=== PATIENT | male | born 1965 | race Caucasian/White ===

== ENCOUNTER 2023-10-21 06:14 | Inpatient (IN) | payer OTHER, SELFPAY ==
[2023-10-14 11:07] LABS: Hematocrit 26.8 % (39.0-52.0); Hemoglobin 8.6 g/dL (13.0-18.0); Mean Corp Hgb Conc. 32.1 g/dL (33.0-37.0); Mean Corpuscular Hgb 28.6 pg (27.0-31.0); Mean Platelet Volume 9.4 fL (7.4-10.4); Platelet Count 370 10^3/uL (130-400); Red Blood Cell Count 3.01 10^6/uL (4.70-6.10); Red Cell Dist. Width 16.2 % (11.5-14.5); White Blood Cell Count 3.4 10^3/uL (4.8-10.8)
[2023-10-14 11:36] LABS: INR 1.02; PT 13.2 Sec (11.4-14.6)
[2023-10-14 11:37] LABS: APTT 29.2 Sec (23.4-35.0)
[2023-10-14 11:47] LABS: ALT (SGPT) 20 U/L (0-50); AST (SGOT) 23 U/L (17-59); Albumin 3.9 g/dl (3.5-5.0); Alkaline Phosphatase 87 U/L (38-126); Blood Urea Nitrogen 15 mg/dl (9-20); Carbon Dioxide 23 mmol/L (22-30); Chloride 109 mmol/L (98-107); Glucose 108 mg/dl (70-99); Potassium 4.5 mmol/L (3.5-5.1); Sodium 139 mmol/L (135-145); Total Bilirubin 0.4 mg/dl (0.2-1.3); eGFR > 60.00
[2023-10-14 12:21] VITALS: BMI 26.3
--- NOTE | 2023-10-17 09:37 | PTCARENOTE ---
Patients 10/14 [facility] 8.6- Silvia @ Dr. Bill office notified.
--- NOTE | 2023-10-18 13:36 | PTCARENOTE ---
Dr. Vizcaino notified of patients 8.6 hgb- T&S to be done day of surgery
[2023-10-21] VITALS (16 sets, daily range): BP systolic 132–156; BP diastolic 68–89; BMI 26.3; BMI 25.6
[2023-10-21] MEDS: HEPARIN 5000 UNITS SC ×2 (06:44→20:29)
[2023-10-21] MEDS: NORMOSOL-R 1000 IV (06:45)
[2023-10-21] MEDS: NEURONTIN 300 MG PO (06:58)
[2023-10-21 10:25] LABS: B.E. - POC -2.9 mmol/L; Glucose - POC 140 mg/dl (65-99); HCO3 - POC 21 mmol/L (21-29); Hematocrit - POC 27 % PCV (42-52); Hemodilution- POC No; Hemoglobin Calculated - POC 9.2; Ionized Calcium - POC 1.08 mmol/L (1.12-1.27); Lactate - POC 0.51 mmol/L (0.36-0.75); O2 Saturation %Calculated-POC 99.9 5 (92-96); PCO2 - POC 33 mmHg (35-45); PO2 - POC 258 mmHg (80-100); Potassium - POC 4.6 mmol/L (3.6-5.0); Sodium - POC 137 mmol/L (135-145); pH - POC 7.41 (7.35-7.45)
--- NOTE | 2023-10-21 11:44 | W.IMMPOSTOP ---
Surgical Immed Post Op Note
-
Primary Surgeon: Yordan Riley MD
Assisting Surgeon: Rowan Olivia
Pre-op Diagnosis: hepatic metastases from the rectal cancer
Post-op Diagnosis: hepatic metastases from the rectal cancer
Procedure Performed: sublobar resections of four tumors in the segment VIII and two tumors in the segment IV
Anesthesia Type: General
Specimen / Cultures: Segment VIII anterior, #2, #3, & #4 tumors, and Segment IV anterior and posterior tumors
Estimated Blood Loss: 175cc
Complications: none
Operative Findings: multiple liver mets
--- NOTE | 2023-10-21 12:19 | HPS.HSE ---
Addendum entered and electronically signed by David Baca MD 10/21/23 13:48:
I saw and examined the patient.
The DIRECTOR GRAPHICS or PA's note was reviewed and I agree with the note.
Comment: 57-year-old male with history of rectal cancer with metastases to the liver came to the hospital for liver lesion removal. Surgery was done by Dr. Yordan Riley. per Surgeon patient lost about 170cc blood. post OP denies any nausea. Does have
some pain. Denies history of hypertension. Hypertensive in PACU. Will add hydralazine as needed. Dr Yordan riley wanted patient to be monitored in ICU overnight. Transfuse hemoglobin less than 7. Mild LFT elevation. Monitor
General:�Comfortable and Conversant
HEENT:�NormoCephalic, Anicteric
Respiratory:�Clear; No Wheezes, Rales or Rhonchi
Cardiac:�S1/S2 and Regular Rhythm
GI:�Soft, Normal Bowel Sounds and Other (Aquacel dressing present over right upper/right middle lobe abdomen over surgical incision)
Musculoskeletal:�No Edema
Neuro:�AAOx3
Psych:�Calm
Original Note:
Family Physician
-
Family Physician: Rayo Rose
Chief Complaint
-
Status post liver lesions resection
History of Present Illness
57-year-old male January of last year was noted to be anemic and noted to have a rectal mass on colonoscopy which was biopsied. He was also complaining of abdominal pain and liver lesions was found on abdominal ultrasound but was difficult to biopsy
by IR. Patient reports mild pain postop 2 out of 10 he denies headache, shortness breath, chest pain, nausea, vomiting, diarrhea, urinary symptoms. He reports to me he has been taking Motrin 3 tablets every 4-6 hours over the past 2 months due to
constant rectal pain from rectal carcinoma.
PMH iron deficiency anemia, B12 deficiency adenocarcinoma rectal status post chemo Folfax last dose 6 weeks ago follows with Dr. Mascorro
Medical History
Past Medical History
Past Medical History: Reports Other (Rectal adenocarcinoma status postchemotherapy last dose 6 weeks ago, liver lesions)
Past Surgical History: Reports Other (Colonoscopy 02/08/2023)
Social History
Tobacco: Non-smoker
Alcohol: None
Drug: None
Personal:
Living: With Family (3 children)
Family History
Family History: Other (Mother breast cancer, father old age)
Allergies / Home Medications
Allergies reflects when Allergies were last updated in [facility].
Home Medications with original date entered in [facility]
Allergy/Medication List:
Allergies
Allergy/AdvReac Type Severity Reaction Status Date / Time
No Known Allergies Allergy Verified 10/21/23 06:29
Home Medications
Doculax 2 tab PO DAILY 10/17/23
Tylenol 1,000 mg PO Q6H PRN pain 10/17/23
ibuprofen 200 mg capsule 600 mg PO Q6H PRN pain 10/17/23
sildenafil 50 mg tablet (Viagra) 50 mg PO DAILY PRN sex 10/17/23
sennosides 8.6 mg-docusate sodium 50 mg capsule (Senna Plus) 2 tab PO DAILY PRN constipation 10/21/23
Review of Systems
-
History Source: Patient and Other (Chart)
A 12 point ROS was completed and negative except as noted: Yes
Constitutional: Denies Fever or Chills
EENT: Denies Sore Throat or Runny Nose
Respiratory: Denies Cough or Trouble Breathing
Cardiac: Denies Chest Pain or Palpitations
Abdomen/GI: Reports Abdominal Pain (At surgical site) and Other (Chronic rectal pain secondary to rectal mass); Denies Nausea, Vomiting, Diarrhea, Constipated, Bloody Stools or Black Stools
: Denies Dysuria, Frequency, Flank Pain or Incontinence
Musculoskeletal: Denies Joint Pain or Edema
Skin: Denies Itching or Rash
Neurological: Denies Dizzy or Headache
Endocrine: Reports No Symptoms
Hematologic/Lymphatic: Reports No Symptoms
Psych: Reports Calm
Physical Exam
Vital Signs
Vital Signs
Temp Pulse Resp BP Pulse Ox
97.9 F 98 13 143/81 100
10/21/23 11:55 10/21/23 12:00 10/21/23 12:00 10/21/23 12:00 10/21/23 12:00
Physical Exam
General: Comfortable and Conversant; No Fever or Chills
HEENT: NormoCephalic, Anicteric, Moist mucous membranes and PERRLA
Respiratory: Clear; No Wheezes, Rales or Rhonchi
Cardiac: S1/S2 and Regular Rhythm; No Murmur, Rub, Gallop or Peripheral Edema
Breast: Deferred by me
GI: Soft, Normal Bowel Sounds and Other (Aquacel dressing present over right upper/right middle lobe abdomen over surgical incision)
Genito-urinary: Deferred by me
Musculoskeletal: No Clubbing, No Cyanosis and No Edema
Skin: Warm and Dry; No Rash
Neuro: Oriented (Drowsy but oriented x 3), No Motor Deficits, Nonfocal/grossly intact and Cranial Nerves Intact; No Slurred Speech, Facial Droop or Tremors
Psych: Calm
Laboratory Results
-
Laboratory Results
PT 13.2 Sec (11.4-14.6) 10/14/23 09:05
INR 1.02 10/14/23 09:05
APTT 29.2 Sec (23.4-35.0) 10/14/23 09:05
Total Bilirubin 0.4 mg/dl (0.2-1.3) 10/14/23 09:05
AST 23 U/L (17-59) 10/14/23 09:05
ALT 20 U/L (0-50) 10/14/23 09:05
Alkaline Phosphatase 87 U/L (38-126) 10/14/23 09:05
Data Reviewed
-
Lab Data: Labs Reviewed by me
Impression/Plan
-
Impression/plan:
Admit to ICU
#Status post multiple liver lesions with resection presumed from rectal carcinoma
-S/P sublobar resections of four tumors in the segment VIII and two tumors in the segment IV
-Patient being followed by Dr. Riley
-Lesions pending biopsy
-IV pain control with Dilaudid
-N.p.o.
-IV NSS
-IV hydralazine 10 mg every 6 hours SBP> 160
-Follow CBC, CMP
#Adenocarcinoma�rectal
Status post chemo Folfax started September 2023, last dose [address] Dubose
#Iron deficiency anemia
-Follow CBC patient stopped oral Feosol
#B12 deficiency
Follow CBC patient stopped oral B12
DVT prophylaxis
Subcu heparin okay with surgery
Full code
�
[2023-10-21] MEDS: DILAUDID 0.25 MG IV (12:21)
[2023-10-21 12:34] LABS: ALT (SGPT) 171 U/L (0-50); AST (SGOT) 292 U/L (17-59); Albumin 3.5 g/dl (3.5-5.0); Alkaline Phosphatase 82 U/L (38-126); Blood Urea Nitrogen 10 mg/dl (9-20); Calcium 7.8 mg/dl (8.4-10.2); Carbon Dioxide 24 mmol/L (22-30); Chloride 107 mmol/L (98-107); Estimated Creatinine Clearance 92 ml/min; Glucose 144 mg/dl (70-99); Potassium 4.9 mmol/L (3.5-5.1); Sodium 136 mmol/L (135-145); Total Bilirubin 0.5 mg/dl (0.2-1.3); Total Protein 6.4 g/dl (6.3-8.2); eGFR > 60.00
[2023-10-21 12:38] LABS: Hematocrit 24.6 % (39.0-52.0); Hemoglobin 7.9 g/dL (13.0-18.0); Mean Corp Hgb Conc. 32.1 g/dL (33.0-37.0); Mean Corpuscular Hgb 27.4 pg (27.0-31.0); Mean Corpuscular Volume 85.4 fL (80.0-94.0); Mean Platelet Volume 9.1 fL (7.4-10.4); Platelet Count 353 10^3/uL (130-400); Red Blood Cell Count 2.88 10^6/uL (4.70-6.10); Red Cell Dist. Width 17.6 % (11.5-14.5); White Blood Cell Count 6.4 10^3/uL (4.8-10.8)
[2023-10-21 12:46] LABS: APTT 30.7 Sec (23.4-35.0); INR 1.17; PT 14.7 Sec (11.4-14.6)
[2023-10-21] MEDS: DILAUDID 0.5 MG IV ×3 (13:56→23:19)
[2023-10-21] MEDS: NSS 1000 IV (14:00)
[2023-10-21 14:19] LABS: Iron 65 ug/dl (49-181); Magnesium 3.1 mg/dl (1.6-2.3)
[2023-10-21 14:28] LABS: Percent Saturation 15 % (20-50); Total Iron Binding Capacity 426 ug/dl (261-462)
--- NOTE | 2023-10-21 15:15 | CON.INTV ---
Consultation
Consultation Request
Date/Time Consultation Requested: 10/21/2023
Date/Time Consultation Performed: 10/21/2023 - 1425
Requesting Provider: Dr. Riley
Performing Provider: Dr. Lincoln
Reason for Consultation: s/p liver resection
Medical History
-
Chief Complaint: Elective hepatic resection
History of Present Illness:
57-year-old male with a past medical history of rectal adenocarcinoma s/p chemotherapy presents with elective liver resection. Patient initially had anemia in January 2023 and was diagnosed with rectal adenocarcinoma. Metastatic workup revealed at
least 4 hepatic lesions suspicious for liver metastasis. He then received modified FOLFOX neoadjuvant treatment which he has been tolerating well. Patient had CT chest, abdomen, pelvis in May 2023 showing several small ill-defined
hypoattenuating hepatic dome lesions reduced from prior imaging from February 2023. He again had repeat imaging with an abdominal MRI in August 2023 showing slight interval improvement in hepatic metastatic lesions. A pelvic MRI on 09/09/2023
showed that the primary tumor and extramural disease showed no or minimal response. Patient met with Dr. Glez in the office on 10/07/2023 and surgical intervention/management of his colorectal liver metastasis was discussed. Patient agreed for
liver resection given the overwhelming evidence that resection of liver metastasis provides an effective therapeutic approach that can cure a substantial portion of patients. Today, patient underwent sublobar resection of 4 tumors in the segment
VIII and two tumors in the segment IV. EBL was 175 cc and there were no complications. Patient transferred to ICU postoperatively and now critical care service consulted for additional management/recommendations.
When I saw the patient he was in bed. Significant other at bedside. He feels well. Had just received Dilaudid for pain control. He has no complaints, denies headache, chest pain, shortness of breath, fevers or chills.
PMHx: Rectal cancer with metastasis to the liver
PSHx: Colonoscopy
Past Medical History
Past Medical History: Other (Above as per HPI)
Past Surgical History: Other (Above as per HPI)
Social History
Tobacco: Non-smoker
Alcohol: None
Drug: None
Personal:
Living: With Family
Family History
Family History: Cancer (Mother: Breast cancer)
Allergies / Home Medications
Allergies
Allergy/AdvReac Type Severity Reaction Status Date / Time
No Known Allergies Allergy Verified 10/21/23 06:29
Home Medications
Medication Instructions Recorded Confirmed Last Taken Type
Doculax 2 tab PO DAILY 10/17/23 10/21/23 10/20/23 08:00 History
Tylenol 1,000 mg PO Q6H PRN pain 10/17/23 10/21/23 10/21/23 05:00 History
ibuprofen 200 mg capsule 600 mg PO Q6H PRN pain 10/17/23 10/21/23 1 Week Ago History
~10/14/23
sildenafil 50 mg tablet (Viagra) 50 mg PO DAILY PRN sex 10/17/23 10/21/23 2 Weeks Ago History
~10/07/23
sennosides 8.6 mg-docusate sodium 2 tab PO DAILY PRN constipation 10/21/23 10/21/23 10/20/23 08:00 History
50 mg capsule (Senna Plus)
Review of Systems
-
History Source: Patient
All other systems: Negative unless noted (12 point ROS performed and is negative unless mentioned above.)
Vitals / Labs / Diagnostic Testing
Vital Signs
Temp Pulse Resp BP Pulse Ox
98.1 F 98 16 149/84 97
10/21/23 13:35 10/21/23 13:30 10/21/23 13:30 10/21/23 13:30 10/21/23 13:35
Lab Data
10/21/23 12:09
Laboratory Results
10/21/23
12:09
PT 14.7 H
INR 1.17
APTT 30.7
Diagnostic Testing:
Physical Exam
-
HEENT: Normocephalic and Anicteric
Cardiovascular: S1/S2 and Peripheral Edema (negative)
Respiratory: Clear, Wheeze (negative), Rales (negative), Rhonchi (negative) and Non-Labored Respirations
GI: Soft, Non Distended and Non Tender
Neurology: Awake and Alert
Skin: Warm, Dry and Other (Bandage across RUQ going towards sternum)
General: Comfortable, Chills (negative) and Sweats (negative)
Assessment
-
Assessment: 57-year-old male with a past medical history of rectal adenocarcinoma s/p chemotherapy presents with elective liver resection. Patient initially had anemia in January 2023 and was diagnosed with rectal adenocarcinoma. Metastatic workup
revealed at least 4 hepatic lesions suspicious for liver metastasis. He then received modified FOLFOX neoadjuvant treatment which he has been tolerating well. Patient had CT chest, abdomen, pelvis in May 2023 showing several small ill-defined
hypoattenuating hepatic dome lesions reduced from prior imaging from February 2023. He again had repeat imaging with an abdominal MRI in August 2023 showing slight interval improvement in hepatic metastatic lesions. A pelvic MRI on 09/09/2023
showed that the primary tumor and extramural disease showed no or minimal response. Patient met with Dr. Glez in the office on 10/07/2023 and surgical intervention/management of his colorectal liver metastasis was discussed. Patient agreed for
liver resection given the overwhelming evidence that resection of liver metastasis provides an effective therapeutic approach that can cure a substantial portion of patients. Today, patient underwent sublobar resection of 4 tumors in the segment
VIII and two tumors in the segment IV. EBL was 175 cc and there were no complications. Patient transferred to ICU postoperatively and now critical care service consulted for additional management/recommendations.
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
Impression:
#Rectal adenocarcinoma c/b liver metastasis s/p sublobar resection of 4 tumors in segment VIII and two tumors in segment IV (POD #0)
#Anemia
#Transaminitis - likely due to liver mets
#Iron deficiency anemia
Plan:
- Post-operative management as per surgical oncology
- Pain control
- Transfuse if needed to keep Hb>7 g/dL, plt>50k
- Start iron supplementation
- Maintain MAP>65
- Maintain SpO2 >90-94%
- Replete K>3.5, Mg>1.8
- DVT ppx
Critical care statement: A total of 40 minutes of critical care time was provided for this patient today. This includes management of unstable vital signs, evaluation of the patient at bedside, reviewing the patient's pertinent medical records
including radiographs, microbiology, laboratory evaluations, and discussion with primary team, consultants, pharmacy, nutrition, physical therapy, case management, charge nurse, critical care nursing, and respiratory therapy.
Data:
CXR 10-21-2023:
No radiographic evidence of acute cardiopulmonary abnormality.
Pneumoperitoneum, expected finding given recent surgery.
Left chest wall port with narrowed appearance of the catheter lumen as it crosses underneath the left clavicle.
[2023-10-21 15:30] LABS: Ferritin 6.5 ng/ml (17.9-464.0)
--- NOTE | 2023-10-21 15:32 | PTCARENOTE ---
patient received from PACU. c/o pain incisional site, medicated with dialudid per prn order. right lateral dressing dry and intact. left radial arterial line in place with good waveform. harden draining clear yellow urine. VAT RN accessed left SQ
port. ivf infusing. call worthy in reach. family at bed side
[2023-10-21 16:01] LABS: Folate > 20.0 ng/ml (2.76-20); Vitamin B12 613 pg/ml (239-931)
[2023-10-21] MEDS: APRESOLINE 5 MG IV (16:21)
--- NOTE | 2023-10-21 16:45 | PTCARENOTE ---
medicated with hydralazine per prn order. lungs diminished. sleeping unless disturbed
[2023-10-21] MEDS: FERRLECIT 110 MG IV (20:28)
[2023-10-22] VITALS (9 sets, daily range): BP systolic 91–139; BP diastolic 68–80; PULSE 112–134; BMI 25.3
[2023-10-22] MEDS: DILAUDID 0.5 MG IV ×6 (03:54→23:35)
[2023-10-22 04:30] LABS: % Basophils 0.1 % (0-2); % Immature Granulocytes 0.3 % (0-0.5); % Lymphocytes 19.9 % (20.5-51.1); % Monocytes 12.6 % (1.7-9.3); % Neutrophils 67.1 % (42.2-75.2); Absolute Lymphocytes 1.8 10^3/uL (1.2-3.4); Absolute Monocytes 1.1 10^3/uL (0.1-0.6); Hematocrit 23.3 % (39.0-52.0); Hemoglobin 7.6 g/dL (13.0-18.0); Mean Corp Hgb Conc. 32.6 g/dL (33.0-37.0); Mean Corpuscular Hgb 27.3 pg (27.0-31.0); Mean Corpuscular Volume 83.8 fL (80.0-94.0); Mean Platelet Volume 9.4 fL (7.4-10.4); Nucleated Red Blood Cells % 0 % (-); Platelet Count 354 10^3/uL (130-400); Red Blood Cell Count 2.78 10^6/uL (4.70-6.10); Red Cell Dist. Width 17.8 % (11.5-14.5); White Blood Cell Count 8.9 10^3/uL (4.8-10.8)
[2023-10-22 04:45] LABS: ALT (SGPT) 239 U/L (0-50); AST (SGOT) 266 U/L (17-59); Albumin 3.2 g/dl (3.5-5.0); Alkaline Phosphatase 73 U/L (38-126); Blood Urea Nitrogen 12 mg/dl (9-20); Calcium 8.2 mg/dl (8.4-10.2); Carbon Dioxide 26 mmol/L (22-30); Chloride 103 mmol/L (98-107); Estimated Creatinine Clearance 92 ml/min; Glucose 105 mg/dl (70-99); Potassium 4.3 mmol/L (3.5-5.1); Sodium 136 mmol/L (135-145); Total Bilirubin 0.5 mg/dl (0.2-1.3); Total Protein 6.3 g/dl (6.3-8.2); eGFR > 60.00
--- NOTE | 2023-10-22 05:00 | PTCARENOTE ---
Late entry. Pt received at 19:00, family present at bedside. Pt AOx3, pleasant. Pulses palpable, SR 90s-110. L radial A-line zeroed and transduced, correlating with cuff pressures. Breath sounds clear/diminished. Received on RA, placed on 2L NC
overnight while asleep. Abdomen soft/tender, hypoactive bowel sounds. Gonsales in place, draining yellow urine. Aquacell to R side/flank, shadowing unchanged. Safe environment maintained, call worthy within reach, plan of care ongoing.
[2023-10-22] MEDS: NSS 1000 IV (06:34)
--- NOTE | 2023-10-22 08:06 | W.PN.INTV ---
Today's Communication / Plan
Recommendations
Pain control
Encourage incentive spirometer
Patient stable for TRX out of ICU to med-surg. Senior Treasury Analyst/pulmonary service will now sign off.� Please reconsult if there are any additional questions/concerns, or if respiratory status deteriorates.
Assessment
-
Assessment: 57-year-old male with a past medical history of rectal adenocarcinoma s/p chemotherapy presents with elective liver resection. Patient initially had anemia in January 2023 and was diagnosed with rectal adenocarcinoma. Metastatic workup
revealed at least 4 hepatic lesions suspicious for liver metastasis. He then received modified FOLFOX neoadjuvant treatment which he has been tolerating well. Patient had CT chest, abdomen, pelvis in May 2023 showing several small ill-defined
hypoattenuating hepatic dome lesions reduced from prior imaging from February 2023. He again had repeat imaging with an abdominal MRI in August 2023 showing slight interval improvement in hepatic metastatic lesions. A pelvic MRI on 09/09/2023
showed that the primary tumor and extramural disease showed no or minimal response. Patient met with Dr. Glez in the office on 10/07/2023 and surgical intervention/management of his colorectal liver metastasis was discussed. Patient agreed for
liver resection given the overwhelming evidence that resection of liver metastasis provides an effective therapeutic approach that can cure a substantial portion of patients. On 10/20, patient underwent sublobar resection of 4 tumors in the segment
VIII and two tumors in the segment IV. EBL was 175 cc and there were no complications. Patient transferred to ICU postoperatively and critical care service consulted for additional management/recommendations.
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
Impression:
#Rectal adenocarcinoma c/b liver metastasis s/p sublobar resection of 4 tumors in segment VIII and two tumors in segment IV (POD #1)
#Anemia
#Transaminitis - likely due to liver mets
#Iron deficiency anemia
Plan:
- Post-operative management as per surgical oncology
- Pain control
- Transfuse if needed to keep Hb>7 g/dL, plt>50k
- Continue iron supplementation
- Maintain MAP>65
- Maintain SpO2 >90-94%
- Replete K>3.5, Mg>1.8
- DVT ppx
Dispo: Patient stable for TRX out of ICU to med-surg. Senior Treasury Analyst/pulmonary service will now sign off.� Thank you for allowing us to be involved in the care of this patient.� Please reconsult if there are any additional questions/concerns, or if
respiratory status deteriorates.
Data:
CXR 10-21-2023:
No radiographic evidence of acute cardiopulmonary abnormality.
Pneumoperitoneum, expected finding given recent surgery.
Left chest wall port with narrowed appearance of the catheter lumen as it crosses underneath the left clavicle.
Subjective Dataa
Subjective Data
Date of Service:
Date of Service: October 22, 2023
Chief Complaint: Senior Treasury Analyst Follow Up
Subjective:
Patient seen and evaluated today at bedside. No acute events reported overnight. He is sitting in chair with significant other at bedside. He denies abdominal pain, chest pain, shortness of breath, fevers or chills.
Review of Systems
General: Other (Negative unless mentioned above)
Objective Data
Data Reviewed
Vital Signs / I&O / Oxygen:
Vital Signs
Temp Pulse Resp BP Pulse Ox
99.4 F 100 20 134/79 98
10/22/23 07:36 10/22/23 09:54 10/22/23 09:54 10/22/23 09:54 10/22/23 09:56
Intake and Output
10/21/23 10/22/23 10/23/23
06:59 06:59 06:59
Intake Total 1230 / 1290 240 / 240
Output Total 3020 / 3120 375 / 375
Balance -1790 / -1830 -135 / -135
SaO2 98
Nasal Cannula flow liters per 2
minute
Physical Exam
General: Comfortable
HEENT: Normocephalic and Anicteric
Cardiovascular: S1-S2 and Peripheral Edema (negative)
Respiratory: Clear, Wheeze (negative), Crackles (negative) and Rhonchi (negative)
GI: Soft, Non Distended, Non Tender and Normal Bowel Sounds
Neurology: AO x 3
Skin: Warm, Dry and Other (bandage across RUQ towards sternum)
Labs/Micro/Reports
Lab Data
10/22/23 03:59
10/22/23 03:59
Laboratory Results
10/21/23
12:09
PT 14.7 H
INR 1.17
APTT 30.7
[2023-10-22] MEDS: HEPARIN 5000 UNITS SC ×2 (08:19→20:34)
--- NOTE | 2023-10-22 09:59 | PTCARENOTE ---
Updated assessment, vital signs ongoing and as documented. Follow up with automobile mechanic helper team. Await surgery and Hospitalist update. Pain medications and follow up via [facility]. Continue with teaching, initiate incentive spirometer teaching. Await follow
up PT/OT and mobility follow up plan of cares. Call worthy in reach and in use as needed.
--- NOTE | 2023-10-22 10:42 | W.PN.GENERIC ---
Assessment / Plan
-
S/p partial liver resection POD #1
Stable.
Dec Hg - mostly chronic with some intraoperative blood loss. Will observe
OOB and ambulate
Start diet
Add neurontin and Toradol
Stop tylenol for possible liver effect
Await path
Transfer pt to the surgical floor
Physician Progress Note
Subjective
No complaints. Min incisional pain
Objective
Vital Signs
Temp Pulse Resp BP Pulse Ox
99.4 F 100 20 134/79 98
10/22/23 07:36 10/22/23 09:54 10/22/23 09:54 10/22/23 09:54 10/22/23 09:56
Lab Results
10/22/23 03:59
10/22/23 03:59
Abd - soft, ND, NT, incision - CDI
--- NOTE | 2023-10-22 11:29 | PTCARENOTE ---
Update bedside with Dr Baca, Dr Riley. Start to deline patient at this assessment. Follow up pain medications and relief needs thru shift. Regular diet ordered. Tolerates sips po to start will update lunch. Medical surgical status updated. Continue
to follow and update assessment trends. Patient significant other at bedside. Update and teaching continues.
[2023-10-22] MEDS: TORADOL 15 MG IV ×3 (11:40→23:35)
--- NOTE | 2023-10-22 12:26 | W.PN.HOSP.TC ---
Addendum entered and electronically signed by David Baca MD 10/22/23 12:37:
Spoke with Dr Riley. Patient is now on his service. Will sign off. Please let medicine know if any questions.
Original Note:
Today's Communication/Plan
-
Monitor vital signs see plan
diet started by surgery
Iv iron
hydralazine prn
transfer out of icu
Assessment / Plan
Assessment / Plan
General:�Comfortable and Conversant
HEENT:�NormoCephalic, Anicteric
Respiratory:�Clear; No Wheezes, Rales or Rhonchi
Cardiac:�S1/S2 and Regular Rhythm
GI:�Soft, Normal Bowel Sounds and Other (Aquacel dressing present over right upper/right middle lobe abdomen over surgical incision)
Musculoskeletal:�No Edema
Neuro:�AAOx3
Psych:�Calm
Status post multiple liver lesions with resection presumed from rectal carcinoma
-S/P sublobar resections of four tumors in the segment VIII and two tumors in the segment IV
-Patient being followed by Dr. Riley
-Lesions pending biopsy
-IV pain control with Dilaudid
diet per Dr Riley
-IV NSS
-IV hydralazine 10 mg every 6 hours SBP> 160
Acute on chronic anemia, iron deficient
Some acute blood loss anemia from surgery
Continue with IV iron
Monitor
#Adenocarcinoma�rectal
Status post chemo Folfax started September 2023, last dose [address] Dubose
Elevated LFTs
Monitor
#B12 deficiency
Follow CBC patient stopped oral B12
DVT prophylaxis
Heparin
Full code
Anticipated Discharge: Within 24 hours
Subjective/Interval History
-
Date of Service: October 22, 2023
denies nausea
Objective Data
-
Labs:
Laboratory Results
10/22/23
03:59
WBC 8.9
Hgb 7.6 L
Hct 23.3 L
Plt Count 354
Sodium 136
Potassium 4.3
Chloride 103
Carbon Dioxide 26
BUN 12
Creatinine 0.8
Glucose 105 H
Calcium 8.2 L
Total Bilirubin 0.5
AST 266 H
ALT 239 H
Alkaline Phosphatase 73
Vital Signs:
Vital Signs
Temp Pulse Resp BP Pulse Ox
98.5 F 112 19 138/80 96
10/22/23 11:45 10/22/23 11:25 10/22/23 11:25 10/22/23 11:25 10/22/23 11:00
I&O
10/21/23 10/22/23 10/23/23
06:59 06:59 06:59
Intake Total 1230 / 1290 540 / 540
Output Total 3020 / 3120 500 / 500
Balance -1790 / -1830 40 / 40
--- NOTE | 2023-10-22 13:19 | PTCARENOTE ---
Patient delined, Ambulate room with PT/OT. Updated medical/surgical orders. Continue with teaching, ambulation and reinforce incentive spirometer. Continue hourly rounds, frequent patient safety checks and call worthy in use as needed.
[2023-10-22] MEDS: NEURONTIN 200 MG PO ×2 (15:15→20:33)
[2023-10-22] MEDS: FERRLECIT 110 MG IV (15:23)
--- NOTE | 2023-10-22 23:58 | W.PN.UPDATE ---
Update Note
Progress Note Update
At [place] RN notified MISSILE TRACKING TECHNICIAN, patient with fever of 103, SBP's in 90's, and tachycardia with exertion; patient S/p partial liver resection POD #1 per nursing, patient with no cough, voiding without difficulties, and surgical site looks wnl. Will order UA,
CBC with no diff, Blood cultures, lactic acid and procalcitonin to rule out infection, sepsis.
At 0020, HR noted to be high in 150's, EKG noted uncontrolled Afib, 150's -170's. Denies chest pain, chest pressure, reports mild SOB with exertion which is not new per patient, no hx of Afib, not on any Cardiac medications
gave him Metoprolol 5mg IV now,
HR continuos to sustain in 150's-160's irregular, Cardizem 5mg IV push given.
HR continuos to stay above 150, Will start Cardizem drip at 10mg/hr/
VS: 99.2, 145-170, 110/72
labs wnl, procal 0.35.
Cardizem increased to 15ml/hr, Per nursing HR trending down to 107-130's
will add TSH, T4 to the morning labs.
Riffler Tender made aware, and consult in place for the [facility] group
Advised to continue the Cardizem drip.
Dr. Farr, made aware via TT.
Patient is on Telemetry
labs due in AM
[2023-10-23] VITALS (31 sets, daily range): BP systolic 90–133; BP diastolic 56–91; BMI 25.3
--- NOTE | 2023-10-23 00:03 | PTCARENOTE ---
Patient with fever of 103, tachycardic and low BP upon vital sign check. Notified AGRICULTURAL PRODUCE WASHER covering. Patient feels fine at this point. Toradol given as ordered-see OCT. Hose Tester to order set of labs. Patient updated and made aware of plans.
--- NOTE | 2023-10-23 00:43 | PTCARENOTE ---
Pt called to say he was diaphoretic. rechecked temp 101.8, HR elevated. placed on tele-HR 165-185. EKG obtained-Afib RVR. OWNER OPERATOR bedside to evaluate patient
[2023-10-23] MEDS: LOPRESSOR 5 MG IV (00:51)
[2023-10-23 00:53] LABS: Lactic Acid 0.9 mmol/L (0.7-2.0)
[2023-10-23 01:08] LABS: Procalcitonin 0.35 ng/ml (0.0-0.25)
[2023-10-23 01:14] LABS: Magnesium 2.4 mg/dl (1.6-2.3)
[2023-10-23 01:16] LABS: ALT (SGPT) 209 U/L (0-50); AST (SGOT) 161 U/L (17-59); Albumin 3.3 g/dl (3.5-5.0); Alkaline Phosphatase 80 U/L (38-126); Blood Urea Nitrogen 15 mg/dl (9-20); Carbon Dioxide 26 mmol/L (22-30); Chloride 101 mmol/L (98-107); Estimated Creatinine Clearance 92 ml/min; Glucose 141 mg/dl (70-99); Potassium 4.2 mmol/L (3.5-5.1); Sodium 134 mmol/L (135-145); Total Bilirubin 0.3 mg/dl (0.2-1.3); Total Protein 5.9 g/dl (6.3-8.2); eGFR > 60.00
[2023-10-23 01:17] LABS: Hematocrit 24.6 % (39.0-52.0); Hemoglobin 7.9 g/dL (13.0-18.0); Mean Corp Hgb Conc. 32.1 g/dL (33.0-37.0); Mean Corpuscular Hgb 27.1 pg (27.0-31.0); Mean Corpuscular Volume 84.5 fL (80.0-94.0); Mean Platelet Volume 9.5 fL (7.4-10.4); Platelet Count 308 10^3/uL (130-400); Red Blood Cell Count 2.91 10^6/uL (4.70-6.10)
[2023-10-23] MEDS: CARDIZEM 5 MG IV (01:57)
[2023-10-23] MEDS: CARDIZEM 125 IV ×2 (02:57→10:43)
[2023-10-23] MEDS: DILAUDID 0.5 MG IV ×4 (04:48→21:11)
[2023-10-23 05:31] LABS: % Basophils 0.3 % (0-2); % Eosinophils 0.1 % (0-6); % Immature Granulocytes 0.4 % (0-0.5); % Lymphocytes 21.3 % (20.5-51.1); % Monocytes 11.1 % (1.7-9.3); % Neutrophils 66.8 % (42.2-75.2); Absolute Lymphocytes 1.6 10^3/uL (1.2-3.4); Absolute Monocytes 0.8 10^3/uL (0.1-0.6); Absolute Neutrophils 4.9 10^3/uL (1.4-6.5); Hematocrit 23.1 % (39.0-52.0); Hemoglobin 7.4 g/dL (13.0-18.0); Mean Corpuscular Hgb 27.1 pg (27.0-31.0); Mean Corpuscular Volume 84.6 fL (80.0-94.0); Mean Platelet Volume 9.6 fL (7.4-10.4); Nucleated Red Blood Cells % 0 % (-); Platelet Count 311 10^3/uL (130-400); Red Blood Cell Count 2.73 10^6/uL (4.70-6.10); Red Cell Dist. Width 17.9 % (11.5-14.5); White Blood Cell Count 7.3 10^3/uL (4.8-10.8)
[2023-10-23 05:55] LABS: ALT (SGPT) 217 U/L (0-50); AST (SGOT) 147 U/L (17-59); Albumin 3.2 g/dl (3.5-5.0); Alkaline Phosphatase 89 U/L (38-126); Blood Urea Nitrogen 13 mg/dl (9-20); Calcium 7.9 mg/dl (8.4-10.2); Carbon Dioxide 26 mmol/L (22-30); Chloride 104 mmol/L (98-107); Estimated Creatinine Clearance 92 ml/min; Glucose 117 mg/dl (70-99); Potassium 4.4 mmol/L (3.5-5.1); Sodium 133 mmol/L (135-145); Total Bilirubin 0.4 mg/dl (0.2-1.3); Total Protein 5.9 g/dl (6.3-8.2); eGFR > 60.00
[2023-10-23] MEDS: TORADOL 15 MG IV ×3 (06:36→17:29)
[2023-10-23 06:42] LABS: TSH 0.52 uIU/ml (0.47-4.68)
--- NOTE | 2023-10-23 08:18 | CON.CAR ---
Consultation
Consultation Request
Date/Time Consultation Requested: October 23 [id number]
Date/Time Consultation Performed: October 23 [id number]
Requesting Provider: hospitalist
Performing Provider: corbin laws
Reason for Consultation: af rvr
Medical History
-
Chief Complaint: elective liver rsxn
History of Present Illness:
57-year-old male January of last year was noted to be anemic and noted to have a rectal mass on colonoscopy which was biopsied.� He was also complaining of abdominal pain and liver lesions was found on abdominal ultrasound but was difficult to biopsy
by IR.� Patient reports mild pain postop 2 out of 10 he denies headache, shortness breath, chest pain, nausea, vomiting, diarrhea, urinary symptoms.� He reports to me he has been taking Motrin 3 tablets every 4-6 hours over the past 2 months due to
constant rectal pain from rectal carcinoma.
He presented for elective liver resection on October 20. Unfortunately the night of October 21 he had gotten up to go to the bathroom felt some SOB and febrile and was found to be in AF RVR. Currently, he has very mild SOB and otherwise denies any other
symptoms of CHF or ischemia.
Past Medical History
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
Past Surgical History: Other (liver resection this hospitalization )
Social History
Tobacco: Non-Smoker
Alcohol: None
Drug: None
Personal:
Living: With Family
Family History
Family History: Reviewed & Not Pertinent
Allergies / Home Medications
Allergy/AdvReac Type Severity Reaction Status Date / Time
No Known Allergies Allergy Verified 10/21/23 06:29
Medication Instructions Recorded Confirmed Type
Doculax 2 tab PO DAILY 10/17/23 10/21/23 History
Tylenol 1,000 mg PO Q6H PRN pain 10/17/23 10/21/23 History
ibuprofen 200 mg capsule 600 mg PO Q6H PRN pain 10/17/23 10/21/23 History
sildenafil 50 mg tablet (Viagra) 50 mg PO DAILY PRN sex 10/17/23 10/21/23 History
sennosides 8.6 mg-docusate sodium 2 tab PO DAILY PRN constipation 10/21/23 10/21/23 History
50 mg capsule (Senna Plus)
Review of Systems
-
All other systems: Negative unless noted
Physical Exam
Vital Signs
Temp Pulse Resp BP Pulse Ox
99.0 F 133 14 93/64 91
10/23/23 07:15 10/23/23 07:15 10/23/23 07:15 10/23/23 07:15 10/23/23 07:15
Lab Results
10/23/23 04:51
10/23/23 04:51
Physical Exam
General: Well Developed and No Apparent Distress
HEENT: Normocephalic
Respiratory: Clear and Non Labored Respirations
Cardiac: Irregular Rhythm (tachycardic )
GI: Soft
Musculoskeletal: No Clubbing, No Cyanosis and No Edema
Neuro: AO x 3
Psych: Calm
Impression / Plan
-
57 yo male with hx of rectal adenoCA s/p folfox who presented for elective liver resection and went into AF RVR overnight October 22, 2023. He has no significant symptoms and his HR on dilt gtt at 15 are 120-150s.
AF RVR
- continue dilt gtt
- add metoprolol 25 mg bid
- spoke with surg onc OK for Eliquis 5mg bid and if HR unable to be controlled medically consider JOSH DCCV early this week
- CHADSVASC is 0 at this point given he is no HTN, DM, CHF, or PAD/CAD, male and age < 65
Data Reviewed
-
EKG: Tracing Personally Visualized and interpreted
Labs: Labs Reviewed by me
[2023-10-23] MEDS: NEURONTIN 200 MG PO ×3 (08:28→21:11)
[2023-10-23] MEDS: FEOSOL 325 MG PO (08:28)
[2023-10-23] MEDS: HEPARIN 5000 UNITS SC (08:28)
[2023-10-23] MEDS: LOPRESSOR 25 MG PO ×2 (08:28→19:32)
[2023-10-23] MEDS: ELIQUIS 5 MG PO ×2 (09:15→19:32)
[2023-10-23] MEDS: DULCOLAX 10 MG PO (09:15)
[2023-10-23 09:32] LABS: Troponin I 0.018 ng/ml
--- NOTE | 2023-10-23 13:20 | PTCARENOTE ---
converted to NSR at 1100, Cardiology notified, EKG obtained. order received to stop cardizem gtt. two units of prbcs infused per orders.
--- NOTE | 2023-10-23 16:26 | CM ---
Addendum entered by Cheryl Landin 10/23/23 16:27:
Discharge dispo home no needs. CM to follow and watch for needs.
Original Note:
CM met with pt at bedside.
Pt resides in a 2SH with 2 BLAIR with his children.
Prior to admission pt independent. Drives. 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
Confirmed PCP is Dr. Livingston and pharmacy is [facility].
Has transport home.
[2023-10-23 16:51] LABS: Troponin I 0.012 ng/ml
--- NOTE | 2023-10-23 20:52 | OR.RPT ---
Operative Report
Operative Report
Date of Operation: October 21, 2023
Preoperative Diagnosis: �Hepatic metastases from the rectal cancer - C229
Postoperative Diagnosis: Same
Surgeon: Yordan Riley M.D.
Operation: �Partial lobectomy of the hepatic segments VIII and IV - 36023
Anesthesia: General Anesthesia
Estimated Blood Loss: Minimal
Drains: None
Specimen: Segment VIII with 4 tumors and Segment IV with two tumor
Findings: Six segment VIII and IV tumors
Complications: None
Procedure:
The patient was taken to the operating room and placed in the usual supine position. After adequate general endotracheal anesthesia was established, the patient's abdomen was prepped and draped in the usual sterile fashion. At this time, a right
subcostal incision was made with a #10 blade, and this was taken through the skin into the subcutaneous tissue. The fascia was divided, and underlying muscles were also divided using electrocautery, and the abdomen was entered. Upon entering the
abdominal cavity, an exploration was performed. The liver was palpated. Four tumors in the segment VIII and two tumors in the segment IV were palpated and identified. There were no other liver tumors or any evidence of peritoneal disease. At this
time, an intraoperative ultrasound was performed, and no other tumors were identified. Next, the right liver lobe was mobilized medially by placing the packs behind the liver and above the liver to bring segment VIII down and towards the middle. At
this time, four tumors in the segment VIII and two tumors in the segment IV were resected by using an Aquamantys bipolar radiofrequency energy device by transecting the liver parenchyma and the vessels were carefully ligated using Harmonic Scalpel.
The big vessels were also ligated with #3-0 chromic suture. These tumors were sent to the pathology for permanent sections. Hemostasis was performed by aspirating the defect with Tisseel. The defect was sprayed with Tisseel fibrin glue for further
hemostasis. At this time, the abdominal incision was closed. The posterior fascia was approximated with 1 Vicryl in a running fashion. The muscles were reapproximated with a 1 Vicryl in a running fashion. The anterior fascia was also approximated
with 1 Vicryl in a running fashion. The subcutaneous tissue was reapproximated with #3-0 Vicryl in a running fashion. The skin was approximated with #4-0 Monocryl in a running subcuticular fashion. The Steri-Strips and sterile dressings were
applied. The patient was extubated without any problems. The patient was transferred to the recovery room. The final needle, sponge, and instrument counts were correct.
--- NOTE | 2023-10-23 20:56 | W.PN.GENERIC ---
Assessment / Plan
-
S/p liver met resection POD #2
in Afib
beta milton and Eliquis as per cardiology
may need cardioversion
Given the episode of afib and low Hg, will transfuse 2U PRBCs
Encourage ambulation and pulmonary toilet
If fever persists/recurs, will consider antibiotics
Await path.
Physician Progress Note
Subjective
Went into afib earlier this AM with fever and chilld. Currently, he has no complaints. He denied CP, SOB, or significant abdominal pain
Objective
Vital Signs
Temp Pulse Resp BP Pulse Ox
99.7 F 100 16 118/64 94
10/23/23 19:36 10/23/23 19:36 10/23/23 19:36 10/23/23 19:36 10/23/23 19:36
Lab Results
10/23/23 04:51
10/23/23 04:51
Abd - soft ND, NT. Incision - CDI
Heart - irregular rate
[2023-10-23] MEDS: FLUSH (NSS) 1 FLUSH IV (21:11)
[2023-10-24] MEDS: DILAUDID 0.5 MG IV ×5 (03:03→23:02)
[2023-10-24 03:33] VITALS: BP 136/71
[2023-10-24 06:00] VITALS: BMI 25.5
[2023-10-24 06:12] LABS: % Basophils 0.3 % (0-2); % Eosinophils 0.4 % (0-6); % Immature Granulocytes 0.4 % (0-0.5); % Monocytes 10.7 % (1.7-9.3); % Neutrophils 66.2 % (42.2-75.2); Absolute Lymphocytes 1.5 10^3/uL (1.2-3.4); Absolute Monocytes 0.7 10^3/uL (0.1-0.6); Absolute Neutrophils 4.6 10^3/uL (1.4-6.5); Mean Corp Hgb Conc. 33.3 g/dL (33.0-37.0); Mean Corpuscular Hgb 27.9 pg (27.0-31.0); Mean Corpuscular Volume 83.6 fL (80.0-94.0); Mean Platelet Volume 9.7 fL (7.4-10.4); Nucleated Red Blood Cells % 0 % (-); Platelet Count 315 10^3/uL (130-400); Red Blood Cell Count 3.23 10^6/uL (4.70-6.10); Red Cell Dist. Width 17.3 % (11.5-14.5); White Blood Cell Count 6.9 10^3/uL (4.8-10.8)
[2023-10-24 06:22] LABS: INR 1.29; PT 15.9 Sec (11.4-14.6)
[2023-10-24 06:23] LABS: APTT 71.8 Sec (23.4-35.0)
[2023-10-24 06:33] LABS: Troponin I < 0.012 ng/ml
[2023-10-24 06:57] LABS: ALT (SGPT) 152 U/L (0-50); AST (SGOT) 76 U/L (17-59); Albumin 3.4 g/dl (3.5-5.0); Alkaline Phosphatase 101 U/L (38-126); Blood Urea Nitrogen 12 mg/dl (9-20); Calcium 8.2 mg/dl (8.4-10.2); Carbon Dioxide 24 mmol/L (22-30); Chloride 105 mmol/L (98-107); Estimated Creatinine Clearance 106 ml/min; Glucose 114 mg/dl (70-99); Sodium 134 mmol/L (135-145); Total Bilirubin 0.7 mg/dl (0.2-1.3); Total Protein 6.1 g/dl (6.3-8.2); eGFR > 60.00
[2023-10-24 08:00] VITALS: BP 137/82
--- NOTE | 2023-10-24 08:00 | W.PN.CD ---
Addendum entered and electronically signed by Ángel Grant MD 10/24/23 08:07:
echo ordered for today
Original Note:
Today's Communication / Plan
-
Back in sinus. Last afb on monitor was 1100 on 10/23/23
continue metoprolol
On Eliquis currently. Can stop after 30days if he remains in sinus.
monitor Hb
Impression / Plan
-
57 yo male with hx of rectal adenoCA s/p folfox who presented for elective liver resection and went into AF RVR overnight October 22, 2023. He has no significant symptoms and his HR on dilt gtt at 15 are 120-150s.
AF RVR
- back in sinus
- continue metoprolol 25 mg bid
- On Eliquis 5mg bid- plan is Eliqusi for 30days. Monitor HB
- CHADSVASC is 0 at this point given he is no HTN, DM, CHF, or PAD/CAD, male and age < 65
s/p Partial lobectomy of the hepatic segments VIII and IV
post op care per Dr Riley
Physical Exam
Vital Signs/Labs
Vital Signs
Temp Pulse Resp BP Pulse Ox
99.8 F 97 16 136/71 92
10/24/23 03:33 10/24/23 03:33 10/24/23 03:33 10/24/23 03:33 10/24/23 03:33
10/23/23 10/24/23 10/25/23
06:59 06:59 06:59
Actual Weight 72.15 kg 72.745 kg
10/24/23 05:38
10/24/23 05:38
PT 15.9 Sec (11.4-14.6) H 10/24/23 05:38
INR 1.29 10/24/23 05:38
APTT 71.8 Sec (23.4-35.0) H 10/24/23 05:38
Magnesium 2.4 mg/dl (1.6-2.3) H 10/23/23 00:42
TSH 0.52 uIU/ml (0.47-4.68) 10/23/23 00:42
LAB Results
10/23/23 10/23/23 10/24/23
08:47 16:20 05:38
Troponin I 0.018 0.012 D < 0.012
Physical Exam
Constitutional: No acute distress
Cardiovascular: Rhythm & rate is regular
Respiratory: Respiratory effort normal
GI: Soft
Neuro/Psych: Alert
Data Reviewed
-
Date of Service: October 24, 2023
EKG: Report Reviewed by me
Echo: Other (already ordered )
Labs: Labs Reviewed by me
--- NOTE | 2023-10-24 08:06 | W.PN.CD ---
Today's Communication / Plan
-
no afib for 48 hhours
continue metoprolol
Eliquis 5mg BID for 30 days. Stio date 11/23/23
follo w up in our office with Dr Gautam in 3 weeks
Impression / Plan
-
57 yo male with hx of rectal adenoCA s/p folfox who presented for elective liver resection and went into AF RVR overnight October 22, 2023. He has no significant symptoms and his HR on dilt gtt at 15 are 120-150s.
AF RVR
- back in sinus
- continue metoprolol 25 mg bid
- On Eliquis 5mg bid- plan is Eliqusi for 30days. Monitor HB
- CHADSVASC is 0 at this point given he is no HTN, DM, CHF, or PAD/CAD, male and age < 65
s/p Partial lobectomy of the hepatic segments VIII and IV
post op care per Dr Riley
Physical Exam
Vital Signs/Labs
Vital Signs
Temp Pulse Resp BP Pulse Ox
99.8 F 97 16 136/71 92
10/24/23 03:33 10/24/23 03:33 10/24/23 03:33 10/24/23 03:33 10/24/23 03:33
10/23/23 10/24/23 10/25/23
06:59 06:59 06:59
Actual Weight 72.15 kg 72.745 kg
10/24/23 05:38
10/24/23 05:38
PT 15.9 Sec (11.4-14.6) H 10/24/23 05:38
INR 1.29 10/24/23 05:38
APTT 71.8 Sec (23.4-35.0) H 10/24/23 05:38
Magnesium 2.4 mg/dl (1.6-2.3) H 10/23/23 00:42
TSH 0.52 uIU/ml (0.47-4.68) 10/23/23 00:42
LAB Results
10/23/23 10/23/23 10/24/23
08:47 16:20 05:38
Troponin I 0.018 0.012 D < 0.012
Physical Exam
Constitutional: No acute distress
Cardiovascular: Rhythm & rate is regular
Respiratory: Respiratory effort normal
GI: Other (post op)
Neuro/Psych: Alert
Data Reviewed
-
Date of Service: October 24, 2023
EKG: Other (tele reviewed . No afib)
Labs: Labs Reviewed by me
[2023-10-24] MEDS: ELIQUIS 5 MG PO ×2 (08:37→19:52)
[2023-10-24] MEDS: LOPRESSOR 25 MG PO ×2 (08:37→19:52)
[2023-10-24] MEDS: FEOSOL 325 MG PO (08:37)
[2023-10-24] MEDS: NEURONTIN 200 MG PO ×3 (08:37→22:13)
[2023-10-24] MEDS: COLACE 100 MG PO ×2 (08:37→19:52)
--- NOTE | 2023-10-24 11:30 | PN.CDI ---
CDI
- -
CDI:
Physician Documentation Request
Admit Date: 10/21/23 06:14
Dear Doctor Osvaldo,
Clinical Indicators:
Patient admitted with liver metastasis; s/p Partial lobectomy 10/20.
IVF given: Normosol/NSS
Sodium levels:
10/23/23 10/23/23 10/24/23
00:42 04:51 05:38
Sodium 134 L 133 L 134 L
Based on the above, could you clarify in the progress notes, the appropriate diagnosis, if significant, that supports the above abnormalities and additional evaluation, monitoring and/or treatment rendered:
Hyponatremia
Abnormal lab value, clinically insignificant
Other
Use of terms such as suspected, likely, concern for, or probable (associated with a specific diagnosis that is being evaluated, monitored, or treated as if it exists) are acceptable and can be coded in the inpatient setting, when documented at the
time of discharge.
Thank you,
JEROME Holt RN
CDI Specialist
available via tiger text
Please use your independent medical judgment in providing your response.
[2023-10-24 11:54] VITALS: BP 128/78
--- NOTE | 2023-10-24 12:01 | CM ---
Cardio following for A-fib. Back in sinus rhythm. Patient has been recommended for HH services. Discussed with patient. He is declining HH. He does not feel he needs VN or PT. He will contact CM if he changes his mind. was in room with
patient during discussion.
[2023-10-24 16:00] VITALS: BP 142/85
[2023-10-24 19:07] VITALS: BP 139/88
[2023-10-24 20:21] LABS: Hepatitis C Antibody Negative (Negative)
[2023-10-24] MEDS: FLUSH (NSS) 1 FLUSH IV (23:03)
[2023-10-24 23:05] VITALS: BP 129/78
[2023-10-25] MEDS: DILAUDID 0.5 MG IV ×2 (04:06→08:28)
[2023-10-25 05:40] LABS: % Basophils 0.3 % (0-2); % Eosinophils 1.3 % (0-6); % Immature Granulocytes 0.3 % (0-0.5); % Lymphocytes 17.4 % (20.5-51.1); % Monocytes 12.7 % (1.7-9.3); Absolute Eosinophils 0.1 10^3/uL (0-0.7); Absolute Lymphocytes 1.1 10^3/uL (1.2-3.4); Absolute Monocytes 0.8 10^3/uL (0.1-0.6); Absolute Neutrophils 4.3 10^3/uL (1.4-6.5); Hematocrit 28.2 % (39.0-52.0); Hemoglobin 9.3 g/dL (13.0-18.0); Mean Corpuscular Hgb 27.8 pg (27.0-31.0); Mean Corpuscular Volume 84.4 fL (80.0-94.0); Mean Platelet Volume 9.7 fL (7.4-10.4); Nucleated Red Blood Cells % 0 % (-); Platelet Count 317 10^3/uL (130-400); Red Blood Cell Count 3.34 10^6/uL (4.70-6.10); Red Cell Dist. Width 17.5 % (11.5-14.5); White Blood Cell Count 6.3 10^3/uL (4.8-10.8)
[2023-10-25 05:55] VITALS: BMI 24.9
[2023-10-25 06:00] LABS: ALT (SGPT) 113 U/L (0-50); AST (SGOT) 53 U/L (17-59); Albumin 3.5 g/dl (3.5-5.0); Alkaline Phosphatase 110 U/L (38-126); Blood Urea Nitrogen 11 mg/dl (9-20); Calcium 8.7 mg/dl (8.4-10.2); Carbon Dioxide 27 mmol/L (22-30); Chloride 104 mmol/L (98-107); Estimated Creatinine Clearance 106 ml/min; Glucose 126 mg/dl (70-99); Sodium 135 mmol/L (135-145); Total Bilirubin 0.6 mg/dl (0.2-1.3); Total Protein 6.8 g/dl (6.3-8.2); eGFR > 60.00
[2023-10-25 07:30] VITALS: BP 130/75
[2023-10-25] MEDS: FEOSOL 325 MG PO (08:20)
[2023-10-25] MEDS: COLACE 100 MG PO (08:20)
[2023-10-25] MEDS: NEURONTIN 200 MG PO (08:20)
[2023-10-25] MEDS: LOPRESSOR 25 MG PO (08:20)
[2023-10-25] MEDS: ELIQUIS 5 MG PO (08:21)
[2023-10-25] MEDS: FLUSH (NSS) 2 FLUSH IV (08:30)
[2023-10-25 10:41] VITALS: BP 117/76
--- NOTE | 2023-10-25 10:44 | W.DS.TRANS ---
Addendum entered and electronically signed by oYrdan Riley MD 10/27/23 10:32:
Changes to Home Medications:�Yes
oxycodone 5 mg tablet 5 mg PO Q4H PRN Pain #30 tabs 10/25/23
Eliquis 5 mg bid
Lopressor 25 mg bid
Original Note:
DC Summary - Sky [place]
-
Discharge Instructions:
Sleep Apnea Risk Low
Discharge Diagnosis/Procedures Metastatic liver cancer from the rectal cancer
Diet As tolerated,No restrictions
Activity No strenuous activity,As tolerated
Driving Restrictions Not until seen by your Dr
Bathing Restrictions OK to Shower
Instructions:
Stand-Alone Forms:
Changes to Home Medications: Yes
Discharge Medications:
DC Medications w/original date entered in Delivery Agent
Doculax 2 tab PO DAILY 10/17/23
Tylenol 1,000 mg PO Q6H PRN pain 10/17/23
ibuprofen 200 mg capsule 600 mg PO Q6H PRN pain 10/17/23
sildenafil 50 mg tablet (Viagra) 50 mg PO DAILY PRN sex 10/17/23
sennosides 8.6 mg-docusate sodium 50 mg capsule (Senna Plus) 2 tab PO DAILY PRN constipation 10/21/23
oxycodone 5 mg tablet 5 mg PO Q4H PRN Pain #30 tabs 10/25/23
Home Medication Changes
Pending Results: No
--- NOTE | 2023-10-25 14:50 | W.PN.SURGUPD ---
Surgical Update
Surgical Update
Hyponatremia noted, which is clinically insignificant
== END 2023-10-25 12:57 | disposition home or self-care (01) | DRG 406 ==
LOC: 2 SOUTH 06:14
PROVIDERS: Clinical Nurse Specialist Family Health; Internal Medicine; Nurse Practitioner Gerontology; ADMITTING PHYSICIAN Surgery; CONSULT PHYSICIAN Internal Medicine Cardiovascular Disease; CONSULT PHYSICIAN Internal Medicine Critical Care Medicine; FAMILY PHYSICIAN Family Medicine
PROC: 0FB10ZZ Excision of Right Lobe Liver, Open Approach (ICD-10-PCS; 2023-10-23)
DX: C78.7 Secondary malignant neoplasm of liver and intrahepatic bile duct (principal); C20 Malignant neoplasm of rectum; D50.9 Iron deficiency anemia, unspecified; E53.8 Deficiency of other specified B group vitamins; I48.91 Unspecified atrial fibrillation
CPT/HCPCS: 88307; 36415; 71045; 80053; 82607; 82728; 82746; 83540; 83550; 83605; 83735; 84145; 84436; 84443; 84466; 84484; 85014; 85018; 85025; 85027; 85610; 85730; 86803; 86850; 86900; 86901; 86920; 87040; 93005; 93306; 97162; 97166; 97530; C9250; J2916; P9016

== ENCOUNTER → 2023-12-13 13:38 | Outpatient (REF) | payer OTHER, SELFPAY | LOC: HWRAD 13:38 | PROVIDERS: ATTENDING PHYSICIAN Internal Medicine Hematology & Oncology; FAMILY PHYSICIAN Family Medicine | DX: C20 Malignant neoplasm of rectum (principal); D50.9 Iron deficiency anemia, unspecified | CPT/HCPCS: 71260; 74177; Q9967 ==

== ENCOUNTER → 2023-12-16 08:45 | Outpatient (REF) | payer OTHER, SELFPAY ==
[2023-12-16 09:57] LABS: % Basophils 0.7 % (0-2); % Eosinophils 2.4 % (0-6); % Immature Granulocytes 0.3 % (0-0.5); % Lymphocytes 22.3 % (20.5-51.1); % Neutrophils 65.3 % (42.2-75.2); Absolute Eosinophils 0.1 10^3/uL (0-0.7); Absolute Lymphocytes 1.3 10^3/uL (1.2-3.4); Absolute Monocytes 0.5 10^3/uL (0.1-0.6); Absolute Neutrophils 3.8 10^3/uL (1.4-6.5); Hematocrit 25.8 % (39.0-52.0); Mean Corpuscular Hgb 25.2 pg (27.0-31.0); Mean Corpuscular Volume 81.1 fL (80.0-94.0); Mean Platelet Volume 9.1 fL (7.4-10.4); Nucleated Red Blood Cells % 0 % (-); Platelet Count 466 10^3/uL (130-400); Red Blood Cell Count 3.18 10^6/uL (4.70-6.10); Red Cell Dist. Width 18.7 % (11.5-14.5); White Blood Cell Count 5.8 10^3/uL (4.8-10.8)
[2023-12-16 10:32] LABS: ALT (SGPT) 17 U/L (0-50); AST (SGOT) 22 U/L (17-59); Albumin 3.8 g/dl (3.5-5.0); Alkaline Phosphatase 90 U/L (38-126); Blood Urea Nitrogen 10 mg/dl (9-20); Calcium 9.4 mg/dl (8.4-10.2); Carbon Dioxide 29 mmol/L (22-30); Chloride 105 mmol/L (98-107); Glucose 123 mg/dl (70-99); Iron 40 ug/dl (49-181); Magnesium 2.3 mg/dl (1.6-2.3); Potassium 4.4 mmol/L (3.5-5.1); Sodium 138 mmol/L (135-145); Total Bilirubin 0.2 mg/dl (0.2-1.3); Total Protein 7.4 g/dl (6.3-8.2); eGFR > 60.00
[2023-12-16 10:41] LABS: Percent Saturation 9 % (20-50); Total Iron Binding Capacity 404 ug/dl (261-462)
[2023-12-16 11:02] LABS: CEA 0.94 ng/ml
[2023-12-16 11:09] LABS: Ferritin 7.5 ng/ml (17.9-464.0)
== END ==
LOC: REG 08:45
PROVIDERS: ATTENDING PHYSICIAN Internal Medicine Hematology & Oncology; FAMILY PHYSICIAN Family Medicine; REFERRING PHYSICIAN Nurse Practitioner
DX: C20 Malignant neoplasm of rectum (principal); D50.9 Iron deficiency anemia, unspecified; I48.91 Unspecified atrial fibrillation
CPT/HCPCS: 36415; 80053; 82378; 82728; 83540; 83550; 83735; 85025

== ENCOUNTER → 2023-12-20 14:39 | Outpatient (REF) | payer OTHER, SELFPAY ==
[2023-12-20 15:19] LABS: % Basophils 0.8 % (0-2); % Eosinophils 1.9 % (0-6); % Immature Granulocytes 0.2 % (0-0.5); % Lymphocytes 22.8 % (20.5-51.1); % Monocytes 10.9 % (1.7-9.3); % Neutrophils 63.4 % (42.2-75.2); Absolute Eosinophils 0.1 10^3/uL (0-0.7); Absolute Lymphocytes 1.2 10^3/uL (1.2-3.4); Absolute Monocytes 0.6 10^3/uL (0.1-0.6); Absolute Neutrophils 3.3 10^3/uL (1.4-6.5); Hematocrit 23.9 % (39.0-52.0); Hemoglobin 7.3 g/dL (13.0-18.0); Mean Corp Hgb Conc. 30.5 g/dL (33.0-37.0); Mean Corpuscular Hgb 24.5 pg (27.0-31.0); Mean Corpuscular Volume 80.2 fL (80.0-94.0); Mean Platelet Volume 9.3 fL (7.4-10.4); Nucleated Red Blood Cells % 0 % (-); Platelet Count 385 10^3/uL (130-400); Red Blood Cell Count 2.98 10^6/uL (4.70-6.10); Red Cell Dist. Width 18.9 % (11.5-14.5); White Blood Cell Count 5.2 10^3/uL (4.8-10.8)
== END ==
LOC: REG 14:39
PROVIDERS: ATTENDING PHYSICIAN Internal Medicine Hematology & Oncology; FAMILY PHYSICIAN Family Medicine
DX: C20 Malignant neoplasm of rectum (principal); D50.9 Iron deficiency anemia, unspecified
CPT/HCPCS: 36415; 85025

== ENCOUNTER 2023-12-27 09:56 | Outpatient (RCR) | payer OTHER, SELFPAY ==
[2023-12-27] VITALS (7 sets, daily range): BP systolic 118–150; BP diastolic 67–79
[2023-12-30 11:06] LABS: % Basophils 0.9 % (0-2); % Immature Granulocytes 0.9 % (0-0.5); % Monocytes 9.5 % (1.7-9.3); % Neutrophils 62.7 % (42.2-75.2); Absolute Eosinophils 0.1 10^3/uL (0-0.7); Absolute Lymphocytes 1.1 10^3/uL (1.2-3.4); Absolute Monocytes 0.4 10^3/uL (0.1-0.6); Absolute Neutrophils 2.8 10^3/uL (1.4-6.5); Hemoglobin 8.6 g/dL (13.0-18.0); Mean Corp Hgb Conc. 31.9 g/dL (33.0-37.0); Mean Corpuscular Hgb 25.6 pg (27.0-31.0); Mean Corpuscular Volume 80.4 fL (80.0-94.0); Mean Platelet Volume 9.6 fL (7.4-10.4); Nucleated Red Blood Cells % 0 % (-); Platelet Count 417 10^3/uL (130-400); Red Blood Cell Count 3.36 10^6/uL (4.70-6.10); Red Cell Dist. Width 18.5 % (11.5-14.5); White Blood Cell Count 4.4 10^3/uL (4.8-10.8)
[2024-01-06 14:21] LABS: % Basophils 0.7 % (0-2); % Immature Granulocytes 0.3 % (0-0.5); % Lymphocytes 22.6 % (20.5-51.1); % Monocytes 8.6 % (1.7-9.3); % Neutrophils 66.8 % (42.2-75.2); Absolute Lymphocytes 0.7 10^3/uL (1.2-3.4); Absolute Monocytes 0.3 10^3/uL (0.1-0.6); Hematocrit 27.3 % (39.0-52.0); Hemoglobin 8.8 g/dL (13.0-18.0); Mean Corp Hgb Conc. 32.2 g/dL (33.0-37.0); Mean Corpuscular Hgb 26.7 pg (27.0-31.0); Mean Corpuscular Volume 82.7 fL (80.0-94.0); Mean Platelet Volume 8.9 fL (7.4-10.4); Nucleated Red Blood Cells % 0 % (-); Platelet Count 340 10^3/uL (130-400); White Blood Cell Count 2.9 10^3/uL (4.8-10.8)
== END 2024-01-20 23:59 | disposition home or self-care (01) ==
LOC: OID 09:56
PROVIDERS: ATTENDING PHYSICIAN Internal Medicine Hematology & Oncology; FAMILY PHYSICIAN Family Medicine
DX: C20 Malignant neoplasm of rectum (principal); D64.9 Anemia, unspecified
CPT/HCPCS: 36415; 36430; 85025; 86850; 86900; 86901; 86920; P9016

== ENCOUNTER → 2024-01-13 17:13 | Outpatient (REF) | payer OTHER, SELFPAY ==
[2024-01-13 18:39] LABS: % Eosinophils 1.7 % (0-6); % Immature Granulocytes 0.4 % (0-0.5); % Lymphocytes 18.7 % (20.5-51.1); % Monocytes 11.5 % (1.7-9.3); % Neutrophils 67.7 % (42.2-75.2); Absolute Lymphocytes 0.4 10^3/uL (1.2-3.4); Absolute Monocytes 0.3 10^3/uL (0.1-0.6); Absolute Neutrophils 1.6 10^3/uL (1.4-6.5); Hematocrit 25.8 % (39.0-52.0); Hemoglobin 8.4 g/dL (13.0-18.0); Mean Corp Hgb Conc. 32.6 g/dL (33.0-37.0); Mean Corpuscular Hgb 27.2 pg (27.0-31.0); Mean Corpuscular Volume 83.5 fL (80.0-94.0); Mean Platelet Volume 9.2 fL (7.4-10.4); Nucleated Red Blood Cells % 0 % (-); Platelet Count 233 10^3/uL (130-400); Red Blood Cell Count 3.09 10^6/uL (4.70-6.10); Red Cell Dist. Width 23.7 % (11.5-14.5)
[2024-01-13 19:21] LABS: White Blood Cell Count 2.4 10^3/uL (4.8-10.8)
[2024-01-13 20:46] LABS: Anisocytosis 2+; Hypochromasia 1+; Macrocytosis 2+; Normal RBC Morphology No; Ovalocytes 1+; Target Cells 1+
== END ==
LOC: CLAB 17:13
PROVIDERS: ATTENDING PHYSICIAN Nurse Practitioner Adult Health
DX: C20 Malignant neoplasm of rectum (principal); D50.9 Iron deficiency anemia, unspecified
CPT/HCPCS: 36415; 85025

== ENCOUNTER → 2024-03-19 11:11 | Outpatient (REF) | payer OTHER, SELFPAY ==
[2024-03-19 12:10] LABS: % Basophils 0.4 % (0-2); % Eosinophils 1.3 % (0-6); % Immature Granulocytes 0.2 % (0-0.5); % Lymphocytes 10.4 % (20.5-51.1); % Monocytes 8.4 % (1.7-9.3); % Neutrophils 79.3 % (42.2-75.2); Absolute Eosinophils 0.1 10^3/uL (0-0.7); Absolute Lymphocytes 0.5 10^3/uL (1.2-3.4); Absolute Monocytes 0.4 10^3/uL (0.1-0.6); Absolute Neutrophils 3.6 10^3/uL (1.4-6.5); Hematocrit 32.2 % (39.0-52.0); Hemoglobin 10.7 g/dL (13.0-18.0); Mean Corp Hgb Conc. 33.2 g/dL (33.0-37.0); Mean Corpuscular Hgb 30.7 pg (27.0-31.0); Mean Corpuscular Volume 92.3 fL (80.0-94.0); Mean Platelet Volume 8.9 fL (7.4-10.4); Nucleated Red Blood Cells % 0 % (-); Platelet Count 389 10^3/uL (130-400); Red Blood Cell Count 3.49 10^6/uL (4.70-6.10); Red Cell Dist. Width 20.8 % (11.5-14.5); White Blood Cell Count 4.5 10^3/uL (4.8-10.8)
[2024-03-19 12:34] LABS: ALT (SGPT) 16 U/L (0-50); AST (SGOT) 19 U/L (17-59); Alkaline Phosphatase 105 U/L (38-126); Blood Urea Nitrogen 18 mg/dl (9-20); Calcium 9.7 mg/dl (8.4-10.2); Carbon Dioxide 28 mmol/L (22-30); Chloride 105 mmol/L (98-107); Glucose 127 mg/dl (70-99); Potassium 4.6 mmol/L (3.5-5.1); Sodium 140 mmol/L (135-145); Total Bilirubin 0.3 mg/dl (0.2-1.3); Total Protein 7.5 g/dl (6.3-8.2); eGFR > 60.00
[2024-03-19 14:28] LABS: CEA 1.56 ng/ml
== END ==
LOC: REG 11:11
PROVIDERS: ATTENDING PHYSICIAN Internal Medicine Hematology & Oncology; FAMILY PHYSICIAN Family Medicine
DX: C20 Malignant neoplasm of rectum (principal); D50.9 Iron deficiency anemia, unspecified
CPT/HCPCS: 36415; 80053; 82378; 85025

== ENCOUNTER → 2024-04-02 12:02 | Outpatient (REF) | payer OTHER, SELFPAY ==
[2024-04-02 13:06] LABS: % Basophils 0.4 % (0-2); % Eosinophils 0.8 % (0-6); % Immature Granulocytes 0.4 % (0-0.5); % Lymphocytes 11.7 % (20.5-51.1); % Monocytes 9.1 % (1.7-9.3); % Neutrophils 77.6 % (42.2-75.2); Absolute Lymphocytes 0.6 10^3/uL (1.2-3.4); Absolute Monocytes 0.5 10^3/uL (0.1-0.6); Absolute Neutrophils 3.9 10^3/uL (1.4-6.5); Hematocrit 31.9 % (39.0-52.0); Hemoglobin 10.5 g/dL (13.0-18.0); Mean Corp Hgb Conc. 32.9 g/dL (33.0-37.0); Mean Corpuscular Hgb 30.5 pg (27.0-31.0); Mean Corpuscular Volume 92.7 fL (80.0-94.0); Mean Platelet Volume 8.7 fL (7.4-10.4); Nucleated Red Blood Cells % 0 % (-); Platelet Count 366 10^3/uL (130-400); Red Blood Cell Count 3.44 10^6/uL (4.70-6.10)
[2024-04-02 13:48] LABS: ALT (SGPT) 19 U/L (0-50); AST (SGOT) 23 U/L (17-59); Albumin 4.1 g/dl (3.5-5.0); Alkaline Phosphatase 113 U/L (38-126); Blood Urea Nitrogen 15 mg/dl (9-20); Calcium 9.6 mg/dl (8.4-10.2); Carbon Dioxide 25 mmol/L (22-30); Chloride 106 mmol/L (98-107); Glucose 110 mg/dl (70-99); Iron 77 ug/dl (49-181); Potassium 4.2 mmol/L (3.5-5.1); Sodium 139 mmol/L (135-145); Total Bilirubin 0.4 mg/dl (0.2-1.3); Total Protein 7.6 g/dl (6.3-8.2); eGFR > 60.00
[2024-04-02 13:57] LABS: Percent Saturation 28 % (20-50); Total Iron Binding Capacity 274 ug/dl (261-462)
[2024-04-02 14:07] LABS: Ferritin 82.7 ng/ml (17.9-464.0)
== END ==
LOC: REG 12:02
PROVIDERS: ATTENDING PHYSICIAN Internal Medicine Hematology & Oncology; FAMILY PHYSICIAN Family Medicine
DX: C20 Malignant neoplasm of rectum (principal); D50.9 Iron deficiency anemia, unspecified; D64.81 Anemia due to antineoplastic chemotherapy
CPT/HCPCS: 36415; 80053; 82728; 83540; 83550; 85025

== ENCOUNTER → 2024-04-16 09:10 | Outpatient (REF) | payer OTHER, SELFPAY ==
[2024-04-16 10:11] LABS: % Basophils 0.7 % (0-2); % Eosinophils 1.7 % (0-6); % Lymphocytes 17.8 % (20.5-51.1); % Monocytes 10.8 % (1.7-9.3); Absolute Eosinophils 0.1 10^3/uL (0-0.7); Absolute Lymphocytes 0.5 10^3/uL (1.2-3.4); Absolute Monocytes 0.3 10^3/uL (0.1-0.6); Hematocrit 32.2 % (39.0-52.0); Hemoglobin 10.8 g/dL (13.0-18.0); Mean Corp Hgb Conc. 33.5 g/dL (33.0-37.0); Mean Corpuscular Hgb 31.6 pg (27.0-31.0); Mean Corpuscular Volume 94.2 fL (80.0-94.0); Mean Platelet Volume 8.6 fL (7.4-10.4); Nucleated Red Blood Cells % 0 % (-); Platelet Count 295 10^3/uL (130-400); Red Blood Cell Count 3.42 10^6/uL (4.70-6.10); Red Cell Dist. Width 15.8 % (11.5-14.5); White Blood Cell Count 2.9 10^3/uL (4.8-10.8)
[2024-04-16 10:40] LABS: Protein/creatinine Ratio 0.1; Urine Protein 10 mg/dl
[2024-04-16 14:24] LABS: ALT (SGPT) 27 U/L (0-50); AST (SGOT) 25 U/L (17-59); Albumin 4.2 g/dl (3.5-5.0); Alkaline Phosphatase 108 U/L (38-126); Blood Urea Nitrogen 22 mg/dl (9-20); Calcium 9.9 mg/dl (8.4-10.2); Carbon Dioxide 25 mmol/L (22-30); Chloride 103 mmol/L (98-107); Glucose 140 mg/dl (70-99); Potassium 4.5 mmol/L (3.5-5.1); Sodium 141 mmol/L (135-145); Total Bilirubin 0.4 mg/dl (0.2-1.3); Total Protein 7.3 g/dl (6.3-8.2); eGFR > 60.00
== END ==
LOC: REG 09:10
PROVIDERS: ATTENDING PHYSICIAN Internal Medicine Hematology & Oncology; FAMILY PHYSICIAN Family Medicine
DX: C20 Malignant neoplasm of rectum (principal); D50.9 Iron deficiency anemia, unspecified; D64.81 Anemia due to antineoplastic chemotherapy
CPT/HCPCS: 36415; 80053; 82570; 84156; 85025

== ENCOUNTER → 2024-04-17 13:34 | Outpatient (REF) | payer OTHER, SELFPAY ==
[2024-04-17 10:14] LABS: Blood Urea Nitrogen 22 mg/dl (9-20); Iron 67 ug/dl (49-181)
[2024-04-17 10:23] LABS: Percent Saturation 20 % (20-50); Total Iron Binding Capacity 329 ug/dl (261-462)
[2024-04-17 10:32] LABS: Ferritin 86.1 ng/ml (17.9-464.0)
== END ==
LOC: OIDL 13:34
PROVIDERS: ATTENDING PHYSICIAN Internal Medicine Hematology & Oncology
DX: C20 Malignant neoplasm of rectum (principal); D50.9 Iron deficiency anemia, unspecified; D64.81 Anemia due to antineoplastic chemotherapy
CPT/HCPCS: 82565; 82728; 83540; 83550; 84520

== ENCOUNTER → 2024-04-30 10:45 | Outpatient (REF) | payer OTHER, SELFPAY ==
[2024-04-30 11:43] LABS: Protein/creatinine Ratio 0.1; Urine Protein 11 mg/dl
[2024-04-30 11:46] LABS: % Basophils 0.6 % (0-2); % Eosinophils 0.9 % (0-6); % Immature Granulocytes 0.3 % (0-0.5); % Lymphocytes 9.9 % (20.5-51.1); % Monocytes 9.4 % (1.7-9.3); % Neutrophils 78.9 % (42.2-75.2); Absolute Lymphocytes 0.3 10^3/uL (1.2-3.4); Absolute Monocytes 0.3 10^3/uL (0.1-0.6); Absolute Neutrophils 2.7 10^3/uL (1.4-6.5); Hematocrit 30.6 % (39.0-52.0); Hemoglobin 9.8 g/dL (13.0-18.0); Mean Corpuscular Hgb 30.2 pg (27.0-31.0); Mean Corpuscular Volume 94.2 fL (80.0-94.0); Mean Platelet Volume 8.8 fL (7.4-10.4); Nucleated Red Blood Cells % 0 % (-); Platelet Count 309 10^3/uL (130-400); Red Blood Cell Count 3.25 10^6/uL (4.70-6.10); Red Cell Dist. Width 15.3 % (11.5-14.5); White Blood Cell Count 3.4 10^3/uL (4.8-10.8)
[2024-04-30 12:15] LABS: ALT (SGPT) 31 U/L (0-50); AST (SGOT) 26 U/L (17-59); Albumin 4.1 g/dl (3.5-5.0); Alkaline Phosphatase 115 U/L (38-126); Blood Urea Nitrogen 21 mg/dl (9-20); Calcium 9.6 mg/dl (8.4-10.2); Carbon Dioxide 25 mmol/L (22-30); Chloride 100 mmol/L (98-107); Glucose 175 mg/dl (70-99); Potassium 4.5 mmol/L (3.5-5.1); Sodium 141 mmol/L (135-145); Total Bilirubin 0.3 mg/dl (0.2-1.3); Total Protein 7.1 g/dl (6.3-8.2); eGFR > 60.00
== END ==
LOC: REG 10:45
PROVIDERS: ATTENDING PHYSICIAN Internal Medicine Hematology & Oncology; FAMILY PHYSICIAN Family Medicine
DX: C20 Malignant neoplasm of rectum (principal); D50.9 Iron deficiency anemia, unspecified; D64.81 Anemia due to antineoplastic chemotherapy
CPT/HCPCS: 36415; 80053; 82570; 84156; 85025

== ENCOUNTER → 2024-05-14 09:53 | Outpatient (REF) | payer OTHER, SELFPAY ==
[2024-05-14 11:09] LABS: % Basophils 0.5 % (0-2); % Immature Granulocytes 0.5 % (0-0.5); % Lymphocytes 11.5 % (20.5-51.1); % Monocytes 11.7 % (1.7-9.3); % Neutrophils 74.8 % (42.2-75.2); Absolute Lymphocytes 0.5 10^3/uL (1.2-3.4); Absolute Monocytes 0.5 10^3/uL (0.1-0.6); Absolute Neutrophils 2.9 10^3/uL (1.4-6.5); Hemoglobin 10.3 g/dL (13.0-18.0); Mean Corp Hgb Conc. 32.2 g/dL (33.0-37.0); Mean Corpuscular Hgb 31.4 pg (27.0-31.0); Mean Corpuscular Volume 97.6 fL (80.0-94.0); Nucleated Red Blood Cells % 0 % (-); Platelet Count 278 10^3/uL (130-400); Red Blood Cell Count 3.28 10^6/uL (4.70-6.10); Red Cell Dist. Width 16.2 % (11.5-14.5); White Blood Cell Count 3.9 10^3/uL (4.8-10.8)
[2024-05-14 11:47] LABS: Protein/creatinine Ratio 0.2; Urine Protein 11 mg/dl
[2024-05-14 12:13] LABS: ALT (SGPT) 20 U/L (0-50); AST (SGOT) 23 U/L (17-59); Albumin 4.2 g/dl (3.5-5.0); Alkaline Phosphatase 99 U/L (38-126); Blood Urea Nitrogen 19 mg/dl (9-20); Calcium 9.5 mg/dl (8.4-10.2); Carbon Dioxide 25 mmol/L (22-30); Chloride 100 mmol/L (98-107); Glucose 109 mg/dl (70-99); Potassium 4.6 mmol/L (3.5-5.1); Sodium 141 mmol/L (135-145); Total Bilirubin 0.2 mg/dl (0.2-1.3); Total Protein 7.2 g/dl (6.3-8.2); eGFR > 60.00
== END ==
LOC: REG 09:53
PROVIDERS: ATTENDING PHYSICIAN Internal Medicine Hematology & Oncology; FAMILY PHYSICIAN Family Medicine
DX: C20 Malignant neoplasm of rectum (principal); D50.9 Iron deficiency anemia, unspecified; D64.81 Anemia due to antineoplastic chemotherapy
CPT/HCPCS: 36415; 80053; 82570; 84156; 85025

== ENCOUNTER → 2024-05-28 13:40 | Outpatient (REF) | payer OTHER, SELFPAY ==
[2024-05-28 14:37] LABS: % Basophils 0.6 % (0-2); % Eosinophils 1.3 % (0-6); % Immature Granulocytes 0.3 % (0-0.5); % Lymphocytes 13.2 % (20.5-51.1); % Monocytes 13.2 % (1.7-9.3); % Neutrophils 71.4 % (42.2-75.2); Absolute Lymphocytes 0.4 10^3/uL (1.2-3.4); Absolute Monocytes 0.4 10^3/uL (0.1-0.6); Absolute Neutrophils 2.2 10^3/uL (1.4-6.5); Hematocrit 32.9 % (39.0-52.0); Hemoglobin 10.8 g/dL (13.0-18.0); Mean Corp Hgb Conc. 32.8 g/dL (33.0-37.0); Mean Corpuscular Hgb 31.4 pg (27.0-31.0); Mean Corpuscular Volume 95.6 fL (80.0-94.0); Mean Platelet Volume 8.9 fL (7.4-10.4); Nucleated Red Blood Cells % 0 % (-); Platelet Count 301 10^3/uL (130-400); Red Blood Cell Count 3.44 10^6/uL (4.70-6.10); Red Cell Dist. Width 16.8 % (11.5-14.5); White Blood Cell Count 3.1 10^3/uL (4.8-10.8)
[2024-05-28 14:58] LABS: ALT (SGPT) 20 U/L (0-50); AST (SGOT) 20 U/L (17-59); Albumin 4.4 g/dl (3.5-5.0); Alkaline Phosphatase 95 U/L (38-126); Blood Urea Nitrogen 21 mg/dl (9-20); Calcium 9.7 mg/dl (8.4-10.2); Carbon Dioxide 25 mmol/L (22-30); Chloride 101 mmol/L (98-107); Glucose 132 mg/dl (70-99); Potassium 4.9 mmol/L (3.5-5.1); Protein/creatinine Ratio 1.3; Sodium 141 mmol/L (135-145); Total Bilirubin 0.3 mg/dl (0.2-1.3); Total Protein 7.4 g/dl (6.3-8.2); Urine Protein 84 mg/dl; eGFR > 60.00
== END ==
LOC: REG 13:40
PROVIDERS: ATTENDING PHYSICIAN Internal Medicine Hematology & Oncology; FAMILY PHYSICIAN Family Medicine
DX: C20 Malignant neoplasm of rectum (principal); D50.9 Iron deficiency anemia, unspecified; D64.81 Anemia due to antineoplastic chemotherapy
CPT/HCPCS: 36415; 80053; 82570; 84156; 85025

== ENCOUNTER → 2024-06-11 10:31 | Outpatient (REF) | payer OTHER, SELFPAY ==
[2024-06-11 11:41] LABS: % Basophils 0.5 % (0-2); % Eosinophils 1.3 % (0-6); % Immature Granulocytes 0.5 % (0-0.5); % Lymphocytes 8.8 % (20.5-51.1); % Monocytes 12.6 % (1.7-9.3); % Neutrophils 76.3 % (42.2-75.2); Absolute Eosinophils 0.1 10^3/uL (0-0.7); Absolute Lymphocytes 0.3 10^3/uL (1.2-3.4); Absolute Monocytes 0.5 10^3/uL (0.1-0.6); Absolute Neutrophils 2.8 10^3/uL (1.4-6.5); Hematocrit 32.8 % (39.0-52.0); Hemoglobin 10.7 g/dL (13.0-18.0); Mean Corp Hgb Conc. 32.6 g/dL (33.0-37.0); Mean Corpuscular Hgb 31.7 pg (27.0-31.0); Mean Platelet Volume 8.9 fL (7.4-10.4); Nucleated Red Blood Cells % 0 % (-); Platelet Count 278 10^3/uL (130-400); Red Blood Cell Count 3.38 10^6/uL (4.70-6.10); Red Cell Dist. Width 16.7 % (11.5-14.5); White Blood Cell Count 3.7 10^3/uL (4.8-10.8)
[2024-06-11 14:14] LABS: Urine Protein 12 mg/dl
[2024-06-11 14:30] LABS: ALT (SGPT) 22 U/L (0-50); AST (SGOT) 21 U/L (17-59); Albumin 4.5 g/dl (3.5-5.0); Alkaline Phosphatase 94 U/L (38-126); Blood Urea Nitrogen 20 mg/dl (9-20); Calcium 9.5 mg/dl (8.4-10.2); Carbon Dioxide 22 mmol/L (22-30); Chloride 100 mmol/L (98-107); Glucose 135 mg/dl (70-99); Potassium 4.6 mmol/L (3.5-5.1); Sodium 140 mmol/L (135-145); Total Bilirubin 0.2 mg/dl (0.2-1.3); Total Protein 7.4 g/dl (6.3-8.2); eGFR > 60.00
[2024-06-11 20:28] LABS: Protein/creatinine Ratio 0.2
== END ==
LOC: REG 10:31
PROVIDERS: ATTENDING PHYSICIAN Internal Medicine Hematology & Oncology; FAMILY PHYSICIAN Family Medicine
DX: C20 Malignant neoplasm of rectum (principal); D50.9 Iron deficiency anemia, unspecified; D64.81 Anemia due to antineoplastic chemotherapy
CPT/HCPCS: 36415; 80053; 82570; 84156; 85025

== ENCOUNTER → 2024-06-25 10:33 | Outpatient (REF) | payer OTHER, SELFPAY ==
[2024-06-25 11:28] LABS: % Basophils 0.6 % (0-2); % Eosinophils 0.8 % (0-6); % Immature Granulocytes 0.2 % (0-0.5); % Lymphocytes 11.2 % (20.5-51.1); % Monocytes 11.4 % (1.7-9.3); % Neutrophils 75.8 % (42.2-75.2); Absolute Lymphocytes 0.5 10^3/uL (1.2-3.4); Absolute Monocytes 0.5 10^3/uL (0.1-0.6); Absolute Neutrophils 3.6 10^3/uL (1.4-6.5); Hematocrit 32.5 % (39.0-52.0); Hemoglobin 10.6 g/dL (13.0-18.0); Mean Corp Hgb Conc. 32.6 g/dL (33.0-37.0); Mean Corpuscular Hgb 30.8 pg (27.0-31.0); Mean Corpuscular Volume 94.5 fL (80.0-94.0); Mean Platelet Volume 8.7 fL (7.4-10.4); Nucleated Red Blood Cells % 0 % (-); Platelet Count 324 10^3/uL (130-400); Red Blood Cell Count 3.44 10^6/uL (4.70-6.10); Red Cell Dist. Width 16.9 % (11.5-14.5); White Blood Cell Count 4.8 10^3/uL (4.8-10.8)
[2024-06-25 11:57] LABS: ALT (SGPT) 25 U/L (0-50); AST (SGOT) 23 U/L (17-59); Albumin 4.5 g/dl (3.5-5.0); Alkaline Phosphatase 100 U/L (38-126); Blood Urea Nitrogen 21 mg/dl (9-20); Calcium 9.5 mg/dl (8.4-10.2); Carbon Dioxide 27 mmol/L (22-30); Chloride 97 mmol/L (98-107); Glucose 107 mg/dl (70-99); Potassium 4.5 mmol/L (3.5-5.1); Sodium 140 mmol/L (135-145); Total Bilirubin 0.2 mg/dl (0.2-1.3); Total Protein 7.5 g/dl (6.3-8.2); eGFR > 60.00
[2024-06-25 12:02] LABS: Protein/creatinine Ratio 0.1; Urine Protein 12 mg/dl
== END ==
LOC: REG 10:33
PROVIDERS: ATTENDING PHYSICIAN Internal Medicine Hematology & Oncology; FAMILY PHYSICIAN Family Medicine
DX: C20 Malignant neoplasm of rectum (principal); D50.9 Iron deficiency anemia, unspecified; D64.81 Anemia due to antineoplastic chemotherapy
CPT/HCPCS: 36415; 80053; 82570; 84156; 85025

== ENCOUNTER 2024-07-03 19:16 | Inpatient (IN) | payer OTHER, SELFPAY ==
[2024-07-03 17:25] VITALS: BP 127/85
--- NOTE | 2024-07-03 17:32 | ED.GENMED ---
History of Present Illness
General
Chief Complaint: Rectal Bleeding
Time Seen by Provider: 07/03/24 17:32
History of Present Illness
History of Present Illness:
TIME OF INITIAL ENCOUNTER: 5:30 PM
HPI: Patient has a history of rectal cancer and is coming in because of 2 days of bloody diarrhea. He was diagnosed with rectal cancer approximately 16 months ago and has had surgery including a partial liver resection, radiation, and is currently
undergoing chemo. He has had poor p.o. intake recently. He gets his cancer care here at [facility] with Dr. Mascorro. He is on Eliquis for A-fib but has not taken Eliquis over the last several months.
EXAM:
GENERAL: The patient is somewhat ill-appearing and is tachypneic and pale
HEENT: Dry oral mucosa
CARDIOVASCULAR: No murmurs, tachycardic heart rate, regular rhythm, No chest wall tenderness
PULMONARY: No respiratory distress, breath sounds are clear and equal
ABDOMEN: Soft with no peritoneal signs, no tenderness, heme positive dark brown stool taken from the perianal region/he is wearing a diaper
NEUROLOGIC: Good strength all extremities, no coordination deficits
PSYCHIATRIC: Appropriate mental status, normal insight and judgement
EXTREMITIES: Nontender, no edema, moves all extremities equally
SKIN: Appears pale
NUMBER AND COMPLEXITY OF PROBLEMS ADDRESSED AT THE ENCOUNTER
� Chronic conditions affecting care: Rectal cancer
� Acute Exacerbation and/or Progression of Chronic Illness: This is an acute problem
� Differential Diagnosis includes: Anemia, progression of cancer
AMOUNT AND/OR COMPLEXITY OF DATA TO BE REVIEWED AND ANALYZED
� I performed an independent evaluation of and my interpretation is:
EKG: Sinus 113, nonspecific ST abnormality
CT:
X-rays:
Laboratory Studies: White count 2.6, hemoglobin 8.8, chemistries relatively unremarkable however bicarb is 20
Other:
� Review of other/old records: I reviewed records, the patient had a partial liver resection in October of this year.
� Clinical information was obtained by an independent historian: None needed
� Prescriptions/Medications Considered but not given:
� Further testing considered but not performed:
RISK OF COMPLICATIONS AND/OR MORBIDITY OR MORTALITY OF PATIENT MANAGEMENT
� Social determinants of health affecting care: Lives at home
� Discussion with other providers: Hospitalist, Dr. Moran for admission at 6:27 PM
� Escalation of care including admission/observation vs risk of discharge considered: Given patient's persistent tachycardia, will plan
ANY OTHER UPDATES:
5:25 PM: I reassessed patient. The patient remains somewhat ill-appearing but heart rate did spontaneously go down from the 140s to the 120s. He is in a sinus rhythm. Will give IV fluids as he likely is somewhat dehydrated as well. He does have
heme positive dark brown stool. He is no longer on Eliquis.
Phy Exam
Physical Exam
Physical Exam:
See HPI
Sepsis
Sepsis Screening
Sepsis Assessment: Sepsis Ruled Out
Sepsis Screen
Sepsis Screen: Sepsis Ruled Out
Date: 07/03/24
Time: 19:00
Course
Orders/Labs/Results
Orders:
Orders
07/03/24 17:29
Electrocardiogram (*1) Urgent
Reason for Study: Tachycardia
07/03/24 17:30
EKG- Treatment ONCE
07/03/24 17:33
Electrocardiogram (*1) Urgent
Reason for Study: Tachycardia
07/03/24 17:58
Type+Screen Urgent
Complete Blood Count/With Diff Urgent
Comprehensive Metabolic Panel Urgent
07/03/24 18:21
0.9% Sodium Chloride 1000 ml [Nss] 1,000 ml IV BOLUS
Abnormal Lab Results
07/03/24
17:58
WBC 2.6 L 10^3/uL
(4.8-10.8)
RBC 2.75 L 10^6/uL
(4.70-6.10)
Hgb 8.8 L g/dL
(13.0-18.0)
Hct 25.4 L %
(39.0-52.0)
MCH 32.0 H pg
(27.0-31.0)
RDW 15.9 H %
(11.5-14.5)
Absolute Lymphs (auto) 0.4 L 10^3/uL
(1.2-3.4)
Immature Gran % 0.8 H %
(0-0.5)
Lymphocytes % 15.3 L %
(20.5-51.1)
Monocytes % 12.6 H %
(1.7-9.3)
Carbon Dioxide 20 L mmol/L
(22-30)
Glucose 129 H mg/dl
(70-99)
07/03/24 17:58
07/03/24 17:58
Vital Signs
Initial and Last Documented VS:
Initial Vital Signs
Temp Pulse Resp BP Pulse Ox
98.4 F 143 30 127/85 98
07/03/24 17:25 07/03/24 17:25 07/03/24 17:25 07/03/24 17:25 07/03/24 17:25
Last Documented Vital Signs
Temp Pulse Resp BP Pulse Ox
98.4 F 123 20 143/102 100
07/03/24 17:25 07/03/24 17:39 07/03/24 18:03 07/03/24 17:38 07/03/24 17:39
*Critical Care Note
Total Time (30-74mins, 75-104mins- exclusive of procedures): Not Applicable
ED Attending Note
-
Portions of this chart may have been created with voice recognition software.� Occasional wrong word or��sound alike� substitutions may have occurred due to the inherent limitations of voice recognition software.
Discharge Plan
Departure
Patient Disposition: Admit
Date of Disposition: 07/03/24
Time of Disposition: 18:58
Presentation/result/management discussed w/ accepting MD/DO: Hospitalist
Discharge Problem:
Rectal cancer
Prescriptions:
No Action
ibuprofen 200 mg Capsule
600 mg PO Q6H PRN (Reason: pain)
Tylenol
1,000 mg PO Q6H PRN (Reason: pain)
sildenafil [Viagra] 50 mg Tablet
50 mg PO DAILY PRN (Reason: sex)
Doculax
2 tab PO DAILY
Senna Plus 8.6-50 mg Capsule
2 tab PO DAILY PRN (Reason: constipation)
Eliquis 5 mg Tablet
5 mg PO BID
metoprolol succinate
1 unit PO BID
Patient Comments:
Pt unsure of dose
Referrals:
Rayo Rose DO [Family Provider] -
Interventions
Interventions:
*Risk Screen - Suicide Last Done: 07/03/24 17:42
*General Assessment Last Done: 07/03/24 17:42
*Neglect/Abuse Screening Last Done: 07/03/24 17:42
*ED COVID-19 Vaccine History Last Done: 07/03/24 17:42
DF-Izoize-[place] Assessment Last Done: 07/03/24 17:42
ED- Cardiac Assessment Last Done: 07/03/24 17:42
ED- Pulmonary Assessment Last Done: 07/03/24 17:42
Discharge Date and Time
Print Language: SLOVAK
[2024-07-03 17:38] VITALS: BP 143/102
[2024-07-03 18:08] LABS: % Basophils 0.8 % (0-2); % Eosinophils 0.4 % (0-6); % Immature Granulocytes 0.8 % (0-0.5); % Lymphocytes 15.3 % (20.5-51.1); % Monocytes 12.6 % (1.7-9.3); % Neutrophils 70.1 % (42.2-75.2); Absolute Lymphocytes 0.4 10^3/uL (1.2-3.4); Absolute Monocytes 0.3 10^3/uL (0.1-0.6); Absolute Neutrophils 1.8 10^3/uL (1.4-6.5); Hematocrit 25.4 % (39.0-52.0); Hemoglobin 8.8 g/dL (13.0-18.0); Mean Corp Hgb Conc. 34.6 g/dL (33.0-37.0); Mean Corpuscular Volume 92.4 fL (80.0-94.0); Mean Platelet Volume 8.9 fL (7.4-10.4); Nucleated Red Blood Cells % 0.8 % (-); Platelet Count 269 10^3/uL (130-400); Red Blood Cell Count 2.75 10^6/uL (4.70-6.10); Red Cell Dist. Width 15.9 % (11.5-14.5); White Blood Cell Count 2.6 10^3/uL (4.8-10.8)
[2024-07-03 18:21] LABS: ALT (SGPT) 17 U/L (0-50); AST (SGOT) 19 U/L (17-59); Albumin 4.1 g/dl (3.5-5.0); Alkaline Phosphatase 91 U/L (38-126); Blood Urea Nitrogen 14 mg/dl (9-20); Calcium 9.4 mg/dl (8.4-10.2); Carbon Dioxide 20 mmol/L (22-30); Chloride 103 mmol/L (98-107); Glucose 129 mg/dl (70-99); Potassium 3.9 mmol/L (3.5-5.1); Sodium 138 mmol/L (135-145); Total Bilirubin 0.4 mg/dl (0.2-1.3); Total Protein 6.6 g/dl (6.3-8.2); eGFR > 60.00
[2024-07-03] MEDS: NSS 1000 IV (18:29)
[2024-07-03 19:00] VITALS: BP 166/96
--- NOTE | 2024-07-03 19:08 | HPS.HSE ---
Family Physician
-
Family Physician: Rayo Rose
Chief Complaint
-
Diarrhea and rectal bleeding
History of Present Illness
This is a 58-year-old male with past medical history of rectal cancer status post transcended for bowel resection on liver surgery, history of paroxysmal atrial fibrillation on apixaban not currently taking, presenting to the emergency department
with bloody diarrhea.
The patient reports that his symptoms are of normal side effect of his chemotherapy. He has finished FOLFOX treatment last year and is currently on cycle 8 of FOLFORI irinotecan with last dose given last Tuesday. Patient reports he often has
constipation after 2 days of treatment and he starts taking laxatives. Over Tuesday and Tuesday he started developing diarrhea. He had black stools as well as bloody stools. He reports deconditioning but denies any shortness rate lightheadedness
or dizziness. He denies any vomiting. He reports abdominal pain and mild nausea. Patient reports that he has been taking ibuprofen 400 mg every 4-5 hours for pain control. He denies history of peptic ulcer disease. He denies history of any
prior or upper endoscope. Denies having had melena on prior treatments with chemo. He reports diarrhea and bloody stools in the past. He denies having any chest pain.
In the Emergency Department the patient was afebrile, blood pressure was 127/80 with a pulse in the 130s. Sinus. He was satting 100% on room air. Hemoglobin was 8.8 down from 10.68 days ago. Platelet levels normal, WBC was 2.6. Electrolytes
BUN/creatinine within normal range.
Medical History
Past Medical History
Past Medical History: Reports Arrhythmia (Paroxysmal atrial fibrillation) and Cancer (Rectal cancer status post resection)
Past Surgical History: Reports Bowel Resection
Social History
Tobacco: Non-smoker
Alcohol: None
Drug: None
Personal:
Living: With Family
Family History
Family History: Not pertinent
Allergies / Home Medications
Allergies reflects when Allergies were last updated in [facility].
Home Medications with original date entered in [facility]
Allergy/Medication List:
Allergies
Allergy/AdvReac Type Severity Reaction Status Date / Time
No Known Allergies Allergy Verified 07/03/24 17:31
Home Medications
bisacodyl 5 mg tablet,delayed release (Dulcolax (bisacodyl)) 10 mg PO DAILYPRN PRN constipation ##0 10/17/23
ibuprofen 200 mg capsule 400 mg PO Q4HPRN PRN w/ tramadol 10/17/23
metoprolol tartrate 25 mg tablet 12.5 mg PO BID 12/27/23
esomeprazole magnesium 40 mg capsule,delayed release 40 mg PO DAILY 07/03/24
tramadol 50 mg tablet 50 mg PO Q4HPRN PRN moderate pain 07/03/24
Review of Systems
-
History Source: Patient
Constitutional: Reports No Symptoms
EENT: Reports No Symptoms
Respiratory: Reports No Symptoms
Cardiac: Reports No Symptoms
Abdomen/GI: Reports Abdominal Pain, Bloody Stools and Black Stools
: Reports No Symptoms
Musculoskeletal: Reports No Symptoms
Skin: Reports No Symptoms
Neurological: Reports No Symptoms
Endocrine: Reports No Symptoms
Hematologic/Lymphatic: Reports No Symptoms
Psych: Reports No Symptoms
Physical Exam
Vital Signs
Vital Signs
Temp Pulse Resp BP Pulse Ox
98.4 F 123 20 143/102 100
07/03/24 17:25 07/03/24 17:39 07/03/24 18:03 07/03/24 17:38 07/03/24 17:39
Physical Exam
General: Conversant
HEENT: NormoCephalic, Anicteric, Moist mucous membranes and Atraumatic
Respiratory: Clear
Cardiac: S1/S2, Regular Rhythm and Tachycardia
Breast: Deferred by me
GI: Non Distended, Normal Bowel Sounds and Tender
Rectal: Brown and Hem Positive
Genito-urinary: Deferred by me
Musculoskeletal: No Clubbing, No Cyanosis and No Edema
Skin: Warm and Dry
Neuro: AO x 3
Hematologic/Lymphatic: No Lymphadenopathy
Psych: Calm
Laboratory Results
-
07/03/24 17:58
07/03/24 17:58
Laboratory Results
Total Bilirubin 0.4 mg/dl (0.2-1.3) 07/03/24 17:58
AST 19 U/L (17-59) 07/03/24 17:58
ALT 17 U/L (0-50) 07/03/24 17:58
Alkaline Phosphatase 91 U/L (38-126) 07/03/24 17:58
Data Reviewed
-
Medical Tests (Nuc Med, Echo, EKG etc): Image Personally Visualized and interpreted
Lab Data: Labs Reviewed by me
Old Records: Reviewed
Impression/Plan
-
IMPRESSION:
58 M with rectal ca on cycle 8 of FOLFORI + irinotecan last dose last week tuesday who developed constipation then treated with laxatives and now has 2 days of diarrhea with both bright red blood and black stool. Stools are dark brown heme positive
here. He is tachycardic but sinus. Taking NSAIDs for pain. Off apixaban since January/February of this year. Suspect both upper GI bleed from gastritis and lower GI bleed from chemo. No evidence of acute infection.
PLAN:
1. Rectal bleeding - Tachycardic but normotensive. Hgb down to 8.8 from baseline of 10.6
- admit to telemetry
- clear liquid diet for now
- ppi iv bid
- holding nsaids and (off apixaban, unclear why)
- type and screen, h/h q 8, transfuse for hgb < 7
- GI consultation
2.pAFIB - CHADs2 quite low and does not meet strict criteria for AC. Currently sinus.
- keep hold apixaban for now
- restart metop 12.5 q 12 in am if hd stable.
3. Hypovolemia - Suspect tachycardia is related to hypovolemia. Poor po and diarrhea. Diarrhea possibly secondary to irinotecan.
- IV d5LR at 125 ml/hr for now after 1 L NS bolus.
DVT PPX - SCDs
Code Status - Full Code
[2024-07-03 19:41] VITALS: BP 143/93
[2024-07-03 20:18] VITALS: BP 147/84
[2024-07-03 20:19] VITALS: BMI 20.9
--- NOTE | 2024-07-03 20:20 | PTCARENOTE ---
@2000;Received pt from ED,via stretcher ,on tele monitor and IV bolus NSS infusing with 500ml credit.Assist pt to bed x1 & gait weak.Pt angry /agitated on being admitted and having rectal bleeding.Emotional support given.
[2024-07-03] MEDS: NSS (PRESERVATIVE FREE) 10 ML IV (21:24)
[2024-07-03] MEDS: PROTONIX IV 40 MG IV (21:24)
[2024-07-03] MEDS: D5LR 1000 IV (21:24)
[2024-07-03 21:30] LABS: Hematocrit 27.9 % (39.0-52.0); Hemoglobin 9.6 g/dL (13.0-18.0)
[2024-07-03] MEDS: ULTRAM 50 MG PO (22:03)
[2024-07-03] MEDS: LOPRESSOR 12.5 MG PO (22:04)
[2024-07-03 22:35] VITALS: BP 132/64; BP 146/78; PULSE 111; PULSE 95
[2024-07-04 01:49] VITALS: BMI 20.9
[2024-07-04 03:56] VITALS: BP 154/76
[2024-07-04 05:09] VITALS: BMI 20.6
[2024-07-04 05:12] LABS: Reticulocyte Count 1.1 % (0.4-2.8)
[2024-07-04] MEDS: D5LR 1000 IV ×2 (05:13→13:01)
[2024-07-04] MEDS: ULTRAM 50 MG PO ×3 (05:20→21:10)
[2024-07-04 05:24] LABS: INR 1.11; PT 14.6 Sec (11.4-14.6)
[2024-07-04 05:34] LABS: Blood Urea Nitrogen 13 mg/dl (9-20); Calcium 9.1 mg/dl (8.4-10.2); Carbon Dioxide 21 mmol/L (22-30); Chloride 107 mmol/L (98-107); Estimated Creatinine Clearance 81 ml/min; Glucose 163 mg/dl (70-99); Iron 49 ug/dl (49-181); Potassium 4.2 mmol/L (3.5-5.1); Sodium 141 mmol/L (135-145); eGFR > 60.00
[2024-07-04 05:43] LABS: Percent Saturation 15 % (20-50); Total Iron Binding Capacity 321 ug/dl (261-462)
[2024-07-04 06:18] LABS: % Basophils 0.5 % (0-2); % Eosinophils 0.5 % (0-6); % Immature Granulocytes 0.5 % (0-0.5); % Monocytes 12.8 % (1.7-9.3); % Neutrophils 62.7 % (42.2-75.2); Absolute Monocytes 0.6 10^3/uL (0.1-0.6); Absolute Neutrophils 2.7 10^3/uL (1.4-6.5); Hematocrit 24.2 % (39.0-52.0); Hemoglobin 8.3 g/dL (13.0-18.0); Mean Corp Hgb Conc. 34.3 g/dL (33.0-37.0); Mean Corpuscular Hgb 31.8 pg (27.0-31.0); Mean Corpuscular Volume 92.7 fL (80.0-94.0); Mean Platelet Volume 9.1 fL (7.4-10.4); Nucleated Red Blood Cells % 0.5 % (-); Platelet Count 337 10^3/uL (130-400); Red Blood Cell Count 2.61 10^6/uL (4.70-6.10); Red Cell Dist. Width 16.1 % (11.5-14.5); White Blood Cell Count 4.3 10^3/uL (4.8-10.8)
[2024-07-04 06:51] LABS: Folate > 20.0 ng/ml (2.76-20)
[2024-07-04 07:20] VITALS: BP 119/70
[2024-07-04] MEDS: LOPRESSOR 12.5 MG PO ×2 (08:01→21:04)
[2024-07-04] MEDS: NSS (PRESERVATIVE FREE) 10 ML IV ×2 (08:02→21:05)
[2024-07-04] MEDS: PROTONIX IV 40 MG IV ×2 (08:04→21:05)
--- NOTE | 2024-07-04 11:01 | W.PN.HOSP.TC ---
Today's Communication/Plan
-
Monitor stools
Advance diet
Stop IV fluid later today
Awaiting stool studies
Assessment / Plan
Assessment / Plan
IMPRESSION:
58 M with rectal ca on cycle 8 of FOLFORI + irinotecan last dose last week tuesday who developed constipation then treated with laxatives and now has 2 days of diarrhea with both bright red blood and black stool. Stools are dark brown heme positive
here. He is tachycardic but sinus. Taking NSAIDs for pain. Off apixaban since January/February of this year. Suspect both upper GI bleed from gastritis and lower GI bleed from chemo. No evidence of acute infection.
PLAN:
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
Metastatic rectal cancer to liver follows with [facility]
- advance to full liquids
- ppi iv bid
- holding nsaids and (off apixaban, unclear why)
- type and screen, h/h q 8, transfuse for hgb < 7.
- C. difficile negative. Awaiting further stool studies. Patient states stools are starting to form.
- If no improvement and active bleeding and or with it abdominal pain nausea vomiting and check CT abdomen pelvis with p.o. and IV contrast and will need GI eval.
.pAFIB - CHADs2 quite low and does not meet strict criteria for AC. Currently sinus.
- not on DOAC
- restart metop
Hypovolemia - Suspect tachycardia is related to hypovolemia. Poor po and diarrhea. Diarrhea possibly secondary to irinotecan.
- IV d5LR at 125 ml/hr can be stopped later today if tolerating diet
DVT PPX - SCDs
Code Status - Full Code
Anticipated Discharge: Within 24 hours
Subjective/Interval History
-
Date of Service: July 04, 2024
states of chronic rectal pain
no abd pain or nausea or vomiting
states stools are starting to form
Objective Data
-
Labs:
Laboratory Results
07/04/24 07/04/24
04:51 06:00
WBC 4.3 L Cancelled
Hgb 8.3 L Cancelled
Hct 24.2 L Cancelled
Plt Count 337 D Cancelled
PT 14.6
INR 1.11
Sodium 141
Potassium 4.2
Chloride 107
Carbon Dioxide 21 L
BUN 13
Creatinine 0.8
Glucose 163 H
Calcium 9.1
Vital Signs:
Vital Signs
Temp Pulse Resp BP Pulse Ox
98.3 F 84 14 119/70 98
07/04/24 07:20 07/04/24 08:01 07/04/24 07:20 07/04/24 08:01 07/04/24 07:20
I&O
07/03/24 07/04/24 07/05/24
06:59 06:59 06:59
Intake Total 2450 / 2450
Output Total 500 / 500
Balance 1950 / 1950
Physical Exam
-
General: No Apparent Distress and Appears Chronically Ill
HEENT: Normocephalic, Atraumatic and Moist Mucous Membranes
Respiratory: Clear to Auscultation
Cardiac: Regular Rhythm and S1/S2; Negative Murmur, Rub or Gallop
GI: Soft, Nontender, Nondistended and Normal Bowel Sounds; Negative Organomegaly
Rectal: Deferred by Provider
Musculoskeletal: No Clubbing, No Cyanosis and No Edema
Skin: Warm; Negative Rash
Neuro: Awake, Alert, Oriented, AO x 3, No Motor Deficits and Nonfocal/Grossly Intact
Psych: Calm
Data Reviewed
-
Total Time Spent with Patient (in minutes): 52
--- NOTE | 2024-07-04 11:06 | CM ---
CM following re: discharge planning.
Reviewed pt's chart, met with pt.
Pt is a 58 year old male, admitted with primary dx of Rectal bleeding.
Pt reports he lives with 13 year old son in a 2SH, 1 step to enter, 2 other children are in college. Pt reports his spouse , emotional support offered and provided. Pt described himself as independent in all areas [employer]AT [employer], drives, works.
AD printed information provided.
PCP: Rayo Rose
Pharmacy: [facility]
D/C plan: home with anticipated no needs.
CM will follow with discharge plan updates as hospitalization progresses
[2024-07-04 11:15] VITALS: BP 111/77; BP 112/75; BP 130/71; PULSE 101; PULSE 112; PULSE 89
[2024-07-04] MEDS: ANUSOL HC 25 MG RECTAL (13:01)
[2024-07-04 15:50] VITALS: BP 119/71
[2024-07-04 19:22] VITALS: BP 134/75
[2024-07-04 22:35] VITALS: BP 100/62; BP 105/74; BP 119/76; PULSE 101; PULSE 107; PULSE 82
[2024-07-05] VITALS (8 sets, daily range): BP systolic 111–137; BP diastolic 64–83
[2024-07-05] MEDS: LOPRESSOR 12.5 MG PO ×2 (08:22→19:26)
[2024-07-05] MEDS: PROTONIX IV 40 MG IV ×2 (08:23→19:26)
[2024-07-05] MEDS: NSS (PRESERVATIVE FREE) 10 ML IV ×2 (08:23→19:26)
[2024-07-05 08:52] LABS: % Basophils 0.4 % (0-2); % Eosinophils 1.2 % (0-6); % Immature Granulocytes 0.8 % (0-0.5); % Lymphocytes 14.6 % (20.5-51.1); % Monocytes 14.2 % (1.7-9.3); % Neutrophils 68.8 % (42.2-75.2); Absolute Lymphocytes 0.4 10^3/uL (1.2-3.4); Absolute Monocytes 0.4 10^3/uL (0.1-0.6); Absolute Neutrophils 1.8 10^3/uL (1.4-6.5); Hematocrit 20.7 % (39.0-52.0); Mean Corp Hgb Conc. 33.8 g/dL (33.0-37.0); Mean Corpuscular Hgb 32.3 pg (27.0-31.0); Mean Corpuscular Volume 95.4 fL (80.0-94.0); Mean Platelet Volume 8.8 fL (7.4-10.4); Nucleated Red Blood Cells % 0.8 % (-); Platelet Count 234 10^3/uL (130-400); Red Blood Cell Count 2.17 10^6/uL (4.70-6.10); Red Cell Dist. Width 16.4 % (11.5-14.5); White Blood Cell Count 2.6 10^3/uL (4.8-10.8)
[2024-07-05 08:59] LABS: Blood Urea Nitrogen 8 mg/dl (9-20); Calcium 8.7 mg/dl (8.4-10.2); Carbon Dioxide 28 mmol/L (22-30); Chloride 106 mmol/L (98-107); Estimated Creatinine Clearance 81 ml/min; Glucose 122 mg/dl (70-99); Potassium 3.9 mmol/L (3.5-5.1); Sodium 141 mmol/L (135-145); eGFR > 60.00
[2024-07-05] MEDS: NSS 500 IV (09:14)
[2024-07-05] MEDS: OMNIPAQUE 50 ML PO (09:54)
--- NOTE | 2024-07-05 10:00 | CON.GI ---
Addendum entered and electronically signed by Cheryl Pittman DO 07/05/24 15:27:
The patient was seen and examined by me independently in collaboration with the nurse practitioner.
Past medical history/social history/medications/allergies/family history reviewed.
Lab data and imaging data reviewed.
Briefly, Rashid Lund is a 58 y.o. male with pmhx pAF (off AC) metastatic rectal ca s/p neoadjuvant chemo and partial liver lobectomy resection 2/ liver met admitted with concern for GI bleeding. He reports he was recently started on Irinotecan-
last dose on Tuesday. He has experienced black tarry stools twice since starting this medication. This alternates with rectal bleeding. Neither are consistent. He admits to 400mg Ibuprofen q4 hours for pain. Denies recent iron supplementation or use
of pepto bismol.
Hgb 8.8 --> 7, transfused with 1 U PRBC --> 8.4
BUN 14 --> 13 --> 8
Suspect predominantly tumor bleeding-- however, unclear why he would be having melena. He has risk factors for erosive gastritis/duodenitis/PUD with heavy NSAID use, however, reassuringly, his BUN is WNL. Unfortunately, for his tumor bleeding, we
have little to no options to offer her in terms of definitive hemostasis. I offered to perform an EGD tomorrow to assess for an upper GI source, however, he would like to discuss with Dr. Mascorro-- feels this is medication related, does not know if he
would like to proceed.
Plan:
-f/u CT scan
-2 large peripheral gauge IVs
-active T&C
-transfuse for Hgb <7
-IV PPI BID
-unlikely UGI source, but cannot fully explain his melena, given tumor is in the rectum
-consult Oncology
-if patient wishes to proceed with EGD tomorrow, please notify GI immediately and make NPO past midnight.
Will follow.
Pt is a 58yo presents with hx PAF off anticoagulation, metastatic rectal CA (no prior rectal resection) s/p neoadjuvant chemo and partial liver lobectomy resection( bx metastatic adeno CA to liver) with Dr. Riley in October. He recently received cycle
8 of FOLFORI irinotecan with last dose on Tuesday. He was noted with constipation then on the weekend diarrhea with abdominal pain and now noted with rectal bleeding. She admits to bleeding about 2 weeks ago then recurrent. he also admits to red
stools and black stools. On admission hbg was 8.8 to drop to 7 from prior range of 7-10 over last year. 06/21 PET scan with Re demonstration of scattered pulmonary and hepatic metastases which, although have increased slightly in size/number
compared to prior PET/CT 03/14/2024, have all significantly decreased in FDG activity most in keeping with treatment response.Residual mild FDG activity throughout the mid to lower rectum with max SUV 7.0 (previously 10.7) with similar underlying
rectal wall thickening.
At this time patient denies odynophagia, dysphagia, GERD, nausea, vomiting, abdominal pain. + Frequent Ibuprofen use for rectal pain. 600mg about every 4-5 hours for 1 year was cutting back as added Tramadol. Pt denies dizziness, syncope
or shortness of breath at this time. No hx EGD. Last colonoscopy 01/2023 - Rectal mass on digital examination. malignant tumor from 1to 10cm proximal anus,. bx invasive adeno CA.
inva
Original Note:
Consultation
-
Date/Time Consultation Requested: 07/05/24 0940
Date/Time Consultation Performed: 07/05/24 1000
Requesting Provider: Scot Suggs MD
Performing Provider: ANUEL Coronado, Silvia Mead DO
Reason for Consultation: abdominal pain, diarrhea, rectal bleeding with hx rectal CA
Medical History
Chief Complaint / HPI
Chief Complaint: abdominal pain, rectal bleeding
History of Present Illness:
Pt is a 58yo presents with hx PAF off anticoagulation, metastatic rectal CA (no prior rectal resection) s/p neoadjuvant chemo and partial liver lobectomy resection( bx metastatic adeno CA to liver) with Dr. Riley in October. He recently received cycle
8 of FOLFORI irinotecan with last dose on Tuesday. He was noted with constipation then on the weekend diarrhea with abdominal pain and now noted with rectal bleeding. She admits to bleeding about 2 weeks ago then recurrent. he also admits to red
stools and black stools. On admission hbg was 8.8 to drop to 7 from prior range of 7-10 over last year. 06/21 PET scan with Re demonstration of scattered pulmonary and hepatic metastases which, although have increased slightly in size/number
compared to prior PET/CT 03/14/2024, have all significantly decreased in FDG activity most in keeping with treatment response.Residual mild FDG activity throughout the mid to lower rectum with max SUV 7.0 (previously 10.7) with similar underlying
rectal wall thickening.
At this time patient denies odynophagia, dysphagia, GERD, nausea, vomiting, abdominal pain. + Frequent Ibuprofen use for rectal pain. 600mg about every 4-5 hours for 1 year was cutting back as added Tramadol. Pt denies dizziness, syncope
or shortness of breath at this time. No hx EGD. Last colonoscopy 01/2023 - Rectal mass on digital examination. malignant tumor from 1to 10cm proximal anus,. bx invasive adeno CA.
inva
Past Medical History
Past Medical History: Arrhythmias (PAF) and Cancer (recal Ca withr resection with mets )
Past Surgical History: None
Social History
Tobacco: Non-Smoker
Alcohol: None
Drug: None
Personal:
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
Family History
Family History: Other (grandmother and dad with RA)
Allergies / Home Medications
Allergy/AdvReac Type Severity Reaction Status Date / Time
No Known Allergies Allergy Verified 07/03/24 17:31
�Medication �Instructions �Recorded
bisacodyl 5 mg tablet,delayed 10 mg PO DAILYPRN PRN constipation 10/17/23
release (Dulcolax (bisacodyl)) ##0
ibuprofen 200 mg capsule 400 mg PO Q4HPRN PRN w/ tramadol 10/17/23
metoprolol tartrate 25 mg tablet 12.5 mg PO BID Blood Pressure 12/27/23
esomeprazole magnesium 40 mg 40 mg PO DAILY Gastrointestinal 07/03/24
capsule,delayed release Issue
tramadol 50 mg tablet 50 mg PO Q4HPRN PRN moderate pain 07/03/24
Review of Systems
-
History Source: Patient
Constitutional: Reports Weight Loss ( 30 lbs )
EENT: Reports No Symptoms
Respiratory: Reports No Symptoms
Cardiac: Reports No Symptoms
Abdomen/GI: Reports Diarrhea, Constipated, Bloody Stools and Black Stools
: Reports No Symptoms
Musculoskeletal: Reports No Symptoms
Neurological: Reports Weakness
Endocrine: Reports No Symptoms
Hematologic/Lymphatic: Reports Bleeding
Vital Signs
Temp Pulse Resp BP Pulse Ox
98.8 F 95 17 119/71 98
07/05/24 07:43 07/05/24 08:22 07/05/24 07:43 07/05/24 08:22 07/05/24 07:43
Physical Exam
Exam
General: Well Developed, Well Nourished and Other (pale appearing )
HEENT: Normocephalic and Anicteric
Respiratory: Clear
Cardiac: Regular Rhythm
GI: Soft, Non Tender and Non Distended
Rectal: Other (external hemorrhoid. No internal rectal exam done with rectal pain )
Musculoskeletal: No Clubbing and No Cyanosis
Skin: Warm and Dry
Neuro: Awake, Alert and AO x 3
Psych: Calm
Results
WBC 2.6 10^3/uL (4.8-10.8) L 07/05/24 08:07
Hgb 7.0 g/dL (13.0-18.0) L 07/05/24 08:07
Hct 20.7 % (39.0-52.0) L* 07/05/24 08:07
MCV 95.4 fL (80.0-94.0) H 07/05/24 08:07
Plt Count 234 10^3/uL (130-400) D 07/05/24 08:07
Absolute Neuts (auto) 1.8 10^3/uL (1.4-6.5) 07/05/24 08:07
PT 14.6 Sec (11.4-14.6) 07/04/24 04:51
INR 1.11 07/04/24 04:51
Sodium 141 mmol/L (135-145) 07/05/24 08:07
Potassium 3.9 mmol/L (3.5-5.1) 07/05/24 08:07
Chloride 106 mmol/L (98-107) 07/05/24 08:07
Carbon Dioxide 28 mmol/L (22-30) 07/05/24 08:07
BUN 8 mg/dl (9-20) L 07/05/24 08:07
Creatinine 0.8 mg/dL (0.7-1.3) 07/05/24 08:07
Calcium 8.7 mg/dl (8.4-10.2) 07/05/24 08:07
Total Bilirubin 0.4 mg/dl (0.2-1.3) 07/03/24 17:58
AST 19 U/L (17-59) 07/03/24 17:58
ALT 17 U/L (0-50) 07/03/24 17:58
Alkaline Phosphatase 91 U/L (38-126) 07/03/24 17:58
Diagnostic Image Results:
CT pending
06/21/24 PET scan
Remonstration of scattered pulmonary and hepatic metastases which, although have increased slightly in size/number compared to prior PET/CT 03/14/2024, have all significantly decreased in FDG activity most in keeping with treatment response.
No new sites of suspicious FDG avid disease in the body.
Prior GI Procedures:
EGD: none
Colonoscopy: 01/2023 - Rectal mass on digital examination. malignant tumor from 1to 10cm proximal anus,. bx invasive adeno CA.
Assessment / Plan
-
Pt is a 58yo presents with hx metastatic rectal CA (no prior rectal resection) s/p neoadjuvant chemo and partial liver lobectomy resection( bx metastatic adeno CA to liver) with Dr. Riley in October. He recently received cycle 8 of FOLFORI irinotecan
with last dose on Tuesday. He was noted with constipation then on the weekend diarrhea with abdominal pain and now noted with rectal bleeding. She admits to bleeding about 2 weeks ago then recurrent. he also admits to red stools and black stools.
On admission hbg was 8.8 to drop to 7 from prior range of 7-10 over last year. 06/21 PET scan with Re demonstration of scattered pulmonary and hepatic metastases which, although have increased slightly in size/number compared to prior PET/CT
03/14/2024, have all significantly decreased in FDG activity most in keeping with treatment response.Residual mild FDG activity throughout the mid to lower rectum with max SUV 7.0 (previously 10.7) with similar underlying rectal wall thickening. Pt
also with continued complaint of rectal pain with increased NSAID use.
-rectal bleeding red and black stools
--known metastatic rectal cancer with mets to liver no prior rectal resection but liver resection 2022. Pt with recent chemo
-anemia acute blood loss
-rectal pain with NSAID use
-PAF off anticoagulation
PLAN:
Etiology of bleeding with red and black stool noted related to know rectal mass and black stool with ? NSAID use vs other
BUN low at 8 less likely upper source
for CT now
monitor stools agree with transfusion
trend hbg
recent pet reviewed
pain management for rectal pain per hospitalist and oncology as continued pain
ok for diet today will review with Dr. Pittman any plan for scope after CT reviewed
discussed NSAID avoidance wtih pt
cont PPI BID
-
-
-
Thank you for consultation and allowing me to participate in the patient's care. Please call the oncology physician GI physician during the after hours with any questions or concerns.
--- NOTE | 2024-07-05 10:17 | W.PN.HOSP.TC ---
Today's Communication/Plan
-
Check CT abdomen pelvis with p.o. and IV contrast
Continue with liquid diet
Transfuse 1 unit PRBC
GI eval
Assessment / Plan
Assessment / Plan
IMPRESSION:
58 M with rectal ca on cycle 8 of FOLFORI + irinotecan last dose last week tuesday who developed constipation then treated with laxatives and now has 2 days of diarrhea with both bright red blood and black stool. Stools are dark brown heme positive
here. He is tachycardic but sinus. Taking NSAIDs for pain. Off apixaban since January/February of this year. Suspect both upper GI bleed from gastritis and lower GI bleed from chemo. No evidence of acute infection.
PLAN:
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
Metastatic rectal cancer to liver follows with [facility]
- full liquids
- ppi iv bid
- holding nsaids and (off apixaban, unclear why)
- type and screen, h/h q 8, transfuse for hgb < 7.
- C. difficile negative. Awaiting further stool studies.
- Hemoglobin at 7. Will transfuse 1 unit of PRBC. Check CT abdomen pelvis with p.o. and IV contrast
- GI eval as recent episode 3 weeks ago
Anemia likely multifactorial secondary to chemotherapy versus blood loss acute versus some dilutional component
-Hemoglobin of 7. Transfuse 1 unit of PRBC.
-IV iron afterwards
.pAFIB - CHADs2 quite low and does not meet strict criteria for AC. Currently sinus.
- not on DOAC
- restart metop
Hypovolemia - Suspect tachycardia is related to hypovolemia. Poor po and diarrhea. Diarrhea possibly secondary to irinotecan.
- observe off IVF
DVT PPX - SCDs
Code Status - Full Code
Anticipated Discharge: > 48 hours
Subjective/Interval History
-
Date of Service: July 05, 2024
Remains intermittently with blood in stool
Hgb dropped to 7
no severe pain
Objective Data
-
Labs:
Laboratory Results
07/05/24 07/05/24
08:07 16:00
WBC 2.6 L
Hgb 7.0 L Pending
Hct 20.7 L* Pending
Plt Count 234 D
Sodium 141
Potassium 3.9
Chloride 106
Carbon Dioxide 28
BUN 8 L
Creatinine 0.8
Glucose 122 H
Calcium 8.7
Vital Signs:
Vital Signs
Temp Pulse Resp BP Pulse Ox
98.8 F 95 17 119/71 98
07/05/24 07:43 07/05/24 08:22 07/05/24 07:43 07/05/24 08:22 07/05/24 07:43
I&O
07/04/24 07/05/24 07/06/24
06:59 06:59 06:59
Intake Total 2450 / 2450 3695 / 3695
Output Total 500 / 500 360 / 360
Balance 1950 / 1950 3335 / 3335
Physical Exam
-
General: No Apparent Distress, Appears Chronically Ill and Cachectic
HEENT: Normocephalic, Atraumatic and Moist Mucous Membranes
Respiratory: Clear to Auscultation
Cardiac: Regular Rhythm and S1/S2; Negative Murmur, Rub or Gallop
GI: Soft, Nontender, Nondistended and Normal Bowel Sounds; Negative Organomegaly
Rectal: Deferred by Provider
Musculoskeletal: No Clubbing, No Cyanosis and No Edema
Skin: Warm; Negative Rash
Neuro: Awake, Alert, Oriented, AO x 3, No Motor Deficits and Nonfocal/Grossly Intact
Psych: Calm
Data Reviewed
-
Total Time Spent with Patient (in minutes): 52
[2024-07-05 14:00] LABS: Hematocrit 25.2 % (39.0-52.0); Hemoglobin 8.4 g/dL (13.0-18.0)
--- NOTE | 2024-07-05 16:11 | CON.ONC ---
Impression
Impression
Anemia with GI bleeding
Metastatic rectal carcinoma
Liver resection
Second line therapy with FOLFIRI approaching tolerance/progressive disease
Peripheral neuropathy
Rectal pain
Plan
Plan
Consider endoscopy and ablation of any bleeding diathesis
CT scan is not significantly different from PET scan of 06/21
Paradoxical responses Noted suggesting biclonal disease
Colitis with progressive FOLFIRI Intolerant
Follow-up in the office to consider clinical trial
Transfuse hemoglobin less than 8.0 g/dL with bleeding
Will follow
Patient History
History of Present Illness
Patient is a pleasant 58-year-old diagnosed in January 2023 with metastatic rectal carcinoma to the liver. He underwent systemic therapy with FOLFOX through 12 cycles followed by liver resection. He received Rectal radiation therapy after liver
resection but unfortunately developed progressive disease. Subsequently he has been treated been on FOLFIRI With increasingly poor tolerance and has he has completed cycles of therapyInitially with bevacizumab but not in recent months. He has been
taking increased doses of Motrin to control discomfort associated with what appears to be regional recurrence in the rectum. PET CT scan was performed on the which showed areas of paradoxical response with decrease in SUV and slight increase
in size of small smaller pulmonary nodules. CT performed on this hospitalization was compared to a remote imaging study and is not indicative of his current disease status. Patient has had episodes of dark-colored stool. Concerning for upper GI
bleed possibly exacerbated by nonsteroidal anti-inflammatory agents.
Past-Medical/Surgical History
Past medical/surgical history
Paroxysmal atrial fibrillation
Anemia with rectal bleeding
History of liver resection
Social History
Tobacco: Non-smoker
Alcohol: None
Drug: None
Personal:
Living: With Family
Family History
Family History: Not pertinen
Patient Medication
�Medication �Instructions �Recorded �Confirmed �Last Taken �Type
bisacodyl 5 mg tablet,delayed 10 mg PO DAILYPRN PRN constipation 10/17/23 07/03/24 07/03/24 History
release (Dulcolax (bisacodyl)) ##0
ibuprofen 200 mg capsule 400 mg PO Q4HPRN PRN w/ tramadol 10/17/23 07/03/24 07/03/24 10:00 History
metoprolol tartrate 25 mg tablet 12.5 mg PO BID Blood Pressure 12/27/23 07/03/24 12/27/23 History
esomeprazole magnesium 40 mg 40 mg PO DAILY Gastrointestinal 07/03/24 07/03/24 Unknown History
capsule,delayed release Issue
tramadol 50 mg tablet 50 mg PO Q4HPRN PRN moderate pain 07/03/24 07/03/24 07/03/24 History
Active Medications
Generic Name Dose Route Start Last Admin
Trade Name Freq PRN Reason Stop Dose Admin
Sodium Chloride 500 mls @ 10 mls/hr 07/05/24 09:00 07/05/24 09:14
Nss IV 500 mls
.Q24H ZACK Administration
Metoprolol Tartrate 12.5 mg 07/03/24 20:00 07/05/24 08:22
Metoprolol 12.5 Mg Regular Release Dose (1/2 Of 25 Mg Tablet) PO 07/31/24 19:59 12.5 mg
BID ZACK Administration
Ondansetron HCl 4 mg 07/03/24 19:36
Ondansetron 4 Mg/2 Ml Vial IV 07/31/24 19:35
Q6HPRN PRN
NAUSEA/VOMITING
Oxycodone HCl 2.5 mg 07/04/24 12:38
Oxycodone 5 Mg Regular Release Tablet PO 07/18/24 12:37
TIDPRN PRN
severe pain
Pantoprazole Sodium 40 mg 07/04/24 08:00 07/05/24 08:23
Pantoprazole Sodium 40 Mg/10 Ml Vial IV 08/01/24 07:59 40 mg
BID ZACK Administration
Sodium Chloride 0 flush 07/03/24 20:00
Sodium Chloride 0.9% (Flush) Syringe IV 07/31/24 19:59
PER PROTOCOL ZAKC
Sodium Chloride 10 ml 07/04/24 08:00 07/05/24 08:23
Sodium Chloride 0.9% (Preservative Free) 10 Ml Vial IV 08/01/24 07:59 10 ml
BID ZACK Administration
Tramadol HCl 50 mg 07/03/24 19:36 07/04/24 21:10
Tramadol Hcl 50 Mg Tablet PO 07/31/24 19:35 50 mg
Q6HPRN PRN Administration
moderate pain
Review of Systems
-
12 point review of systems otherwise unremarkable
Physical Exam
-
Physical Exam
General: Conversant
HEENT: Moist mucous membranes and Atraumatic
Respiratory: Clear
Cardiac: S1/S2, Regular Rhythm and Tachycardia
GI: Non Distended, Normal Bowel Sounds and Tender
Musculoskeletal: No Clubbing, No Cyanosis and No Edema
Skin: Warm and Dry
Neuro: AO x 3
Hematologic/Lymphatic: No Lymphadenopathy
Psych: Calm
Labs
Lab Results
WBC 2.6 10^3/uL (4.8-10.8) L 07/05/24 08:07
RBC 2.17 10^6/uL (4.70-6.10) L 07/05/24 08:07
Hgb Cancelled 07/05/24 16:00
Hct Cancelled 07/05/24 16:00
MCV 95.4 fL (80.0-94.0) H 07/05/24 08:07
MCH 32.3 pg (27.0-31.0) H 07/05/24 08:07
MCHC 33.8 g/dL (33.0-37.0) 07/05/24 08:07
RDW 16.4 % (11.5-14.5) H 07/05/24 08:07
Plt Count 234 10^3/uL (130-400) D 07/05/24 08:07
MPV 8.8 fL (7.4-10.4) 07/05/24 08:07
Abs Immat Gran (auto) 0.0 10^3/uL (0-0.05) 07/05/24 08:07
Absolute Neuts (auto) 1.8 10^3/uL (1.4-6.5) 07/05/24 08:07
Absolute Lymphs (auto) 0.4 10^3/uL (1.2-3.4) L 07/05/24 08:07
Absolute Monos (auto) 0.4 10^3/uL (0.1-0.6) 07/05/24 08:07
Absolute Eos (auto) 0.0 10^3/uL (0-0.7) 07/05/24 08:07
Absolute Basos (auto) 0.0 10^3/uL (0-0.2) 07/05/24 08:07
Immature Gran % 0.8 % (0-0.5) H 07/05/24 08:07
Neutrophils % 68.8 % (42.2-75.2) 07/05/24 08:07
Lymphocytes % 14.6 % (20.5-51.1) L 07/05/24 08:07
Monocytes % 14.2 % (1.7-9.3) H 07/05/24 08:07
Eosinophils % 1.2 % (0-6) 07/05/24 08:07
Basophils % 0.4 % (0-2) 07/05/24 08:07
Creatinine 0.8 mg/dL (0.7-1.3) 07/05/24 08:07
Vital Signs
Vital Signs
Temp Pulse Resp BP Pulse Ox
98.6 F 96 18 135/73 99
07/05/24 15:10 07/05/24 15:10 07/05/24 15:10 07/05/24 15:10 07/05/24 15:10
[2024-07-05] MEDS: ULTRAM 50 MG PO (21:21)
[2024-07-06] VITALS (11 sets, daily range): BP systolic 16–135; BP diastolic 65–81
[2024-07-06 05:24] LABS: % Basophils 0.4 % (0-2); % Eosinophils 1.9 % (0-6); % Immature Granulocytes 0.7 % (0-0.5); % Lymphocytes 19.5 % (20.5-51.1); % Monocytes 16.5 % (1.7-9.3); Absolute Eosinophils 0.1 10^3/uL (0-0.7); Absolute Lymphocytes 0.5 10^3/uL (1.2-3.4); Absolute Monocytes 0.4 10^3/uL (0.1-0.6); Absolute Neutrophils 1.6 10^3/uL (1.4-6.5); Hematocrit 25.2 % (39.0-52.0); Hemoglobin 8.2 g/dL (13.0-18.0); Mean Corp Hgb Conc. 32.5 g/dL (33.0-37.0); Mean Corpuscular Hgb 30.8 pg (27.0-31.0); Mean Corpuscular Volume 94.7 fL (80.0-94.0); Mean Platelet Volume 8.7 fL (7.4-10.4); Nucleated Red Blood Cells % 0.7 % (-); Platelet Count 238 10^3/uL (130-400); Red Blood Cell Count 2.66 10^6/uL (4.70-6.10); Red Cell Dist. Width 18.6 % (11.5-14.5); White Blood Cell Count 2.7 10^3/uL (4.8-10.8)
[2024-07-06 05:46] LABS: Blood Urea Nitrogen 7 mg/dl (9-20); Calcium 8.5 mg/dl (8.4-10.2); Carbon Dioxide 29 mmol/L (22-30); Chloride 104 mmol/L (98-107); Estimated Creatinine Clearance 81 ml/min; Glucose 113 mg/dl (70-99); Potassium 4.1 mmol/L (3.5-5.1); Sodium 142 mmol/L (135-145); eGFR > 60.00
[2024-07-06] MEDS: LOPRESSOR 12.5 MG PO ×2 (08:03→21:21)
[2024-07-06] MEDS: NSS (PRESERVATIVE FREE) 10 ML IV ×2 (08:05→21:21)
[2024-07-06] MEDS: PROTONIX IV 40 MG IV ×2 (08:05→21:21)
[2024-07-06] MEDS: NSS IV (08:20)
--- NOTE | 2024-07-06 08:59 | W.PN.ONC2 ---
Today's Communication / Plan
-
trend CBC, monitor bleeding, transfuse prn
requested add on iron panel to sample prior to transfusion -parenteral iron if ferritin <100
GI evaluation underway
anticoagulation, antiplatelets, and NSAIDs are on hold
pain management
OP follow up will be arranged upon discharge. Will need to consider holding Avastin in the setting of bleeding in subsequent cycles
Impression
Impression
ABLA/rectal bleeding
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 Yordan Riley October 2023
Second line therapy with Avastin+FOLFIRI last dose 06/26
PET/CT 06/21 with mixed response showing slight increase size/number of pulmonary and hepatic mets, however, all decreased in FDG activity suggesting response to treatment
Peripheral neuropathy
Rectal pain
Leukopenia/lymphopenia, not neutropenic
Plan
Plan
GI evaluation underway
CT scan is not significantly different from PET scan of 06/21
Avastin can increase risk of bleeding, thrombosis, bowel perforation, and delayed wound healing.
Follow-up in the office to consider clinical trial
Transfuse hemoglobin less than 8.0 g/dL with bleeding
Subjective/Objective
Subjective
no new complaints
Vital Signs:
Vital Signs
Temp Pulse Resp BP Pulse Ox
98.0 F 93 18 131/81 98
07/06/24 07:10 07/06/24 08:03 07/06/24 07:10 07/06/24 08:03 07/06/24 07:10
Lab Results:
Laboratory Data
WBC 2.7 10^3/uL (4.8-10.8) L 07/06/24 05:04
Hgb 8.2 g/dL (13.0-18.0) L 07/06/24 05:04
Plt Count 238 10^3/uL (130-400) 07/06/24 05:04
PT 14.6 Sec (11.4-14.6) 07/04/24 04:51
INR 1.11 07/04/24 04:51
eGFR > 60.00 07/06/24 05:04
--- NOTE | 2024-07-06 11:16 | W.PN.HOSP.TC ---
Today's Communication/Plan
-
trend h/h
EGD today
GI recs post procedure
npo
Assessment / Plan
Assessment / Plan
IMPRESSION:
58 M with rectal ca on cycle 8 of FOLFORI + irinotecan last dose last week tuesday who developed constipation then treated with laxatives and now has 2 days of diarrhea with both bright red blood and black stool. Stools are dark brown heme positive
here. He is tachycardic but sinus. Taking NSAIDs for pain. Off apixaban since January/February of this year. Suspect both upper GI bleed from gastritis and lower GI bleed from chemo. No evidence of acute infection.
PLAN:
Melena likely secondary to radiation proctitis versus gastroenteritis versus colitis vs. tumor bleeding vs. NSAIDs induce ulcer/gastropathy
Metastatic rectal cancer to liver and pulmonary status post liver resection follows with [facility]
- full liquids
- ppi iv bid
- holding nsaids and (off apixaban, unclear why)
- type and screen, h/h transfuse for hgb < 8 per onc.
- C. difficile negative. Salmonella, Shigella E. coli negative
-CT abdomen pelvis with moderate concentric bowel wall thickening throughout entirety of sigmoid colon consistent with colitis. Stable pulmonary masses at the lung bases consistent with pulmonary metastasis. Stable hepatic metastasis. Oncology
was consulted. Oncology correspondence noted and CT scan is not significantly different from the PET scan done recently.
-Plan for endoscopy today.
Anemia likely multifactorial secondary to chemotherapy versus blood loss acute versus some dilutional component
-Hemoglobin of 8.2. s/p 1U OF PRBC
.pAFIB - CHADs2 quite low and does not meet strict criteria for AC. Currently sinus.
- not on DOAC
- restart metop
Hypovolemia - Suspect tachycardia is related to hypovolemia. Poor po and diarrhea. Diarrhea possibly secondary to irinotecan.
- observe off IVF
DVT PPX - SCDs in the setting of bleeding
Code Status - Full Code
Anticipated Discharge: Within 24 hours
Subjective/Interval History
-
Date of Service: July 06, 2024
Denies any abdominal pain nausea vomiting.
Denies any bloody bowel movements
Remains n.p.o. as agreed for endoscopy
Objective Data
-
Labs:
Laboratory Results
07/06/24
05:04
WBC 2.7 L
Hgb 8.2 L
Hct 25.2 L
Plt Count 238
Sodium 142
Potassium 4.1
Chloride 104
Carbon Dioxide 29
BUN 7 L
Creatinine 0.8
Glucose 113 H
Calcium 8.5
Vital Signs:
Vital Signs
Temp Pulse Resp BP Pulse Ox
98.5 F 79 18 117/71 99
07/06/24 11:02 07/06/24 11:02 07/06/24 11:02 07/06/24 11:02 07/06/24 11:02
I&O
07/05/24 07/06/24 07/07/24
06:59 06:59 06:59
Intake Total 3695 / 3695 2887 / 2887
Output Total 360 / 360
Balance 3335 / 3335 2887 / 2887
Physical Exam
-
General: No Apparent Distress, Appears Chronically Ill, Cachectic and Other (sitting in chair. )
HEENT: Normocephalic, Atraumatic, Moist Mucous Membranes and Other (port noted )
Respiratory: Clear to Auscultation
Cardiac: Regular Rhythm; Negative Murmur, Rub or Gallop
GI: Soft, Nontender and Nondistended; Negative Organomegaly
Rectal: Deferred by Provider
Musculoskeletal: No Clubbing, No Cyanosis and No Edema
Skin: Warm; Negative Rash
Neuro: Awake, Alert, Oriented, AO x 3, No Motor Deficits and Nonfocal/Grossly Intact
Psych: Calm
[2024-07-06 11:19] LABS: Ferritin 62.3 ng/ml (17.9-464.0)
[2024-07-06 17:08] LABS: Iron 52 ug/dl (49-181); Percent Saturation 15 % (20-50); Total Iron Binding Capacity 343 ug/dl (261-462)
[2024-07-06] MEDS: ULTRAM 50 MG PO (18:08)
[2024-07-07] MEDS: ULTRAM 50 MG PO ×2 (00:11→12:35)
[2024-07-07 03:00] VITALS: BP 131/76
[2024-07-07 05:24] LABS: % Basophils 0.6 % (0-2); % Eosinophils 2.2 % (0-6); % Immature Granulocytes 0.6 % (0-0.5); % Lymphocytes 11.9 % (20.5-51.1); % Monocytes 12.2 % (1.7-9.3); % Neutrophils 72.5 % (42.2-75.2); Absolute Eosinophils 0.1 10^3/uL (0-0.7); Absolute Lymphocytes 0.4 10^3/uL (1.2-3.4); Absolute Monocytes 0.4 10^3/uL (0.1-0.6); Absolute Neutrophils 2.6 10^3/uL (1.4-6.5); Hemoglobin 8.1 g/dL (13.0-18.0); Mean Corp Hgb Conc. 32.4 g/dL (33.0-37.0); Mean Corpuscular Hgb 30.2 pg (27.0-31.0); Mean Corpuscular Volume 93.3 fL (80.0-94.0); Mean Platelet Volume 8.7 fL (7.4-10.4); Nucleated Red Blood Cells % 0 % (-); Platelet Count 228 10^3/uL (130-400); Red Blood Cell Count 2.68 10^6/uL (4.70-6.10); Red Cell Dist. Width 17.8 % (11.5-14.5); White Blood Cell Count 3.6 10^3/uL (4.8-10.8)
[2024-07-07 05:49] LABS: Blood Urea Nitrogen 11 mg/dl (9-20); Calcium 8.7 mg/dl (8.4-10.2); Carbon Dioxide 28 mmol/L (22-30); Chloride 103 mmol/L (98-107); Estimated Creatinine Clearance 81 ml/min; Glucose 112 mg/dl (70-99); Sodium 140 mmol/L (135-145); eGFR > 60.00
[2024-07-07 07:20] VITALS: BP 130/83
[2024-07-07] MEDS: NSS (PRESERVATIVE FREE) 10 ML IV (08:26)
[2024-07-07] MEDS: LOPRESSOR 12.5 MG PO (08:28)
[2024-07-07] MEDS: PROTONIX IV 40 MG IV (08:29)
--- NOTE | 2024-07-07 10:57 | W.PN.GI.CBS2 ---
Today's Communication / Plan
-
IV iron then okay for discharge from a GI perspective, regular diet
Assessment / Plan
-
Pt is a 58yo presents with hx metastatic rectal CA (no prior rectal resection) s/p neoadjuvant chemo and partial liver lobectomy resection( bx metastatic adeno CA to liver) with Dr. Riley in October. He recently received cycle 8 of FOLFORI irinotecan
with last dose on Tuesday. He was noted with constipation then on the weekend diarrhea with abdominal pain and now noted with rectal bleeding. She admits to bleeding about 2 weeks ago then recurrent. he also admits to red stools and black stools.
On admission hbg was 8.8 to drop to 7 from prior range of 7-10 over last year. 06/21 PET scan with Re demonstration of scattered pulmonary and hepatic metastases which, although have increased slightly in size/number compared to prior PET/CT
03/14/2024, have all significantly decreased in FDG activity most in keeping with treatment response.Residual mild FDG activity throughout the mid to lower rectum with max SUV 7.0 (previously 10.7) with similar underlying rectal wall thickening. Pt
also with continued complaint of rectal pain with increased NSAID use.
-rectal bleeding red and black stools
--known metastatic rectal cancer with mets to liver no prior rectal resection but liver resection 2022. Pt with recent chemo
-anemia acute blood loss
-rectal pain with NSAID use
-PAF off anticoagulation
07/06/2024, EGD for melena on chemotherapy and heavy NSAID use on Nexium outpatient. Grade a esophagitis, small hiatal hernia, multiple small angioectasias with no evidence of bleeding that were treated with APC otherwise normal to the second
portion of the duodenum.
PLAN 07/07/24
Etiology of bleeding Unclear with black stool. He did have very small angioectasias in the distal stomach which may be the beginning of GAVE.
Also does get nosebleeds at times
Will give him IV iron today then okay for discharge from a GI perspective and will follow-up with Dr. Mascorro
Careful with NSAID use especially because of the black stools and there may be ulcerations further in the small bowel
Continue Nexium daily especially with NSAID use
-
Subjective
Subjective
Date of Service: July 07, 2024
Patient has had further bowel movements but they were brown
Objective
Data Reviewed
Laboratory Data:
Laboratory Results
07/07/24 05:14
07/07/24 05:14
Laboratory Results
PT 14.6 Sec (11.4-14.6) 07/04/24 04:51
INR 1.11 07/04/24 04:51
Total Bilirubin 0.4 mg/dl (0.2-1.3) 07/03/24 17:58
AST 19 U/L (17-59) 07/03/24 17:58
ALT 17 U/L (0-50) 07/03/24 17:58
Alkaline Phosphatase 91 U/L (38-126) 07/03/24 17:58
Vital Signs and I&O:
Vital Signs
Temp Pulse Resp BP Pulse Ox
97.9 F 79 16 130/83 99
07/07/24 07:20 07/07/24 07:20 07/07/24 07:20 07/07/24 08:28 07/07/24 07:20
I&O
07/06/24 07/07/24 07/08/24
06:59 06:59 06:59
Intake Total 3137 / 3137 1310 / 1310
Output Total 450 / 450
Balance 3137 / 3137 860 / 860
Physical Exam
Physical Exam
HEENT: Anicteric
Cardiology: Normal Sinus Rhythm
GI: Soft, Non Distended and Non Tender
Extremities: No Edema
Neuro: Non Focal
[2024-07-07 11:24] VITALS: BP 121/75
--- NOTE | 2024-07-07 11:24 | W.PN.HOSP.TC ---
Addendum entered and electronically signed by Jolanta Magallon MD 07/07/24 14:13:
Dictation- [id number]
Addendum entered and electronically signed by Jolanta Magallon MD 07/07/24 11:31:
More than 30 minutes spent in discharge including
Final examination of the patient
Summarizing hospital stay
Instructions for continuing care to all relevant caregivers
Preparation of discharge records, prescriptions, and referral forms
Total time spent (in minutes): 31 min
Original Note:
Today's Communication/Plan
-
IV iron and discharge today per D/W GI
Assessment / Plan
Assessment / Plan
58-year-old male with rectal cancer with metastasis presented with bleeding per rectum
Endoscopy 07/06/2024-'grade a esophagitis with no bleeding at GE junction. Small hiatal hernia. Multiple small angioectasias with no bleeding in the gastric antrum. Follow correction to ablate the lesion to prevent bleeding by APC. Stomach and
duodenum were normal'
CT abdomen and pelvis with IV and p.o. contrast-moderate concentric wall wall thickening throughout the entirety of the sigmoid colon consistent with colitis. 15 mm wall thickening in the right Anturol lateral aspect of the rectum. Stable pulmonary
masses in the lung bases. Stable hepatic masses
Echo 10/24/2023-normal BiV size and systolic function. Thickened aortic valve PA systolic pressure 37 mmHg
# Bleeding per rectum monitor
Acute blood loss anemia secondary to GI bleed-watch hemoglobin and transfuse as needed
If more bleeding may need capsule
Got one unit of blood
Continue PPI
Hold off on NSAIDs
EGD as above
Started on regular diet
IV iron today
# Colitis on the CT-stool studies negative for cultures and C. difficile- No treatment per D/w GI
# Hemorrhoids- Anusol
# Metastatic adenocarcinoma of the rectum-mets to liver, lung, external iliac area. Status post liver lesion resection by Dr. Yordan Riley October 2023
Currently on Avastin and FOLFIRI last dose 06/26/24
PET scan-slight increase in the size and number of pulmonary and hepatic metastasis but decreased FDG activity and response to treatment (Per Onc notes)
Continue tramadol for pain
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
# Paroxysmal atrial fibrillation-continue metoprolol
# Peripheral neuropathy
# DVT prophylaxis-SCDs
# Full code
D/W GI
IV iron and discharge today per D/W GI
Anticipated Discharge: Today
Subjective/Interval History
-
Date of Service: July 07, 2024
Objective Data
-
Labs:
Laboratory Results
07/07/24
05:14
WBC 3.6 L
Hgb 8.1 L
Hct 25.0 L
Plt Count 228
Sodium 140
Potassium 4.0
Chloride 103
Carbon Dioxide 28
BUN 11
Creatinine 0.8
Glucose 112 H
Calcium 8.7
Vital Signs:
Vital Signs
Temp Pulse Resp BP Pulse Ox
97.9 F 79 16 130/83 99
07/07/24 07:20 07/07/24 07:20 07/07/24 07:20 07/07/24 08:28 07/07/24 08:28
I&O
07/06/24 07/07/24 07/08/24
06:59 06:59 06:59
Intake Total 3137 / 3137 1310 / 1310
Output Total 450 / 450
Balance 3137 / 3137 860 / 860
--- NOTE | 2024-07-07 11:31 | W.DS.TRANS ---
DC Summary - [employer]
-
Discharge Instructions:
Sleep Apnea Risk Low
Discharge Diagnosis/Procedures Rectal bleeding
Metastatic rectal cancer
Afib
Diet As tolerated
Activity As tolerated
Driving Restrictions As prior to admission
Instructions:
Stand-Alone Forms:
Changes to Home Medications: Yes
Discharge Medications:
DC Medications w/original date entered in Dr. Z
metoprolol tartrate 25 mg tablet 12.5 mg PO BID Blood Pressure 12/27/23
esomeprazole magnesium 40 mg capsule,delayed release 40 mg PO DAILY Gastrointestinal Issue 07/03/24
tramadol 50 mg tablet 50 mg PO Q4HPRN PRN moderate pain 07/03/24
hydrocortisone acetate 25 mg rectal suppository 25 mg SD BID hemorroids #60 ea 07/07/24
pantoprazole 40 mg tablet,delayed release (Protonix) 40 mg PO BID Gastrointestinal issue #60 tabs 07/07/24
polyethylene glycol 3350 17 gram oral powder packet (Miralax) 17 g PO DAILY Gastrointestinal issue #30 ea 07/07/24
sennosides 8.6 mg capsule (senna) 8.6 mg PO HS PRN constipation #30 caps 07/07/24
Home Medic
new
hydrocortisone acetate 25 mg rectal suppository 25 mg SD BID hemorroids #60 ea 07/07/24
pantoprazole 40 mg tablet,delayed release (Protonix) 40 mg PO BID Gastrointestinal issue #60 tabs 07/07/24
polyethylene glycol 3350 17 gram oral powder packet (Miralax) 17 g PO DAILY Gastrointestinal issue #30 ea 07/07/24
sennosides 8.6 mg capsule (senna) 8.6 mg PO HS PRN constipation #30 caps 07/07/24
Pending Results: No
[2024-07-07] MEDS: FERRLECIT 110 MG IV (14:23)
[2024-07-07] MEDS: AFLURIA (36 mos+) 2024-2025 FORMULA 0.5 ML IM (14:41)
[2024-07-07 15:30] VITALS: BP 129/79
--- NOTE | 2024-07-07 15:46 | PTCARENOTE ---
This am patient had one episode of brown stool with small amount of blood seen, further stools brown. tolerating diet, independent in room, vss, will be discharged to home today.
--- NOTE | 2024-07-07 15:50 | PTCARENOTE ---
Ultram effective for c/o rectal pain, will continue to monitor.
--- NOTE | 2024-07-07 16:32 | CM ---
Met with patient who was preparing for d/c. The patient says he feels ready for discharge home today. He plans on taking an Uber to get home.
No CM d/c needs identified.
Plan home today.
== END 2024-07-07 16:21 | disposition home or self-care (01) | DRG 378 ==
LOC: 3 WEST ACU 19:16
PROVIDERS: Hospitalist; Internal Medicine; Student in an Organized Health Care Education/Training Program; ADMITTING PHYSICIAN Internal Medicine; ATTENDING PHYSICIAN Hospitalist; CONSULT PHYSICIAN Internal Medicine; CONSULT PHYSICIAN Internal Medicine Hematology & Oncology; EMERGENCY PHYSICIAN Emergency Medicine; FAMILY PHYSICIAN Family Medicine
PROC: 30233N1 Transfusion of Nonautologous Red Blood Cells into Peripheral Vein, Percutaneous Approach (ICD-10-PCS; 2024-07-05)
PROC: 0W3P8ZZ Control Bleeding in Gastrointestinal Tract, Via Natural or Artificial Opening Endoscopic (ICD-10-PCS; 2024-07-06)
DX: K31.811 Angiodysplasia of stomach and duodenum with bleeding (principal); C20 Malignant neoplasm of rectum; D62 Acute posthemorrhagic anemia; G62.9 Polyneuropathy, unspecified; K64.9 Unspecified hemorrhoids; Z79.01 Long term (current) use of anticoagulants; I48.0 Paroxysmal atrial fibrillation; K21.00 Gastro-esophageal reflux disease with esophagitis, without bleeding; K44.9 Diaphragmatic hernia without obstruction or gangrene
CPT/HCPCS: 74177; 80048; 80053; 82728; 82746; 83540; 83550; 85014; 85018; 85025; 85045; 85610; 86850; 86900; 86901; 86920; 87045; 87046; 87324; 87427; 87449; 89055; 90686; 93005; 96360; 96374; 99285; G0008; J2916; P9016; Q9967

== ENCOUNTER → 2024-07-30 10:30 | Outpatient (REF) | payer OTHER, SELFPAY ==
[2024-07-30 11:04] LABS: % Basophils 0.6 % (0-2); % Eosinophils 0.6 % (0-6); % Immature Granulocytes 0.8 % (0-0.5); % Monocytes 10.1 % (1.7-9.3); % Neutrophils 75.9 % (42.2-75.2); Absolute Lymphocytes 0.6 10^3/uL (1.2-3.4); Absolute Monocytes 0.5 10^3/uL (0.1-0.6); Absolute Neutrophils 3.7 10^3/uL (1.4-6.5); Hematocrit 31.6 % (39.0-52.0); Hemoglobin 9.6 g/dL (13.0-18.0); Mean Corp Hgb Conc. 30.4 g/dL (33.0-37.0); Mean Corpuscular Hgb 29.3 pg (27.0-31.0); Mean Corpuscular Volume 96.3 fL (80.0-94.0); Nucleated Red Blood Cells % 0 % (-); Platelet Count 395 10^3/uL (130-400); Red Blood Cell Count 3.28 10^6/uL (4.70-6.10); White Blood Cell Count 4.8 10^3/uL (4.8-10.8)
[2024-07-30 11:45] LABS: ALT (SGPT) 33 U/L (0-50); AST (SGOT) 32 U/L (17-59); Albumin 3.9 g/dl (3.5-5.0); Alkaline Phosphatase 134 U/L (38-126); Blood Urea Nitrogen 18 mg/dl (9-20); Calcium 9.3 mg/dl (8.4-10.2); Carbon Dioxide 26 mmol/L (22-30); Chloride 104 mmol/L (98-107); Glucose 97 mg/dl (70-99); Potassium 4.8 mmol/L (3.5-5.1); Sodium 139 mmol/L (135-145); Total Bilirubin 0.2 mg/dl (0.2-1.3); Total Protein 6.9 g/dl (6.3-8.2); eGFR > 60.00
== END ==
LOC: REG 10:30
PROVIDERS: ATTENDING PHYSICIAN Internal Medicine Hematology & Oncology; FAMILY PHYSICIAN Family Medicine
DX: C20 Malignant neoplasm of rectum (principal); D50.9 Iron deficiency anemia, unspecified; D64.81 Anemia due to antineoplastic chemotherapy
CPT/HCPCS: 36415; 80053; 85025

== ENCOUNTER → 2024-08-13 08:58 | Outpatient (REF) | payer OTHER, SELFPAY ==
[2024-08-13 10:00] LABS: % Basophils 1.1 % (0-2); % Eosinophils 1.9 % (0-6); % Immature Granulocytes 0.4 % (0-0.5); % Lymphocytes 15.4 % (20.5-51.1); % Neutrophils 66.2 % (42.2-75.2); Absolute Eosinophils 0.1 10^3/uL (0-0.7); Absolute Lymphocytes 0.4 10^3/uL (1.2-3.4); Absolute Monocytes 0.4 10^3/uL (0.1-0.6); Absolute Neutrophils 1.8 10^3/uL (1.4-6.5); Hematocrit 32.8 % (39.0-52.0); Hemoglobin 9.8 g/dL (13.0-18.0); Mean Corp Hgb Conc. 29.9 g/dL (33.0-37.0); Mean Corpuscular Hgb 28.7 pg (27.0-31.0); Mean Corpuscular Volume 96.2 fL (80.0-94.0); Mean Platelet Volume 8.7 fL (7.4-10.4); Nucleated Red Blood Cells % 0 % (-); Platelet Count 327 10^3/uL (130-400); Red Blood Cell Count 3.41 10^6/uL (4.70-6.10); White Blood Cell Count 2.7 10^3/uL (4.8-10.8)
[2024-08-13 10:24] LABS: ALT (SGPT) 45 U/L (0-50); AST (SGOT) 37 U/L (17-59); Albumin 4.3 g/dl (3.5-5.0); Alkaline Phosphatase 133 U/L (38-126); Blood Urea Nitrogen 16 mg/dl (9-20); Calcium 9.6 mg/dl (8.4-10.2); Carbon Dioxide 29 mmol/L (22-30); Chloride 102 mmol/L (98-107); Glucose 123 mg/dl (70-99); Potassium 4.7 mmol/L (3.5-5.1); Sodium 139 mmol/L (135-145); Total Bilirubin 0.3 mg/dl (0.2-1.3); Total Protein 7.2 g/dl (6.3-8.2); eGFR > 60.00
== END ==
LOC: REG 08:58
PROVIDERS: ATTENDING PHYSICIAN Internal Medicine Hematology & Oncology; FAMILY PHYSICIAN Family Medicine
DX: C20 Malignant neoplasm of rectum (principal); D50.9 Iron deficiency anemia, unspecified; D64.81 Anemia due to antineoplastic chemotherapy
CPT/HCPCS: 36415; 80053; 85025

== ENCOUNTER 2024-08-23 21:42 | Inpatient (IN) | payer OTHER, SELFPAY ==
[2024-08-23] VITALS (18 sets, daily range): BP systolic 104–141; BP diastolic 73–84; BMI 21.8
--- NOTE | 2024-08-23 16:30 | ED.GENMED ---
History of Present Illness
General
Chief Complaint: Rectal Bleeding
Time Seen by Provider: 08/23/24 16:00
History of Present Illness
History of Present Illness:
58-year-old male with history of rectal cancer on chemotherapy presenting for rectal bleeding. Patient reports for the past week he has been having bright red blood per rectum, particularly with bowel movements. He reports passage of clots. He is
not on any blood thinners. He was at the infusion center prior to arrival getting iron, and found to have a low hemoglobin of 6.3. Reports history of transfusions in the past. Notes that he has been feeling fatigued and shortness of breath.
Denies any chest pain. Denies any abdominal pain. Reports history of hemorrhoids. Denies additional acute medical complaints
Phy Exam
Physical Exam
Physical Exam:
General: No acute distress, pale
HEENT: protecting airway
Neck: appears supple
CV: Normal heart rate, regular rhythm
Resp: No accessory muscle use, no increased work of breathing, lungs clear to auscultation bilaterally
Abd: Soft and non-distended, no tenderness to palpation
Extremities: No deformities, no swelling, no erythema, pulses and sensation intact
Neuro: alert, no focal neurologic deficit
: Nonthrombosed external hemorrhoid, not actively bleeding
Rectal: deferred
Psych: Normal affect
Skin: Intact
Course
Orders/Labs/Results
Orders:
Orders
08/23/24 16:18
CT Angio Abd/Pelvis w/wo IV [CT Abd/pelvis Angio W/wo Iv] Urgent
Comment:
Reason For Exam: rectal bleeding
08/23/24 16:44
* Blood Bank Products Urgent
Blood Bank Products: *Packed RBC Leuko(PRBC's)
Quantity: 2
Transfuse Today: Yes
Reason: Bleeding
08/23/24 17:11
Type+Screen Urgent
BBK Wristband Number:
Complete Blood Count/With Diff Urgent
Comprehensive Metabolic Panel Urgent
PTT Urgent
Prothrombin Time Urgent
08/23/24 21:16
Admit/Transfer Patient As Directed
Co-Sign Provider:
Level of Care: Inpatient admission
Assign to:: Telemetry
Physician / Group: hospitalist
Diagnosis: rectal bleeding
Reason for Telemetry: Other
Other Reason for Telemetry: GI bleed
Date to Stop Telemetry: 08/25/24
Time to Stop Telemetry: 11:00
Reason for Hospitalization: GI bleed
Expected length of stay greater than two midnights?: Yes
ELOS- Estimated Length of Stay in days: 2
I certify the patient meets the requirements for IP care: Yes
PRN Pain Medication Management As Directed
May give lesser potent ordered pain med per pt: Yes
preference::
Protocol:: Medication orders for pain may be administered in a
manner that supports deferring to patient preference
when the pt is:
- Requesting an ordered lesser potent pain medication.
Least to most potent pain medications are defined
as: acetaminophen < NSAID < tramadol < opioids
(morphine, oxycodone, hydromorphone).
- Requesting a lesser dose of the same medication IF
ORDERED.
- Requesting a less intrusive route of administration
if both routes are prescribed by the provider (PO <
IV).
08/23/24 21:17
Code Status As Directed
Resuscitation Status: Full Code
08/23/24 22:00
Flush (0.9% Sodium Chloride) [Flush (Nss)] See Dose Instructions IV PER PROTOCOL
08/25/24 11:00
DC Protocol for Telemetry ONCE
Abnormal Lab Results
08/23/24
17:11
WBC 2.4 L* 10^3/uL
(4.8-10.8)
RBC 1.93 L 10^6/uL
(4.70-6.10)
Hgb 5.7 L* g/dL
(13.0-18.0)
Hct 18.4 L* %
(39.0-52.0)
MCV 95.3 H fL
(80.0-94.0)
MCHC 31.0 L g/dL
(33.0-37.0)
RDW 17.9 H %
(11.5-14.5)
Absolute Lymphs (auto) 0.4 L 10^3/uL
(1.2-3.4)
Immature Gran % 0.8 H %
(0-0.5)
Lymphocytes % 18.0 L %
(20.5-51.1)
Monocytes % 15.6 H %
(1.7-9.3)
PT 15.1 H Sec
(11.4-14.6)
BUN 21 H mg/dl
(9-20)
Total Protein 5.8 L g/dl
(6.3-8.2)
Albumin 3.4 L g/dl
(3.5-5.0)
Crossmatch IS Only See Detail
08/23/24 17:11
08/23/24 17:11
Vital Signs
Initial and Last Documented VS:
Initial Vital Signs
Pulse Resp BP Pulse Ox
110 18 141/78 98
08/23/24 15:14 08/23/24 15:14 08/23/24 15:14 08/23/24 15:14
Last Documented Vital Signs
Temp Pulse Resp BP Pulse Ox
98.4 F 96 15 124/73 98
08/23/24 21:19 08/23/24 21:19 08/23/24 21:19 08/23/24 21:19 08/23/24 21:19
MDM/Problems Addressed
MDM/Problems Addressed:
58-year-old male with history of rectal cancer presenting for blood per rectum and low hemoglobin. Vital signs significant for tachycardia.
On exam, patient is resting comfortably, no acute distress or discomfort. However does appear pale. Dried blood on rectal exam with no other external hemorrhoid. Possible bleeding internal hemorrhoid, however given anemia with persistent
bleeding, active GI bleed is also consideration. Will plan for CT GI bleeding scan. Patient consented, will start transfusion.
20:00 -patient CT without active arterial bleeding. Recheck of hemoglobin today is 5.7, which dropped from 6.7. Given degree of anemia and active bleeding status, feel patient warrants admission for transfusion and continued hemodynamic monitoring
and possible GI consultation. Patient agreeable to plan
*Critical Care Note
Total Time (30-74mins, 75-104mins- exclusive of procedures): 36
comment:
The high probability of a clinically significant, sudden or life threatening deterioration, anemia requiring transfusion, required my full and direct attention, intervention and personal management. The aggregate critical care time was [] minutes.
This time is in addition to time spent performing reported procedures but includes the following:
[x] Data Review and interpretation
[x] Patient assessment and monitoring of vital signs
[x] Documentation
[x] Medication orders and management
ED Attending Note
-
Portions of this chart may have been created with voice recognition software.� Occasional wrong word or��sound alike� substitutions may have occurred due to the inherent limitations of voice recognition software.
Discharge Plan
Departure
Patient Disposition: Admit
Date of Disposition: 08/23/24
Time of Disposition: 20:10
Presentation/result/management discussed w/ accepting MD/DO: Hospitalist
Patient with high blood pressure during this ER visit?: No
Condition: Fair
Discharge Problem:
Bright red rectal bleeding, Anemia
Prescriptions:
No Action
metoprolol tartrate 25 mg Tablet
12.5 mg PO BID
tramadol 50 mg tablet
50 mg PO Q4HPRN PRN (Reason: moderate pain)
esomeprazole magnesium 40 mg capsule,delayed release(DR/EC)
40 mg PO DAILY
ibuprofen 200 mg Tablet
400 mg PO Q6HPRN PRN (Reason: mild pain)
polyethylene glycol 3350 [Miralax] 17 gram powder in packet
17 g PO DAILYPRN PRN (Reason: constipation)
hydrocortisone acetate 25 mg suppository
25 mg [place] BIDPRN PRN (Reason: hemorrhoids)
senna 8.6 mg capsule
8.6 mg PO HSPRN PRN (Reason: constipation)
Referrals:
Rayo Rose, [Family Provider] -
Interventions
Interventions:
*Risk Screen - Suicide Last Done: 08/23/24 16:12
*General Assessment Last Done: 08/23/24 16:11
*Neglect/Abuse Screening Last Done: 08/23/24 16:12
ED- Fall Risk Assessment Last Done: 08/23/24 16:12
*ED COVID-19 Vaccine History Last Done: 08/23/24 16:11
MR-Zrisdn-Pvrlmmfxtc Assessment Last Done: 08/23/24 16:12
ED- Cardiac Assessment Last Done: 08/23/24 16:12
ED- Pulmonary Assessment Last Done: 08/23/24 16:12
Discharge Date and Time
Print Language: THAI
[2024-08-23 17:38] LABS: % Basophils 0.4 % (0-2); % Eosinophils 0.8 % (0-6); % Immature Granulocytes 0.8 % (0-0.5); % Monocytes 15.6 % (1.7-9.3); % Neutrophils 64.4 % (42.2-75.2); Absolute Lymphocytes 0.4 10^3/uL (1.2-3.4); Absolute Monocytes 0.4 10^3/uL (0.1-0.6); Absolute Neutrophils 1.6 10^3/uL (1.4-6.5); Hematocrit 18.4 % (39.0-52.0); Hemoglobin 5.7 g/dL (13.0-18.0); Mean Corpuscular Hgb 29.5 pg (27.0-31.0); Mean Corpuscular Volume 95.3 fL (80.0-94.0); Nucleated Red Blood Cells % 0.8 % (-); Platelet Count 263 10^3/uL (130-400); Red Blood Cell Count 1.93 10^6/uL (4.70-6.10); Red Cell Dist. Width 17.9 % (11.5-14.5); White Blood Cell Count 2.4 10^3/uL (4.8-10.8)
[2024-08-23 17:43] LABS: ALT (SGPT) 14 U/L (0-50); AST (SGOT) 21 U/L (17-59); Albumin 3.4 g/dl (3.5-5.0); Alkaline Phosphatase 93 U/L (38-126); Blood Urea Nitrogen 21 mg/dl (9-20); Calcium 8.5 mg/dl (8.4-10.2); Carbon Dioxide 25 mmol/L (22-30); Chloride 103 mmol/L (98-107); Estimated Creatinine Clearance 98 ml/min; Glucose 98 mg/dl (70-99); INR 1.14; PT 15.1 Sec (11.4-14.6); Potassium 4.4 mmol/L (3.5-5.1); Sodium 135 mmol/L (135-145); Total Bilirubin 0.2 mg/dl (0.2-1.3); Total Protein 5.8 g/dl (6.3-8.2); eGFR > 60.00
[2024-08-23 17:44] LABS: APTT 33.4 Sec (23.4-35.0)
--- NOTE | 2024-08-23 21:08 | HPS.HSE ---
Family Physician
-
Family Physician: Rayo Rose
Chief Complaint
-
Rectal bleeding
History of Present Illness
Patient is a 58-year-old with past medical history significant for rectal cancer status post bowel resection, status post liver surgery, currently on chemotherapy, history of proximal atrial fibrillation not currently on anticoagulation will
presents to the emergency department with bloody bowel movement.
Patient has been having continuous rectal bleeding for several weeks secondary to his condition. He gets chemotherapy and follows with [facility]. However over the last 1 week he has had increased amount of rectal bleeding and has had
several clots. The bowel movements have bright red blood with clots. Hemoglobin was 6.7 today at [facility]. It was 9.8 earlier. He has history of hemorrhoids which has bled before. He denies any abdominal pain currently. He denies any fevers or
chills. He denies having any constipation. Does take Nsaid regularly.
In the Emergency Department the patient was afebrile, blood pressure was 116/77 with a pulse 86. Sinus. He was satting 100% on room air. Hemoglobin was 5.7. Platelet levels normal, WBC was 2.6. Electrolytes BUN/creatinine within normal range.
CT angio negative for active ongoing bleeding.
Medical History
Past Medical History
Past Medical History: Reports Other
Additional Past Medical History:
Arrhythmia (Paroxysmal atrial fibrillation) and Cancer (Rectal cancer status post resection)
Past Surgical History: Reports Other
Additional Past Surgical History:
Bowel Resection
Social History
Tobacco: Non-smoker
Alcohol: None
Drug: None
Personal:
Living: With Family
Family History
Family History: Not pertinent
Allergies / Home Medications
Allergies reflects when Allergies were last updated in [facility].
Home Medications with original date entered in [facility]
Allergy/Medication List:
Allergies
Allergy/AdvReac Type Severity Reaction Status Date / Time
No Known Allergies Allergy Verified 07/03/24 17:31
Home Medications
metoprolol tartrate 25 mg tablet 12.5 mg PO BID Blood Pressure 12/27/23
esomeprazole magnesium 40 mg capsule,delayed release 40 mg PO DAILY Gastrointestinal Issue 07/03/24
tramadol 50 mg tablet 50 mg PO Q4HPRN PRN moderate pain 07/03/24
hydrocortisone acetate 25 mg rectal suppository 25 mg [place] BIDPRN PRN hemorrhoids 08/23/24
ibuprofen 200 mg tablet 400 mg PO Q6HPRN PRN mild pain 08/23/24
polyethylene glycol 3350 17 gram oral powder packet (Miralax) 17 g PO DAILYPRN PRN constipation 08/23/24
sennosides 8.6 mg capsule (senna) 8.6 mg PO HSPRN PRN constipation 08/23/24
Review of Systems
-
Constitutional: Reports No Symptoms
EENT: Reports No Symptoms
Respiratory: Reports No Symptoms
Cardiac: Reports No Symptoms
Abdomen/GI: Reports Bloody Stools
: Reports No Symptoms
Musculoskeletal: Reports No Symptoms
Skin: Reports No Symptoms
Neurological: Reports No Symptoms
Endocrine: Reports No Symptoms
Hematologic/Lymphatic: Reports No Symptoms
Psych: Reports No Symptoms
Physical Exam
Vital Signs
Vital Signs
Temp Pulse Resp BP Pulse Ox
98.1 F 93 15 130/80 100
08/23/24 21:04 08/23/24 21:04 08/23/24 21:04 08/23/24 21:04 08/23/24 21:04
Physical Exam
General: Well Developed, Well Nourished, No Apparent Distress and Comfortable
HEENT: NormoCephalic, Anicteric, Moist mucous membranes and Atraumatic
Respiratory: Clear
Cardiac: S1/S2 and Regular Rhythm
Breast: Deferred by me
GI: Soft, Non Tender and Non Distended
Rectal: Red and Hem Positive
Genito-urinary: Deferred by me
Musculoskeletal: No Clubbing, No Cyanosis and No Edema
Neuro: AO x 3
Hematologic/Lymphatic: No Lymphadenopathy
Psych: Calm
Laboratory Results
-
08/23/24 17:11
08/23/24 17:11
Laboratory Results
PT 15.1 Sec (11.4-14.6) H 08/23/24 17:11
INR 1.14 08/23/24 17:11
APTT 33.4 Sec (23.4-35.0) 08/23/24 17:11
Total Bilirubin 0.2 mg/dl (0.2-1.3) 08/23/24 17:11
AST 21 U/L (17-59) 08/23/24 17:11
ALT 14 U/L (0-50) 08/23/24 17:11
Alkaline Phosphatase 93 U/L (38-126) 08/23/24 17:11
Data Reviewed
-
CT Scan: Report Reviewed by me
Medical Tests (Nuc Med, Echo, EKG etc): Image Personally Visualized and interpreted
Lab Data: Labs Reviewed by me
Old Records: Reviewed
Impression/Plan
-
IMPRESSION:
58 M with rectal ca on chemo with history rectal bleeding and hemorrhoidal bleeding presenting with increased rectal bleeding and clots x 1 week and significant hemoglobin drop. Hgb 5.7. HD stable. No active bleeding currently on CT angio.
PLAN:
1. Rectal bleeding - HD stable.
- admit to telemetry
- clear liquid diet for now
- type and screen, h/h q 8, transfuse for hgb < 7
- GI consultation
2.pAFIB - CHADs2 quite low and does not meet strict criteria for AC. Currently sinus.
- keep hold apixaban for now
- restart metop 12.5 q 12 in am if hd stable.
DVT PPX - SCDs
Code Status - Full Code
[2024-08-23] MEDS: D5/0.45%NACL 1000 IV (22:49)
[2024-08-24] VITALS (24 sets, daily range): BP systolic 12–132; BP diastolic 55–85; BMI 21.8
[2024-08-24 00:43] LABS: Hematocrit 26.9 % (39.0-52.0); Hemoglobin 8.6 g/dL (13.0-18.0)
[2024-08-24 06:21] LABS: Hematocrit 26.8 % (39.0-52.0); Hemoglobin 8.7 g/dL (13.0-18.0); Mean Corp Hgb Conc. 32.5 g/dL (33.0-37.0); Mean Corpuscular Hgb 29.6 pg (27.0-31.0); Mean Corpuscular Volume 91.2 fL (80.0-94.0); Platelet Count 294 10^3/uL (130-400); Red Blood Cell Count 2.94 10^6/uL (4.70-6.10); Red Cell Dist. Width 17.4 % (11.5-14.5); White Blood Cell Count 2.8 10^3/uL (4.8-10.8)
[2024-08-24 06:41] LABS: Blood Urea Nitrogen 13 mg/dl (9-20); Calcium 8.6 mg/dl (8.4-10.2); Carbon Dioxide 25 mmol/L (22-30); Chloride 106 mmol/L (98-107); Estimated Creatinine Clearance 98 ml/min; Glucose 123 mg/dl (70-99); Sodium 139 mmol/L (135-145); eGFR > 60.00
[2024-08-24] MEDS: PROTONIX IV 40 MG IV (08:39)
[2024-08-24] MEDS: NSS (PRESERVATIVE FREE) 10 ML IV (08:41)
--- NOTE | 2024-08-24 09:59 | CON.ONC ---
Impression
Impression
Symptomatic anemia secondary to rectal bleeding
metastatic rectal cancer, h/o pelvic radiation spring 2023 - radiation proctitis?
Progressive lung/liver mets
Plan
Plan
Await GI input - t/c local therapy for suspected radiation proctitis (mesalamine or sulfasalazine?, HBO?)
Support with pRBCS, gets IV iron as outpatient
Avoid NSAIDs
Re: progressive lung/liver mets, discussed CT findings w/ patient. Change in therapy TBD by Dr. Masocrro after acute issues addressed
Patient History
History of Present Illness
This is a 58yo M w/ metastatic rectal cancer, who presented with progressive symptomatic anemia (hgb 5.7) in the setting of chronic GI bleeding. He was diagnosed with rectal cancer in January 2023, in the setting of symptomatic anemia and dark stools.
He was stage IV at diagnosis, with liver involvement. He was treated initially with systemic chemotherapy, with a positive response, followed by resection of liver mets in October 2023, and chemo/RT to the rectal primary tumor in late spring 2023.
Since pelvic radiation, he's struggled with more rectal bleeding. He takes NSAIDs regularly for rectal pain. He's been getting IV iron in our office, last dosed 08/23/24.
He was treated with FOLFIRI/Avastin, starting in late summer 2023 after imaging showed progression of liver and lung mets. Avastin and irinotecan were stopped in early June 2024 due to GI side effects, bleeding, and perforated nasal septum.
CT imaging this admission shows thickening of the colon and mild progression of liver/lung mets.
Past-Medical/Surgical History
PMH - as per the HPI
SH -
FH - N/C
Patient Medication
�Medication �Instructions �Recorded �Confirmed �Last Taken �Type
metoprolol tartrate 25 mg tablet 12.5 mg PO BID Blood Pressure 12/27/23 08/23/24 08/22/24 History
esomeprazole magnesium 40 mg 40 mg PO DAILY Gastrointestinal 11/08/1408/23/24 08/22/24 History
capsule,delayed release Issue
tramadol 50 mg tablet 50 mg PO Q4HPRN PRN moderate pain 07/03/24 08/23/24 07/03/24 History
hydrocortisone acetate 25 mg 25 mg [place] BIDPRN PRN hemorrhoids 08/23/24 08/23/24 Unknown History
rectal suppository
ibuprofen 200 mg tablet 400 mg PO Q6HPRN PRN mild pain 08/23/24 08/23/24 08/23/24 History
polyethylene glycol 3350 17 gram 17 g PO DAILYPRN PRN constipation 08/23/24 08/23/24 Unknown History
oral powder packet (Miralax)
sennosides 8.6 mg capsule (senna) 8.6 mg PO HSPRN PRN constipation 08/23/24 08/23/24 Unknown History
Active Medications
Generic Name Dose Route Start Last Admin
Trade Name Freq PRN Reason Stop Dose Admin
Hydrocortisone Acetate 25 mg 08/24/24 07:51
Anusol Hc 25 Mg Rectal Suppository RECTAL 09/21/24 07:50
BIDPRN PRN
hemorrhoids
Dextrose/Sodium Chloride 1,000 mls @ 40 mls/hr 08/23/24 22:22 08/23/24 22:49
D5/0.45%Nacl IV 1,000 mls
.Q24H ZACK Administration
Ondansetron HCl 4 mg 08/23/24 22:22
Ondansetron 4 Mg/2 Ml Vial IV 09/20/24 22:21
Q6HPRN PRN
NAUSEA/VOMITING
Pantoprazole Sodium 40 mg 08/24/24 08:00 08/24/24 08:39
Pantoprazole Sodium 40 Mg/10 Ml Vial IV 09/21/24 07:59 40 mg
DAILY ZACK Administration
Sodium Chloride 0 flush 08/23/24 22:00
Sodium Chloride 0.9% (Flush) Syringe IV 09/20/24 21:59
PER PROTOCOL ZACK
Sodium Chloride 10 ml 08/24/24 08:00 08/24/24 08:41
Sodium Chloride 0.9% (Preservative Free) 10 Ml Vial IV 09/21/24 07:59 10 ml
DAILY ZACK Administration
Tramadol HCl 50 mg 08/23/24 22:22
Tramadol Hcl 50 Mg Tablet PO 09/20/24 22:21
Q4HPRN PRN
moderate pain
Review of Systems
-
History Source: Patient
All Other Systems: Not reviewed unless documented
Physical Exam
-
General: Well Developed, Well Nourished, No Apparent Distress and Comfortable
HEENT: Moist Mucous Membranes; Negative Jaundice
Musculoskeletal: No Clubbing, No Cyanosis and No Edema
Neurology: Non Focal
Skin: Warm and Dry
Psych: Intact Judgement/Insight
Labs
Lab Results
WBC 2.8 10^3/uL (4.8-10.8) L 08/24/24 05:55
RBC 2.94 10^6/uL (4.70-6.10) L 08/24/24 05:55
Hgb 8.7 g/dL (13.0-18.0) L 08/24/24 05:55
Hct 26.8 % (39.0-52.0) L 08/24/24 05:55
MCV 91.2 fL (80.0-94.0) 08/24/24 05:55
MCH 29.6 pg (27.0-31.0) 08/24/24 05:55
MCHC 32.5 g/dL (33.0-37.0) L 08/24/24 05:55
RDW 17.4 % (11.5-14.5) H 08/24/24 05:55
Plt Count 294 10^3/uL (130-400) 08/24/24 05:55
MPV 9.0 fL (7.4-10.4) 08/24/24 05:55
Abs Immat Gran (auto) 0.0 10^3/uL (0-0.05) 08/23/24 17:11
Absolute Neuts (auto) 1.6 10^3/uL (1.4-6.5) 08/23/24 17:11
Absolute Lymphs (auto) 0.4 10^3/uL (1.2-3.4) L 08/23/24 17:11
Absolute Monos (auto) 0.4 10^3/uL (0.1-0.6) 08/23/24 17:11
Absolute Eos (auto) 0.0 10^3/uL (0-0.7) 08/23/24 17:11
Absolute Basos (auto) 0.0 10^3/uL (0-0.2) 08/23/24 17:11
Immature Gran % 0.8 % (0-0.5) H 08/23/24 17:11
Neutrophils % 64.4 % (42.2-75.2) 08/23/24 17:11
Lymphocytes % 18.0 % (20.5-51.1) L 08/23/24 17:11
Monocytes % 15.6 % (1.7-9.3) H 08/23/24 17:11
Eosinophils % 0.8 % (0-6) 08/23/24 17:11
Basophils % 0.4 % (0-2) 08/23/24 17:11
Creatinine 0.7 mg/dL (0.7-1.3) 08/24/24 05:55
Vital Signs
Vital Signs
Temp Pulse Resp BP Pulse Ox
98.4 F 100 18 124/82 97
08/23/24 22:48 08/23/24 22:48 08/23/24 22:48 08/24/24 06:00 08/24/24 06:00
--- NOTE | 2024-08-24 10:36 | CON.GI ---
Addendum entered and electronically signed by Syl Guillen Do, MD 08/24/24 15:30:
I saw and examined the patient.
The LINING FELLER's note was reviewed and I agree with the note.
Comment: Ed is a 58yo M with rectal cancer metastatic to lung and liver who presents for anemia and chronic bright red blood per rectum. Vitals stable. Exam appears younger than stated age. Labs reviewed.
Impression
- Recurrent LGIB
Flex sigmoid 1/3 shows large rectal tumor with extension to sigmoid which is cause of bleeding
No ectasia seen
- Anemia
- pAfib not on anticoagulation
Recommendations
- Results of flex sigmoidoscopy done today d/w patient, kasi, oncology and hospitalist
- Plan for outpatient radiation for tumoral bleeding palliation as not responsive to endoscopic therapy
- Serial H/H
GI will sign off please call for questions.
Original Note:
Consultation
-
Date/Time Consultation Requested: 08/24/24 0740
Date/Time Consultation Performed: 08/24/24 1030
Requesting Provider: Scot Suggs MD
Performing Provider: ANUEL Coronado, Syl Green MD
Reason for Consultation: rectal bleeding
Medical History
Chief Complaint / HPI
Chief Complaint: abdominal pain, rectal bleeding
History of Present Illness:
Pt is a 58yo presents with hx PAF off anticoagulation, metastatic rectal CA (no prior rectal resection) s/p neoadjuvant chemo and radiation in spring 2023. He also completed partial liver lobectomy resection( bx metastatic adeno CA to liver) with
Dr. Riley in October. He was last seen in June with Fofori/ininotecan treatment with constipation/abdominal pain and rectal bleeding. During that admission he completed EGD with antral angioectasias with APC noted small and non bleeding, grade A
esophagitis, small HH, multiple non bleeding angioectasia distal stomach not classic gave and treated with APC, no ulcers seen. After admission his chemo was changed due to GI bleeding and perforated nasal septum. He now returns with continued
bleeding issues and also noted anemia with hbg 8-9 range in July and now drop to 5.7 on 08/23. He has been given transfusion with improved hbg. Asked to see of bleeding. CTA on admission with no active GI bleeding, prominent circumferential
wall thicken ing mid to distal sigmoid and rectum. neoplasm vs infectious/inflammatory related.
In review with patient he has had small amount of bleeding for some time. He does admits to increased bleeding around then week between and New Years with passing clots. He has has total of 9 transfusions since 2022 with only 3
since last December 2023. He also admits to irregular BM's since diagnosis with constipation and diarrhea. During prior evaluation he was taking increase Ibuprofen use 2 tabs every 4 hours now less but still taking 2 tabs BID along with Tramadol for
rectal pain. He otherwise denies dysphagia, GERD, nausea, vomiting, hematmesis, abdominal pain, or black stools. Last colonoscopy 01/2023 - Rectal mass on digital examination. malignant tumor from 1to 10cm proximal anus,. bx invasive adeno CA.
Past Medical History
Past Medical History: Arrhythmias (PAF), Cancer (recal Ca s/p chemo/radiation no rectal tumor resection but resection of liver mets) and Other (perforated nasal septum. )
Past Surgical History: None
Social History
Tobacco: Non-Smoker
Alcohol: None
Drug: None
Personal:
Living: With Family (3 children )
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
Family History
Family History: Other (grandmother and dad with RA, mother with breast CA)
Allergies / Home Medications
Allergy/AdvReac Type Severity Reaction Status Date / Time
No Known Allergies Allergy Verified 07/03/24 17:31
�Medication �Instructions �Recorded
metoprolol tartrate 25 mg tablet 12.5 mg PO BID Blood Pressure 12/27/23
esomeprazole magnesium 40 mg 40 mg PO DAILY Gastrointestinal 07/03/24
capsule,delayed release Issue
tramadol 50 mg tablet 50 mg PO Q4HPRN PRN moderate pain 07/03/24
hydrocortisone acetate 25 mg 25 mg IN BIDPRN PRN hemorrhoids 08/23/24
rectal suppository
ibuprofen 200 mg tablet 400 mg PO Q6HPRN PRN mild pain 08/23/24
polyethylene glycol 3350 17 gram 17 g PO DAILYPRN PRN constipation 08/23/24
oral powder packet (Miralax)
sennosides 8.6 mg capsule (senna) 8.6 mg PO HSPRN PRN constipation 08/23/24
Review of Systems
-
History Source: Patient
Constitutional: Reports Weight Loss (with diagnosis but recently stable )
EENT: Reports No Symptoms
Respiratory: Reports Trouble Breathing (with anemia )
Cardiac: Reports No Symptoms
Abdomen/GI: Reports Diarrhea, Constipated, Bloody Stools and Other (rectal pain )
: Reports No Symptoms
Musculoskeletal: Reports No Symptoms
Skin: Reports No Symptoms
Neurological: Reports Weakness
Endocrine: Reports No Symptoms
Hematologic/Lymphatic: Reports Bleeding
Vital Signs
Temp Pulse Resp BP Pulse Ox
98.3 F 94 16 124/81 98
08/24/24 10:15 08/24/24 10:15 08/24/24 10:15 08/24/24 10:15 08/24/24 10:15
Physical Exam
Exam
General: Well Developed and No Apparent Distress
HEENT: Normocephalic and Anicteric
Respiratory: Clear
Cardiac: Regular Rhythm
GI: Soft, Non Distended, Tender (minimal ) and Other (left lower abdominal fullness )
Musculoskeletal: No Clubbing and No Cyanosis
Skin: Warm and Dry
Neuro: Awake, Alert and AO x 3
Psych: Calm
Results
WBC 2.8 10^3/uL (4.8-10.8) L 08/24/24 05:55
Hgb 8.7 g/dL (13.0-18.0) L 08/24/24 05:55
Hct 26.8 % (39.0-52.0) L 08/24/24 05:55
MCV 91.2 fL (80.0-94.0) 08/24/24 05:55
Plt Count 294 10^3/uL (130-400) 08/24/24 05:55
Absolute Neuts (auto) 1.6 10^3/uL (1.4-6.5) 08/23/24 17:11
PT 15.1 Sec (11.4-14.6) H 08/23/24 17:11
INR 1.14 08/23/24 17:11
APTT 33.4 Sec (23.4-35.0) 08/23/24 17:11
Sodium 139 mmol/L (135-145) 08/24/24 05:55
Potassium 4.0 mmol/L (3.5-5.1) 08/24/24 05:55
Chloride 106 mmol/L (98-107) 08/24/24 05:55
Carbon Dioxide 25 mmol/L (22-30) 08/24/24 05:55
BUN 13 mg/dl (9-20) 08/24/24 05:55
Creatinine 0.7 mg/dL (0.7-1.3) 08/24/24 05:55
Calcium 8.6 mg/dl (8.4-10.2) 08/24/24 05:55
Total Bilirubin 0.2 mg/dl (0.2-1.3) 08/23/24 17:11
AST 21 U/L (17-59) 08/23/24 17:11
ALT 14 U/L (0-50) 08/23/24 17:11
Alkaline Phosphatase 93 U/L (38-126) 08/23/24 17:11
Diagnostic Image Results:
08/23/24 CT Abd/pelvis Angio W/wo Iv
No evidence of active gastrointestinal hemorrhage.
Prominent circumferential wall thickening of the mid to distal sigmoid colon and rectum. Differential including extensive neoplasm versus bowel wall thickening related to an infectious or inflammatory process. No evidence of pneumatosis.
Constipation. No bowel obstruction.
Hepatic metastatic disease, progressed.
Pulmonary metastatic disease, slightly progressed.
06/2024 CT Abd/pel W Iv And Oral Contr
1).There is moderate concentric bowel wall thickening throughout the entirety of the sigmoid colon consistent with colitis
2). There is a 15 mm wall thickening along the right anterolateral aspect of the rectum presumably reflecting patient's known tumor
3). There are stable pulmonary masses at the lung bases consistent with pulmonary metastasis
4). Stable hepatic metastasis with greater than 10 lesions measuring up to 25 mm
06/21/24 PET scan
Remonstration of scattered pulmonary and hepatic metastases which, although have increased slightly in size/number compared to prior PET/CT 03/14/2024, have all significantly decreased in FDG activity most in keeping with treatment response.
No new sites of suspicious FDG avid disease in the body.
Prior GI Procedures:
EGD: 06/2024 Hilario treated the antral angioectasias with APC. They were
small and not bleeding and may not have been the cause.
- LA Grade A reflux esophagitis with no bleeding.
- Small hiatal hernia.
- Multiple non-bleeding angioectasias in the distal
stomach - Not classic GAVE. Treated with argon plasma
coagulation (APC).
- No NSAID induced ulcers found on the EGD
- Normal examined duodenum.
- No specimens collected.
Colonoscopy: 01/2023 - Rectal mass on digital examination. malignant tumor from 1to 10cm proximal anus,. bx invasive adeno CA.
Assessment / Plan
-
Pt is a 58yo presents with hx PAF off anticoagulation, metastatic rectal CA (no prior rectal resection) s/p neoadjuvant chemo and radiation in spring 2023. He also completed partial liver lobectomy resection( bx metastatic adeno CA to liver) with
Dr. Riley in October. He was last seen in June with Fofori/ininotecan treatment with constipation/abdominal pain and rectal bleeding. During that admission he completed EGD with antral angioectasias with APC noted small and non bleeding, grade A
esophagitis, small HH, multiple non bleeding angioectasia distal stomach not classic gave and treated with APC, no ulcers seen. After admission his chemo was changed due to GI bleeding and perforated nasal septum. He now returns with continued
bleeding issues and also noted anemia with hbg 8-9 range in July and now drop to 5.7 on 08/23. He has been given transfusion with improved hbg. Asked to see of bleeding. CTA on admission with no active GI bleeding, prominent circumferential
wall thickening mid to distal sigmoid and rectum. neoplasm vs infectious/inflammatory related.
-rectal bleeding with red blood with clots
--known metastatic rectal cancer with mets to liver no prior rectal resection but liver resection 2022. Pt with current chemo and hx prior radiation
-recent EGD with antral angioectasia with APC treatment, esophagitis
-anemia acute blood loss
-rectal pain with NSAID use
-PAF off anticoagulation
-perforated septum
07/06/2024, EGD for melena on chemotherapy and heavy NSAID use on Nexium outpatient. Grade a esophagitis, small hiatal hernia, multiple small angioectasias with no evidence of bleeding that were treated with APC otherwise normal to the second
portion of the duodenum.
PLAN:
Etiology of bleeding with now red stools related to known tumor, radiation proctitis vs other
plan for flex today to see if any component of radiation related changes for further rx
trend hbg
NPO
agree with transfusion
CTA neg on admission with noted sigmoid/ rectal thickening
appreciate oncology input
pain management for rectal pain per hospitalist and oncology as continued pain discussed NSAID avoidance
cont PPI
-
-
-
Thank you for consultation and allowing me to participate in the patient's care. Please call the donor services manager GI physician during the after hours with any questions or concerns.
--- NOTE | 2024-08-24 12:14 | W.PN.HOSP.TC ---
Today's Communication/Plan
-
Trend H&H
Clear liquid diet
PPI IV
GI evaluation
Assessment / Plan
Assessment / Plan
IMPRESSION:
58 M with rectal ca on chemo with history rectal bleeding and hemorrhoidal bleeding presenting with increased rectal bleeding and clots x 1 week and significant hemoglobin drop. Hgb 5.7. HD stable. No active bleeding currently on CT angio.
PLAN:
Bright red blood per rectum likely secondary to hemorrhoids versus bleeding from malignancy versus diverticular bleeding
-Hemoglobin at 8.7. Status post 2 units of PRBC.
-type and screen, trend hemoglobin for now.
-Continue with IV fluids.
-GI consultation
pAFIB - CHADs2 quite low and does not meet strict criteria for AC. Currently sinus.
- restart metop 12.5 WITH hold parameters. Not on anticoagulation and not a candidate due to recurrent bleeding.
Metastatic adenocarcinoma of the rectum-mets to liver, lung, external iliac area. Status post liver lesion resection by Dr. Yordan Riley October 2023
-Increase in size of the lesion and lung and liver.
-Oncology consulted. Outpatient follow-up after acute resolution of disease process
Peripheral neuropathy
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
DVT PPX - SCDs in the setting of GI bleed
Code Status - Full Code
Anticipated Discharge: > 48 hours
Subjective/Interval History
-
Date of Service: August 24, 2024
states of ongoing BRBPR
no more blood clots this morning
no abd pain
Objective Data
-
Labs:
Laboratory Results
08/24/24 08/24/24
00:23 05:55
WBC 2.8 L
Hgb 8.6 L D 8.7 L
Hct 26.9 L 26.8 L
Plt Count 294
Sodium 139
Potassium 4.0
Chloride 106
Carbon Dioxide 25
BUN 13
Creatinine 0.7
Glucose 123 H
Calcium 8.6
Vital Signs:
Vital Signs
Temp Pulse Resp BP Pulse Ox
98.3 F 94 16 124/81 98
08/24/24 10:15 08/24/24 10:15 08/24/24 10:15 08/24/24 10:15 08/24/24 10:15
I&O
08/23/24 08/24/24 08/25/24
06:59 06:59 06:59
Intake Total 500 / 500
Balance 500 / 500
Physical Exam
-
General: No Apparent Distress, Appears Chronically Ill and Cachectic
HEENT: Normocephalic, Atraumatic, Moist Mucous Membranes and Other (port noted )
Respiratory: Clear to Auscultation
Cardiac: Regular Rhythm and S1/S2; Negative Murmur, Rub or Gallop
GI: Soft, Nontender and Nondistended; Negative Organomegaly
Rectal: Deferred by Provider
Musculoskeletal: No Clubbing, No Cyanosis and No Edema
Skin: Warm; Negative Rash
Neuro: Awake, Alert, Oriented, AO x 3, No Motor Deficits and Nonfocal/Grossly Intact
Psych: Calm
Data Reviewed
-
Total Time Spent with Patient (in minutes): 55
[2024-08-24 12:34] LABS: Iron 328 ug/dl (49-181)
[2024-08-24 12:43] LABS: Percent Saturation 98 % (20-50); Total Iron Binding Capacity 334 ug/dl (261-462)
[2024-08-24 14:06] LABS: Hematocrit 26.4 % (39.0-52.0); Hemoglobin 8.4 g/dL (13.0-18.0)
[2024-08-24] MEDS: LOPRESSOR 12.5 MG PO (19:15)
[2024-08-24] MEDS: ANUSOL HC 25 MG RECTAL (19:53)
[2024-08-24 19:59] LABS: Hematocrit 26.3 % (39.0-52.0); Hemoglobin 8.4 g/dL (13.0-18.0)
[2024-08-25 03:31] VITALS: BP 108/73
[2024-08-25 07:00] VITALS: BP 116/80
[2024-08-25] MEDS: LOPRESSOR 12.5 MG PO (09:14)
[2024-08-25] MEDS: PROTONIX IV 40 MG IV (09:14)
[2024-08-25] MEDS: MIRALAX 17 GRAMS PO (09:14)
[2024-08-25] MEDS: NSS (PRESERVATIVE FREE) 10 ML IV (09:14)
[2024-08-25 10:28] LABS: % Basophils 0.7 % (0-2); % Eosinophils 1.3 % (0-6); % Immature Granulocytes 0.3 % (0-0.5); % Lymphocytes 14.1 % (20.5-51.1); % Neutrophils 64.6 % (42.2-75.2); Absolute Lymphocytes 0.4 10^3/uL (1.2-3.4); Absolute Monocytes 0.6 10^3/uL (0.1-0.6); Hemoglobin 8.9 g/dL (13.0-18.0); Mean Corp Hgb Conc. 31.8 g/dL (33.0-37.0); Mean Corpuscular Hgb 29.7 pg (27.0-31.0); Mean Corpuscular Volume 93.3 fL (80.0-94.0); Mean Platelet Volume 8.5 fL (7.4-10.4); Nucleated Red Blood Cells % 0.7 % (-); Platelet Count 263 10^3/uL (130-400); Red Cell Dist. Width 18.4 % (11.5-14.5); White Blood Cell Count 3.1 10^3/uL (4.8-10.8)
[2024-08-25 11:00] VITALS: BP 117/73
[2024-08-25 11:20] LABS: Blood Urea Nitrogen 11 mg/dl (9-20); Calcium 8.8 mg/dl (8.4-10.2); Carbon Dioxide 25 mmol/L (22-30); Chloride 106 mmol/L (98-107); Estimated Creatinine Clearance 86 ml/min; Glucose 173 mg/dl (70-99); Potassium 3.9 mmol/L (3.5-5.1); Sodium 140 mmol/L (135-145); eGFR > 60.00
--- NOTE | 2024-08-25 11:48 | W.PN.HOSP.TC ---
Today's Communication/Plan
-
dc home
Assessment / Plan
Assessment / Plan
IMPRESSION:
58 M with rectal ca on chemo with history rectal bleeding and hemorrhoidal bleeding presenting with increased rectal bleeding and clots x 1 week and significant hemoglobin drop. Hgb 5.7. HD stable. No active bleeding currently on CT angio.
PLAN:
Bright red blood per rectum likely secondary to hemorrhoids versus bleeding from malignancy versus diverticular bleeding
-Hemoglobin at 8.7. Status post 2 units of PRBC.
-type and screen, trend hemoglobin for now.
-s/p Flex sig w/tumoral bleeding. Per GI/Onc recs OP radiation. Rad Onc was notified by per oncology. Hgb stable. tolerating diet.
pAFIB - CHADs2 quite low and does not meet strict criteria for AC. Currently sinus.
- restart metop 12.5 WITH hold parameters. Not on anticoagulation and not a candidate due to recurrent bleeding.
Metastatic adenocarcinoma of the rectum-mets to liver, lung, external iliac area. Status post liver lesion resection by Dr. Yordan Riley October 2023
-Increase in size of the lesion and lung and liver.
-Oncology consulted. Outpatient follow-up after acute resolution of disease process
Peripheral neuropathy
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
DVT PPX - SCDs in the setting of GI bleed
Code Status - Full Code
More than 30 minutes spent in discharge including
Final examination of the patient
Summarizing hospital stay
Instructions for continuing care to all relevant caregivers
Preparation of discharge records, prescriptions, and referral forms
Total time spent (in minutes): 55
Anticipated Discharge: Today
Subjective/Interval History
-
Date of Service: August 25, 2024
couple of small bm and significant decrease in blood in stools
no blood clots
no abd pain
Objective Data
-
Labs:
Laboratory Results
08/25/24
10:19
WBC 3.1 L
Hgb 8.9 L
Hct 28.0 L
Plt Count 263
Sodium 140
Potassium 3.9
Chloride 106
Carbon Dioxide 25
BUN 11
Creatinine 0.8
Glucose 173 H
Calcium 8.8
Vital Signs:
Vital Signs
Temp Pulse Resp BP Pulse Ox
98.3 F 99 18 116/80 98
08/25/24 07:00 08/25/24 07:00 08/25/24 07:00 08/25/24 07:00 08/25/24 07:00
I&O
08/24/24 08/25/24 08/26/24
06:59 06:59 06:59
Intake Total 500 / 500 960 / 960
Balance 500 / 500 960 / 960
Physical Exam
-
General: No Apparent Distress, Appears Chronically Ill and Cachectic
HEENT: Normocephalic, Atraumatic, Moist Mucous Membranes and Other (port noted )
Respiratory: Clear to Auscultation
Cardiac: Regular Rhythm and S1/S2; Negative Murmur, Rub or Gallop
GI: Soft, Nontender and Nondistended; Negative Organomegaly
Rectal: Deferred by Provider
Musculoskeletal: No Clubbing, No Cyanosis and No Edema
Skin: Warm; Negative Rash
Neuro: Awake, Alert, Oriented, AO x 3, No Motor Deficits and Nonfocal/Grossly Intact
Psych: Calm
--- NOTE | 2024-08-25 11:53 | W.DCSUMMARY ---
Discharge Summary
Discharge Data
Date of Admission: 08/23/24
Date of Discharge: 08/25/24
-
Pending Results: No
Hospital Course
58 M with rectal ca on chemo with history rectal bleeding and hemorrhoidal bleeding presenting with increased rectal bleeding and clots x 1 week and significant hemoglobin drop. Hgb 5.7. HD stable. No active bleeding currently on CT angio.
Patient received 2 minutes of blood transfusion. Patient hemoglobin stabilized. Gastroenterology and oncology was consulted. Patient underwent flexible sigmoidoscopy. Flex sig finding of likely malignant partially obstructing fully
circumferential tumor in the rectum with active oozing. Tumor bleeding was not amenable to endoscopic therapy. This finding was discussed by gastroenterology with oncology who discussed with radiation oncology for further radiation. Patient
verbalized understanding to follow-up with his primary oncologist Dr. Mascorro for further arrangements of radiation. Patient hemoglobin was stable. Patient with significant decrease in bowel movements and no significant bright red blood per the
rectum. Hemoglobin stable at 8.9. Patient was tolerating diet. Patient be discharged home.
Discharge Plan
-
Patient Disposition: Home (Routine Discharge)
Discharge Diagnosis/Procedures: Bright red blood per rectum likely secondary to malignant partial obstructing Tumor bleeding
Condition: Fair
Diet: As tolerated
Activity: With assistance and As tolerated
Driving Restrictions: As prior to admission
Blood Work: cbc in 1 week via primary doctor or oncology
Referrals:
Benigno Mascorro DO [Active] - in less than 1 week
Rayo Rose DO [Family Provider] -
Prescriptions:
New
docusate sodium [Col-Rite] 100 mg capsule
100 mg PO DAILY Qty: 30 0RF
Continued
metoprolol tartrate 25 mg Tablet
12.5 mg PO BID
tramadol 50 mg tablet
50 mg PO Q4HPRN PRN (Reason: moderate pain)
esomeprazole magnesium 40 mg capsule,delayed release(DR/EC)
40 mg PO DAILY
ibuprofen 200 mg Tablet
400 mg PO Q6HPRN PRN (Reason: mild pain)
polyethylene glycol 3350 [Miralax] 17 gram powder in packet
17 g PO DAILYPRN PRN (Reason: constipation)
hydrocortisone acetate 25 mg suppository
25 mg [place] BIDPRN PRN (Reason: hemorrhoids)
senna 8.6 mg capsule
8.6 mg PO HSPRN PRN (Reason: constipation)
Discharge Orders:
Discharge Patient (As Directed); Ordered 08/25/24
Ordered By: Scot Suggs
Discharge Date and Time
Print Language: LIBYAN
--- NOTE | 2024-08-25 12:51 | CM ---
CM met with pt to complete IA.
Rashid was admitted with dx of Rectal bleeding which has been recurrent issue.
Pt reports he lives with 13 year old son in a 2SH, 1 step to enter, 2 other children are in college.
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
Plan discharge to home witn no identified needs.
PCP: Rayo Rose
Pharmacy: [facility]
== END 2024-08-25 15:45 | disposition home or self-care (01) | DRG 375 ==
LOC: 1 ACUTE 21:42
PROVIDERS: ADMITTING PHYSICIAN Internal Medicine; ATTENDING PHYSICIAN Hospitalist; CONSULT PHYSICIAN Internal Medicine Gastroenterology; EMERGENCY PHYSICIAN Student in an Organized Health Care Education/Training Program; FAMILY PHYSICIAN Family Medicine; OTHER PHYSICIAN Internal Medicine Hematology & Oncology
PROC: 30233N1 Transfusion of Nonautologous Red Blood Cells into Peripheral Vein, Percutaneous Approach (ICD-10-PCS; 2024-08-23)
PROC: 0DJD8ZZ Inspection of Lower Intestinal Tract, Via Natural or Artificial Opening Endoscopic (ICD-10-PCS; 2024-08-24)
DX: C20 Malignant neoplasm of rectum (principal); C78.00 Secondary malignant neoplasm of unspecified lung; C78.7 Secondary malignant neoplasm of liver and intrahepatic bile duct; D62 Acute posthemorrhagic anemia; I48.0 Paroxysmal atrial fibrillation; K21.00 Gastro-esophageal reflux disease with esophagitis, without bleeding; K44.9 Diaphragmatic hernia without obstruction or gangrene; K52.9 Noninfective gastroenteritis and colitis, unspecified; K64.8 Other hemorrhoids; Z79.899 Other long term (current) drug therapy; Z80.3 Family history of malignant neoplasm of breast; Z82.61 Family history of arthritis; Z90.49 Acquired absence of other specified parts of digestive tract; Z92.21 Personal history of antineoplastic chemotherapy; Z92.3 Personal history of irradiation
CPT/HCPCS: 36430; 74174; 80048; 80053; 82728; 83540; 83550; 85014; 85018; 85025; 85027; 85610; 85730; 86850; 86900; 86901; 86920; 99291; P9016; Q9967

== ENCOUNTER → 2024-08-27 14:19 | Outpatient (REF) | payer OTHER, SELFPAY ==
[2024-08-27 10:17] LABS: % Basophils 0.7 % (0-2); % Eosinophils 1.1 % (0-6); % Immature Granulocytes 0.2 % (0-0.5); % Monocytes 12.7 % (1.7-9.3); % Neutrophils 73.3 % (42.2-75.2); Absolute Eosinophils 0.1 10^3/uL (0-0.7); Absolute Lymphocytes 0.5 10^3/uL (1.2-3.4); Absolute Monocytes 0.6 10^3/uL (0.1-0.6); Absolute Neutrophils 3.3 10^3/uL (1.4-6.5); Hematocrit 31.4 % (39.0-52.0); Hemoglobin 9.7 g/dL (13.0-18.0); Mean Corp Hgb Conc. 30.9 g/dL (33.0-37.0); Mean Corpuscular Volume 97.2 fL (80.0-94.0); Mean Platelet Volume 8.4 fL (7.4-10.4); Platelet Count 316 10^3/uL (130-400); Red Blood Cell Count 3.23 10^6/uL (4.70-6.10); Red Cell Dist. Width 18.3 % (11.5-14.5); White Blood Cell Count 4.5 10^3/uL (4.8-10.8)
[2024-08-27 11:00] LABS: ALT (SGPT) 20 U/L (0-50); AST (SGOT) 29 U/L (17-59); Albumin 4.1 g/dl (3.5-5.0); Alkaline Phosphatase 102 U/L (38-126); Blood Urea Nitrogen 13 mg/dl (9-20); Calcium 9.2 mg/dl (8.4-10.2); Carbon Dioxide 30 mmol/L (22-30); Chloride 97 mmol/L (98-107); Glucose 114 mg/dl (70-99); Potassium 4.8 mmol/L (3.5-5.1); Sodium 136 mmol/L (135-145); Total Bilirubin 0.4 mg/dl (0.2-1.3); Total Protein 6.7 g/dl (6.3-8.2); eGFR > 60.00
== END ==
LOC: OIDL 14:19
PROVIDERS: ATTENDING PHYSICIAN Nurse Practitioner Adult Health
DX: C20 Malignant neoplasm of rectum (principal)
CPT/HCPCS: 80053; 85025

== ENCOUNTER → 2024-08-30 15:52 | Outpatient (REF) | payer OTHER, SELFPAY ==
[2024-08-30 13:52] LABS: % Basophils 0.2 % (0-2); % Immature Granulocytes 0.2 % (0-0.5); % Lymphocytes 10.5 % (20.5-51.1); % Monocytes 4.8 % (1.7-9.3); % Neutrophils 84.3 % (42.2-75.2); Absolute Lymphocytes 0.4 10^3/uL (1.2-3.4); Absolute Monocytes 0.2 10^3/uL (0.1-0.6); Absolute Neutrophils 3.5 10^3/uL (1.4-6.5); Hematocrit 31.1 % (39.0-52.0); Hemoglobin 9.4 g/dL (13.0-18.0); Mean Corp Hgb Conc. 30.2 g/dL (33.0-37.0); Mean Corpuscular Hgb 29.7 pg (27.0-31.0); Mean Corpuscular Volume 98.1 fL (80.0-94.0); Mean Platelet Volume 8.5 fL (7.4-10.4); Platelet Count 333 10^3/uL (130-400); Red Blood Cell Count 3.17 10^6/uL (4.70-6.10); Red Cell Dist. Width 18.9 % (11.5-14.5); White Blood Cell Count 4.2 10^3/uL (4.8-10.8)
== END ==
LOC: OIDL 15:52
PROVIDERS: ATTENDING PHYSICIAN Internal Medicine Hematology & Oncology
DX: C20 Malignant neoplasm of rectum (principal)
CPT/HCPCS: 85025

== ENCOUNTER 2024-09-03 16:30 | Emergency (ER) | payer OTHER, SELFPAY ==
[2024-09-03] VITALS (15 sets, daily range): BP systolic 107–134; BP diastolic 68–92; BMI 22.4
--- NOTE | 2024-09-03 16:42 | ED.GENMED ---
ED Provider Triage
<Vernell Gonzalez PLASTICS DESIGN ENGINEER - Last Filed: 09/03/24 16:46>
-
Patient seen by provider in Triage?: Seen in Triage
Attestation: A medical screening examination has been initiated by a qualified medical provider. Based on the assessment performed at this time, it has been determined that an emergent medical condition may exist and the patient has been informed
that further medical evaluation and possible additional diagnostic testing may be needed.
HPI: 58 yo male with rectal CA, has rectal bleeding, had labs days ago and Hgb was 9.3. Has oncology appointment tomorrow for iron infusion. Here because he's weak, dizzy, SOB and doesn't think he can wait until tomorrow.
Denies chest pain.
Currently getting chemotherapy through port, last dose was 5 days ago. Told they are going to stop chemo in prep for radiation therapy.
GENERAL: Alert , in no apparent distress
EYE: No visual abnormalities.
NECK: Trachea midline
ENT: No visible abnormalities.
LUNGS: No acute respiratory distress
NEUROLOGICAL: Alert and oriented
SKIN: Pale. Skin intact. No visible changes.
MUSCULOSKELETAL: Moving extremities normally
PSYCH: Normal and appropriate interaction.
This is a medical evaluation conducted in person to initiate diagnostic evaluation and provide initial therapeutics. Please see further documentation by the treating clinician.
History of Present Illness
<Vernell Gonzalez PLASTICS DESIGN ENGINEER - Last Filed: 09/03/24 16:46>
General
Chief Complaint: Abnormal Lab Value
Time Seen by Provider: 09/03/24 17:15
<Alexis Polanco PA-C - Last Filed: 09/03/24 21:27>
General
Source: patient
Exam Limitations: none
History of Present Illness
History of Present Illness:
58-year-old male with history of rectal cancer followed by oncology hematology presents with persistent rectal bleeding. He states it increased 3 days ago. He is now fatigued he is pale and short of breath. He was here admitted to the hospital 11
days ago for further rectal bleeding and anemia. He had a sigmoidoscopy performed at that time which demonstrated bleeding was from his primary site. He is due to start radiation but this has not yet been set up. He denies chest pain. He denies
fever. He notes ongoing red rectal bleeding with occasional clots. No fever or pain
Phy Exam
<Alexis Polanco PA-C - Last Filed: 09/03/24 21:27>
Physical Exam
Physical Exam:
General: Pale appearing male no acute respiratory distress
HEENT: Normocephalic atraumatic
Heart: Tachycardic but regular
Lungs: Clear no wheeze
Abdomen is soft nontender nondistended no guarding or rebound
Extremities: No cyanosis
Course
<Vernell Gonzalez PLASTICS DESIGN ENGINEER - Last Filed: 09/03/24 16:46>
Orders/Labs/Results
Orders:
Orders
09/03/24 16:53
Electrocardiogram (*1) Urgent
Reason for Study: Bradycardia / Tachycardia
EKG- Treatment ONCE
09/03/24 17:01
Type+Screen Urgent
Complete Blood Count/With Diff Urgent
Comprehensive Metabolic Panel Urgent
09/03/24 17:30
Blood Bank Products [* Blood Bank Products] Urgent
Blood Bank Products: *Packed RBC Leuko(PRBC's)
Quantity: 2
Transfuse Today: Yes
Reason: Anemia
Abnormal Lab Results
09/03/24
17:01
WBC 2.8 L 10^3/uL
(4.8-10.8)
RBC 1.81 L 10^6/uL
(4.70-6.10)
Hgb 5.4 L* D g/dL
(13.0-18.0)
Hct 17.2 L* %
(39.0-52.0)
MCV 95.0 H fL
(80.0-94.0)
MCHC 31.4 L g/dL
(33.0-37.0)
RDW 17.6 H %
(11.5-14.5)
Absolute Lymphs (auto) 0.5 L 10^3/uL
(1.2-3.4)
Immature Gran % 1.1 H %
(0-0.5)
Lymphocytes % 16.9 L %
(20.5-51.1)
Monocytes % 11.6 H %
(1.7-9.3)
Sodium 133 L mmol/L
(135-145)
Glucose 155 H mg/dl
(70-99)
Total Protein 5.9 L g/dl
(6.3-8.2)
Crossmatch IS Only See Detail
09/03/24 17:01
09/03/24 17:01
Vital Signs
Initial and Last Documented VS:
Initial Vital Signs
Temp Pulse Resp BP Pulse Ox
98.6 F 138 16 115/79 98
09/03/24 16:36 09/03/24 16:36 09/03/24 16:36 09/03/24 16:36 09/03/24 16:36
Last Documented Vital Signs
Temp Pulse Resp BP Pulse Ox
99.4 F 93 22 134/92 100
09/03/24 21:17 09/03/24 21:17 09/03/24 21:17 09/03/24 21:17 09/03/24 21:17
Constantinlt;Alexis Polanco PA-C - Last Filed: 09/03/24 21:27>
Orders/Labs/Results
Orders:
Orders
09/03/24 16:53
Electrocardiogram (*1) Urgent
Reason for Study: Bradycardia / Tachycardia
EKG- Treatment ONCE
09/03/24 17:01
Type+Screen Urgent
Complete Blood Count/With Diff Urgent
Comprehensive Metabolic Panel Urgent
09/03/24 17:30
Blood Bank Products [* Blood Bank Products] Urgent
Blood Bank Products: *Packed RBC Leuko(PRBC's)
Quantity: 2
Transfuse Today: Yes
Reason: Anemia
Abnormal Lab Results
09/03/24
17:01
WBC 2.8 L 10^3/uL
(4.8-10.8)
RBC 1.81 L 10^6/uL
(4.70-6.10)
Hgb 5.4 L* D g/dL
(13.0-18.0)
Hct 17.2 L* %
(39.0-52.0)
MCV 95.0 H fL
(80.0-94.0)
MCHC 31.4 L g/dL
(33.0-37.0)
RDW 17.6 H %
(11.5-14.5)
Absolute Lymphs (auto) 0.5 L 10^3/uL
(1.2-3.4)
Immature Gran % 1.1 H %
(0-0.5)
Lymphocytes % 16.9 L %
(20.5-51.1)
Monocytes % 11.6 H %
(1.7-9.3)
Sodium 133 L mmol/L
(135-145)
Glucose 155 H mg/dl
(70-99)
Total Protein 5.9 L g/dl
(6.3-8.2)
Crossmatch IS Only See Detail
09/03/24 17:01
09/03/24 17:01
Vital Signs
Initial and Last Documented VS:
Initial Vital Signs
Temp Pulse Resp BP Pulse Ox
98.6 F 138 16 115/79 98
09/03/24 16:36 09/03/24 16:36 09/03/24 16:36 09/03/24 16:36 09/03/24 16:36
Last Documented Vital Signs
Temp Pulse Resp BP Pulse Ox
99.4 F 93 22 134/92 100
09/03/24 21:17 09/03/24 21:17 09/03/24 21:17 09/03/24 21:17 09/03/24 21:17
<Alexis Polanco PA-C - Last Filed: 09/03/24 21:27>
MDM/Problems Addressed
Differential Diagnosis Includes:
Ongoing red rectal bleeding with history of the same and known rectal cancer. Tachycardic at triage. He is symptomatic with minimal exertion.
Hemoglobin today 5.4.
This is down from 9 about 4 days ago.
Will order 2 units of packed red blood cells. Consent signed. Patient wishes to be discharged so he can follow-up with his oncologist as planned tomorrow.
<Alexis Polanco PA-C - Last Filed: 09/03/24 21:27>
*Critical Care Note
Total Time (30-74mins, 75-104mins- exclusive of procedures): Not Applicable
<Alexis Polanco PA-C - Last Filed: 09/03/24 21:27>
Update Note
Update Note:
Heart rate has improved after 2 units of blood transfusion. His color has improved he is feeling better. No further bleeding while here. He has an appointment with his signal system testing maintainer oncologist tomorrow. Will discharge home. Return precautions
were given
ED Attending Note
<Vernell Gonzalez PLASTICS DESIGN ENGINEER - Last Filed: 09/03/24 16:46>
-
Portions of this chart may have been created with voice recognition software.� Occasional wrong word or��sound alike� substitutions may have occurred due to the inherent limitations of voice recognition software.
Discharge Plan
Departure
Patient Disposition: Home (Routine Discharge)
Date of Disposition: 09/03/24
Time of Disposition: 21:22
Patient with high blood pressure during this ER visit?: No
Discharge Problem:
Anemia
Instructions: Anemia caused by low iron
Prescriptions:
No Action
metoprolol tartrate 25 mg Tablet
12.5 mg PO BID
tramadol 50 mg tablet
50 mg PO Q4HPRN PRN (Reason: moderate pain)
esomeprazole magnesium 40 mg capsule,delayed release(DR/EC)
40 mg PO DAILY
ibuprofen 200 mg Tablet
400 mg PO Q6HPRN PRN (Reason: mild pain)
polyethylene glycol 3350 [Miralax] 17 gram powder in packet
17 g PO DAILYPRN PRN (Reason: constipation)
hydrocortisone acetate 25 mg suppository
25 mg [place] BIDPRN PRN (Reason: hemorrhoids)
senna 8.6 mg capsule
8.6 mg PO HSPRN PRN (Reason: constipation)
docusate sodium [Col-Rite] 100 mg capsule
100 mg PO DAILY Qty: 30 0RF
Activity Restrictions/Additional Instructions:
Please return here for worsening symptoms otherwise follow-up with your signal system testing maintainer oncologist as planned for tomorrow
Interventions
Interventions:
*Risk Screen - Suicide Last Done: 09/03/24 16:36
*General Assessment Last Done: 09/03/24 18:10
*Neglect/Abuse Screening Last Done: 09/03/24 16:36
Discharge Date and Time
Print Language: NEPALI
[2024-09-03 17:29] LABS: % Basophils 0.7 % (0-2); % Eosinophils 0.4 % (0-6); % Immature Granulocytes 1.1 % (0-0.5); % Lymphocytes 16.9 % (20.5-51.1); % Monocytes 11.6 % (1.7-9.3); % Neutrophils 69.3 % (42.2-75.2); Absolute Lymphocytes 0.5 10^3/uL (1.2-3.4); Absolute Monocytes 0.3 10^3/uL (0.1-0.6); Hematocrit 17.2 % (39.0-52.0); Hemoglobin 5.4 g/dL (13.0-18.0); Mean Corp Hgb Conc. 31.4 g/dL (33.0-37.0); Mean Corpuscular Hgb 29.8 pg (27.0-31.0); Mean Platelet Volume 9.1 fL (7.4-10.4); Nucleated Red Blood Cells % 0 % (-); Platelet Count 326 10^3/uL (130-400); Red Blood Cell Count 1.81 10^6/uL (4.70-6.10); Red Cell Dist. Width 17.6 % (11.5-14.5); White Blood Cell Count 2.8 10^3/uL (4.8-10.8)
[2024-09-03 17:34] LABS: ALT (SGPT) 20 U/L (0-50); AST (SGOT) 21 U/L (17-59); Albumin 3.5 g/dl (3.5-5.0); Alkaline Phosphatase 99 U/L (38-126); Blood Urea Nitrogen 16 mg/dl (9-20); Calcium 8.6 mg/dl (8.4-10.2); Carbon Dioxide 24 mmol/L (22-30); Chloride 101 mmol/L (98-107); Glucose 155 mg/dl (70-99); Potassium 4.1 mmol/L (3.5-5.1); Sodium 133 mmol/L (135-145); Total Bilirubin 0.3 mg/dl (0.2-1.3); Total Protein 5.9 g/dl (6.3-8.2); eGFR > 60.00
== END 2024-09-03 22:01 | disposition home or self-care (01) ==
LOC: EMR 16:30
PROVIDERS: Emergency Medicine; EMERGENCY PHYSICIAN Student in an Organized Health Care Education/Training Program; FAMILY PHYSICIAN Family Medicine
DX: D64.9 Anemia, unspecified (principal); Z85.048 Personal history of other malignant neoplasm of rectum, rectosigmoid junction, and anus
CPT/HCPCS: 99285; 36430; 80053; 85025; 86850; 86900; 86901; 86920; 93005; P9016

== ENCOUNTER → 2024-09-04 14:23 | Outpatient (REF) | payer OTHER, SELFPAY ==
[2024-09-04 14:27] LABS: % Basophils 0.5 % (0-2); % Eosinophils 0.2 % (0-6); % Immature Granulocytes 2.8 % (0-0.5); % Lymphocytes 16.1 % (20.5-51.1); % Monocytes 12.6 % (1.7-9.3); % Neutrophils 67.8 % (42.2-75.2); Absolute Immature Granulocytes 0.1 10^3/uL (0-0.05); Absolute Lymphocytes 0.7 10^3/uL (1.2-3.4); Absolute Monocytes 0.6 10^3/uL (0.1-0.6); Hematocrit 25.6 % (39.0-52.0); Mean Corp Hgb Conc. 32.4 g/dL (33.0-37.0); Mean Corpuscular Hgb 30.7 pg (27.0-31.0); Mean Corpuscular Volume 94.8 fL (80.0-94.0); Mean Platelet Volume 8.9 fL (7.4-10.4); Platelet Count 354 10^3/uL (130-400); Red Cell Dist. Width 17.4 % (11.5-14.5); White Blood Cell Count 4.4 10^3/uL (4.8-10.8)
[2024-09-04 14:30] LABS: Hemoglobin 8.3 g/dL (13.0-18.0)
== END ==
LOC: OIDL 14:23
PROVIDERS: ATTENDING PHYSICIAN Internal Medicine Hematology & Oncology
DX: C20 Malignant neoplasm of rectum (principal); D50.9 Iron deficiency anemia, unspecified
CPT/HCPCS: 85025

== ENCOUNTER → 2024-09-07 15:43 | Outpatient (REF) | payer OTHER, SELFPAY ==
[2024-09-07 15:20] LABS: % Basophils 0.3 % (0-2); % Eosinophils 0.8 % (0-6); % Immature Granulocytes 1.1 % (0-0.5); % Lymphocytes 13.5 % (20.5-51.1); % Monocytes 14.4 % (1.7-9.3); % Neutrophils 69.9 % (42.2-75.2); Absolute Lymphocytes 0.5 10^3/uL (1.2-3.4); Absolute Monocytes 0.5 10^3/uL (0.1-0.6); Absolute Neutrophils 2.5 10^3/uL (1.4-6.5); Hematocrit 24.4 % (39.0-52.0); Hemoglobin 7.5 g/dL (13.0-18.0); Mean Corp Hgb Conc. 30.7 g/dL (33.0-37.0); Mean Corpuscular Volume 100.8 fL (80.0-94.0); Mean Platelet Volume 8.5 fL (7.4-10.4); Platelet Count 296 10^3/uL (130-400); Red Blood Cell Count 2.42 10^6/uL (4.70-6.10); Red Cell Dist. Width 20.8 % (11.5-14.5); White Blood Cell Count 3.6 10^3/uL (4.8-10.8)
== END ==
LOC: OIDL 15:43
PROVIDERS: ATTENDING PHYSICIAN Internal Medicine Hematology & Oncology
DX: C20 Malignant neoplasm of rectum (principal); D50.9 Iron deficiency anemia, unspecified
CPT/HCPCS: 85025; 86850; 86900; 86901; 86920

== ENCOUNTER 2024-09-10 09:33 | Outpatient (RCR) | payer OTHER, SELFPAY ==
[2024-09-10] VITALS (7 sets, daily range): BP systolic 95–108; BP diastolic 59–68
[2024-09-12 15:00] LABS: % Basophils 0.6 % (0-2); % Eosinophils 0.6 % (0-6); % Immature Granulocytes 0.2 % (0-0.5); % Lymphocytes 9.2 % (20.5-51.1); % Monocytes 10.2 % (1.7-9.3); % Neutrophils 79.2 % (42.2-75.2); Absolute Lymphocytes 0.5 10^3/uL (1.2-3.4); Absolute Monocytes 0.5 10^3/uL (0.1-0.6); Hematocrit 33.7 % (39.0-52.0); Mean Corp Hgb Conc. 30.6 g/dL (33.0-37.0); Mean Corpuscular Hgb 30.3 pg (27.0-31.0); Mean Corpuscular Volume 99.1 fL (80.0-94.0); Platelet Count 347 10^3/uL (130-400); Red Cell Dist. Width 21.3 % (11.5-14.5)
[2024-09-12 15:08] LABS: Hemoglobin 10.3 g/dL (13.0-18.0)
== END 2024-09-21 23:59 | disposition home or self-care (01) ==
LOC: OID 09:33
PROVIDERS: ATTENDING PHYSICIAN Internal Medicine Hematology & Oncology; FAMILY PHYSICIAN Family Medicine
DX: C20 Malignant neoplasm of rectum (principal)
CPT/HCPCS: 36430; 85025; 86850; 86900; 86901; 86920; P9016

== ENCOUNTER → 2024-09-18 08:24 | Outpatient (REF) | payer OTHER, SELFPAY ==
[2024-09-18 09:21] LABS: % Basophils 0.5 % (0-2); % Eosinophils 0.2 % (0-6); % Immature Granulocytes 0.9 % (0-0.5); % Monocytes 11.5 % (1.7-9.3); % Neutrophils 78.9 % (42.2-75.2); Absolute Immature Granulocytes 0.1 10^3/uL (0-0.05); Absolute Lymphocytes 0.4 10^3/uL (1.2-3.4); Absolute Monocytes 0.6 10^3/uL (0.1-0.6); Absolute Neutrophils 4.3 10^3/uL (1.4-6.5); Hematocrit 26.2 % (39.0-52.0); Hemoglobin 8.2 g/dL (13.0-18.0); Mean Corp Hgb Conc. 31.3 g/dL (33.0-37.0); Mean Corpuscular Hgb 31.1 pg (27.0-31.0); Mean Corpuscular Volume 99.2 fL (80.0-94.0); Nucleated Red Blood Cells % 0 % (-); Platelet Count 344 10^3/uL (130-400); Red Blood Cell Count 2.64 10^6/uL (4.70-6.10); Red Cell Dist. Width 19.3 % (11.5-14.5); White Blood Cell Count 5.5 10^3/uL (4.8-10.8)
[2024-09-18 09:49] LABS: ALT (SGPT) 27 U/L (0-50); AST (SGOT) 31 U/L (17-59); Albumin 3.7 g/dl (3.5-5.0); Alkaline Phosphatase 140 U/L (38-126); Blood Urea Nitrogen 18 mg/dl (9-20); Calcium 8.8 mg/dl (8.4-10.2); Carbon Dioxide 26 mmol/L (22-30); Chloride 101 mmol/L (98-107); Glucose 131 mg/dl (70-99); Potassium 4.3 mmol/L (3.5-5.1); Sodium 137 mmol/L (135-145); Total Bilirubin 0.3 mg/dl (0.2-1.3); Total Protein 6.2 g/dl (6.3-8.2); eGFR > 60.00
== END ==
LOC: REG 08:24
PROVIDERS: ATTENDING PHYSICIAN Internal Medicine Hematology & Oncology
DX: C20 Malignant neoplasm of rectum (principal); D50.9 Iron deficiency anemia, unspecified; D64.81 Anemia due to antineoplastic chemotherapy
CPT/HCPCS: 36415; 80053; 85025

== ENCOUNTER → 2024-09-24 13:51 | Outpatient (REF) | payer OTHER, SELFPAY ==
[2024-09-24 14:54] LABS: % Basophils 0.4 % (0-2); % Eosinophils 0.3 % (0-6); % Immature Granulocytes 1.1 % (0-0.5); % Lymphocytes 8.6 % (20.5-51.1); % Monocytes 8.4 % (1.7-9.3); % Neutrophils 81.2 % (42.2-75.2); Absolute Immature Granulocytes 0.1 10^3/uL (0-0.05); Absolute Lymphocytes 0.6 10^3/uL (1.2-3.4); Absolute Monocytes 0.6 10^3/uL (0.1-0.6); Absolute Neutrophils 5.9 10^3/uL (1.4-6.5); Hematocrit 19.4 % (39.0-52.0); Hemoglobin 5.8 g/dL (13.0-18.0); Mean Corp Hgb Conc. 29.9 g/dL (33.0-37.0); Mean Corpuscular Hgb 30.1 pg (27.0-31.0); Mean Corpuscular Volume 100.5 fL (80.0-94.0); Mean Platelet Volume 8.9 fL (7.4-10.4); Nucleated Red Blood Cells % 0.4 % (-); Platelet Count 474 10^3/uL (130-400); Red Blood Cell Count 1.93 10^6/uL (4.70-6.10); Red Cell Dist. Width 18.6 % (11.5-14.5); White Blood Cell Count 7.2 10^3/uL (4.8-10.8)
[2024-09-24 15:11] LABS: ALT (SGPT) 17 U/L (0-50); AST (SGOT) 24 U/L (17-59); Albumin 3.5 g/dl (3.5-5.0); Alkaline Phosphatase 162 U/L (38-126); Blood Urea Nitrogen 9 mg/dl (9-20); Calcium 8.9 mg/dl (8.4-10.2); Carbon Dioxide 22 mmol/L (22-30); Chloride 103 mmol/L (98-107); Glucose 133 mg/dl (70-99); Potassium 4.2 mmol/L (3.5-5.1); Sodium 135 mmol/L (135-145); Total Bilirubin 0.5 mg/dl (0.2-1.3); Total Protein 5.9 g/dl (6.3-8.2); eGFR > 60.00
== END ==
LOC: REG 13:51
PROVIDERS: ATTENDING PHYSICIAN Internal Medicine Hematology & Oncology; FAMILY PHYSICIAN Family Medicine
DX: C20 Malignant neoplasm of rectum (principal); D50.9 Iron deficiency anemia, unspecified; D64.81 Anemia due to antineoplastic chemotherapy
CPT/HCPCS: 36415; 80053; 85025

== ENCOUNTER 2024-10-03 09:45 | Outpatient (RCR) | payer OTHER, SELFPAY ==
[2024-09-25] VITALS (7 sets, daily range): BP systolic 104–118; BP diastolic 63–74
[2024-10-01 11:25] LABS: % Basophils 0.4 % (0-2); % Eosinophils 0.4 % (0-6); % Immature Granulocytes 0.6 % (0-0.5); % Lymphocytes 8.3 % (20.5-51.1); % Monocytes 10.2 % (1.7-9.3); % Neutrophils 80.1 % (42.2-75.2); Absolute Lymphocytes 0.4 10^3/uL (1.2-3.4); Absolute Monocytes 0.5 10^3/uL (0.1-0.6); Absolute Neutrophils 4.1 10^3/uL (1.4-6.5); Hematocrit 24.6 % (39.0-52.0); Hemoglobin 7.5 g/dL (13.0-18.0); Mean Corp Hgb Conc. 30.5 g/dL (33.0-37.0); Mean Corpuscular Hgb 29.5 pg (27.0-31.0); Mean Corpuscular Volume 96.9 fL (80.0-94.0); Mean Platelet Volume 9.1 fL (7.4-10.4); Nucleated Red Blood Cells % 0 % (-); Platelet Count 361 10^3/uL (130-400); Red Blood Cell Count 2.54 10^6/uL (4.70-6.10); Red Cell Dist. Width 16.8 % (11.5-14.5); White Blood Cell Count 5.1 10^3/uL (4.8-10.8)
[2024-10-01 12:22] LABS: ALT (SGPT) 23 U/L (0-50); AST (SGOT) 33 U/L (17-59); Albumin 3.7 g/dl (3.5-5.0); Alkaline Phosphatase 191 U/L (38-126); Blood Urea Nitrogen 16 mg/dl (9-20); Calcium 8.9 mg/dl (8.4-10.2); Carbon Dioxide 26 mmol/L (22-30); Chloride 101 mmol/L (98-107); Glucose 113 mg/dl (70-99); Magnesium 2.6 mg/dl (1.6-2.3); Potassium 4.6 mmol/L (3.5-5.1); Sodium 136 mmol/L (135-145); Total Bilirubin 0.6 mg/dl (0.2-1.3); Total Protein 6.3 g/dl (6.3-8.2); eGFR > 60.00
[2024-10-03 10:10] VITALS: BP 108/71
[2024-10-03 10:28] VITALS: BP 102/61
[2024-10-03 11:57] VITALS: BP 99/62
[2024-10-03 12:10] VITALS: BP 99/62
[2024-10-03 12:27] VITALS: BP 100/69
--- NOTE | 2024-10-03 13:24 | SURV.CONR ---
Survivorship Consultation
- -
Spoke with patient while in [facility] receiving blood transfusion. Discussed supportive care/survivorship and also acupuncture. Rationale for acupuncture provided and overview of the possible benefits provided. Encouraged to arrange an appointment if
interested in acupuncture to review medical records and offer support and resources. He will consider. Contact information provided. He will call to arrange an appointment if interested.
[2024-10-03 14:26] VITALS: BP 107/69
== END 2024-10-19 23:59 | disposition home or self-care (01) ==
LOC: OID 09:45
PROVIDERS: ATTENDING PHYSICIAN Internal Medicine Hematology & Oncology; FAMILY PHYSICIAN Family Medicine
DX: C20 Malignant neoplasm of rectum (principal)
CPT/HCPCS: 36415; 36430; 80053; 83735; 85025; 86850; 86900; 86901; 86920; P9016

== ENCOUNTER → 2024-10-11 10:13 | Outpatient (REF) | payer OTHER, SELFPAY ==
[2024-10-11 10:50] LABS: % Basophils 0.6 % (0-2); % Eosinophils 0.8 % (0-6); % Immature Granulocytes 0.6 % (0-0.5); % Lymphocytes 7.8 % (20.5-51.1); % Monocytes 8.4 % (1.7-9.3); % Neutrophils 81.8 % (42.2-75.2); Absolute Lymphocytes 0.4 10^3/uL (1.2-3.4); Absolute Monocytes 0.4 10^3/uL (0.1-0.6); Hematocrit 27.6 % (39.0-52.0); Hemoglobin 8.7 g/dL (13.0-18.0); Mean Corp Hgb Conc. 31.5 g/dL (33.0-37.0); Mean Corpuscular Hgb 29.5 pg (27.0-31.0); Mean Corpuscular Volume 93.6 fL (80.0-94.0); Mean Platelet Volume 8.8 fL (7.4-10.4); Nucleated Red Blood Cells % 0.4 % (-); Platelet Count 368 10^3/uL (130-400); Red Blood Cell Count 2.95 10^6/uL (4.70-6.10); Red Cell Dist. Width 16.4 % (11.5-14.5); White Blood Cell Count 4.9 10^3/uL (4.8-10.8)
[2024-10-11 10:53] LABS: ALT (SGPT) 35 U/L (0-50); AST (SGOT) 35 U/L (17-59); Albumin 4.1 g/dl (3.5-5.0); Alkaline Phosphatase 177 U/L (38-126); Blood Urea Nitrogen 14 mg/dl (9-20); Calcium 9.1 mg/dl (8.4-10.2); Carbon Dioxide 25 mmol/L (22-30); Chloride 101 mmol/L (98-107); Glucose 132 mg/dl (70-99); Magnesium 2.4 mg/dl (1.6-2.3); Potassium 4.2 mmol/L (3.5-5.1); Sodium 137 mmol/L (135-145); Total Bilirubin 0.7 mg/dl (0.2-1.3); Total Protein 6.7 g/dl (6.3-8.2); eGFR > 60.00
== END ==
LOC: REG 10:13
PROVIDERS: ATTENDING PHYSICIAN Internal Medicine Hematology & Oncology; FAMILY PHYSICIAN Family Medicine
DX: C20 Malignant neoplasm of rectum (principal); D50.9 Iron deficiency anemia, unspecified; D64.81 Anemia due to antineoplastic chemotherapy
CPT/HCPCS: 36415; 80053; 83735; 85025

== ENCOUNTER → 2024-10-15 13:11 | Outpatient (REF) | payer OTHER, SELFPAY ==
[2024-10-15 13:48] LABS: % Basophils 0.7 % (0-2); % Eosinophils 0.9 % (0-6); % Immature Granulocytes 0.2 % (0-0.5); % Lymphocytes 7.6 % (20.5-51.1); % Neutrophils 81.6 % (42.2-75.2); Absolute Lymphocytes 0.3 10^3/uL (1.2-3.4); Absolute Monocytes 0.4 10^3/uL (0.1-0.6); Absolute Neutrophils 3.6 10^3/uL (1.4-6.5); Hematocrit 28.6 % (39.0-52.0); Hemoglobin 8.6 g/dL (13.0-18.0); Mean Corp Hgb Conc. 30.1 g/dL (33.0-37.0); Mean Corpuscular Hgb 28.6 pg (27.0-31.0); Mean Platelet Volume 8.8 fL (7.4-10.4); Nucleated Red Blood Cells % 0 % (-); Platelet Count 347 10^3/uL (130-400); Red Blood Cell Count 3.01 10^6/uL (4.70-6.10); Red Cell Dist. Width 16.8 % (11.5-14.5); White Blood Cell Count 4.5 10^3/uL (4.8-10.8)
[2024-10-15 14:55] LABS: ALT (SGPT) 33 U/L (0-50); AST (SGOT) 31 U/L (17-59); Albumin 3.7 g/dl (3.5-5.0); Alkaline Phosphatase 162 U/L (38-126); Blood Urea Nitrogen 13 mg/dl (9-20); Calcium 9.2 mg/dl (8.4-10.2); Carbon Dioxide 29 mmol/L (22-30); Chloride 100 mmol/L (98-107); Glucose 113 mg/dl (70-99); Magnesium 2.5 mg/dl (1.6-2.3); Potassium 4.4 mmol/L (3.5-5.1); Sodium 137 mmol/L (135-145); Total Bilirubin 0.6 mg/dl (0.2-1.3); Total Protein 6.3 g/dl (6.3-8.2); eGFR > 60.00
== END ==
LOC: REG 13:11
PROVIDERS: ATTENDING PHYSICIAN Internal Medicine Hematology & Oncology; FAMILY PHYSICIAN Family Medicine
DX: C20 Malignant neoplasm of rectum (principal); D50.9 Iron deficiency anemia, unspecified; D64.81 Anemia due to antineoplastic chemotherapy
CPT/HCPCS: 36415; 80053; 83735; 85025

== ENCOUNTER 2024-11-02 14:15 | Outpatient (RCR) | payer OTHER, SELFPAY ==
[2024-10-29 11:23] LABS: % Basophils 0.5 % (0-2); % Immature Granulocytes 0.5 % (0-0.5); % Monocytes 11.2 % (1.7-9.3); % Neutrophils 75.8 % (42.2-75.2); Absolute Lymphocytes 0.5 10^3/uL (1.2-3.4); Absolute Monocytes 0.5 10^3/uL (0.1-0.6); Absolute Neutrophils 3.2 10^3/uL (1.4-6.5); Hematocrit 24.4 % (39.0-52.0); Hemoglobin 7.2 g/dL (13.0-18.0); Mean Corp Hgb Conc. 29.5 g/dL (33.0-37.0); Mean Corpuscular Hgb 27.4 pg (27.0-31.0); Mean Corpuscular Volume 92.8 fL (80.0-94.0); Mean Platelet Volume 9.2 fL (7.4-10.4); Nucleated Red Blood Cells % 0.5 % (-); Platelet Count 370 10^3/uL (130-400); Red Blood Cell Count 2.63 10^6/uL (4.70-6.10); Red Cell Dist. Width 16.8 % (11.5-14.5); White Blood Cell Count 4.2 10^3/uL (4.8-10.8)
[2024-10-29 12:18] LABS: ALT (SGPT) 17 U/L (0-50); AST (SGOT) 22 U/L (17-59); Albumin 3.2 g/dl (3.5-5.0); Alkaline Phosphatase 130 U/L (38-126); Blood Urea Nitrogen 7 mg/dl (9-20); Carbon Dioxide 24 mmol/L (22-30); Chloride 103 mmol/L (98-107); Glucose 170 mg/dl (70-99); Magnesium 2.1 mg/dl (1.6-2.3); Potassium 3.8 mmol/L (3.5-5.1); Sodium 137 mmol/L (135-145); Total Bilirubin 0.5 mg/dl (0.2-1.3); Total Protein 5.7 g/dl (6.3-8.2); eGFR > 60.00
[2024-10-29 13:21] LABS: Iron 27 ug/dl (49-181)
[2024-10-29 13:30] LABS: Percent Saturation 7 % (20-50); Total Iron Binding Capacity 341 ug/dl (261-462)
[2024-10-29 13:57] LABS: Ferritin 23.3 ng/ml (17.9-464.0)
[2024-10-31] VITALS (8 sets, daily range): BP systolic 97–107; BP diastolic 54–59
[2024-11-02 14:37] LABS: % Basophils 0.1 % (0-2); % Eosinophils 0.1 % (0-6); % Immature Granulocytes 0.3 % (0-0.5); % Lymphocytes 3.6 % (20.5-51.1); % Monocytes 2.4 % (1.7-9.3); % Neutrophils 93.5 % (42.2-75.2); Absolute Lymphocytes 0.3 10^3/uL (1.2-3.4); Absolute Monocytes 0.2 10^3/uL (0.1-0.6); Absolute Neutrophils 6.5 10^3/uL (1.4-6.5); Hematocrit 31.6 % (39.0-52.0); Mean Corpuscular Hgb 28.1 pg (27.0-31.0); Mean Corpuscular Volume 87.8 fL (80.0-94.0); Mean Platelet Volume 9.5 fL (7.4-10.4); Platelet Count 302 10^3/uL (130-400); Red Cell Dist. Width 16.2 % (11.5-14.5)
[2024-11-02 14:40] LABS: Hemoglobin 10.1 g/dL (13.0-18.0)
== END 2024-11-19 23:59 | disposition home or self-care (01) ==
LOC: OID 14:15
PROVIDERS: ATTENDING PHYSICIAN Internal Medicine Hematology & Oncology; FAMILY PHYSICIAN Family Medicine
DX: C20 Malignant neoplasm of rectum (principal)
CPT/HCPCS: 36415; 36430; 80053; 82728; 83540; 83550; 83735; 85025; 86850; 86900; 86901; 86920; P9016

== ENCOUNTER 2024-11-07 14:47 | Inpatient (IN) | payer OTHER, SELFPAY ==
[2024-11-07] VITALS (11 sets, daily range): BP systolic 119–164; BP diastolic 73–104; BMI 24.1; BMI 21.1
--- NOTE | 2024-11-07 09:16 | ED.GENMED ---
History of Present Illness
General
Chief Complaint: Abdominal Symptoms
Source: patient
Exam Limitations: none
Time Seen by Provider: 11/07/24 09:13
Nursing documentation reviewed up to this point in time: agreed with
History of Present Illness
History of Present Illness:
This is a 59-year-old male with a past medical history of stage IV rectal cancer status post liver resection presents emergency department today with concerns of nausea, vomiting, and diarrhea. Patient reports that he is currently receiving
chemotherapy and reports that he has been dealing with this on and off for the past few weeks but reports that this week, he feels as though he is very dehydrated and his nausea became a lot worse. Patient reports that he struggles to keep fluids
down. He also reports that he has had diffuse abdominal pain following chemotherapy that last approximately 5 days. He has tried Gas-X, heating pad, and tramadol without relief. He also notes more diarrhea as well. His last bowel movement was
last night. He was previously on Erbitux for his chemotherapy and did not have pain. His treatment team suspected his pain may be related to inflammation so they started him on prednisone, he is on his third day of prednisone has not had relief of
his pain. His last treatment with current regimen was on 10/31/24. He is being treated with Folfiri. He denies chest pain, shortness of breath, syncopal episodes. He is also had rectal spotting which is not new for him. Patient states that he has
not had any rectal bleeding today.
Review of Systems
Review of Systems
All Other Systems: ROS reviewed and negative except as documented in HPI and ROS
Phy Exam
Physical Exam
Physical Exam:
General: Patient is well appearing and in no acute distress; non-toxic
Skin: Warm and dry, no rashes or lesions
Head: Normocephalic, atraumatic
Eyes: Sclera non-icteric. EOMs intact.
Cardiac: Patient is tachycardic otherwise regular rhythm, no murmurs
Pulm: Normal respiratory effort, no wheezes, rales, or rhonchi
Abdomen: Diffuse abdominal tenderness to palpation worse in the left lower quadrant, guarding present, no palpable abdominal masses
Genitourinary: Deferred
Neuro: CN II-XII intact, no focal neurologic deficits.
Psychiatric: Appropriate mood and affect.
Course
Orders/Labs/Results
Orders:
Orders
11/07/24 Breakfast
Full Liquids
At Your Request: Full Participation
Does patient need a safe tray?: No
Comment: ADAT
11/07/24 09:33
Stool Culture Urgent
AGGIE Source: Feces/Stool
Specimen Description:
0.9% Sodium Chloride 1000 ml [Nss] 1,000 ml IV BOLUS
Ondansetron Injectable [Zofran] 8 mg IV NOW STA
11/07/24 09:36
HYDROmorphone [Dilaudid] 0.5 mg IV NOW STA
11/07/24 09:46
Complete Blood Count/With Diff Urgent
Comprehensive Metabolic Panel Urgent
Magnesium Urgent
Manual Differential Urgent
Serum Osmolality Urgent
11/07/24 09:55
CT Angio Abd/Pelvis w/wo IV [CT Abd/pelvis Angio W/wo Iv] Urgent
Comment:
Reason For Exam: diffuse abdominal pain, rectal bleeding
11/07/24 10:54
Lactic Acid Urgent
11/07/24 12:02
Add On- LAB Urgent
Tests Added?: serum osmolality
Osmolality, Random Urine Urgent
11/07/24 13:16
Admit/Transfer Patient As Directed
Co-Sign Provider:
Level of Care: Inpatient admission
Assign to:: Medical/Surgical
Physician / Group: [email or web address]
Diagnosis: Dehydration, abdominal pain, hyponatremia, stercoral colitis
Reason for Hospitalization: Dehydration, abdominal pain, hyponatremia, stercoral colitis
Expected length of stay greater than two midnights?: Yes
ELOS- Estimated Length of Stay in days: 4
I certify the patient meets the requirements for IP care: Yes
11/07/24 13:19
Enema As Directed
Type: Milk and molasses
Amount: 500cc
11/07/24 13:21
Code Status As Directed
Resuscitation Status: Full Code
11/07/24 13:30
0.9% Sodium Chloride 1000 ml [Nss] 1,000 ml IV 80 mls/hr
11/07/24 13:31
HYDROmorphone [Dilaudid] 0.5 mg IV Q4HPRN PRN
11/07/24 16:00
Piperacillin/Tazo 3.375 Gram [Zosyn] 3.375 gram in 50 ml IV Q6H
11/07/24 16:21
Bisacodyl [Dulcolax] 10 mg RECTAL [id number] PRN
Docusate W/Senna [Senokot-S] 1 tablet PO BIDPRN PRN
Polyethylene Glycol Powder [Miralax] 17 grams PO DAILYPRN PRN
11/07/24 16:21
ColoRectal Surgery Consult Routine
Consulting Provider: Castillo Cronin
Was physician already notified: Yes
Reason for consult: extesive fecal burden ? diverting colostomy . IV Rectal CA
GASTROINTESTINAL CONSULT Routine
Consulting Provider: Raymond Garay
Was physician already notified: Yes
Reason for consult: sterocoral colitis, exteensive fecal burden
Activity As Directed
Activity Level: With Assistance
Intake/ Output As Directed
Frequency: Per unit guidelines
Vital Signs As Directed
Frequency: Per unit guidelines
Weight As Directed
Frequency: Daily
DX Deep Vein Thrombosis Video Routine
11/07/24 20:00
Heparin 5,000 units SC Q12
11/07/24 22:00
Metoprolol [Lopressor] 25 mg PO HS
11/08/24 06:00
Basic Metabolic Panel IN AM
Complete Blood Count/No Diff IN AM
Comprehensive Metabolic Panel IN AM
11/08/24 08:00
Pantoprazole [Protonix] 40 mg PO DAILY
Prednisone [Deltasone] 20 mg PO DAILY
Abnormal Lab Results
11/07/24
09:46
RBC 3.14 L 10^6/uL
(4.70-6.10)
Hgb 8.9 L g/dL
(13.0-18.0)
Hct 26.7 L %
(39.0-52.0)
RDW 16.7 H %
(11.5-14.5)
Plt Count 407 H D 10^3/uL
(130-400)
Absolute Lymphs (auto) 0.3 L 10^3/uL
(1.2-3.4)
Absolute Monos (auto) 1.2 H 10^3/uL
(0.1-0.6)
Neutrophils % 77.0 H %
(42.2-75.2)
Lymphocytes % 4.1 L %
(20.5-51.1)
Monocytes % 17.3 H %
(1.7-9.3)
Band Neutrophils 14 H %
(0-3)
Lymphocytes (Manual) 2 L %
(20-51)
Monocytes (Manual) 10 H %
(2-9)
Sodium 129 L mmol/L
(135-145)
Chloride 96 L mmol/L
(98-107)
Carbon Dioxide 21 L mmol/L
(22-30)
BUN 34 H mg/dl
(9-20)
Glucose 192 H mg/dl
(70-99)
Calcium 8.3 L mg/dl
(8.4-10.2)
Magnesium 2.5 H mg/dl
(1.6-2.3)
Alkaline Phosphatase 148 H U/L
(38-126)
Total Protein 5.9 L g/dl
(6.3-8.2)
Albumin 3.3 L g/dl
(3.5-5.0)
11/07/24 09:46
11/07/24 09:46
Vital Signs
Initial and Last Documented VS:
Initial Vital Signs
Temp Pulse Resp BP Pulse Ox
98.4 F 119 18 164/104 99
11/07/24 08:43 11/07/24 08:43 11/07/24 08:43 11/07/24 08:43 11/07/24 08:43
Last Documented Vital Signs
Temp Pulse Resp BP Pulse Ox
98.5 F 99 18 142/86 98
11/07/24 16:32 11/07/24 16:32 11/07/24 16:32 11/07/24 16:32 11/07/24 16:32
MDM/Problems Addressed
Differential Diagnosis Includes:
ddx include progressive rectal cancer, infectious colitis, ischemic colitis, viral gastroenteritis, mesenteric ischemia
MDM/Problems Addressed:
This is a 59-year-old male with a past medical history of stage IV rectal cancer status post liver resection presents emergency department today with concerns of nausea, vomiting, and diarrhea. He also notes diffuse abdominal pain. On exam, he is
well appearing, afebrile, but does have tachycardia and diffuse lower abdominal tenderness to palpation. Had discussion with Dr. Salinas, oncologist collection systems technician with patient's oncology group who expresses that it is unusual to have post chemotherapy
abdominal pain or abdominal symptoms other than standard nausea, vomiting, diarrhea. As such, will obtain CT angio to rule out vascular etiology such as colonic ischemia.
CT scan reveals a large amount of stool and inflammation consistent with serocolitis. In light of patient's significant pain and dehydration status, will admit to the hospital for further evaluation and continued hydration and pain management.
*Critical Care Note
Total Time (30-74mins, 75-104mins- exclusive of procedures): Not Applicable
ED Attending Note
-
Portions of this chart may have been created with voice recognition software.� Occasional wrong word or��sound alike� substitutions may have occurred due to the inherent limitations of voice recognition software.
Discharge Plan
Departure
Patient Disposition: Admit
Date of Disposition: 11/07/24
Time of Disposition: 12:42
Admit to: Med/Surg
Presentation/result/management discussed w/ accepting MD/DO: Hospitalist
Condition: Fair
Discharge Problem:
Acute dehydration, Hyponatremia, Stercoral colitis
Interventions
Interventions:
*Risk Screen - Suicide Last Done: 11/07/24 16:35
*General Assessment Last Done: 11/07/24 08:43
*Neglect/Abuse Screening Last Done: 11/07/24 08:43
*ED- Fall Risk Assessment Last Done: 11/07/24 16:00
*ED COVID-19 Vaccine History Last Done: 11/07/24 16:35
*Nursing Disposition Last Done: 11/07/24 16:00
OX-Daakqh-Vqpinzpazo Assessment Last Done: 11/07/24 09:21
Discharge Date and Time
Discharge Date/Time: 11/07/24 16:00
[2024-11-07 10:02] LABS: % Basophils 0.6 % (0-2); % Eosinophils 0.5 % (0-6); % Immature Granulocytes 0.5 % (0-0.5); % Lymphocytes 4.1 % (20.5-51.1); % Monocytes 17.3 % (1.7-9.3); Absolute Lymphocytes 0.3 10^3/uL (1.2-3.4); Absolute Monocytes 1.2 10^3/uL (0.1-0.6); Absolute Neutrophils 5.1 10^3/uL (1.4-6.5); Hematocrit 26.7 % (39.0-52.0); Hemoglobin 8.9 g/dL (13.0-18.0); Mean Corp Hgb Conc. 33.3 g/dL (33.0-37.0); Mean Corpuscular Hgb 28.3 pg (27.0-31.0); Mean Platelet Volume 9.2 fL (7.4-10.4); Nucleated Red Blood Cells % 1.2 % (-); Platelet Count 407 10^3/uL (130-400); Red Blood Cell Count 3.14 10^6/uL (4.70-6.10); Red Cell Dist. Width 16.7 % (11.5-14.5); White Blood Cell Count 6.7 10^3/uL (4.8-10.8)
[2024-11-07 10:11] LABS: ALT (SGPT) 16 U/L (0-50); AST (SGOT) 18 U/L (17-59); Albumin 3.3 g/dl (3.5-5.0); Alkaline Phosphatase 148 U/L (38-126); Blood Urea Nitrogen 34 mg/dl (9-20); Calcium 8.3 mg/dl (8.4-10.2); Carbon Dioxide 21 mmol/L (22-30); Chloride 96 mmol/L (98-107); Glucose 192 mg/dl (70-99); Magnesium 2.5 mg/dl (1.6-2.3); Potassium 4.1 mmol/L (3.5-5.1); Sodium 129 mmol/L (135-145); Total Bilirubin 0.8 mg/dl (0.2-1.3); Total Protein 5.9 g/dl (6.3-8.2); eGFR > 60.00
[2024-11-07 10:24] LABS: Absolute Neutrophils -Man Diff 5.8 10^3/uL (1.4-6.5); Band Neutrophils 14 % (0-3); Lymphocytes 2 % (20-51); Monocytes 10 % (2-9); Platelets Checked Yes; Segmented Neutrophils 74 % (42-75)
[2024-11-07 10:25] LABS: Anisocytosis 1+; Hypochromasia 1+; Macrocytosis 1+; Normal RBC Morphology No; Polychromasia 1+
[2024-11-07 10:26] LABS: Target Cells Occasional; Total Cells Counted 100
[2024-11-07] MEDS: NSS 1000 IV ×2 (10:37→13:30)
[2024-11-07] MEDS: DILAUDID 0.5 MG IV ×4 (10:37→21:03)
[2024-11-07] MEDS: ZOFRAN 8 MG IV (10:37)
[2024-11-07 11:21] LABS: Lactic Acid 1.1 mmol/L (0.7-2.0)
--- NOTE | 2024-11-07 12:59 | HPS.HSE ---
Addendum entered and electronically signed by Sher Moran MD 11/07/24 13:54:
Case industrial services worker dw GI
Suggest CRS consult- TT consulted
Original Note:
Family Physician
-
Family Physician: Rayo Rose
Chief Complaint
-
wrsening N/V/ abdo pain with dihrea
History of Present Illness
HPI
58 MHX stage IV Rectal CA, post liver iver resection on chemo , HX rectal bleeding and hemorrhoidal bleeding seen at ER:
- currently receiving chemotherapy on and off for the past few weeks and dealing with nausea, vomiting, and diarrhea.
- feels dehydrated and nausea became a lot worse and more diarrhea as well.
- tried Gas-X, heating pad, and tramadol without relief.
- last bowel movement was last night
- had rectal spotting which is not new for him. Patient states that he has not had any rectal bleeding today.
- HX rectal bleed from recta tumor
Regarding Chemo
- previously on Erbitux did not have pain.
- Treatment team suspected his pain may be related to inflammation so they started him on prednisone, he is on his third day of prednisone has not had relief of his pain.
- last treatment with current regimen Folfiri was on 10/31/24.
ROS
He denies chest pain, shortness of breath, syncopal episodes.
Medical History
Past Medical History
Past Medical History: Reports Other
Additional Past Medical History:
Arrhythmia (Paroxysmal atrial fibrillation) and Cancer (Rectal cancer status post resection)
Past Surgical History: Reports Other
Additional Past Surgical History:
Bowel Resection
Social History
Tobacco: Non-smoker
Alcohol: None
Drug: None
Personal:
Living: With Family
Family History
Family History: Not pertinent
Allergies / Home Medications
Allergies reflects when Allergies were last updated in [employer].
Home Medications with original date entered in [employer]
Allergy/Medication List:
Allergies
Allergy/AdvReac Type Severity Reaction Status Date / Time
No Known Allergies Allergy Verified 07/03/24 17:31
Home Medications
metoprolol tartrate 25 mg tablet 12.5 mg PO BID Blood Pressure 12/27/23
esomeprazole magnesium 40 mg capsule,delayed release 40 mg PO DAILY Gastrointestinal Issue 07/03/24
tramadol 50 mg tablet 50 mg PO Q4HPRN PRN moderate pain 07/03/24
hydrocortisone acetate 25 mg rectal suppository 25 mg [place] BIDPRN PRN hemorrhoids 08/23/24
ibuprofen 200 mg tablet 400 mg PO Q6HPRN PRN mild pain 08/23/24
polyethylene glycol 3350 17 gram oral powder packet (Miralax) 17 g PO DAILYPRN PRN constipation 08/23/24
sennosides 8.6 mg capsule (senna) 8.6 mg PO HSPRN PRN constipation 08/23/24
Review of Systems
-
Constitutional: Reports No Symptoms
EENT: Reports No Symptoms
Respiratory: Reports No Symptoms
Cardiac: Reports No Symptoms
Abdomen/GI: Reports See HPI, Abdominal Pain, Nausea, Vomiting and Diarrhea
: Reports No Symptoms
Musculoskeletal: Reports No Symptoms
Skin: Reports No Symptoms
Neurological: Reports No Symptoms
Endocrine: Reports No Symptoms
Hematologic/Lymphatic: Reports No Symptoms
Psych: Reports No Symptoms
Physical Exam
Vital Signs
Vital Signs
Temp Pulse Resp BP Pulse Ox
98.4 F 98 16 141/90 97
11/07/24 08:43 11/07/24 12:25 11/07/24 12:25 11/07/24 12:25 11/07/24 12:25
Physical Exam
General: Well Developed, Well Nourished and No Apparent Distress
HEENT: NormoCephalic, Moist mucous membranes and Atraumatic
Respiratory: Clear
Cardiac: S1/S2 and Regular Rhythm; No Murmur or Rub
GI: Soft, Non Tender, Non Distended and Normal Bowel Sounds; No Organomegaly
Rectal: Deferred by Provider
Genito-urinary: Other (Diffuse abdominal tenderness to palpation worse in the left lower quadrant, guarding present, no palpable abdominal masses)
Musculoskeletal: No Clubbing, No Cyanosis and No Edema
Skin: No Rash
Neuro: Nonfocal/grossly intact
Laboratory Results
-
11/07/24 09:46
11/07/24 09:46
Laboratory Results
Lactic Acid 1.1 mmol/L (0.7-2.0) 11/07/24 10:54
Total Bilirubin 0.8 mg/dl (0.2-1.3) 11/07/24 09:46
AST 18 U/L (17-59) 11/07/24 09:46
ALT 16 U/L (0-50) 11/07/24 09:46
Alkaline Phosphatase 148 U/L (38-126) H 11/07/24 09:46
Data Reviewed
-
CT Scan: Report Reviewed by me
Lab Data: Labs Reviewed by me
Old Records: Reviewed
Impression/Plan
-
Selected Entries
11/07/24
08:43
Temp 98.4 F
Pulse 119
Resp Rate 18
Blood pressure 164/104
SaO2 99
Oxygen Mode of Delivery Room air
Laboratory Tests
10/29/24 11/02/24 11/07/24
10:46 14:05 09:46
WBC 6.7
Hgb 7.2 L 10.1 L D 8.9 L
MCV 85.0
Plt Count 302 407 H D
Sodium 129 L
Chloride 96 L
Carbon Dioxide 21 L
BUN 34 H
Creatinine 0.8
eGFR > 60.00
Lactic Acid 1.1
Magnesium 2.5 H
Total Bilirubin 0.8
AST 18
ALT 16
Alkaline Phosphatase [address]/pelvis Angio W/wo Iv
No findings to suggest active colonic bleeding.
WIDESPREAD MARKED COLONIC STOOL, especially distally, increased in volume in comparison to prior study highly suspicious for CONSTIPATION. REDUNDANT MARKEDLY STOOL-FILLED SIGMOID COLON WITH SOME SIGMOID WALL THICKENING, CYST SUSPICIOUS FOR COLITIS
SUCH STERCORAL COLITIS, less likely malignant involvement. Small volume free fluid posterior to the sigmoid colon. No free air or findings to confirm colonic pneumatosis.
Evaluation of soft tissues of the rectum limited without oral contrast. Small residual or recurrent rectal malignancy cannot be excluded.
Widespread hepatic low-attenuation lesions with PROGRESSION suspicious for metastatic disease in this patient with known history of rectal carcinoma.
Few scattered small lesions again seen within the included portions of the lower lungs bilaterally suspicious for metastatic disease.
Last hospitalist admission:08/23/24 -08/25/24
PDX: Bright red blood per rectum likely secondary to malignant partial obstructing Tumor bleeding
ASSESSMENT & PLAN
Acute n/v/d, and diffuse abdominal pain
Associated dehydration and hypovolemic hyponatremia
last chemotherapy for metastatic recatal
- s/p NS 1 L the c/w IV NS 40/H
- IV anti emetics PRN
- IV Dilaudid PRN
- f/u Na in AM
Stercoral colitis secondary to widespread widespread marked colonic stool burden
NEG CT for free air
- Milk of molasses
- c/w OP BW regime
- Empiric Zosyn
- GI consult
HX IV rectal cancer. possible progression of hepatic lesions/mets.
Widespread hepatic low-attenuation lesions with PROGRESSION suspicious for metastatic disease
Few scattered small lesions again seen within the included portions of the lower lungs bilaterally suspicious for metastatic
Of note: ER d/w Dr. Salinas, oncologist - expresses that it is unusual to have post chemotherapy abdominal pain or abdominal symptoms other than standard nausea, vomiting, diarrhea.
As such, will obtain CT angio to rule out vascular etiology such as colonic ischemia.
- OP Oncology f/u
DVT Px: SQH
Full code
IP MS
[2024-11-07 13:55] LABS: Osmolality Serum 279 mOsm/kg (275-300)
--- NOTE | 2024-11-07 14:29 | CON.GI ---
Consultation
-
Date/Time Consultation Performed: 11/07/24
Performing Provider: Luigi Garay MD
Reason for Consultation: abdominal pain
Medical History
Chief Complaint / HPI
Chief Complaint: abdominal pain
History of Present Illness:
The patient is a 59-year-old male with past medical history as noted who presents with increasing abdominal pain. Patient states that over the past month he has been noticing crampy lower abdominal pain which has been intermittent and usually
related to his treatment. He has been noticing increasing abdominal girth and increasing constipation as well. He had nausea with some vomiting yesterday and watery stools with small amount of solid stool, usually just small anel. In the
emergency room after receiving pain medicine he is feeling a bit better though still having significant abdominal pain. He denies any significant bleeding. She had a flexible sigmoidoscopy in August that showed Large partially obstructing
circumferential tumor in the rectum.
Past Medical History
Past Medical History: Other (Metastatic rectal cancer, status post liver resection last year, perforated nasal septum, paroxysmal A-fib)
Past Surgical History: Other (Liver resection 2023)
Social History
Tobacco: Non-Smoker
Alcohol: None
Family History
Family History: Reviewed & Not Pertinent
Allergies / Home Medications
Allergy/AdvReac Type Severity Reaction Status Date / Time
No Known Allergies Allergy Verified 11/07/24 08:43
�Medication �Instructions �Recorded
metoprolol tartrate 25 mg tablet 25 mg PO HS Blood Pressure 12/27/23
esomeprazole magnesium 40 mg 40 mg PO DAILY Gastrointestinal 07/03/24
capsule,delayed release Issue
tramadol 50 mg tablet 50 mg PO Q4HPRN PRN moderate pain 07/03/24
omeprazole 20 mg tablet,delayed 20 mg PO DAILY 11/07/24
release
oxycodone 5 mg tablet 5 mg PO Q6HPRN PRN severe pain 11/07/24
prednisone 20 mg tablet 20 mg PO DAILY 11/07/24
simethicone 80 mg chewable tablet 80 mg PO TIDPRN PRN gas pains 11/07/24
Review of Systems
-
All other systems: A 12 pt ROS was Negative except as stated above in HPI
Vital Signs
Temp Pulse Resp BP Pulse Ox
98.4 F 105 19 153/92 97
11/07/24 08:43 11/07/24 13:45 11/07/24 13:45 11/07/24 13:00 11/07/24 13:45
Physical Exam
Exam
General: NAD
HEENT: MMM, anicteric, no lymphadenopathy
Heart: Regular, no murmurs
Lungs: CTA bilaterally
Abdomen: Few bowel sounds, significantly distended with some increased tympany, diffuse tenderness, with some rebound
Extremeties: no edema
Skin: no rashes
Results
WBC 6.7 10^3/uL (4.8-10.8) 11/07/24 09:46
Hgb 8.9 g/dL (13.0-18.0) L 11/07/24 09:46
Hct 26.7 % (39.0-52.0) L 11/07/24 09:46
MCV 85.0 fL (80.0-94.0) 11/07/24 09:46
Plt Count 407 10^3/uL (130-400) H D 11/07/24 09:46
Absolute Neuts (auto) 5.1 10^3/uL (1.4-6.5) 11/07/24 09:46
Sodium 129 mmol/L (135-145) L 11/07/24 09:46
Potassium 4.1 mmol/L (3.5-5.1) 11/07/24 09:46
Chloride 96 mmol/L (98-107) L 11/07/24 09:46
Carbon Dioxide 21 mmol/L (22-30) L 11/07/24 09:46
BUN 34 mg/dl (9-20) H 03/19/25 09:46
Creatinine 0.8 mg/dL (0.7-1.3) 11/07/24 09:46
Calcium 8.3 mg/dl (8.4-10.2) L 11/07/24 09:46
Total Bilirubin 0.8 mg/dl (0.2-1.3) 11/07/24 09:46
AST 18 U/L (17-59) 11/07/24 09:46
ALT 16 U/L (0-50) 11/07/24 09:46
Alkaline Phosphatase 148 U/L (38-126) H 11/07/24 09:46
Diagnostic Image Results:
CT:
IMPRESSION:
No findings to suggest active colonic bleeding.
WIDESPREAD MARKED COLONIC STOOL, especially distally, increased in volume in comparison to prior study highly suspicious for CONSTIPATION. REDUNDANT MARKEDLY STOOL-FILLED SIGMOID COLON WITH SOME SIGMOID WALL THICKENING, CYST SUSPICIOUS FOR COLITIS
SUCH STERCORAL COLITIS, less likely malignant involvement. Small volume free fluid posterior to the sigmoid colon. No free air or findings to confirm colonic pneumatosis.
Evaluation of soft tissues of the rectum limited without oral contrast. Small residual or recurrent rectal malignancy cannot be excluded.
Widespread hepatic low-attenuation lesions with PROGRESSION suspicious for metastatic disease in this patient with known history of rectal carcinoma.
Few scattered small lesions again seen within the included portions of the lower lungs bilaterally suspicious for metastatic disease.
Prior GI Procedures:
EGD:
06/2024
Findings:
LA Grade A (one or more mucosal breaks less than 5 mm, not extending
between tops of 2 mucosal folds) esophagitis with no bleeding was found
at the gastroesophageal junction.
A small hiatal hernia was present.
Multiple small angioectasias with no bleeding were found in the gastric
antrum. Fulguration to ablate the lesion to prevent bleeding by argon
plasma at 0.8 liters/minute and 25 carpenter was successful. Estimated blood
loss was minimal.
The exam of the stomach was otherwise normal.
The examined duodenum was normal.
Colonoscopy:
flex sig 08/2024:
Findings:
Internal hemorrhoids were found during perianal exam. The hemorrhoids
were small.
A fungating partially obstructing large mass was found in the rectum.
The mass was circumferential. The mass measured eight cm in length.
Oozing was present. Biopsies deferred given active bleeding.
Assessment / Plan
-
1. Abdominal pain: With severe distention of the colon with retained stool and likely stercoral colitis, with increased distention, tenderness and rebound on exam. The significant thickening noted in the distal colon/rectum likely partially
related to tumor as was present also on CAT scan in August, though still concern for significant stercoral colitis. No pneumatosis is noted, there is no leukocytosis or fever. I had an extensive discussion with him and his , discussed the CAT
scan today which shows progression of disease and colonic findings. Will start antibiotics, continue bowel rest, enemas for now, would avoid other agents from above given his exam. I reached out to his oncologist and colorectal surgery. Given his
progression of disease goals of care should be addressed. If he does not respond to supportive care and is still pursuing all avenues then more interventional procedure may be indicated including diverting colostomy.
-
-
Thank you for consultation and allowing me to participate in the patient's care. Please call the process control manager GI physician during the after hours with any questions or concerns.
[2024-11-07] MEDS: ZOSYN 50 IV ×2 (16:49→20:59)
--- NOTE | 2024-11-07 16:52 | CON.CRS ---
Consultation
-
Date/Time Consultation Requested: 11/07/24 @16:21
Date/Time Consultation Performed: 11/07/24 @16:30
Requesting Provider: Sher Moran MD
Performing Provider: Alexis Cronin MD
Reason for Consultation: Large bowel obstruction
Medical History
-
Chief Complaint: Abdominal pain
History of Present Illness:
59-year-old male with known metastatic rectal cancer who presents to the ED earlier today with progressive obstipation and abdominal distention. The pain intensified and he vomited prompting him to come to the ED. He is passing a small amount of
stool and flatus. He is currently on immunotherapy, the last dose a few weeks ago. He underwent a partial hepatic lobectomy (segments VIII and IV) on 10/21/23.
While in the ED he is afebrile and his vital signs are stable. He is in no acute distress. His abdomen is distended and tympanitic. There is mild diffuse tenderness without peritoneal signs.
His WBC is 6.7 and his Hgb is 8.9 g/dL. A CT scan of the abdomen and pelvis (CT angio) reveals several small bilateral pulmonary nodules suspicious for metastatic disease. There are also innumerable widespread low-attenuation lesions increased from
prior, as well as a 4.8cm met in the posterior segment of the right lobe. There is a large amount of stool throughout the colon without pneumatosis or free air.
Past Medical History
Past Medical History: Arrhythmias (PAF) and Cancer (metastatic rectal cancer)
Past Surgical History: Other (liver resection 2023)
Social History
Tobacco: Non-Smoker
Alcohol: None
Family History
Family History: Reviewed & Not Pertinent
Allergies / Home Medications
Allergy/AdvReac Type Severity Reaction Status Date / Time
No Known Allergies Allergy Verified 11/07/24 08:43
�Medication �Instructions �Recorded �Confirmed �Type
metoprolol tartrate 25 mg tablet 25 mg PO HS Blood Pressure 12/27/23 11/07/24 History
esomeprazole magnesium 40 mg 40 mg PO DAILY Gastrointestinal 07/03/24 11/07/24 History
capsule,delayed release Issue
tramadol 50 mg tablet 50 mg PO Q4HPRN PRN moderate pain 07/03/24 11/07/24 History
omeprazole 20 mg tablet,delayed 20 mg PO DAILY 11/07/24 11/07/24 History
release
oxycodone 5 mg tablet 5 mg PO Q6HPRN PRN severe pain 11/07/24 11/07/24 History
prednisone 20 mg tablet 20 mg PO DAILY 11/07/24 11/07/24 History
simethicone 80 mg chewable tablet 80 mg PO TIDPRN PRN gas pains 11/07/24 11/07/24 History
Review of Systems
-
History Source: Patient
All other systems: Negative unless noted
Constitutional: Weight Loss
A 10 point review of systems was completed, and was negative except as per HPI.
Physical Exam
Vital Signs
Temp 98.5 F 11/07/24 16:32
Pulse 99 11/07/24 16:32
Resp Rate 18 11/07/24 16:32
Blood pressure 142/86 11/07/24 16:32
SaO2 98 11/07/24 16:32
11/06/24 11/07/24 11/08/24
06:59 06:59 06:59
Actual Weight 59.137 kg
Body Mass Index (BMI) 21.1
Lab Results / Allergies
11/07/24 09:46
11/07/24 09:46
WBC 6.7 10^3/uL (4.8-10.8) 11/07/24 09:46
Hgb 8.9 g/dL (13.0-18.0) L 11/07/24 09:46
Hct 26.7 % (39.0-52.0) L 11/07/24 09:46
Plt Count 407 10^3/uL (130-400) H D 11/07/24 09:46
Abs Immat Gran (auto) 0.0 10^3/uL (0-0.05) 11/07/24 09:46
Neutrophils % 77.0 % (42.2-75.2) H 11/07/24 09:46
Allergy/AdvReac Type Severity Reaction Status Date / Time
No Known Allergies Allergy Verified 11/07/24 08:43
Physical Exam
General: Well Developed, Well Nourished (cachectic) and No Apparent Distress
HEENT: Anicteric
Respiratory: Clear
Cardiac: Regular Rhythm
GI: Soft, Tender (mild, diffuse, tympanitic) and Distended
Musculoskeletal: No Edema
Skin: Warm
Neuro: Awake and Alert
Data Reviewed
-
CT Scan: Image Personally Visualized and interpreted, Report Reviewed by me, Discussed with Patient and Discussed with Family
Labs: Labs Reviewed by me, Discussed with Patient and Discussed with Family
Assessment / Plan
-
Large bowel obstruction from rectal cancer (metastatic).
I reviewed the current findings and treatment options with the risks and benefits of each. Options include no surgery with the risk of perforation. I explained that surgery is palliative and the goal is to relief the obstruction. Surgery would
involve an incision (due to distention) and a colostomy. Risks include, but are not limited to, bleeding, infection, adhesions, hernias, stoma complications, DVT, injury to other structures, and cardiopulmonary complications. I also reviewed the
typical recovery and functional results. All questions answered. I offered surgery tonight but he wants to think about it. I have added him to the OR schedule tomorrow and explained one of my partners might be performing the operation depending upon
the timing. NPO for now.
--- NOTE | 2024-11-07 17:33 | PTCARENOTE ---
Patient admitted from ED, AAOx3, call worthy within reach. Updated on plan of care.
[2024-11-07] MEDS: HEPARIN 5000 UNITS SC (20:57)
[2024-11-07] MEDS: LOPRESSOR 25 MG PO (20:59)
[2024-11-07 22:02] LABS: Osmolality Urine 872 mOsm/kg (300-900)
[2024-11-08] VITALS (15 sets, daily range): BP systolic 102–145; BP diastolic 64–94; BMI 21.2
[2024-11-08] MEDS: DILAUDID 0.5 MG IV ×4 (00:06→10:55)
[2024-11-08] MEDS: NSS 1000 IV (04:16)
[2024-11-08] MEDS: ZOSYN 50 IV ×4 (04:17→22:27)
[2024-11-08 05:28] LABS: Hematocrit 24.1 % (39.0-52.0); Hemoglobin 7.6 g/dL (13.0-18.0); Mean Corp Hgb Conc. 31.5 g/dL (33.0-37.0); Mean Corpuscular Hgb 27.2 pg (27.0-31.0); Mean Corpuscular Volume 86.4 fL (80.0-94.0); Mean Platelet Volume 9.2 fL (7.4-10.4); Platelet Count 384 10^3/uL (130-400); Red Blood Cell Count 2.79 10^6/uL (4.70-6.10); Red Cell Dist. Width 16.9 % (11.5-14.5); White Blood Cell Count 6.1 10^3/uL (4.8-10.8)
[2024-11-08 05:52] LABS: ALT (SGPT) 12 U/L (0-50); AST (SGOT) 17 U/L (17-59); Albumin 2.7 g/dl (3.5-5.0); Alkaline Phosphatase 152 U/L (38-126); Blood Urea Nitrogen 25 mg/dl (9-20); Carbon Dioxide 22 mmol/L (22-30); Chloride 103 mmol/L (98-107); Estimated Creatinine Clearance 82 ml/min; Glucose 147 mg/dl (70-99); Potassium 3.7 mmol/L (3.5-5.1); Sodium 133 mmol/L (135-145); Total Bilirubin 0.8 mg/dl (0.2-1.3); eGFR > 60.00
--- NOTE | 2024-11-08 06:58 | W.PN.GI.CBS2 ---
Today's Communication / Plan
-
Please see assessment plan for details.
Assessment / Plan
-
1. Abdominal pain: With severe distention of the colon with retained stool and likely stercoral colitis, with increased distention, partial large bowel obstruction secondary to malignancy with resultant stercoral colitis. The patient is agreeable
to diverting colostomy which is planned for today.
Unfortunately not much more to add from a GI standpoint. Will sign off for now, please call back with any further questions.
Subjective
Subjective
Date of Service: November 08, 2024
Patient with some bowel movements yesterday, though still with pain, nausea with some dry heaves. No fevers overnight.
Objective
Data Reviewed
Laboratory Data:
Laboratory Results
11/08/24 05:10
11/08/24 05:10
Laboratory Results
Magnesium 2.5 mg/dl (1.6-2.3) H 11/07/24 09:46
Total Bilirubin 0.8 mg/dl (0.2-1.3) 11/08/24 05:10
AST 17 U/L (17-59) 11/08/24 05:10
ALT 12 U/L (0-50) 11/08/24 05:10
Alkaline Phosphatase 152 U/L (38-126) H 11/08/24 05:10
Vital Signs and I&O:
Vital Signs
Temp Pulse Resp BP Pulse Ox
98.7 F 87 18 119/73 97
11/07/24 23:08 11/07/24 23:08 11/07/24 23:08 11/07/24 23:08 11/07/24 23:08
I&O
11/06/24 11/07/24 11/08/24
06:59 06:59 06:59
Intake Total 0 / 0
Balance 0 / 0
Physical Exam
Physical Exam
General: NAD
Abdomen: Decreased bowel sounds, significant distended though slightly improved from yesterday, diffuse tenderness, slightly less rebound
--- NOTE | 2024-11-08 07:21 | W.PN.HOSP.TC ---
Today's Communication/Plan
-
diverting colostomy as per CRS
pain control
IVF
Assessment / Plan
Assessment / Plan
Physical Exam
General: no acute distress
HEENT: NormoCephalic, Moist mucous membranes and Atraumatic
Respiratory: Clear
Cardiac: S1/S2 and Regular Rhythm; No Murmur or Rub
GI: Soft, Tender, Distended, Bowel sounds present
Musculoskeletal: No Clubbing, No Cyanosis and No Edema
Skin: No Rash
Neuro: AOx3 conversant coherent
Psych: calm
58 MHX stage IV Rectal CA, s/p liver resection on chemo, HX rectal bleeding and hemorrhoidal bleeding here for large bowel obstruction 2/2 malignancy planned for diverting colostomy
Acute n/v/d, and diffuse abdominal pain
Associated dehydration and hypovolemic hyponatremia
last chemotherapy for metastatic recatal
- IV anti emetics PRN
- IV Dilaudid PRN
Large Bowel obstruction Stercoral colitis secondary to widespread widespread marked colonic stool burden
NEG CT for free air
- Empiric Zosyn
- GI consult appreciated
- CRS consult appreciated planned for diverting colostomy
HX IV rectal cancer. possible progression of hepatic lesions/mets.
Widespread hepatic low-attenuation lesions with PROGRESSION suspicious for metastatic disease
Few scattered small lesions again seen within the included portions of the lower lungs bilaterally suspicious for metastatic
- OP Oncology f/u
DVT Px: SQH
Full code
IP MS
Discussed with patient and patient's phuongmatthewe Delfina
I spent a total of 50 minutes with the patient or on the floor. More than 50% of this time involved counseling and coordination of care.
Anticipated Discharge: > 48 hours
Subjective/Interval History
-
Date of Service: November 08, 2024
no acute distress resting comfortably in bed. reports abd pain tenderness.
Objective Data
-
Labs:
Laboratory Results
11/08/24
05:10
WBC 6.1
Hgb 7.6 L
Hct 24.1 L
Plt Count 384
Sodium 133 L
Potassium 3.7
Chloride 103
Carbon Dioxide 22
BUN 25 H
Creatinine 0.8
Glucose 147 H
Calcium 8.0 L
Total Bilirubin 0.8
AST 17
ALT 12
Alkaline Phosphatase 152 H
Vital Signs:
Vital Signs
Temp Pulse Resp BP Pulse Ox
98.7 F 87 18 119/73 97
11/07/24 23:08 11/07/24 23:08 11/07/24 23:08 11/07/24 23:08 11/07/24 23:08
I&O
11/07/24 11/08/24 11/09/24
06:59 06:59 06:59
Intake Total 0 / 0
Balance 0 / 0
[2024-11-08] MEDS: DELTASONE 20 MG PO (08:06)
[2024-11-08] MEDS: PROTONIX 40 MG PO (08:06)
[2024-11-08] MEDS: HEPARIN 5000 UNITS SC (08:07)
[2024-11-08] MEDS: FLUSH (NSS) 2 FLUSH IV (08:12)
--- NOTE | 2024-11-08 09:04 | WOUNDNOTE ---
[facility] RN note: Patient's abdomen distended making stoma marking limiting. Stoma marked all 4 quadrants noting upper quadrants 1st choice which would be easier for patient to manage (patient has a smaller skin surface area in lower quadrant compared to
upper quadrant). Patient stoma marked over the rectus muscle avoiding creases/scars in lying and sitting positions. Patient in pain during movements for stoma marking. Patient was medicated for pain prior by NJ Kelley. RUQ stoma bennie 4.5cm to R of
midline and 4.5cm above the umbilical line. RLQ stoma bennie .3cm distal to umbilical line and 4.8cm to R of midline. LUQ stoma bennie 5.3cm to L of midline and 4.5cm above umbilical line. LLQ stoma bennie 6cm to L of midline and 1.1cm distal to umbilical
line. Patient instructed surgeon makes the final decision with stoma placement. Patient stated his fiance can be present for any ostomy teaching who is patient currently. She said she will be with patient all day generally. Patient can move self in
bed. Patient incontinent of loose brown stool. Sacral/coccyx crease with MASD. Bilateral buttocks with several red weber suspect d/t moisture. Mendy care given. Assisted patient with changing his pull up type incontinent brief. Instructed patient
pressure injury prevention measures. Uday textjoaquin colorectal FRANKY Skinner re: marked upper quadrants as 1st choice.
--- NOTE | 2024-11-08 09:05 | WOUNDNOTE ---
[facility] RN note: Patient's abdomen distended making stoma marking limiting. Stoma marked all 4 quadrants noting upper quadrants 1st choice which would be easier for patient to manage (patient has a smaller skin surface area in lower quadrant compared to
upper quadrant). Patient stoma marked over the rectus muscle avoiding creases/scars in lying and sitting positions. Patient in pain during movements for stoma marking. Patient was medicated for pain prior by NJ Kelley. RUQ stoma bennie 4.5cm to R of
midline and 4.5cm above the umbilical line. RLQ stoma bennie .3cm distal to umbilical line and 4.8cm to R of midline. LUQ stoma bennie 5.3cm to L of midline and 4.5cm above umbilical line. LLQ stoma bennie 6cm to L of midline and 1.1cm distal to umbilical
line. Patient instructed surgeon makes the final decision with stoma placement. Patient stated his fiance can be present for any ostomy teaching who is with patient currently. She said she will be with patient all day generally. Patient can move
self in bed. Patient incontinent of loose brown stool. Sacral/coccyx crease with MASD. Bilateral buttocks with several red weber suspect d/t moisture. Mendy care given. Assisted patient with changing his pull up type incontinent brief. Instructed
patient pressure injury prevention measures. Uday textjoaquin colorectal FRANKY Skinner re: marked upper quadrants as 1st choice.
[2024-11-08 10:22] LABS: INR 1.21; PT 15.8 Sec (11.4-14.6)
--- NOTE | 2024-11-08 11:15 | W.PN.CRS1 ---
Today's Communication / Plan
-
OR today
Assessment/Plan
-
Large bowel obstruction from rectal cancer (metastatic)
-OR today with Dr. Acosta
-Wound RN for stoma marking
-NPO with IVFS
-Continue IV antibiotics
-Pre-op labs ordered
-TEDS/SCDS to OR
Subjective Data
Subjective Data
Date of Service: November 08, 2024
Patient states he had some loose stools last night. He is in a significant amount of abdominal pain. He feels a little nauseous. He would like to proceed with surgery.
Objective Data
-
Vital Signs
Temp Pulse Resp BP Pulse Ox
99.0 F 109 20 145/94 97
11/08/24 07:43 11/08/24 07:43 11/08/24 07:43 11/08/24 07:43 11/08/24 07:43
Intake & Output
11/07/24 11/08/24 11/09/24
06:59 06:59 06:59
Intake Total 0 / 0
Balance 0 / 0
Intake:
Oral fluids 0 / 0
Other:
Number of approximated SMALL 3
amounts of urine
Number of approximated LARGE 2
amounts of urine
Lab Results
11/08/24 05:10
11/08/24 05:10
Physical Exam
-
General: No Acute Distress and AOx3
Abdomen: Tender
--- NOTE | 2024-11-08 14:43 | W.IMMPOSTOP ---
Addendum entered and electronically signed by Rayo Acosta MD 11/08/24 15:15:
Updated Delfina Latham, patient's fiance/next of kin via phone conversation.
Original Note:
Surgical Immed Post Op Note
-
Primary Surgeon: Brenda Acosta MD
Assisting Surgeon: RAINE Levy
Pre-op Diagnosis: large bowel obstruction
Post-op Diagnosis: same
Procedure Performed: transverse loop colostomy creation
Anesthesia Type: general plus local
Specimen / Cultures: none
Estimated Blood Loss: 25 cc
Complications: no immediate
Operative Findings: distended small and large bowel--consistent with obstruction
NGT placed. Confirmed to be in stomach.
Gonsales in bladder.
Will send to med surg.
[2024-11-08] MEDS: NSS IV (15:28)
[2024-11-08] MEDS: TYLENOL PO ×2 (15:30→20:25)
[2024-11-08] MEDS: TORADOL 10 MG IV ×2 (15:56→22:26)
--- NOTE | 2024-11-08 18:17 | PTCARENOTE ---
pt received from PACU via bed at 1710. pt drowsy but easily arousable. denies pain. assessment as documented. NPO w/Right nare NGT patent to low intermittent suction. output is brown. L colostomy patent-stoma is red, budded with stoma bridge
intact-minimal amount of serosanguineous output noted. midline surgical dressing intact w/shadowing marked by OPERATIONS SPECIALIST-no further drainage noted. Gonsales catheter patent with clear yellow urine. IVF infusing via Left SQ port. post op care reviewed.
family at bedside -care ongoing.
[2024-11-08 18:48] LABS: Hepatitis C Antibody Negative (Negative)
[2024-11-08] MEDS: LOPRESSOR 25 MG PO (22:26)
[2024-11-08] MEDS: TYLENOL 650 MG PO (23:31)
[2024-11-09] VITALS (10 sets, daily range): BP systolic 96–133; BP diastolic 59–89; PULSE 112; O2SAT 97; BMI 21.2
[2024-11-09] MEDS: TORADOL 10 MG IV ×4 (03:31→21:28)
[2024-11-09] MEDS: TYLENOL 650 MG PO ×4 (03:31→20:08)
[2024-11-09] MEDS: ZOSYN 50 IV ×4 (03:32→21:28)
[2024-11-09] MEDS: NSS 1000 IV ×2 (03:34→17:41)
[2024-11-09 04:50] LABS: White Blood Cell Count 6.3 10^3/uL (4.8-10.8)
[2024-11-09 04:51] LABS: % Basophils 0.5 % (0-2); % Immature Granulocytes 0.6 % (0-0.5); % Lymphocytes 4.6 % (20.5-51.1); % Monocytes 4.2 % (1.7-9.3); % Neutrophils 90.1 % (42.2-75.2); Absolute Lymphocytes 0.3 10^3/uL (1.2-3.4); Absolute Monocytes 0.3 10^3/uL (0.1-0.6); Absolute Neutrophils 5.6 10^3/uL (1.4-6.5); Hematocrit 21.7 % (39.0-52.0); Hemoglobin 6.7 g/dL (13.0-18.0); Mean Corp Hgb Conc. 30.9 g/dL (33.0-37.0); Mean Corpuscular Hgb 27.5 pg (27.0-31.0); Mean Corpuscular Volume 88.9 fL (80.0-94.0); Mean Platelet Volume 9.4 fL (7.4-10.4); Nucleated Red Blood Cells % 0.3 % (-); Platelet Count 312 10^3/uL (130-400); Red Blood Cell Count 2.44 10^6/uL (4.70-6.10); Red Cell Dist. Width 17.7 % (11.5-14.5)
[2024-11-09 05:00] LABS: Blood Urea Nitrogen 24 mg/dl (9-20); Calcium 7.5 mg/dl (8.4-10.2); Carbon Dioxide 22 mmol/L (22-30); Chloride 105 mmol/L (98-107); Estimated Creatinine Clearance 83 ml/min; Glucose 137 mg/dl (70-99); Magnesium 2.7 mg/dl (1.6-2.3); Phosphorus 3.2 mg/dl (2.5-4.5); Potassium 3.9 mmol/L (3.5-5.1); Sodium 135 mmol/L (135-145); eGFR > 60.00
--- NOTE | 2024-11-09 07:17 | W.PN.HOSP.TC ---
Today's Communication/Plan
-
ostomy, NGT, Gonsales as per CRS
pain control
out of bed to chair
monitor H&H
Assessment / Plan
Assessment / Plan
Physical Exam
General: no acute distress
HEENT: NormoCephalic, Moist mucous membranes and Atraumatic, NGT in place
Respiratory: Clear
Cardiac: S1/S2 and Regular Rhythm; No Murmur or Rub
GI: Soft, Tender, Distended, Bowel sounds present, stoma present
Musculoskeletal: No Clubbing, No Cyanosis and No Edema
Skin: No Rash
Neuro: somnolent conversant coherent oriented x3
Psych: calm
58 MHX stage IV Rectal CA, s/p liver resection on chemo, HX rectal bleeding and hemorrhoidal bleeding here for large bowel obstruction 2/2 malignancy planned for diverting colostomy
Acute n/v/d, and diffuse abdominal pain
Associated dehydration and hypovolemic hyponatremia
last chemotherapy for metastatic recatal
- IV anti emetics PRN
- IV Dilaudid PRN
Large Bowel obstruction Stercoral colitis secondary to widespread widespread marked colonic stool burden
NEG CT for free air
- Empiric Zosyn
- GI consult appreciated
- CRS consult appreciated s/p diverting colostomy NGT Gonsales
Acute Blood Loss Anemia with underlying chronic anemia
-received 1 PRBC with appropriate response noted
HX IV rectal cancer. possible progression of hepatic lesions/mets.
Widespread hepatic low-attenuation lesions with PROGRESSION suspicious for metastatic disease
Few scattered small lesions again seen within the included portions of the lower lungs bilaterally suspicious for metastatic
- OP Oncology f/u
DVT Px: SQH
Full code
IP MS
I spent a total of 40 minutes with the patient or on the floor. More than 50% of this time involved counseling and coordination of care.
Anticipated Discharge: > 48 hours
Subjective/Interval History
-
Date of Service: November 09, 2024
No acute distress resting comfortably in bed. Reports significant improvement in pain since operation.
Objective Data
-
Labs:
Laboratory Results
11/09/24
04:18
WBC 6.3
Hgb 6.7 L*
Hct 21.7 L
Plt Count 312
Sodium 135
Potassium 3.9
Chloride 105
Carbon Dioxide 22
BUN 24 H
Creatinine 0.8
Glucose 137 H
Calcium 7.5 L
Vital Signs:
Vital Signs
Temp Pulse Resp BP Pulse Ox
98.1 F 70 18 107/60 99
11/09/24 05:58 11/09/24 05:58 11/09/24 05:58 11/09/24 05:58 11/09/24 05:58
I&O
11/08/24 11/09/24 11/10/24
06:59 06:59 06:59
Intake Total 0 / 0 1350 / 1350
Output Total 1974
Balance 0 / 0 -625 / -625
[2024-11-09] MEDS: PROTONIX 40 MG PO (09:23)
[2024-11-09] MEDS: DELTASONE 20 MG PO (09:23)
[2024-11-09] MEDS: CALCIUM GLUCONATE 100 IV (09:23)
--- NOTE | 2024-11-09 09:25 | PTCARENOTE ---
Blood transfusion finished at 0915, VSS, pt reports feeling well, no s/s of reaction noted. NGT clamped for 30 minutes after PO meds given.
[2024-11-09 09:27] LABS: Vitamin D, 25-OH*** < 12.8 ng/mL (30-80)
--- NOTE | 2024-11-09 09:30 | CM ---
Reviewed the chart notes and spoke with the patient at the bedside. Patient with NGT. Patient resides with his 13 yo son in a two story home with one step to enter. The patient reports no DME/VN/SNF in the past. The patient confirmed his
pharmacy of choice is [facility]. CM continues to be available to patient/family and is monitoring medical plan for needs at discharge.
Plan: Discharge plans will depend on the patient's progress.
--- NOTE | 2024-11-09 10:41 | W.PN.CRS1 ---
Addendum entered and electronically signed by Rayo Acosta MD 11/09/24 14:10:
Of note, patient's anemia is acute on chronic.
Original Note:
Today's Communication / Plan
-
maintain ngt
oob
ngt in place
repeat h/h at noon
Assessment/Plan
-
Postop day #1 transverse loop colostomy creation
Hemoglobin 6.7 (7.6), WBC 6.3 (6.1)
Vital signs normal
-Out of bed as tolerated. Okay to clamp NG tube for 30 minutes for ambulation.
-Physical therapy.
-Anemia with a hemoglobin of 6.7. Likely due to a blood loss anemia mixed with dilution. Repeat hemoglobin at noon.
-Holding heparin SQ for DVT prophylaxis due to anemia. Teds and SCDs in place.
-Wound RN for stoma teaching
-NG tube in place, will await bowel function (stoma output is likely due to stool that is leftover from the obstruction and not actual bowel function)
-Pain control: Tylenol/Toradol standing, Dilaudid PRN
-Zosyn IV antibiotics
-harden remains in place
Subjective Data
Procedure
11/08/2024- transverse loop colostomy creation
Subjective Data
Date of Service: November 09, 2024
Patient states he does not have much pain. He is sleepy and just waking up. He denies nausea or vomiting.
Objective Data
-
Vital Signs
Temp Pulse Resp BP Pulse Ox
97.8 F 75 16 117/69 97
11/09/24 09:16 11/09/24 09:16 11/09/24 09:16 11/09/24 09:16 11/09/24 07:55
Intake & Output
11/08/24 11/09/24 11/10/24
06:59 06:59 06:59
Intake Total 0 / 0 1350 / 1350 250 / 250
Output Total 1974
Balance 0 / 0 -625 / -625 250 / 250
Intake:
Oral fluids 0 / 0
IV fluids (Total) 1160 / 1160
Normosol 200 / 200
IV piggybacks 100 / 100
Amount instilled into GI Tube ( 90 / 90
Total)
[place] Sump 90 / 90
Blood Product Amount Infused ( 0 / 0 250 / 250
mL)
Packed Rbc Leukoreduced Unit 0 / 0 250 / 250
[id number]
Output:
Liquid stool amount 325 / 325
Colostomy 275 / 275
Gastrointestinal tube output ( 500 / 500
Total)
[place] Sump 500 / 500
Urine, Harden 1150 / 1150
Other:
Number of approximated SMALL 3
amounts of urine
Number of approximated LARGE 2
amounts of urine
Lab Results
11/09/24 04:18
Physical Exam
-
General: No Acute Distress and AOx3
Abdomen: Soft, Non Distended, Tender (Mild around incisions) and Other (Colostomy warm and pink, edematous. Midline incision in place. Dry.)
Skin: Warm and Dry
Wound: Dressing in Place
--- NOTE | 2024-11-09 12:12 | PN.CDI ---
CDI
- -
CDI:
Physician Documentation Request
Admit Date: 11/07/24 14:47
Dear Latrice Skinner,
Patient received 1 unit of RBCs
11/09 progress note states 'Anemia with a hemoglobin of 6.7. Likely due to a blood loss anemia .....'
Please clarify which of the following accurately represents the acuity of the blood loss anemia
____ Acute
____ Acute on Chronic
____ Chronic
____ Other
Use of terms such as suspected, likely, concern for, or probable (associated with a specific diagnosis that is being evaluated, monitored, or treated as if it exists) are acceptable and can be coded in the inpatient setting, when documented at the
time of discharge.
Thank you,
Radha Blake RN, BSN
CDI Specialist
tiger text
Please use your independent medical judgment in providing your response.
[2024-11-09 12:37] LABS: Hematocrit 30.7 % (39.0-52.0); Hemoglobin 9.9 g/dL (13.0-18.0)
--- NOTE | 2024-11-09 15:47 | WOUNDNOTE ---
WOC RN NOTE: Patient visited s/p ostomy placement on 11/08. Colostomy with scant output, pink stoma with hortensia. Midline dressing clean and intact. Ostomy supplies ordered from [facility]. Jonny information given to patient and . Secure start kit
ordered with spouse permission. Will continue to follow for ostomy teaching.
[2024-11-09] MEDS: TYLENOL PO (16:42)
[2024-11-09] MEDS: LOPRESSOR 25 MG PO (21:29)
[2024-11-09] MEDS: DILAUDID 0.25 MG IV (21:29)
[2024-11-10] MEDS: TYLENOL PO (00:54)
[2024-11-10] MEDS: DILAUDID 0.25 MG IV ×3 (01:27→23:44)
[2024-11-10] MEDS: ZOSYN 50 IV ×4 (03:32→21:44)
[2024-11-10] MEDS: TORADOL 10 MG IV ×4 (03:32→21:44)
[2024-11-10] MEDS: TYLENOL 650 MG PO ×5 (03:35→20:38)
[2024-11-10 06:00] VITALS: BMI 22.2
[2024-11-10] MEDS: DILAUDID 0.5 MG IV (06:10)
[2024-11-10] MEDS: CATHFLO/ACTIVASE 2 MG INTRACATH (06:19)
--- NOTE | 2024-11-10 07:07 | W.PN.HOSP.TC ---
Today's Communication/Plan
-
see a/p
Assessment / Plan
Assessment / Plan
Physical Exam
General: no acute distress
HEENT: NormoCephalic, Moist mucous membranes and Atraumatic, NGT in place
Respiratory: Clear
Cardiac: S1/S2 and Regular Rhythm; No Murmur or Rub
GI: Soft, Tender, Distended, Bowel sounds present, stoma present
Musculoskeletal: No Clubbing, No Cyanosis and No Edema
Skin: No Rash
Neuro: somnolent conversant coherent oriented x3
Psych: calm
58 MHX stage IV Rectal CA, s/p liver resection on chemo, HX rectal bleeding and hemorrhoidal bleeding here for large bowel obstruction 2/2 malignancy planned for diverting colostomy
Acute n/v/d, and diffuse abdominal pain
Associated dehydration and hypovolemic hyponatremia
last chemotherapy for metastatic recatal
- IV anti emetics PRN
- IV Dilaudid PRN
Large Bowel obstruction Stercoral colitis secondary to widespread widespread marked colonic stool burden
NEG CT for free air
- Empiric Zosyn
- GI consult appreciated
- CRS consult appreciated s/p diverting colostomy NGT Gonsales
Acute Blood Loss Anemia with underlying chronic anemia
-received 1 PRBC with appropriate response noted
- Monitor H&H
#Hypocalcemia
monitor and replete as necessary
#Severe Vit D deficiency
start high dose weekly oral supplementation when cleared to resume oral diet as per CRS
HX IV rectal cancer. possible progression of hepatic lesions/mets.
Widespread hepatic low-attenuation lesions with PROGRESSION suspicious for metastatic disease
Few scattered small lesions again seen within the included portions of the lower lungs bilaterally suspicious for metastatic
- OP Oncology f/u
DVT Px: SQH
Full code
IP MS
I spent a total of 40 minutes with the patient or on the floor. More than 50% of this time involved counseling and coordination of care.
Anticipated Discharge: 24 - 48 hours
Subjective/Interval History
-
Date of Service: November 10, 2024
no acute distress. comfortable. remains NPO on NGT awaiting return bowel function
Objective Data
-
Labs:
Laboratory Results
11/10/24
06:00
WBC Pending
Hgb Pending
Hct Pending
Plt Count Pending
Sodium Pending
Potassium Pending
Chloride Pending
Carbon Dioxide Pending
BUN Pending
Creatinine Pending
Glucose Pending
Calcium Pending
Vital Signs:
Vital Signs
Temp Pulse Resp BP Pulse Ox
98.2 F 95 17 124/70 96
11/09/24 23:35 11/09/24 23:35 11/09/24 23:35 11/09/24 23:35 11/09/24 23:35
I&O
11/09/24 11/10/24 11/11/24
06:59 06:59 06:59
Intake Total 1350 / 1350 1350 / 1350
Output Total 1974 / 1949
Balance -625 / -625 -600 / -600
[2024-11-10 07:25] VITALS: BP 118/69
[2024-11-10] MEDS: DELTASONE 20 MG PO (07:35)
[2024-11-10] MEDS: PROTONIX 40 MG PO (07:35)
[2024-11-10 07:56] LABS: Hematocrit 28.4 % (39.0-52.0); Mean Corp Hgb Conc. 31.7 g/dL (33.0-37.0); Mean Corpuscular Hgb 27.7 pg (27.0-31.0); Mean Corpuscular Volume 87.4 fL (80.0-94.0); Mean Platelet Volume 9.4 fL (7.4-10.4); Platelet Count 357 10^3/uL (130-400); Red Blood Cell Count 3.25 10^6/uL (4.70-6.10); Red Cell Dist. Width 17.8 % (11.5-14.5); White Blood Cell Count 8.9 10^3/uL (4.8-10.8)
--- NOTE | 2024-11-10 09:05 | VATNOTE ---
Cath jessica successful, positive blood return after instilled for 1 1/2 hr.
[2024-11-10 09:34] LABS: Blood Urea Nitrogen 20 mg/dl (9-20); Carbon Dioxide 20 mmol/L (22-30); Chloride 108 mmol/L (98-107); Estimated Creatinine Clearance 86 ml/min; Glucose 116 mg/dl (70-99); Magnesium 2.4 mg/dl (1.6-2.3); Phosphorus 2.7 mg/dl (2.5-4.5); Sodium 139 mmol/L (135-145); eGFR > 60.00
[2024-11-10] MEDS: NSS 1000 IV ×2 (09:54→23:50)
[2024-11-10 15:00] VITALS: BP 114/69
--- NOTE | 2024-11-10 16:02 | W.PN.GS2 ---
Addendum entered and electronically signed by Popeye Nichols MD 11/10/24 16:12:
I saw and examined the patient.
The Drum Maker's note was reviewed and I agree with the note.
Comment: No output from stoma yet, belly softly distended, approp ttp, Hb stable. Cont NPO/IVF/NGT
Original Note:
Today's Communication / Plan
-
NPO/NGT
Trend labs
Assessment / Plan
-
59 yo male with known metastatic rectal CA presenting with LBO now POD #2 transverse loop colostomy creation
Afebrile, mild tachycardia, bp stable
Acute on chronic anemia s/p one unit of prbcs for expected blood loss intraop and hemodilution, h/h with good response to transfusion
Await bowel recovery
Voiding since removal of harden
NGT with high outputs of bilious drainage, eating ice chips contributing to volume as well
--Continue NPO with NGT to suction
--Continue IVF
--Stoma nurses consulted to follow
--Scheduled and prn analgesics
--PT/OT, OOB as tolerated
--C/W abx in short term
--Resume heparin sq for VTE ppx
Medical management as per primary team
Subjective Data
-
Date of Service: November 10, 2024
Patient seen and examined with Dr. Nichols earlier today around 0900. Denies nausea and vomiting. Pain present but managed relatively well with current regimen.
Objective Data
-
Intake and Output
11/09/24 11/10/24 11/11/24
06:59 06:59 06:59
Intake Total 1350 / 1350 1350 / 1350 100 / 100
Output Total 1974 / 1974 1950 / 1950 1300 / 1300
Balance -625 / -625 -600 / -600 -1200 / -1200
Intake:
Oral fluids 200 / 200
IV fluids (Total) 1160 / 1160 560 / 560
Normosol 200 / 200
IV piggybacks 100 250 / 250
Amount instilled into GI Tube ( 90 100 / 100
Total)
[place] Sump 100 / 100
Blood Product Amount Infused ( 0 0 250 / 250
mL)
Packed Rbc Leukoreduced Unit 0 / 0 250 / 250
[id number]
Output:
Liquid stool amount 325 / 325
Colostomy 275 / 275
Gastrointestinal tube output ( 500 / 500 1400 / 1400 1200 / 1200
Total)
[place] Sump 500 / 500 1400 / 1400 1200 / 1200
Urine, Harden 1150 / 1150 550 / 550
Urine, Voided 100 / 100
Vital Signs
Temp Pulse Resp BP Pulse Ox
98.3 F 103 16 118/69 95
11/10/24 07:25 11/10/24 07:25 11/10/24 07:25 11/10/24 07:25 11/10/24 07:25
Lab Results
11/10/24 07:24
11/10/24 07:24
Calcium 8.0 mg/dl (8.4-10.2) L 11/10/24 07:24
Phosphorus 2.7 mg/dl (2.5-4.5) 11/10/24 07:24
Magnesium 2.4 mg/dl (1.6-2.3) H 11/10/24 07:24
Total Bilirubin 0.8 mg/dl (0.2-1.3) 11/08/24 05:10
AST 17 U/L (17-59) 11/08/24 05:10
ALT 12 U/L (0-50) 11/08/24 05:10
Alkaline Phosphatase 152 U/L (38-126) H 11/08/24 05:10
Total Protein 5.0 g/dl (6.3-8.2) L 11/08/24 05:10
Albumin 2.7 g/dl (3.5-5.0) L 11/08/24 05:10
Physical Exam
-
NAD
ABD soft, distended, expected tenderness. Stoma pink/viable with bridge in place, bowel sweat in appliance but no significant flatus/stool
NGT with bilious outputs
Midline incision with intact dressing/some shadowing
Patient has a harden catheter: No
[2024-11-10] MEDS: HEPARIN 5000 UNITS SC ×2 (16:52→23:43)
[2024-11-10] MEDS: LOPRESSOR 25 MG PO (21:44)
[2024-11-10 23:17] VITALS: BP 113/69
[2024-11-11] MEDS: TORADOL 10 MG IV ×4 (03:40→21:47)
[2024-11-11] MEDS: ZOSYN 50 IV ×4 (03:40→22:55)
[2024-11-11] MEDS: TYLENOL PO ×2 (03:49)
[2024-11-11 06:00] VITALS: BMI 21.9
[2024-11-11 06:38] LABS: Hematocrit 26.7 % (39.0-52.0); Hemoglobin 8.4 g/dL (13.0-18.0); Mean Corp Hgb Conc. 31.5 g/dL (33.0-37.0); Mean Corpuscular Hgb 27.6 pg (27.0-31.0); Mean Corpuscular Volume 87.8 fL (80.0-94.0); Mean Platelet Volume 9.3 fL (7.4-10.4); Platelet Count 322 10^3/uL (130-400); Red Blood Cell Count 3.04 10^6/uL (4.70-6.10); White Blood Cell Count 6.5 10^3/uL (4.8-10.8)
--- NOTE | 2024-11-11 06:41 | W.PN.HOSP.TC ---
Today's Communication/Plan
-
see a/p
Assessment / Plan
Assessment / Plan
Physical Exam
General: no acute distress
HEENT: NormoCephalic, Moist mucous membranes and Atraumatic, NGT in place
Respiratory: Clear
Cardiac: S1/S2 and Regular Rhythm; No Murmur or Rub
GI: Soft, Tender, Distended, Bowel sounds present, stoma present
Musculoskeletal: No Clubbing, No Cyanosis and No Edema
Skin: No Rash
Neuro: AOx3 conversant coherent
Psych: calm
58 MHX stage IV Rectal CA, s/p liver resection on chemo, HX rectal bleeding and hemorrhoidal bleeding here for large bowel obstruction 2/2 malignancy planned for diverting colostomy
Acute n/v/d, and diffuse abdominal pain
Associated dehydration and hypovolemic hyponatremia
last chemotherapy for metastatic recatal
- IV anti emetics PRN
- IV Dilaudid PRN
Large Bowel obstruction Stercoral colitis secondary to widespread widespread marked colonic stool burden
NEG CT for free air
- Empiric Zosyn
- GI consult appreciated
- CRS consult appreciated s/p diverting colostomy NGT clamping trial 10.14.24
Acute Blood Loss Anemia with underlying chronic anemia
Iron studies appreciated Anemia of Chronic Disease
-received 1 PRBC with appropriate response noted
- Monitor H&H
#Hypocalcemia
monitor and replete as necessary
#Severe Vit D deficiency
start high dose weekly oral supplementation when cleared to resume oral diet as per CRS
HX IV rectal cancer. possible progression of hepatic lesions/mets.
Widespread hepatic low-attenuation lesions with PROGRESSION suspicious for metastatic disease
Few scattered small lesions again seen within the included portions of the lower lungs bilaterally suspicious for metastatic
- OP Oncology f/u
DVT Px: SQH
Full code
IP MS
I spent a total of 40 minutes with the patient or on the floor. More than 50% of this time involved counseling and coordination of care.
Anticipated Discharge: 24 - 48 hours
Subjective/Interval History
-
Date of Service: November 11, 2024
No acute distress sitting up comfortably in bed. On clamping trial tolerating well denies nausea.
Objective Data
-
Labs:
Laboratory Results
11/11/24
06:23
WBC 6.5
Hgb 8.4 L
Hct 26.7 L
Plt Count 322
Sodium Pending
Potassium Pending
Chloride Pending
Carbon Dioxide Pending
BUN Pending
Creatinine Pending
Glucose Pending
Calcium Pending
Vital Signs:
Vital Signs
Temp Pulse Resp BP Pulse Ox
98.3 F 85 17 113/69 96
11/10/24 23:17 11/10/24 23:17 11/10/24 23:17 11/10/24 23:17 11/10/24 23:17
I&O
11/09/24 11/10/24 11/11/24
06:59 06:59 06:59
Intake Total 1350 / 1350 1350 / 1350 2770 / 2770
Output Total 1974 / 1974 1950 / 1950 2700 / 2700
Balance -625 / -625 -600 / -600 70 / 70
[2024-11-11 06:56] LABS: Blood Urea Nitrogen 19 mg/dl (9-20); Carbon Dioxide 20 mmol/L (22-30); Chloride 110 mmol/L (98-107); Estimated Creatinine Clearance 114 ml/min; Glucose 106 mg/dl (70-99); Magnesium 2.1 mg/dl (1.6-2.3); Phosphorus 2.8 mg/dl (2.5-4.5); Potassium 3.6 mmol/L (3.5-5.1); Sodium 140 mmol/L (135-145); eGFR > 60.00
[2024-11-11 07:31] VITALS: BP 117/75
[2024-11-11] MEDS: PROTONIX 40 MG PO (09:11)
[2024-11-11] MEDS: DELTASONE 20 MG PO (09:11)
[2024-11-11] MEDS: HEPARIN 5000 UNITS SC ×2 (09:11→15:15)
[2024-11-11] MEDS: TYLENOL 650 MG PO ×4 (09:11→21:47)
[2024-11-11] MEDS: NSS 1000 IV (12:44)
[2024-11-11 13:00] LABS: Iron 23 ug/dl (49-181)
[2024-11-11 13:09] LABS: Percent Saturation 12 % (20-50); Total Iron Binding Capacity 183 ug/dl (261-462)
--- NOTE | 2024-11-11 13:47 | W.PN.GS2 ---
Addendum entered and electronically signed by Popeye Nichols MD 11/11/24 14:52:
I saw and examined the patient.
The Hvac Operations Technician's note was reviewed and I agree with the note.
Comment: Improving. clamp trial, if passes, dc tube and adv to cld
Original Note:
Today's Communication / Plan
-
NGT clamp trial
Assessment / Plan
-
59 yo male with known metastatic rectal CA presenting with LBO now POD #3 transverse loop colostomy creation
AFVSS, tachycardia resolved
Acute on chronic anemia s/p one unit of prbcs for expected blood loss intraop and hemodilution, h/h with good response to transfusion, drifting downward with volume resuscitation
Flatus and watery yellow stool from appliance
NGT with high outputs of bilious drainage, eating a significant amount of ice chips per patient and staff.
--Clamp trial of NGT, will remove if low residual and start clears
--Continue IVF
--Stoma nurses consulted to follow
--Scheduled and prn analgesics
--PT/OT, OOB as tolerated
--C/W abx in short term
--Resume heparin sq for VTE ppx
Medical management as per primary team
Subjective Data
-
Date of Service: November 11, 2024
Patient seen and examined at bedside with Dr. Nichols. Denies n/v. Emptying stools and liquid from appliance on his own now. Passing some BM's rectally. Denies pain. More energetic today, OOB to the chair.
Objective Data
-
Intake and Output
11/10/24 11/11/24 11/12/24
06:59 06:59 06:59
Intake Total 1350 / 1350 2770 / 2770
Output Total 1950 / 1950 3600 / 3600 275 / 275
Balance -600 / -600 -830 / -830 -275 / -275
Intake:
Oral fluids 200 / 200 650 / 650
IV fluids (Total) 560 / 560 1920 / 1920
IV piggybacks 250 / 250 100 / 100
Amount instilled into GI Tube ( 90 / 100 / 100
Total)
[place] Sump 90 / 90 100 / 100
Blood Product Amount Infused ( 250 / 250
mL)
Packed Rbc Leukoreduced Unit 250 / 250
[id number]
Output:
Liquid stool amount 275 / 275
Colostomy 275 / 275
Gastrointestinal tube output ( 1400 / 1400 2800 / 2800
Total)
[place] Sump 1400 / 1400 2800 / 2800
Urine, Gonsales 550 / 550
Urine, Voided 800 / 800
Vital Signs
Temp Pulse Resp BP Pulse Ox
97.5 F 94 18 117/75 97
11/11/24 07:31 11/11/24 07:31 11/11/24 07:31 11/11/24 07:31 11/11/24 07:31
Lab Results
11/11/24 06:23
11/11/24 06:23
Calcium 8.0 mg/dl (8.4-10.2) L 11/11/24 06:23
Phosphorus 2.8 mg/dl (2.5-4.5) 11/11/24 06:23
Magnesium 2.1 mg/dl (1.6-2.3) 11/11/24 06:23
Total Bilirubin 0.8 mg/dl (0.2-1.3) 11/08/24 05:10
AST 17 U/L (17-59) 11/08/24 05:10
ALT 12 U/L (0-50) 11/08/24 05:10
Alkaline Phosphatase 152 U/L (38-126) H 11/08/24 05:10
Total Protein 5.0 g/dl (6.3-8.2) L 11/08/24 05:10
Albumin 2.7 g/dl (3.5-5.0) L 11/08/24 05:10
Physical Exam
-
NAD
ABD soft, ND, expected tenderness. Stoma pink/viable with bridge in place, flatus and watery yellow stool in appliance
NGT clamped for meds, canister empty
Midline incision with intact dressing/some shadowing
[2024-11-11 14:22] LABS: Folate > 20.0 ng/ml (2.76-20)
[2024-11-11 15:19] VITALS: BP 123/71
[2024-11-11 16:25] LABS: Vitamin B12 > 1000 pg/ml (239-931)
[2024-11-11] MEDS: LOPRESSOR 25 MG PO (21:47)
[2024-11-11] MEDS: ZOFRAN 4 MG IV (21:48)
[2024-11-11 23:00] VITALS: BP 129/79
[2024-11-12] MEDS: HEPARIN 5000 UNITS SC ×4 (00:35→23:34)
[2024-11-12] MEDS: TYLENOL PO ×7 (00:36→23:38)
[2024-11-12] MEDS: DILAUDID 0.5 MG IV ×2 (00:48→08:05)
[2024-11-12] MEDS: ZOSYN 50 IV ×4 (03:49→22:22)
[2024-11-12] MEDS: TORADOL 10 MG IV ×4 (03:49→22:21)
--- NOTE | 2024-11-12 05:02 | PTCARENOTE ---
23:50 pt with colostomy creation on 11/08 pt diet clear liquid and had his NG tube pulled this morning, pt vomited 250 cc of clear light green fluid, his colostomy put out 100cc yellow mucus fluid and this morning he had liquid stool with some dry
pebble like stools via rectum, MD made aware SBAR would you like NG reinserted or just monitor ,NO NPO with sips clear and monitor .
[2024-11-12] MEDS: ZOFRAN 4 MG IV (05:37)
[2024-11-12] MEDS: NSS 1000 IV ×2 (05:38→19:45)
--- NOTE | 2024-11-12 05:44 | VATNOTE ---
Patients port does not have a blood return. PCN aware and will contact MUSHROOM PRESS OPERATOR for order for cathflo.
[2024-11-12] MEDS: NSS IV (06:42)
[2024-11-12 07:40] VITALS: BP 142/88
[2024-11-12] MEDS: DELTASONE PO (08:00)
[2024-11-12] MEDS: PROTONIX PO (08:00)
[2024-11-12 08:30] LABS: Hematocrit 31.4 % (39.0-52.0); Hemoglobin 9.8 g/dL (13.0-18.0); Mean Corp Hgb Conc. 31.2 g/dL (33.0-37.0); Mean Corpuscular Hgb 27.8 pg (27.0-31.0); Mean Corpuscular Volume 89.2 fL (80.0-94.0); Mean Platelet Volume 9.6 fL (7.4-10.4); Platelet Count 514 10^3/uL (130-400); Red Blood Cell Count 3.52 10^6/uL (4.70-6.10); Red Cell Dist. Width 18.5 % (11.5-14.5); White Blood Cell Count 3.6 10^3/uL (4.8-10.8)
--- NOTE | 2024-11-12 08:37 | VATNOTE ---
Left SQ port again without blood return. Port de-accessed and re-accessed with shorter needle; still no blood return. CathFlo was administer two days ago with reported positive effect and positive blood return. Patient reports he has needed CathFlo
multiple times in the past due to lack of blood return. Will discuss repeat cathflo with MD versus other possible interventions.
[2024-11-12 09:05] LABS: Blood Urea Nitrogen 18 mg/dl (9-20); Calcium 8.1 mg/dl (8.4-10.2); Carbon Dioxide 19 mmol/L (22-30); Chloride 110 mmol/L (98-107); Estimated Creatinine Clearance 85 ml/min; Glucose 140 mg/dl (70-99); Magnesium 2.1 mg/dl (1.6-2.3); Phosphorus 3.1 mg/dl (2.5-4.5); Potassium 4.1 mmol/L (3.5-5.1); Sodium 141 mmol/L (135-145); eGFR > 60.00
--- NOTE | 2024-11-12 11:04 | CM ---
Reviewed the chart notes and spoke with the patient at the bedside. NGT out, but now with nausea. CM continues to be available to patient/family and is monitoring medical plan for needs at discharge.
Plan: Discharge plans will depend on the patient's program.
--- NOTE | 2024-11-12 11:41 | W.PN.HOSP.TC ---
Today's Communication/Plan
-
monitor vitals
see plan
CRS to see today
monitor nausea
NPO
Assessment / Plan
Assessment / Plan
Physical Exam
General: no acute distress
HEENT: NormoCephalic, Moist mucous membranes and Atraumatic
Respiratory: Clear
Cardiac: S1/S2 and Regular Rhythm; No Murmur or Rub
GI: Soft, Tender, Distended, Bowel sounds present, stoma present
Musculoskeletal: No Clubbing, No Cyanosis and No Edema
Skin: No Rash
Neuro: AOx3 conversant coherent
Psych: calm
58 MHX stage IV Rectal CA, s/p liver resection on chemo, HX rectal bleeding and hemorrhoidal bleeding here for large bowel obstruction 2/2 malignancy planned for diverting colostomy
Acute n/v/d, and diffuse abdominal pain
Associated dehydration and hypovolemic hyponatremia
last chemotherapy for metastatic recatal
- IV anti emetics PRN
- IV Dilaudid PRN
Large Bowel obstruction Stercoral colitis secondary to widespread widespread marked colonic stool burden
NEG CT for free air
- Empiric Zosyn
- GI consult appreciated
- CRS consult appreciated s/p diverting colostomy; NGT dc'ed however now with N/V. CRS following. if doesnt improve then will need NGT again
Acute Blood Loss Anemia with underlying chronic anemia
Iron studies appreciated Anemia of Chronic Disease
-received 1 PRBC with appropriate response noted
- Monitor H&H
#Hypocalcemia
monitor and replete as necessary
#Severe Vit D deficiency
start high dose weekly oral supplementation when cleared to resume oral diet as per CRS
HX IV rectal cancer. possible progression of hepatic lesions/mets.
Widespread hepatic low-attenuation lesions with PROGRESSION suspicious for metastatic disease
Few scattered small lesions again seen within the included portions of the lower lungs bilaterally suspicious for metastatic
- OP Oncology f/u; follows with Dr [place] outpatient
DVT Px: SQH
Full code
Anticipated Discharge: > 48 hours
Subjective/Interval History
-
Date of Service: November 12, 2024
has nausea
Objective Data
-
Labs:
Laboratory Results
11/12/24
07:07
WBC 3.6 L
Hgb 9.8 L
Hct 31.4 L
Plt Count 514 H D
Sodium 141
Potassium 4.1
Chloride 110 H
Carbon Dioxide 19 L
BUN 18
Creatinine 0.8
Glucose 140 H
Calcium 8.1 L
Vital Signs:
Vital Signs
Temp Pulse Resp BP Pulse Ox
98.5 F 101 18 142/88 98
11/12/24 07:40 11/12/24 07:40 11/12/24 07:40 11/12/24 07:40 11/12/24 07:40
I&O
11/11/24 11/12/24 11/13/24
06:59 06:59 06:59
Intake Total 2770 / 2770 2019 240 / 240
Output Total 3600 / 3600 1475 / 1475
Balance -830 / -830 545 / 545 240 / 240
--- NOTE | 2024-11-12 12:45 | W.PN.CRS1 ---
Today's Communication / Plan
-
NGT reordered
compazine
Assessment/Plan
-
59 yo male with known metastatic rectal CA presenting with LBO now POD #4 transverse loop colostomy creation
Vitals normal
WBC 3.6, Hgb 9.8
--NGT re-ordered
--Zofran and Compazine PRN
--Continue IVF
--Stoma nurses consulted to follow. Daily dressing changes of midline wound.
--Scheduled and prn analgesics
--PT/OT, OOB as tolerated
--C/W abx in short term
--Heparin sq for VTE ppx
--Medical management as per primary team
Subjective Data
Procedure
11/08/2024- transverse loop colostomy creation
Subjective Data
Date of Service: November 12, 2024
Patient states he feels bloated and has been vomiting this morning. He has abdominal pain.
Objective Data
-
Vital Signs
Temp Pulse Resp BP Pulse Ox
98.5 F 101 18 142/88 98
11/12/24 07:40 11/12/24 07:40 11/12/24 07:40 11/12/24 07:40 11/12/24 07:40
Intake & Output
11/11/24 11/12/24 11/13/24
06:59 06:59 06:59
Intake Total 2770 / 2770 2019 / 2019 290 / 290
Output Total 3600 / 3600 1475 / 1475 700 / 700
Balance -830 / -830 545 / 545 -410 / -410
Intake:
Oral fluids 650 / 650 960 / 960 240 / 240
IV fluids (Total) 1920 / 1920 960 / 960
IV piggybacks 100 / 100 100 / 100 50 / 50
Amount instilled into GI Tube ( 100 / 100
Total)
[place] Sump 100 / 100
Output:
Liquid stool amount 275 / 275
Colostomy 275 / 275
Gastrointestinal tube output ( 2800 / 2800 700 / 700
Total)
[place] Sump 2800 / 2800 700 / 700
Urine, Voided 800 / 800 1200 / 1200
Lab Results
11/12/24 07:07
11/12/24 07:07
Physical Exam
-
General: AOx3 (vomiting)
Abdomen: Soft, Tender and Other (colostomy edematous, warm and pink)
Skin: Warm and Dry
Incision: Clear, Dry, Intact
--- NOTE | 2024-11-12 14:44 | PN.CDI ---
CDI
- -
CDI:
Physician Documentation Request
Admit Date: 11/07/24 14:47
Dear Doctor Karla,
11/07 CT abdomen/pelvis angio report states 'Redundant markedly stool filled sigmoid colon...'
11/08 Patient underwent transverse loop colostomy creation
Please indicate in your progress notes if you are in agreement that the above diagnosis is valid for this patient:
____ - Redundant sigmoid colon is a valid diagnosis (Please include it in your progress notes)
____ - Redundant sigmoid colon is not a valid diagnosis for this patient
____ - Other
Use of terms such as suspected, likely, concern for, or probable are acceptable for a diagnosis that is being evaluated, monitored or treated as if it exists and can be coded in the inpatient setting, when documented at the time of discharge.
Thank you,
Radha Blake RN, BSN
CDI Specialist
tiger text
Please use your independent medical judgment in providing your response.
[2024-11-12 15:35] VITALS: BP 120/87
--- NOTE | 2024-11-12 15:52 | W.PN.UPDATE ---
Update Note
Progress Note Update
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
--- NOTE | 2024-11-12 16:22 | WOUNDNOTE ---
WO RN note: Patient's stoma budded, pink, swollen with stoma bridge in place. Serous drainage in pouch. Patient incontinent of medium amount of loose burgundy/brown stool. RN Key assisted with tatiana care. Barrier ointment applied. Patient is on a
[employer] air bed and moves self in bed. Coccyx crease discolored with mild MASD (not new). Buttocks pinpoint red areas improved. Instructed patient and roge Mathis colostomy appliance change using Jonny wafer # [id number] and [place] pouch #
[id number]. Ostomy teaching folder in room. Ostomy supplies given. Patient gave verbal permission to order a [place] ostomy secure starter kit. Midline incision dressing changed. Incision approximated with kenny intact. Moderate ss drainage on
removed post op dressing. Dry gauze dressing applied as ordered. Patient instructed how to open and close pouch. Patient stated he already knows how to empty the pouch. Next appliance change due or Tuesday.
[2024-11-12] MEDS: LOPRESSOR 5 MG IV (22:17)
--- NOTE | 2024-11-12 22:24 | W.PN.UPDATE ---
Update Note
Progress Note Update
due to new NGT and being NPO metoprolol po changed to iv and placed on tele
[2024-11-12 23:25] VITALS: BP 117/73
[2024-11-13] VITALS (7 sets, daily range): BP systolic 99–132; BP diastolic 69–83; BMI 22.0; BMI 22.1
[2024-11-13] MEDS: ZOSYN 50 IV ×4 (03:10→21:31)
[2024-11-13] MEDS: TORADOL 10 MG IV ×2 (03:10→10:58)
[2024-11-13] MEDS: TYLENOL PO ×2 (03:37→11:02)
[2024-11-13 04:53] LABS: Hematocrit 28.3 % (39.0-52.0); Hemoglobin 9.1 g/dL (13.0-18.0); Mean Corp Hgb Conc. 32.2 g/dL (33.0-37.0); Mean Corpuscular Hgb 27.7 pg (27.0-31.0); Mean Platelet Volume 9.7 fL (7.4-10.4); Platelet Count 431 10^3/uL (130-400); Red Blood Cell Count 3.29 10^6/uL (4.70-6.10); White Blood Cell Count 5.3 10^3/uL (4.8-10.8)
[2024-11-13 05:08] LABS: Blood Urea Nitrogen 16 mg/dl (9-20); Calcium 7.9 mg/dl (8.4-10.2); Carbon Dioxide 22 mmol/L (22-30); Chloride 110 mmol/L (98-107); Estimated Creatinine Clearance 98 ml/min; Glucose 111 mg/dl (70-99); Magnesium 1.9 mg/dl (1.6-2.3); Phosphorus 2.7 mg/dl (2.5-4.5); Potassium 3.7 mmol/L (3.5-5.1); Sodium 140 mmol/L (135-145); eGFR > 60.00
[2024-11-13 05:28] LABS: % Basophils 1.3 % (0-2); % Eosinophils 0.2 % (0-6); % Immature Granulocytes 2.5 % (0-0.5); % Lymphocytes 6.4 % (20.5-51.1); % Monocytes 3.6 % (1.7-9.3); Absolute Basophils 0.1 10^3/uL (0-0.2); Absolute Immature Granulocytes 0.1 10^3/uL (0-0.05); Absolute Lymphocytes 0.3 10^3/uL (1.2-3.4); Absolute Monocytes 0.2 10^3/uL (0.1-0.6); Absolute Neutrophils 4.6 10^3/uL (1.4-6.5); Nucleated Red Blood Cells % 1.3 % (-)
[2024-11-13] MEDS: DILAUDID 0.5 MG IV ×2 (09:21→18:13)
[2024-11-13] MEDS: NSS 1000 IV (09:21)
[2024-11-13] MEDS: LOPRESSOR 5 MG IV ×2 (10:12→21:30)
--- NOTE | 2024-11-13 10:33 | CM ---
Reviewed the chart notes. NGT to suction was replaced yesterday. Diet is NPO with sips of clears. Per PT notes, patient ambulated 3 feet to bedside chair. CM continues to be available to patient/family and is monitoring medical plan for needs at
discharge.
Plan: Discharge plans will depend on the patient's progress.
--- NOTE | 2024-11-13 10:39 | W.PN.CRS1 ---
Today's Communication / Plan
-
maintain ngt
tpn
Assessment/Plan
-
59 yo male with known metastatic rectal CA presenting with LBO now POD #4 transverse loop colostomy creation
Vitals normal
WBC 5.3, Hgb 9.1
--Continue NGT (ok to clamp for 30 min for ambulation)
--Start TPN
--Zofran and Compazine PRN
--Continue IVF
--Stoma nurses consulted to follow. Daily dressing changes of midline wound.
--Scheduled and prn analgesics
--PT/OT, OOB as tolerated
--C/W abx in short term
--Heparin sq for VTE ppx
--Medical management as per primary team
Subjective Data
Procedure
11/08/2024- transverse loop colostomy creation
Subjective Data
Date of Service: November 13, 2024
Patient states the ngt is bothering him. He has been sipping water. He denies nausea or vomiting. He has no pain.
Objective Data
-
Vital Signs
Temp Pulse Resp BP Pulse Ox
99.0 F 110 18 132/82 97
11/13/24 08:00 11/13/24 08:00 11/13/24 08:00 11/13/24 08:00 11/13/24 08:00
Intake & Output
11/12/24 11/13/24 11/14/24
06:59 06:59 06:59
Intake Total 2019 2600 / 2600
Output Total 1475 / 1475 3300 / 3300
Balance 545 / 545 -700 / -700
Intake:
Oral fluids 960 / 960 1440 / 1440
IV fluids (Total) 960 / 960 960 / 960
IV piggybacks 100 / 100 200 / 200
Output:
Liquid stool amount 275 / 275
Colostomy 275 / 275
Gastrointestinal tube output ( 3100 / 3100
Total)
[place] Sump 3100 / 3100
Urine, Voided 1200 / 1200 200 / 200
Lab Results
11/13/24 04:26
11/13/24 04:26
Physical Exam
-
General: No Acute Distress and AOx3
Abdomen: Soft, Non Distended, Non Tender and Other (stoma warm and pink)
Skin: Warm and Dry
[2024-11-13] MEDS: NSS (PRESERVATIVE FREE) 10 ML IV (10:58)
[2024-11-13] MEDS: PROTONIX IV 40 MG IV (10:58)
[2024-11-13] MEDS: HEPARIN 5000 UNITS SC ×3 (10:59→23:57)
[2024-11-13] MEDS: OFIRMEV 100 IV (11:00)
[2024-11-13] MEDS: DECADRON 4 MG IV (11:05)
[2024-11-13] MEDS: DELTASONE PO (11:05)
--- NOTE | 2024-11-13 11:25 | W.PN.HOSP.TC ---
Today's Communication/Plan
-
Monitor vital signs see plan
Continue with NG tube, monitor drainage
TPN per colorectal
Pain control
Prednisone switch to Decadron since n.p.o.
Continue with PPI
Monitor electrolytes
Assessment / Plan
Assessment / Plan
Physical Exam
General: no acute distress
HEENT: NormoCephalic, Moist mucous membranes and Atraumatic
Respiratory: Clear
Cardiac: S1/S2 and Regular Rhythm; No Murmur or Rub
GI: Soft, Tender, Distended, Bowel sounds present, stoma present
Musculoskeletal: No Edema
Neuro: AOx3 conversant coherent
Psych: calm
58 MHX stage IV Rectal CA, s/p liver resection on chemo, HX rectal bleeding and hemorrhoidal bleeding here for large bowel obstruction 2/2 malignancy planned for diverting colostomy
Acute n/v/d, and diffuse abdominal pain
Associated dehydration and hypovolemic hyponatremia
last chemotherapy for metastatic rectal
- IV anti emetics PRN
- IV Dilaudid PRN
Large Bowel obstruction Stercoral colitis secondary to widespread widespread marked colonic stool burden
NEG CT for free air
- Empiric Zosyn
- GI consult appreciated
- CRS consult appreciated s/p diverting colostomy; now with NG tube again, continue to monitor
Started TPN per colorectal
Acute Blood Loss Anemia with underlying chronic anemia
Iron studies appreciated Anemia of Chronic Disease
-received 1 PRBC with appropriate response noted
- Monitor H&H
#Hypocalcemia
monitor and replete as necessary
#Severe Vit D deficiency
start high dose weekly oral supplementation when cleared to resume oral diet as per CRS
HX IV rectal cancer. possible progression of hepatic lesions/mets.
Widespread hepatic low-attenuation lesions with PROGRESSION suspicious for metastatic disease
Few scattered small lesions again seen within the included portions of the lower lungs bilaterally suspicious for metastatic
- OP Oncology f/u; follows with Dr Mascorro outpatient
On prednisone at home, converted to IV Decadron since n.p.o.
DVT Px: SQH
Full code
I spent a total of 52 minutes with the patient or on the floor. More than 50% of this time involved counseling and coordination of care.
Anticipated Discharge: > 48 hours
Subjective/Interval History
-
Date of Service: November 13, 2024
Denies nausea
Objective Data
-
Labs:
Laboratory Results
11/13/24 11/13/24
04:26 10:57
WBC 5.3
Hgb 9.1 L
Hct 28.3 L
Plt Count 431 H
Sodium 140 Pending
Potassium 3.7 Pending
Chloride 110 H Pending
Carbon Dioxide 22 Pending
BUN 16 Pending
Creatinine 0.7 Pending
Glucose 111 H Pending
Calcium 7.9 L Pending
Total Bilirubin Pending
AST Pending
ALT Pending
Alkaline Phosphatase Pending
Vital Signs:
Vital Signs
Temp Pulse Resp BP Pulse Ox
99.0 F 110 18 132/82 97
11/13/24 08:00 11/13/24 08:00 11/13/24 08:00 11/13/24 08:00 11/13/24 08:00
I&O
11/12/24 11/13/24 11/14/24
06:59 06:59 06:59
Intake Total 2019 2600 / 2600
Output Total 1475 / 1475 3300 / 3300
Balance 545 / 545 -700 / -700
[2024-11-13 13:01] LABS: ALT (SGPT) 15 U/L (0-50); AST (SGOT) 28 U/L (17-59); Albumin 2.2 g/dl (3.5-5.0); Alkaline Phosphatase 134 U/L (38-126); Blood Urea Nitrogen 18 mg/dl (9-20); Calcium 8.3 mg/dl (8.4-10.2); Carbon Dioxide 20 mmol/L (22-30); Chloride 108 mmol/L (98-107); Estimated Creatinine Clearance 86 ml/min; Glucose 137 mg/dl (70-99); Magnesium 1.9 mg/dl (1.6-2.3); Phosphorus 3.1 mg/dl (2.5-4.5); Potassium 4.3 mmol/L (3.5-5.1); Sodium 140 mmol/L (135-145); Total Bilirubin 0.9 mg/dl (0.2-1.3); Total Protein 4.9 g/dl (6.3-8.2); Triglycerides 193 mg/dl (10-149); eGFR > 60.00
[2024-11-13 17:59] LABS: Glucose - Point of Care 165 mg/dl (70-99)
[2024-11-13] MEDS: NOVOLOG FLEXPEN-LOW RESISTANCE SC (18:18)
[2024-11-13] MEDS: Parenteral Nutrition, Central 840 IV (21:25)
[2024-11-13] MEDS: CHLORASEPTIC/SORE THROAT SPRAY 1 SPRAY PO (21:36)
[2024-11-13] MEDS: DILAUDID 0.25 MG IV (22:08)
[2024-11-13 23:10] LABS: Glucose - Point of Care 197 mg/dl (70-99)
[2024-11-13] MEDS: NOVOLOG FLEXPEN-LOW RESISTANCE 1 UNITS SC (23:55)
[2024-11-14] MEDS: NSS 1000 IV ×2 (02:17→20:21)
[2024-11-14 03:36] VITALS: BP 106/70
[2024-11-14] MEDS: ZOSYN 50 IV ×4 (04:07→21:47)
[2024-11-14] MEDS: DILAUDID 0.25 MG IV ×3 (05:01→14:58)
[2024-11-14 05:07] LABS: Glucose - Point of Care 232 mg/dl (70-99)
[2024-11-14] MEDS: NOVOLOG FLEXPEN-LOW RESISTANCE 2 UNITS SC (05:07)
[2024-11-14 06:00] VITALS: BMI 22.0
[2024-11-14 07:14] LABS: Hemoglobin 8.6 g/dL (13.0-18.0); Mean Corp Hgb Conc. 31.9 g/dL (33.0-37.0); Mean Corpuscular Hgb 27.4 pg (27.0-31.0); Mean Platelet Volume 9.9 fL (7.4-10.4); Platelet Count 424 10^3/uL (130-400); Red Blood Cell Count 3.14 10^6/uL (4.70-6.10); Red Cell Dist. Width 18.1 % (11.5-14.5); White Blood Cell Count 6.8 10^3/uL (4.8-10.8)
[2024-11-14 07:38] LABS: Blood Urea Nitrogen 21 mg/dl (9-20); Calcium 7.9 mg/dl (8.4-10.2); Carbon Dioxide 25 mmol/L (22-30); Chloride 111 mmol/L (98-107); Estimated Creatinine Clearance 98 ml/min; Glucose 208 mg/dl (70-99); Phosphorus 2.4 mg/dl (2.5-4.5); Sodium 140 mmol/L (135-145); eGFR > 60.00
[2024-11-14 07:55] VITALS: BP 119/74
[2024-11-14 08:30] LABS: Absolute Neutrophils -Man Diff 6.2 10^3/uL (1.4-6.5); Band Neutrophils 10 % (0-3); Lymphocytes 3 % (20-51); Segmented Neutrophils 82 % (42-75)
[2024-11-14] MEDS: HEPARIN 5000 UNITS SC ×2 (08:30→16:39)
[2024-11-14 08:31] LABS: Monocytes 2 % (2-9); Myelocytes 3 % (-); Normal RBC Morphology Yes; Platelets Checked Yes
[2024-11-14] MEDS: NSS (PRESERVATIVE FREE) 10 ML IV (08:31)
[2024-11-14 08:32] LABS: Total Cells Counted 100
[2024-11-14] MEDS: PROTONIX IV 40 MG IV (08:32)
[2024-11-14] MEDS: DECADRON 4 MG IV (08:32)
--- NOTE | 2024-11-14 08:58 | CM ---
Addendum entered by Khalida Jackson RN 11/14/24 15:15:
[facility] Liaison Patsy informed CM that TPN is covered at 100%.
Addendum entered by Khalida Jackson RN 11/14/24 11:15:
CM consult for home TPN received. Faxed clinicals to [facility] for cost analysis.
Original Note:
Reviewed the chart notes. Continue with NGT and sips of clears. TPN initiated. CM continues to be available to patient/family and is monitoring medical plan for needs at discharge.
Plan: Discharge plans will depend on the patient's progress.
--- NOTE | 2024-11-14 10:20 | W.PN.CRS1 ---
Today's Communication / Plan
-
continue ngt
TPN
Assessment/Plan
-
59 yo male with known metastatic rectal CA presenting with LBO now POD #4 transverse loop colostomy creation
Vitals normal
WBC 6.8, Hgb 8.6 (9.1)
--Continue NGT (ok to clamp for 30 min for ambulation)
--Continue TPN
--Zofran and Compazine PRN
--Continue IVF
--Stoma nurses consulted to follow. Daily dressing changes of midline wound.
--Scheduled and prn analgesics
--PT/OT, OOB as tolerated
--C/W abx in short term
--Heparin sq for VTE ppx
--Medical management as per primary team
Subjective Data
Procedure
11/08/2024- transverse loop colostomy creation
Subjective Data
Date of Service: November 14, 2024
Patient states he feels a lot better today. He still bloated but less so. His pain is controlled. He has ostomy function.
Objective Data
-
Vital Signs
Temp Pulse Resp BP Pulse Ox
97.4 F 94 16 119/74 94
11/14/24 07:55 11/14/24 07:55 11/14/24 07:55 11/14/24 07:55 11/14/24 07:55
Intake & Output
11/13/24 11/14/24 11/15/24
06:59 06:59 06:59
Intake Total 2600 / 2600 2255 / 2255 50 / 50
Output Total 3300 / 3300 2775 / 2775
Balance -700 / -700 -520 / -520 50 / 50
Intake:
Oral fluids 1440 / 1440 900 / 900
IV fluids (Total) 960 / 960 800 / 800
IV piggybacks 200 / 200 200 / 200 50 / 50
TPN/PPN 295 / 295
Amount instilled into GI Tube ( 60 / 60
Total)
[place] Sump 60 / 60
Output:
Liquid stool amount 1250 / 1250
Colostomy 1250 / 1250
Gastrointestinal tube output ( 3100 / 3100 700 / 700
Total)
[place] Sump 3100 / 3100 700 / 700
Urine, Gonsales 425 / 425
Urine, Voided 200 / 200 400 / 400
Lab Results
11/14/24 06:28
11/14/24 06:28
Physical Exam
-
General: No Acute Distress and AOx3
Abdomen: Soft, Distended (mild), Non Tender and Other (Colostomy warm and pink with function)
Skin: Warm and Dry
[2024-11-14] MEDS: POTASSIUM PHOSPHATE 259.0909 MEQ IV (10:27)
[2024-11-14] MEDS: ZOFRAN 4 MG IV (10:49)
[2024-11-14 11:20] VITALS: BP 114/73
[2024-11-14 11:48] LABS: Glucose - Point of Care 217 mg/dl (70-99)
--- NOTE | 2024-11-14 12:35 | W.PN.HOSP.TC ---
Today's Communication/Plan
-
Monitor vital signs see plan
Continue with NG tube per colorectal
On TPN
Replete phosphorus
Continue antibiotics for now
Assessment / Plan
Assessment / Plan
Physical Exam
General: no acute distress
HEENT: NormoCephalic, Moist mucous membranes and Atraumatic,+NGT
Respiratory: Clear
Cardiac: S1/S2 and Regular Rhythm; No Murmur or Rub
GI: Soft, Tender, Distended, Bowel sounds present, stoma present
Musculoskeletal: No Edema
Neuro: AOx3 conversant coherent
Psych: calm
58 MHX stage IV Rectal CA, s/p liver resection on chemo, HX rectal bleeding and hemorrhoidal bleeding here for large bowel obstruction 2/2 malignancy planned for diverting colostomy
Acute n/v/d, and diffuse abdominal pain
Associated dehydration and hypovolemic hyponatremia
last chemotherapy for metastatic rectal
- IV anti emetics PRN
- IV Dilaudid PRN
Large Bowel obstruction Stercoral colitis secondary to widespread widespread marked colonic stool burden
NEG CT for free air
- Empiric Zosyn
- GI consult appreciated
- CRS consult appreciated s/p diverting colostomy; now with NG tube again, continue to monitor
Started TPN per colorectal
Hypophosphatemia
Repleted
Acute Blood Loss Anemia with underlying chronic anemia
Iron studies appreciated Anemia of Chronic Disease
-received 1 PRBC with appropriate response noted
- Monitor H&H
#Hypocalcemia
monitor and replete as necessary
#Severe Vit D deficiency
start high dose weekly oral supplementation when cleared to resume oral diet as per CRS
HX IV rectal cancer. possible progression of hepatic lesions/mets.
Widespread hepatic low-attenuation lesions with PROGRESSION suspicious for metastatic disease
Few scattered small lesions again seen within the included portions of the lower lungs bilaterally suspicious for metastatic
- OP Oncology f/u; follows with Dr Mascorro outpatient
On prednisone at home, converted to IV Decadron since n.p.o.
DVT Px: SQH
Full code
Anticipated Discharge: > 48 hours
Subjective/Interval History
-
Date of Service: November 14, 2024
On NG tube
Objective Data
-
Labs:
Laboratory Results
11/14/24
06:28
WBC 6.8
Hgb 8.6 L
Hct 27.0 L
Plt Count 424 H
Sodium 140
Potassium 4.0
Chloride 111 H
Carbon Dioxide 25
BUN 21 H
Creatinine 0.7
Glucose 208 H
Calcium 7.9 L
Vital Signs:
Vital Signs
Temp Pulse Resp BP Pulse Ox
98.1 F 96 16 114/73 94
11/14/24 11:20 11/14/24 11:20 11/14/24 11:20 11/14/24 11:20 11/14/24 11:20
I&O
11/13/24 11/14/24 11/15/24
06:59 06:59 06:59
Intake Total 2600 / 2600 2255 / 2255 50 / 50
Output Total 3300 / 3300 2775 / 2775
Balance -700 / -700 -520 / -520 50 / 50
[2024-11-14] MEDS: NOVOLOG FLEXPEN-MODERATE RESISTANCE 3 UNITS SC ×2 (12:39→17:57)
[2024-11-14 15:35] VITALS: BP 117/70
[2024-11-14 17:20] LABS: Glucose - Point of Care 211 mg/dl (70-99)
[2024-11-14 19:15] VITALS: BP 134/72
[2024-11-14] MEDS: DILAUDID 0.5 MG IV (19:36)
[2024-11-14] MEDS: Parenteral Nutrition, Central 1310 IV (21:44)
[2024-11-14] MEDS: LOPRESSOR 5 MG IV (21:49)
[2024-11-14] MEDS: NSS IV (22:48)
[2024-11-14 23:35] VITALS: BP 108/71
[2024-11-14 23:47] LABS: Glucose - Point of Care 211 mg/dl (70-99)
[2024-11-15] VITALS (7 sets, daily range): BP systolic 114–146; BP diastolic 68–100; PULSE 100–112; O2SAT 94–96; BMI 22.8
[2024-11-15] MEDS: NOVOLOG FLEXPEN-MODERATE RESISTANCE 3 UNITS SC (00:07)
[2024-11-15] MEDS: HEPARIN 5000 UNITS SC ×4 (00:07→23:56)
[2024-11-15] MEDS: DILAUDID 0.5 MG IV ×2 (01:25→08:58)
[2024-11-15] MEDS: ZOSYN 50 IV ×4 (04:43→21:50)
[2024-11-15] MEDS: DILAUDID 0.25 MG IV ×3 (04:43→18:51)
[2024-11-15 05:52] LABS: Glucose - Point of Care 260 mg/dl (70-99)
[2024-11-15] MEDS: NOVOLOG FLEXPEN-MODERATE RESISTANCE 5 UNITS SC ×4 (05:55→23:57)
[2024-11-15 07:51] LABS: Hemoglobin 8.3 g/dL (13.0-18.0); Mean Corp Hgb Conc. 31.9 g/dL (33.0-37.0); Mean Corpuscular Hgb 27.6 pg (27.0-31.0); Mean Corpuscular Volume 86.4 fL (80.0-94.0); Mean Platelet Volume 10.8 fL (7.4-10.4); Platelet Count 354 10^3/uL (130-400); Red Blood Cell Count 3.01 10^6/uL (4.70-6.10); Red Cell Dist. Width 18.1 % (11.5-14.5)
[2024-11-15 08:25] LABS: Blood Urea Nitrogen 18 mg/dl (9-20); Calcium 7.8 mg/dl (8.4-10.2); Carbon Dioxide 22 mmol/L (22-30); Chloride 113 mmol/L (98-107); Estimated Creatinine Clearance 118 ml/min; Glucose 246 mg/dl (70-99); Magnesium 2.1 mg/dl (1.6-2.3); Potassium 5.1 mmol/L (3.5-5.1); Sodium 139 mmol/L (135-145); eGFR > 60.00
--- NOTE | 2024-11-15 08:53 | W.PN.CRS1 ---
Today's Communication / Plan
-
Continue current measures.
Assessment/Plan
-
POD 7.
1. NGT output still high (2.3 L/24 hrs) but stoma with output. Is also taking H20 sips and chips for comfort--which I am ok with--but this may make the NGT output volume a bit unreliable. Will check plain abdominal films tomorrow am--if look ok
would consider clamping trial.
2. continue TPN. Will go up on phosphate (hypophosphatemia).
3. WBC up to 11 but afebrile. Will watch for now.
4. continue other measures.
Subjective Data
Procedure
11/08/2024- transverse loop colostomy creation
Subjective Data
Date of Service: November 15, 2024
Mild abdominal discomfort. Admits to stoma function.
Objective Data
-
Vital Signs
Temp Pulse Resp BP Pulse Ox
97.4 F 95 16 114/73 95
11/15/24 07:20 11/15/24 07:20 11/15/24 07:20 11/15/24 07:20 11/15/24 07:20
Intake & Output
11/14/24 11/15/24 11/16/24
06:59 06:59 06:59
Intake Total 2255 / 2255 1334 / 1334
Output Total 2775 / 2775 3890 / 3890
Balance -520 / -520 -2556 / -2556
Intake:
Oral fluids 900 / 900 540 / 540
IV fluids (Total) 800 / 800 280 / 280
IV piggybacks 200 / 200 409 / 409
TPN/PPN 295 / 295 105 / 105
Amount instilled into GI Tube ( 60 / 60
Total)
[place] Sump 60 / 60
Output:
Liquid stool amount 1250 / 1250 240 / 240
Colostomy 1250 / 1250 240 / 240
Gastrointestinal tube output ( / 2324
Total)
[place] Sump 700 / 700 2324 / 2324
Urine, Gonsales 425 / 425
Urine, Voided 400 / 400 1325 / 1325
Lab Results
11/15/24 06:07
11/15/24 06:07
Physical Exam
-
General: No Acute Distress
Chest: Clear
Cardiovascular: Regular Rate & Rhythm
Abdomen: Distended (mild), Tender (mild incisional) and Other (stoma viable with gas and liquid brown in bag)
[2024-11-15] MEDS: NSS (PRESERVATIVE FREE) 10 ML IV (08:57)
[2024-11-15] MEDS: PROTONIX IV 40 MG IV (08:57)
[2024-11-15] MEDS: DECADRON 4 MG IV (09:01)
--- NOTE | 2024-11-15 09:14 | CM ---
Addendum entered by Khalida Jackson RN 11/15/24 13:57:
CM spoke with liaison with [facility] regarding using [facility] for TPN. Per pharmacy, they would need approval from the oncologist and an order from the attending giving permission for the port to be used for TPN.
Original Note:
Reviewed the chart notes. Continues with NGT with sips of clears and ice. [facility] will handle home TPN. CM continues to be available to patient/family and is monitoring medical plan for needs at discharge.
Plan: Discharge to home with TPN through [facility].
[2024-11-15] MEDS: SODIUM PHOSPHATE 255 MEQ IV (09:49)
[2024-11-15 10:40] LABS: Absolute Neutrophils -Man Diff 10.3 10^3/uL (1.4-6.5); Band Neutrophils 18 % (0-3); Lymphocytes 2 % (20-51); Segmented Neutrophils 76 % (42-75)
[2024-11-15 10:41] LABS: Monocytes 4 % (2-9)
[2024-11-15 10:42] LABS: Normal RBC Morphology Yes; Platelets Checked Yes; Target Cells 1+; Total Cells Counted 100
[2024-11-15 12:01] LABS: Glucose - Point of Care 290 mg/dl (70-99)
[2024-11-15 12:24] LABS: Blood Urea Nitrogen 17 mg/dl (9-20); Calcium 7.9 mg/dl (8.4-10.2); Carbon Dioxide 24 mmol/L (22-30); Chloride 111 mmol/L (98-107); Estimated Creatinine Clearance 118 ml/min; Glucose 279 mg/dl (70-99); Potassium 4.8 mmol/L (3.5-5.1); Sodium 140 mmol/L (135-145); eGFR > 60.00
--- NOTE | 2024-11-15 12:28 | W.PN.HOSP.TC ---
Today's Communication/Plan
-
Monitor vital signs see plan
Continue with NG tube
Pain control
Encourage ambulation
Replete phosphorus
Abdominal imaging tomorrow
TPN per colorectal
Assessment / Plan
Assessment / Plan
Physical Exam
General: no acute distress
HEENT: NormoCephalic, Moist mucous membranes and Atraumatic,+NGT
Respiratory: Clear
Cardiac: S1/S2 and Regular Rhythm; No Murmur or Rub
GI: Soft, Tender, Distended, Bowel sounds present, stoma present
Musculoskeletal: No Edema
Neuro: AOx3 conversant coherent
Psych: calm
58 MHX stage IV Rectal CA, s/p liver resection on chemo, HX rectal bleeding and hemorrhoidal bleeding here for large bowel obstruction 2/2 malignancy planned for diverting colostomy
Acute n/v/d, and diffuse abdominal pain
Associated dehydration and hypovolemic hyponatremia
last chemotherapy for metastatic rectal
- IV anti emetics PRN
- IV Dilaudid PRN
Large Bowel obstruction Stercoral colitis secondary to widespread widespread marked colonic stool burden
NEG CT for free air
- Empiric Zosyn; would complete 7-day postoperative course
- GI consult appreciated
- CRS consult appreciated s/p diverting colostomy; now with NG tube again, continue to monitor
Started TPN per colorectal
Abdominal imaging 11/16
Hypophosphatemia
Repleted
Acute Blood Loss Anemia with underlying chronic anemia
Iron studies appreciated Anemia of Chronic Disease
-received 1 PRBC with appropriate response noted
- Monitor H&H
#Hypocalcemia
monitor and replete as necessary
#Severe Vit D deficiency
start high dose weekly oral supplementation when cleared to resume oral diet as per CRS
HX IV rectal cancer. possible progression of hepatic lesions/mets.
Widespread hepatic low-attenuation lesions with PROGRESSION suspicious for metastatic disease
Few scattered small lesions again seen within the included portions of the lower lungs bilaterally suspicious for metastatic
- OP Oncology f/u; follows with Dr Mascorro outpatient
On prednisone at home, converted to IV Decadron since n.p.o.
DVT Px: SQH
Full code
Anticipated Discharge: > 48 hours
Subjective/Interval History
-
Date of Service: November 15, 2024
Denies nausea
Objective Data
-
Labs:
Laboratory Results
11/15/24 11/15/24
06:07 11:57
WBC 11.0 H
Hgb 8.3 L
Hct 26.0 L
Plt Count 354
Sodium 139 140
Potassium 5.1 D 4.8
Chloride 113 H 111 H
Carbon Dioxide 22 24
BUN 18 17
Creatinine 0.5 L 0.5 L
Glucose 246 H 279 H
Calcium 7.8 L 7.9 L
Vital Signs:
Vital Signs
Temp Pulse Resp BP Pulse Ox
98.1 F 105 18 117/78 95
11/15/24 11:15 11/15/24 11:15 11/15/24 11:15 11/15/24 11:15 11/15/24 11:15
I&O
11/14/24 11/15/24 11/16/24
06:59 06:59 06:59
Intake Total 2255 / 2255 1334 / 1334
Output Total 2775 / 2775 3890 / 3890 650 / 650
Balance -520 / -520 -2556 / -2556 -650 / -650
[2024-11-15] MEDS: NSS 1000 IV (12:45)
--- NOTE | 2024-11-15 13:19 | WOUNDNOTE ---
WOC RN note: ordered patient a [place] ostomy secure starter kit.
[2024-11-15 18:13] LABS: Glucose - Point of Care 289 mg/dl (70-99)
[2024-11-15] MEDS: NOVOLOG FLEXPEN 3 UNITS SC ×2 (18:54→23:57)
[2024-11-15] MEDS: Parenteral Nutrition, Central 1310 IV (21:48)
[2024-11-15] MEDS: LOPRESSOR 5 MG IV (21:51)
[2024-11-15 23:54] LABS: Glucose - Point of Care 259 mg/dl (70-99)
[2024-11-16] VITALS (7 sets, daily range): BP systolic 122–132; BP diastolic 48–84; BMI 23.1
[2024-11-16] MEDS: ZOSYN 50 IV ×4 (04:17→21:23)
[2024-11-16] MEDS: DILAUDID 0.25 MG IV ×4 (04:22→18:04)
[2024-11-16 06:29] LABS: Glucose - Point of Care 247 mg/dl (70-99)
[2024-11-16] MEDS: NOVOLOG FLEXPEN 3 UNITS SC (06:29)
[2024-11-16] MEDS: NOVOLOG FLEXPEN-MODERATE RESISTANCE 3 UNITS SC ×2 (06:29→18:05)
[2024-11-16] MEDS: NSS IV (06:41)
[2024-11-16 07:05] LABS: Hematocrit 27.6 % (39.0-52.0); Hemoglobin 8.8 g/dL (13.0-18.0); Mean Corp Hgb Conc. 31.9 g/dL (33.0-37.0); Mean Corpuscular Hgb 27.5 pg (27.0-31.0); Mean Corpuscular Volume 86.3 fL (80.0-94.0); Mean Platelet Volume 10.6 fL (7.4-10.4); Platelet Count 352 10^3/uL (130-400); Red Cell Dist. Width 18.4 % (11.5-14.5); White Blood Cell Count 10.7 10^3/uL (4.8-10.8)
[2024-11-16 07:16] LABS: Blood Urea Nitrogen 18 mg/dl (9-20); Carbon Dioxide 23 mmol/L (22-30); Chloride 111 mmol/L (98-107); Estimated Creatinine Clearance 118 ml/min; Glucose 262 mg/dl (70-99); Magnesium 2.2 mg/dl (1.6-2.3); Phosphorus 2.2 mg/dl (2.5-4.5); Potassium 4.7 mmol/L (3.5-5.1); Sodium 139 mmol/L (135-145); eGFR > 60.00
[2024-11-16 07:47] LABS: Absolute Neutrophils -Man Diff 9.6 10^3/uL (1.4-6.5); Anisocytosis 1+; Band Neutrophils 20 % (0-3); Hypochromasia 1+; Lymphocytes 5 % (20-51); Metamyelocytes 1 % (-); Monocytes 4 % (2-9); Normal RBC Morphology No; Nucleated Red Blood Cells 1 (-); Platelets Checked Yes; Polychromasia 1+; Segmented Neutrophils 70 % (42-75)
[2024-11-16 07:48] LABS: Total Cells Counted 100
[2024-11-16] MEDS: PROTONIX IV 40 MG IV (08:18)
[2024-11-16] MEDS: HEPARIN 5000 UNITS SC ×2 (08:18→16:27)
[2024-11-16] MEDS: NSS (PRESERVATIVE FREE) 10 ML IV (08:18)
[2024-11-16] MEDS: DECADRON 4 MG IV (08:19)
--- NOTE | 2024-11-16 09:36 | WOUNDNOTE ---
WO RN note: Patient's stoma pink and swollen. Stoma bridge in place. Peristomal skin intact. Small amount of liquid brown stool in pouch. Instructed patient and roge Mathis pouch emptying and changing using [place] wafer # [id number] and Jonny
pouch # [id number]. Delfina took home his ostomy supplies and she confirmed they received the [place] ostomy secure starter kit at home. Extra wafer and pouch left in room. Patient incontinent of small-moderate loose stool, tatiana care given. MASD
improved. Barrier ointment applied. Skin on heels and sacrum intact. Patient can turn self slowly in bed. Pillow at foot of bed for heel elevation. Next appliance due Tuesday. Dr. Cronin and FRANKY Pollard were in during visit.
[2024-11-16] MEDS: SODIUM PHOSPHATE 255 MEQ IV (11:03)
--- NOTE | 2024-11-16 12:57 | W.PN.HOSP.TC ---
Today's Communication/Plan
-
Monitor vital signs see plan
Obstruction series today
Continue NG tube
TPN per colorectal
Replete phosphorus
Increase insulin
Assessment / Plan
Assessment / Plan
Physical Exam
General: no acute distress
HEENT: NormoCephalic, Moist mucous membranes and Atraumatic,+NGT
Respiratory: Clear
Cardiac: S1/S2 and Regular Rhythm; No Murmur or Rub
GI: Soft, Tender, Distended, Bowel sounds present, stoma present
Musculoskeletal: No Edema
Neuro: AOx3 conversant coherent
Psych: calm
58 MHX stage IV Rectal CA, s/p liver resection on chemo, HX rectal bleeding and hemorrhoidal bleeding here for large bowel obstruction 2/2 malignancy planned for diverting colostomy
Acute n/v/d, and diffuse abdominal pain
Associated dehydration and hypovolemic hyponatremia
last chemotherapy for metastatic rectal
- IV anti emetics PRN
- IV Dilaudid PRN
Large Bowel obstruction Stercoral colitis secondary to widespread widespread marked colonic stool burden
NEG CT for free air
- Empiric Zosyn; would complete 7-day postoperative course
- GI consult appreciated
- CRS consult appreciated s/p diverting colostomy; now with NG tube again, continue to monitor
Started TPN per colorectal
Abdominal imaging 11/16 with possible ileus
Elevated blood sugars
Could likely be secondary to TPN
Check A1c
Increase standing short acting insulin, continue sliding scale
Hypophosphatemia
Repleted
Acute Blood Loss Anemia with underlying chronic anemia
Iron studies appreciated Anemia of Chronic Disease
-received 1 PRBC with appropriate response noted
- Monitor H&H
#Hypocalcemia
monitor and replete as necessary
#Severe Vit D deficiency
start high dose weekly oral supplementation when cleared to resume oral diet as per CRS
HX IV rectal cancer. possible progression of hepatic lesions/mets.
Widespread hepatic low-attenuation lesions with PROGRESSION suspicious for metastatic disease
X-ray also suspicious of pulmonary nodule, likely metastases
Few scattered small lesions again seen within the included portions of the lower lungs bilaterally suspicious for metastatic
- OP Oncology f/u; follows with Dr Mascorro outpatient
On prednisone at home, converted to IV Decadron since n.p.o.
DVT Px: SQH
Full code
I spent a total of 52 minutes with the patient or on the floor. More than 50% of this time involved counseling and coordination of care.
Anticipated Discharge: > 48 hours
Subjective/Interval History
-
Date of Service: November 16, 2024
Denies pain
Objective Data
-
Labs:
Laboratory Results
11/16/24
06:20
WBC 10.7
Hgb 8.8 L
Hct 27.6 L
Plt Count 352
Sodium 139
Potassium 4.7
Chloride 111 H
Carbon Dioxide 23
BUN 18
Creatinine 0.4 L
Glucose 262 H
Calcium 8.0 L
Vital Signs:
Vital Signs
Temp Pulse Resp BP Pulse Ox
97.9 F 105 16 129/48 97
11/16/24 11:55 11/16/24 11:55 11/16/24 11:55 11/16/24 11:55 11/16/24 11:55
I&O
11/15/24 11/16/24 11/17/24
06:59 06:59 06:59
Intake Total 1334 / 1334 3180 / 3180 50 / 50
Output Total 3890 / 3890 3225 / 3225 300 / 300
Balance -2556 / -2556 -45 / -45 -250 / -250
[2024-11-16 13:09] LABS: Glucose - Point of Care 272 mg/dl (70-99)
[2024-11-16] MEDS: NOVOLOG FLEXPEN-MODERATE RESISTANCE 5 UNITS SC (13:14)
[2024-11-16] MEDS: NOVOLOG FLEXPEN 5 UNITS SC ×2 (13:15→18:06)
--- NOTE | 2024-11-16 14:33 | CM ---
Reviewed the chart notes. Continues with NGT with sips of clears and ice. CM continues to be available to patient/family and is monitoring medical plan for needs at discharge.
Plan: Discharge to home with TPN through [facility].
[2024-11-16] MEDS: NSS 1000 IV (16:54)
[2024-11-16 17:44] LABS: Glucose - Point of Care 249 mg/dl (70-99)
[2024-11-16] MEDS: Parenteral Nutrition, Central 1310 IV (21:09)
[2024-11-16] MEDS: LOPRESSOR 5 MG IV (21:22)
[2024-11-16] MEDS: DILAUDID 0.5 MG IV (22:33)
[2024-11-17] MEDS: HEPARIN 5000 UNITS SC ×3 (00:17→16:06)
[2024-11-17] MEDS: NOVOLOG FLEXPEN 5 UNITS SC ×2 (00:18→06:31)
[2024-11-17 00:23] LABS: Glucose - Point of Care 218 mg/dl (70-99)
[2024-11-17] MEDS: NOVOLOG FLEXPEN-MODERATE RESISTANCE 3 UNITS SC ×2 (00:23→06:31)
[2024-11-17] MEDS: DILAUDID 0.5 MG IV ×2 (01:49→08:39)
[2024-11-17 03:30] VITALS: BP 141/84
[2024-11-17] MEDS: ZOSYN 50 IV ×4 (04:03→21:48)
[2024-11-17 06:25] LABS: Glucose - Point of Care 249 mg/dl (70-99)
[2024-11-17 07:40] VITALS: BP 134/89
[2024-11-17 08:02] LABS: Blood Urea Nitrogen 19 mg/dl (9-20); Calcium 8.1 mg/dl (8.4-10.2); Carbon Dioxide 22 mmol/L (22-30); Chloride 109 mmol/L (98-107); Estimated Creatinine Clearance 118 ml/min; Glucose 228 mg/dl (70-99); Hematocrit 28.7 % (39.0-52.0); Hemoglobin 9.2 g/dL (13.0-18.0); Mean Corp Hgb Conc. 32.1 g/dL (33.0-37.0); Mean Corpuscular Hgb 27.5 pg (27.0-31.0); Mean Corpuscular Volume 85.7 fL (80.0-94.0); Mean Platelet Volume 10.6 fL (7.4-10.4); Platelet Count 346 10^3/uL (130-400); Potassium 4.7 mmol/L (3.5-5.1); Red Blood Cell Count 3.35 10^6/uL (4.70-6.10); Red Cell Dist. Width 18.2 % (11.5-14.5); Sodium 137 mmol/L (135-145); eGFR > 60.00
[2024-11-17] MEDS: NSS (PRESERVATIVE FREE) 10 ML IV (08:34)
[2024-11-17] MEDS: PROTONIX IV 40 MG IV (08:34)
[2024-11-17] MEDS: LOPRESSOR 5 MG IV ×2 (08:35→21:48)
[2024-11-17 09:22] LABS: Phosphorus 2.5 mg/dl (2.5-4.5)
[2024-11-17 09:48] LABS: Glycohemoglobin (HgbA1c) 6.1 % (4.0-5.6)
--- NOTE | 2024-11-17 09:59 | W.PN.GS2 ---
Today's Communication / Plan
-
--Clamp trial of NGT
--Continue TPN
Assessment / Plan
-
59 yo male with known metastatic rectal CA presenting with LBO
POD #3 transverse loop colostomy creation
AFVSS, tachycardic
Mild leukocytosis, stable Hb
Issues with postoperative ileus not unsurprising given likely chronic large bowel obstruction and dysmotility issues. Plan for NGT clamp trial throughout the day today, though to given degree of distention would not remove for at least 24 hours.
--Clamp trial of NGT
--Continue TPN
--Pain control: Tylenol and IV Dilaudid PRN
--HR and BP control per primary
--PT/OT, OOB as tolerated
--C/W abx in short term
--DVT: SQH, SCDs
--Stoma nurses consulted to follow
Medical management as per primary team
Subjective Data
-
Date of Service: November 17, 2024
No major complaints. Reports waves of dull achy pain. No nausea. Continues to pass stool via ostomy. Ambulating.
Objective Data
-
Intake and Output
11/16/24 11/17/24 11/18/24
06:59 06:59 06:59
Intake Total 3180 / 3180 1880 / 1880 900 / 900
Output Total 3225 / 3225 1755 / 1755 150 / 150
Balance -45 / -45 125 / 125 750 / 750
Intake:
Oral fluids 720 / 720 360 / 360 900 / 900
IV fluids (Total) 660 / 660 1320 / 1320
IV piggybacks 450 / 450 200 / 200
TPN/PPN 1320 / 1320
Amount instilled into GI Tube ( 30
Total)
[place] Sump 30 30
Output:
Liquid stool amount 950 / 950 500 / 500 150 / 150
Colostomy 950 / 950 500 / 500 150 / 150
Gastrointestinal tube output ( 750 / 750 705 / 705
Total)
[place] Sump 750 / 750 705 / 705
Urine, Voided 1525 / 1525 550 / 550
Vital Signs
Temp Pulse Resp BP Pulse Ox
98.4 F 125 16 134/89 96
11/17/24 07:40 11/17/24 08:35 11/17/24 07:40 11/17/24 08:35 11/17/24 07:40
Lab Results
11/17/24 07:13
11/17/24 07:13
Calcium 8.1 mg/dl (8.4-10.2) L 11/17/24 07:13
Phosphorus 2.5 mg/dl (2.5-4.5) 11/17/24 07:13
Phosphorus Cancelled 11/17/24 07:13
Magnesium 2.2 mg/dl (1.6-2.3) 11/16/24 06:20
Total Bilirubin 0.9 mg/dl (0.2-1.3) 11/13/24 12:35
AST 28 U/L (17-59) 11/13/24 12:35
ALT 15 U/L (0-50) 11/13/24 12:35
Alkaline Phosphatase 134 U/L (38-126) H 11/13/24 12:35
Total Protein 4.9 g/dl (6.3-8.2) L 11/13/24 12:35
Albumin 2.2 g/dl (3.5-5.0) L 11/13/24 12:35
Physical Exam
-
Gen: NAD
HEENT: clear fluid in tubing, bilious in canister
Abd: soft, mild tenderness, distended, tympanitic, no diffuse peritonitis, thick marilu stool, no flatus
Patient has a harden catheter: No
Patient has a central line: No
[2024-11-17] MEDS: DECADRON 4 MG IV (10:36)
[2024-11-17 10:46] LABS: Nucleated Red Blood Cells % 1.8 % (-)
[2024-11-17 10:47] LABS: Band Neutrophils 25 % (0-3); Metamyelocytes 3 % (-); Monocytes 8 % (2-9); Myelocytes 3 % (-)
[2024-11-17 10:49] LABS: Absolute Neutrophils -Man Diff 9.6 10^3/uL (1.4-6.5); Lymphocytes 6 % (20-51); Segmented Neutrophils 55 % (42-75)
[2024-11-17 10:51] LABS: Anisocytosis 1+; Hypochromasia 1+; Normal RBC Morphology No; Nucleated Red Blood Cells 8 (-); Platelets Checked Yes; Target Cells FEW; Total Cells Counted 100
[2024-11-17] MEDS: NSS 1000 IV (11:19)
[2024-11-17 11:42] VITALS: BP 124/87
--- NOTE | 2024-11-17 12:04 | W.PN.HOSP.TC ---
Today's Communication/Plan
-
Monitor vitals
See plan
Continue with NG tube
TPN per surgery
Increase insulin
Clamp trial per surgery
Assessment / Plan
Assessment / Plan
Physical Exam
General: no acute distress
HEENT: NormoCephalic, Moist mucous membranes and Atraumatic,+NGT
Respiratory: Clear
Cardiac: S1/S2 and Regular Rhythm; No Murmur or Rub
GI: Soft, Tender, Distended, Bowel sounds present, stoma present
Musculoskeletal: No Edema
Neuro: AOx3 conversant coherent
Psych: calm
58 MHX stage IV Rectal CA, s/p liver resection on chemo, HX rectal bleeding and hemorrhoidal bleeding here for large bowel obstruction 2/2 malignancy planned for diverting colostomy
Acute n/v/d, and diffuse abdominal pain
Associated dehydration and hypovolemic hyponatremia
last chemotherapy for metastatic rectal
- IV anti emetics PRN
- IV Dilaudid PRN
Large Bowel obstruction Stercoral colitis secondary to widespread widespread marked colonic stool burden
NEG CT for free air
- Empiric Zosyn; would complete 7-day postoperative course
- GI consult appreciated
- CRS consult appreciated s/p diverting colostomy; now with NG tube again, continue to monitor
Started TPN per colorectal
Abdominal imaging 11/16 with possible ileus
Clamp trial 11/17
Elevated blood sugars
Could likely be secondary to TPN
Check A1c 6.1
Increase standing short acting insulin, continue sliding scale
Hypophosphatemia
Repleted
Acute Blood Loss Anemia with underlying chronic anemia
Iron studies appreciated Anemia of Chronic Disease
-received 1 PRBC with appropriate response noted
- Monitor H&H
#Hypocalcemia
monitor and replete as necessary
#Severe Vit D deficiency
start high dose weekly oral supplementation when cleared to resume oral diet as per CRS
HX IV rectal cancer. possible progression of hepatic lesions/mets.
Widespread hepatic low-attenuation lesions with PROGRESSION suspicious for metastatic disease
X-ray also suspicious of pulmonary nodule, likely metastases
Few scattered small lesions again seen within the included portions of the lower lungs bilaterally suspicious for metastatic
- OP Oncology f/u; follows with Dr Mascorro outpatient
On prednisone at home, converted to IV Decadron since n.p.o.
DVT Px: SQH
Full code
I spent a total of 52 minutes with the patient or on the floor. More than 50% of this time involved counseling and coordination of care.
Anticipated Discharge: > 48 hours
Subjective/Interval History
-
Date of Service: November 17, 2024
Denies nausea
Objective Data
-
Labs:
Laboratory Results
11/17/24
07:13
WBC 12.0 H
Hgb 9.2 L
Hct 28.7 L
Plt Count 346
Sodium 137
Potassium 4.7
Chloride 109 H
Carbon Dioxide 22
BUN 19
Creatinine 0.5 L
Glucose 228 H
Calcium 8.1 L
Vital Signs:
Vital Signs
Temp Pulse Resp BP Pulse Ox
98.2 F 116 16 124/87 95
11/17/24 11:42 11/17/24 11:42 11/17/24 11:42 11/17/24 11:42 11/17/24 11:42
I&O
11/16/24 11/17/24 11/18/24
06:59 06:59 06:59
Intake Total 3180 / 3180 1880 / 1880 900 / 900
Output Total 3225 / 3225 1755 / 1755 150 / 150
Balance -45 / -45 125 / 125 750 / 750
[2024-11-17 12:57] LABS: Glucose - Point of Care 274 mg/dl (70-99)
[2024-11-17] MEDS: NOVOLOG FLEXPEN 6 UNITS SC ×2 (12:58→17:58)
[2024-11-17] MEDS: NOVOLOG FLEXPEN-MODERATE RESISTANCE 5 UNITS SC ×2 (12:59→17:57)
[2024-11-17 15:38] VITALS: BP 121/77
[2024-11-17 17:30] LABS: Glucose - Point of Care 294 mg/dl (70-99)
[2024-11-17 19:10] VITALS: BP 125/76
[2024-11-17] MEDS: Parenteral Nutrition, Central 1310 IV (20:57)
[2024-11-17 23:00] VITALS: BP 118/75
[2024-11-18] VITALS (7 sets, daily range): BP systolic 112–127; BP diastolic 70–84; PULSE 106; O2SAT 94; BMI 23.5
[2024-11-18 00:09] LABS: Glucose - Point of Care 255 mg/dl (70-99)
[2024-11-18] MEDS: HEPARIN 5000 UNITS SC ×3 (00:14→15:56)
[2024-11-18] MEDS: NOVOLOG FLEXPEN-MODERATE RESISTANCE 5 UNITS SC (00:15)
[2024-11-18] MEDS: NOVOLOG FLEXPEN 6 UNITS SC ×4 (00:15→18:14)
[2024-11-18] MEDS: DILAUDID 0.25 MG IV ×4 (00:21→21:36)
[2024-11-18] MEDS: ZOSYN 50 IV ×4 (03:37→21:29)
[2024-11-18] MEDS: NSS 1000 IV (05:47)
[2024-11-18 06:03] LABS: Glucose - Point of Care 153 mg/dl (70-99)
[2024-11-18] MEDS: NOVOLOG FLEXPEN-MODERATE RESISTANCE 300 UNITS SC (06:12)
[2024-11-18 07:16] LABS: Hematocrit 24.1 % (39.0-52.0); Hemoglobin 7.7 g/dL (13.0-18.0); Mean Corpuscular Hgb 27.3 pg (27.0-31.0); Mean Corpuscular Volume 85.5 fL (80.0-94.0); Mean Platelet Volume 11.4 fL (7.4-10.4); Platelet Count 282 10^3/uL (130-400); Red Blood Cell Count 2.82 10^6/uL (4.70-6.10); Red Cell Dist. Width 17.9 % (11.5-14.5); White Blood Cell Count 12.2 10^3/uL (4.8-10.8)
[2024-11-18 07:49] LABS: Blood Urea Nitrogen 17 mg/dl (9-20); Calcium 7.6 mg/dl (8.4-10.2); Carbon Dioxide 20 mmol/L (22-30); Chloride 105 mmol/L (98-107); Estimated Creatinine Clearance 118 ml/min; Glucose 143 mg/dl (70-99); Potassium 4.5 mmol/L (3.5-5.1); Sodium 133 mmol/L (135-145); eGFR > 60.00
[2024-11-18 08:26] LABS: Absolute Neutrophils -Man Diff 10.2 10^3/uL (1.4-6.5); Band Neutrophils 18 % (0-3); Lymphocytes 8 % (20-51); Monocytes 6 % (2-9); Myelocytes 2 % (-); Normal RBC Morphology Yes; Platelets Checked Yes; Segmented Neutrophils 66 % (42-75)
[2024-11-18 08:27] LABS: Total Cells Counted 100
[2024-11-18] MEDS: PROTONIX IV 40 MG IV (08:40)
[2024-11-18] MEDS: NSS (PRESERVATIVE FREE) 10 ML IV (08:41)
[2024-11-18] MEDS: DECADRON 4 MG IV (08:41)
--- NOTE | 2024-11-18 11:01 | W.PN.HOSP.TC ---
Today's Communication/Plan
-
Monitor vital signs see plan
Maintain NG tube per surgery
Monitor blood sugar with insulin
TPN
Assessment / Plan
Assessment / Plan
Physical Exam
General: no acute distress
HEENT: NormoCephalic, Moist mucous membranes and Atraumatic,+NGT
Respiratory: Clear
Cardiac: S1/S2 and Regular Rhythm; No Murmur or Rub
GI: Soft, Tender, Distended, Bowel sounds present, stoma present
Musculoskeletal: No Edema
Neuro: AOx3 conversant coherent
Psych: calm
58 MHX stage IV Rectal CA, s/p liver resection on chemo, HX rectal bleeding and hemorrhoidal bleeding here for large bowel obstruction 2/2 malignancy planned for diverting colostomy
Acute n/v/d, and diffuse abdominal pain
Associated dehydration and hypovolemic hyponatremia
last chemotherapy for metastatic rectal
- IV anti emetics PRN
- IV Dilaudid PRN
Large Bowel obstruction Stercoral colitis secondary to widespread widespread marked colonic stool burden
NEG CT for free air
- Empiric Zosyn; would complete 7-day postoperative course
- GI consult appreciated
- CRS consult appreciated s/p diverting colostomy; now with NG tube again, continue to monitor
Started TPN per colorectal
Abdominal imaging 11/16 with possible ileus
Possible discontinuation of NG tube today, defer to surgery
Hyponatremia
monitor
Elevated blood sugars
Could likely be secondary to TPN
Check A1c 6.1
Increase standing short acting insulin, continue sliding scale. Believe this should get better once TPN is adjusted
Hypophosphatemia
Repleted
Acute Blood Loss Anemia with underlying chronic anemia
Iron studies appreciated Anemia of Chronic Disease
-received 1 PRBC with appropriate response noted
- Monitor H&H
#Hypocalcemia
monitor and replete as necessary
#Severe Vit D deficiency
start high dose weekly oral supplementation when cleared to resume oral diet as per CRS
HX IV rectal cancer. possible progression of hepatic lesions/mets.
Widespread hepatic low-attenuation lesions with PROGRESSION suspicious for metastatic disease
X-ray also suspicious of pulmonary nodule, likely metastases
Few scattered small lesions again seen within the included portions of the lower lungs bilaterally suspicious for metastatic
- OP Oncology f/u; follows with Dr Mascorro outpatient
On prednisone at home, converted to IV Decadron since n.p.o.
DVT Px: SQH
Full code
Anticipated Discharge: > 48 hours
Subjective/Interval History
-
Date of Service: November 18, 2024
Denies nausea
Objective Data
-
Labs:
Laboratory Results
11/18/24
05:43
WBC 12.2 H
Hgb 7.7 L
Hct 24.1 L
Plt Count 282
Sodium 133 L
Potassium 4.5
Chloride 105
Carbon Dioxide 20 L
BUN 17
Creatinine 0.5 L
Glucose 143 H
Calcium 7.6 L
Vital Signs:
Vital Signs
Temp Pulse Resp BP Pulse Ox
98.9 F 100 15 123/79 97
11/18/24 06:50 11/18/24 06:50 11/18/24 06:50 11/18/24 06:50 11/18/24 06:50
I&O
11/17/24 11/18/24 11/19/24
06:59 06:59 06:59
Intake Total 1880 / 1880 3900 / 3900 50 / 50
Output Total 1755 / 1755 2900 / 2900 350 / 350
Balance 125 / 125 1000 / 1000 -300 / -300
--- NOTE | 2024-11-18 11:15 | PTCARENOTE ---
Order to cancel NGT, patient stated he wanted to nap/sleep first and would ring call worthy upon awakening; NGT successfully removed @11:15 without incident.
[2024-11-18 12:00] LABS: Glucose - Point of Care 200 mg/dl (70-99)
[2024-11-18] MEDS: NOVOLOG FLEXPEN-MODERATE RESISTANCE 3 UNITS SC ×2 (12:11→18:14)
--- NOTE | 2024-11-18 13:41 | W.PN.GS2 ---
Addendum entered and electronically signed by Avi Almonte MD 11/18/24 14:20:
Patient seen and examined.
No complaints. Feels stable. No worsening pain or nausea with NGT clamped. No fevers. Passing stool via ostomy.
Gen: NAD
HEENT: NGT clamped
Abd: soft, NT, distended, tympanitic, non-peritoneal, ostomy PPV - stool in appliance, no flatus
59 yo male with known metastatic rectal CA presenting with LBO
POD #4 transverse loop colostomy creation
AFVSS, tachycardic
Mild leukocytosis likely secondary to steroids
Acute on chronic anemia secondary to ca hx and blood losses/hemodilution this admission. No active bleeding noted.
Hyperglycemia secondary to IV steroid and TPN
Issues with postoperative ileus not unsurprising given likely chronic large bowel obstruction and dysmotility issues. Tolerated 24h clamp trial without n/v or increased pain.
--D/C NGT, ok for sips of clears
--Continue TPN, adjusted as per pharmacy recommendations, dextrose decreased
--Pain control: Tylenol and IV Dilaudid PRN
--Blood glucose control as per primary team
--PT/OT, OOB as tolerated
--IVF as per primary team
--C/W abx in short term
--DVT: SQH, SCDs
--Stoma nurses consulted to follow
Original Note:
Today's Communication / Plan
-
TPN
DC NGT
Assessment / Plan
-
59 yo male with known metastatic rectal CA presenting with LBO
POD #4 transverse loop colostomy creation
AFVSS, tachycardic
Mild leukocytosis likely secondary to steroids
Acute on chronic anemia secondary to ca hx and blood losses/hemodilution this admission. No active bleeding noted.
Hyperglycemia secondary to IV steroid and TPN
Issues with postoperative ileus not unsurprising given likely chronic large bowel obstruction and dysmotility issues. Tolerated 24h clamp trial without n/v or increased pain.
--D/C NGT, ok for sips of clears
--Continue TPN, adjusted as per pharmacy recommendations, dextrose decreased
--Pain control: Tylenol and IV Dilaudid PRN
--Blood glucose controla as per primary team
--PT/OT, OOB as tolerated
--IVF as per primary team
--C/W abx in short term
--DVT: SQH, SCDs
--Stoma nurses consulted to follow
Medical management as per primary team
Subjective Data
-
Date of Service: November 18, 2024
Patient seen and examined at bedside with Dr. Almonte. Denies n/v with NGT clamped for the last 24h. No belching. Pain minimal
Objective Data
-
Intake and Output
11/17/24 11/18/24 11/19/24
06:59 06:59 06:59
Intake Total 1880 / 1880 3900 / 3900 50 / 50
Output Total 1755 / 1755 2900 / 2900 1450 / 1450
Balance 125 / 125 1000 / 1000 -1400 / -1400
Intake:
Oral fluids 360 / 360 1380 / 1380
IV fluids (Total) 1320 / 1320 1440 / 1440
IV piggybacks 200 / 200 150 / 150 50 / 50
TPN/PPN 930 / 930
Output:
Liquid stool amount 500 / 500 1075 / 1075 1100 / 1100
Colostomy 500 / 500 1075 / 1075 1100 / 1100
Gastrointestinal tube output ( 705 / 705 250 / 250
Total)
[place] Sump 705 / 705 250 / 250
Urine, Voided 550 / 550 1575 / 1575 350 / 350
Vital Signs
Temp Pulse Resp BP Pulse Ox
99.1 F 106 14 112/73 96
11/18/24 11:10 11/18/24 11:10 11/18/24 11:10 11/18/24 11:10 11/18/24 11:10
Lab Results
11/18/24 05:43
11/18/24 05:43
Calcium 7.6 mg/dl (8.4-10.2) L 11/18/24 05:43
Phosphorus 2.5 mg/dl (2.5-4.5) 11/17/24 07:13
Phosphorus Cancelled 11/17/24 07:13
Magnesium 2.2 mg/dl (1.6-2.3) 11/16/24 06:20
Total Bilirubin 0.9 mg/dl (0.2-1.3) 11/13/24 12:35
AST 28 U/L (17-59) 11/13/24 12:35
ALT 15 U/L (0-50) 11/13/24 12:35
Alkaline Phosphatase 134 U/L (38-126) H 11/13/24 12:35
Total Protein 4.9 g/dl (6.3-8.2) L 11/13/24 12:35
Albumin 2.2 g/dl (3.5-5.0) L 11/13/24 12:35
Physical Exam
-
Gen: NAD
HEENT: NGT clamped
Abd: soft, mild tenderness, distended, tympanitic, no diffuse peritonitis, stool/flatus in appliance
Stoma pink, edematous with bridge intact
Patient has a harden catheter: No
Patient has a central line: No
[2024-11-18 18:12] LABS: Glucose - Point of Care 219 mg/dl (70-99)
[2024-11-18] MEDS: Parenteral Nutrition, Central 1110 IV (21:30)
[2024-11-18] MEDS: LOPRESSOR 5 MG IV (21:38)
[2024-11-19 00:18] LABS: Glucose - Point of Care 201 mg/dl (70-99)
[2024-11-19] MEDS: NSS 1000 IV ×2 (01:06→18:39)
[2024-11-19] MEDS: NOVOLOG FLEXPEN 6 UNITS SC ×3 (01:07→12:16)
[2024-11-19] MEDS: HEPARIN 5000 UNITS SC ×4 (01:07→23:50)
[2024-11-19] MEDS: NOVOLOG FLEXPEN-MODERATE RESISTANCE 3 UNITS SC ×3 (01:08→18:38)
[2024-11-19] MEDS: DILAUDID 0.25 MG IV ×4 (02:43→21:01)
[2024-11-19 03:00] VITALS: BP 119/73
[2024-11-19] MEDS: ZOSYN 50 IV ×4 (03:45→21:22)
--- NOTE | 2024-11-19 05:59 | W.PN.HOSP.TC ---
Today's Communication/Plan
-
see a/p
Assessment / Plan
Assessment / Plan
Physical Exam
General: no acute distress
HEENT: NormoCephalic, Moist mucous membranes and Atraumatic
Respiratory: Clear
Cardiac: S1/S2 and Regular Rhythm; No Murmur or Rub
GI: Soft, Tender, Distended, Bowel sounds present, stoma present
Musculoskeletal: No Edema
Neuro: AOx3 conversant coherent
Psych: calm
58 MHX stage IV Rectal CA, s/p liver resection on chemo, HX rectal bleeding and hemorrhoidal bleeding here for large bowel obstruction 2/2 malignancy planned for diverting colostomy
Acute n/v/d, and diffuse abdominal pain
Associated dehydration and hypovolemic hyponatremia
last chemotherapy for metastatic rectal
- IV anti emetics PRN
- IV Dilaudid PRN
Large Bowel obstruction Stercoral colitis secondary to widespread widespread marked colonic stool burden
NEG CT for free air
- Empiric Zosyn; would complete 7-day postoperative course
- GI consult appreciated
- CRS consult appreciated s/p diverting colostomy; NG tube removed 11/18
Started TPN per colorectal
Abdominal imaging 11/16 with possible ileus
Hyponatremia
monitor
Elevated blood sugars
Could likely be secondary to TPN
Check A1c 6.1
Increase standing short acting insulin, continue sliding scale. Believe this should get better once TPN is adjusted
Hypophosphatemia
Repleted
Acute Blood Loss Anemia with underlying chronic anemia
Iron studies appreciated Anemia of Chronic Disease
-received 1 PRBC with appropriate response noted
- Monitor H&H
#Hypocalcemia
monitor and replete as necessary
#Severe Vit D deficiency
start high dose weekly oral supplementation when cleared to resume oral diet as per CRS
HX IV rectal cancer. possible progression of hepatic lesions/mets.
Widespread hepatic low-attenuation lesions with PROGRESSION suspicious for metastatic disease
X-ray also suspicious of pulmonary nodule, likely metastases
Few scattered small lesions again seen within the included portions of the lower lungs bilaterally suspicious for metastatic
- OP Oncology f/u; follows with Dr Mascorro outpatient
On prednisone at home, converted to IV Decadron since n.p.o.
DVT Px: SQH
Full code
I spent a total of 45 minutes with the patient or on the floor. More than 50% of this time involved counseling and coordination of care.
Anticipated Discharge: 24 - 48 hours
Subjective/Interval History
-
Date of Service: November 19, 2024
seen and examined at bedside. reports gas discomfort. stool output ostomy noted.
Objective Data
-
Labs:
Laboratory Results
11/19/24
06:00
WBC Pending
Hgb Pending
Hct Pending
Plt Count Pending
Sodium Pending
Potassium Pending
Chloride Pending
Carbon Dioxide Pending
BUN Pending
Creatinine Pending
Glucose Pending
Calcium Pending
Total Bilirubin Pending
AST Pending
ALT Pending
Alkaline Phosphatase Pending
Vital Signs:
Vital Signs
Temp Pulse Resp BP Pulse Ox
98.1 F 88 18 119/73 97
11/19/24 03:00 11/19/24 03:00 11/19/24 03:00 11/19/24 03:00 11/19/24 03:00
I&O
11/17/24 11/18/24 11/19/24
06:59 06:59 06:59
Intake Total 1880 / 1880 3900 / 3900 1184 / 1184
Output Total 1755 / 1755 2900 / 2900 2430 / 2430
Balance 125 / 125 1000 / 1000 -1246 / -1246
[2024-11-19 06:00] VITALS: BMI 23.5
[2024-11-19 06:04] LABS: Glucose - Point of Care 168 mg/dl (70-99)
[2024-11-19] MEDS: NOVOLOG FLEXPEN-MODERATE RESISTANCE 1 UNITS SC (06:04)
[2024-11-19 06:54] LABS: Hemoglobin 8.2 g/dL (13.0-18.0); Mean Corp Hgb Conc. 31.5 g/dL (33.0-37.0); Mean Corpuscular Hgb 27.2 pg (27.0-31.0); Mean Corpuscular Volume 86.4 fL (80.0-94.0); Mean Platelet Volume 10.9 fL (7.4-10.4); Platelet Count 353 10^3/uL (130-400); Red Blood Cell Count 3.01 10^6/uL (4.70-6.10); Red Cell Dist. Width 17.8 % (11.5-14.5); White Blood Cell Count 15.9 10^3/uL (4.8-10.8)
[2024-11-19 07:10] LABS: ALT (SGPT) 19 U/L (0-50); AST (SGOT) 31 U/L (17-59); Alkaline Phosphatase 182 U/L (38-126); Blood Urea Nitrogen 17 mg/dl (9-20); Calcium 7.8 mg/dl (8.4-10.2); Carbon Dioxide 22 mmol/L (22-30); Chloride 104 mmol/L (98-107); Estimated Creatinine Clearance 118 ml/min; Glucose 162 mg/dl (70-99); Magnesium 2.1 mg/dl (1.6-2.3); Phosphorus 2.7 mg/dl (2.5-4.5); Potassium 4.4 mmol/L (3.5-5.1); Sodium 134 mmol/L (135-145); Total Bilirubin 0.9 mg/dl (0.2-1.3); Total Protein 5.1 g/dl (6.3-8.2); Triglycerides 227 mg/dl (10-149); eGFR > 60.00
[2024-11-19 07:38] LABS: % Basophils 0.9 % (0-2); % Immature Granulocytes 1.8 % (0-0.5); % Lymphocytes 3.8 % (20.5-51.1); % Neutrophils 86.5 % (42.2-75.2); Absolute Basophils 0.2 10^3/uL (0-0.2); Absolute Immature Granulocytes 0.3 10^3/uL (0-0.05); Absolute Lymphocytes 0.6 10^3/uL (1.2-3.4); Absolute Monocytes 1.1 10^3/uL (0.1-0.6); Absolute Neutrophils 13.8 10^3/uL (1.4-6.5); Nucleated Red Blood Cells % 0.6 % (-)
[2024-11-19 07:40] VITALS: BP 137/84
[2024-11-19] MEDS: PROTONIX IV 40 MG IV (09:00)
[2024-11-19] MEDS: NSS (PRESERVATIVE FREE) 10 ML IV (09:00)
[2024-11-19] MEDS: DECADRON 4 MG IV (09:01)
--- NOTE | 2024-11-19 10:39 | W.PN.CRS1 ---
Today's Communication / Plan
-
remain npo
tpn
miralax
Assessment/Plan
-
POD #5 transverse loop colostomy creation
AFVSS, tachycardic
WBC 15.9 (12.2)
--Remain NPO
--Add Miralax daily
--Continue TPN
--Pain control: Tylenol and IV Dilaudid PRN
--Blood glucose control as per primary team
--PT/OT, OOB as tolerated
--IVF as per primary team
--C/W abx in short term
--DVT: SQH, SCDs
--Stoma nurses consulted to follow
Subjective Data
Subjective Data
Date of Service: November 19, 2024
Patient states is he getting better slowly. He was nauseous yesterday but not today. He has some liquid stool but no flatus in his stoma. He has mild abdominal pain.
Objective Data
-
Vital Signs
Temp Pulse Resp BP Pulse Ox
98.3 F 108 18 137/84 94
11/19/24 07:40 11/19/24 07:40 11/19/24 07:40 11/19/24 07:40 11/19/24 07:40
Intake & Output
11/18/24 11/19/24 11/20/24
06:59 06:59 06:59
Intake Total 3900 / 3900 1552 / 1552
Output Total 2900 / 2900 2655 / 2655
Balance 1000 / 1000 -1103 / -1103
Intake:
Oral fluids 1380 / 1380
IV fluids (Total) 1440 / 1440 660 / 660
IV piggybacks 150 / 150 200 / 200
TPN/PPN 930 / 930 692 / 692
Output:
Liquid stool amount 1075 / 1075 1505 / 1505
Colostomy 1075 / 1075 1505 / 1505
Gastrointestinal tube output ( 250 / 250
Total)
[place] Sump 250 / 250
Urine, Voided 1575 / 1575 1150 / 1150
Lab Results
11/19/24 06:04
11/19/24 06:04
Physical Exam
-
General: No Acute Distress and AOx3
Abdomen: Soft, Non Distended, Tender (mild b/l) and Other (stoma warm and pink with no flatus in bag)
Skin: Warm and Dry
[2024-11-19 11:05] VITALS: BP 122/82
--- NOTE | 2024-11-19 12:00 | CM ---
Reviewed the chart notes. Patient remains NPO. TPN continues. CM continues to be available to patient/family and is monitoring medical plan for needs at discharge.
Plan: Discharge to home when medically stable with TPN through [facility].
[2024-11-19 12:06] LABS: Glucose - Point of Care 229 mg/dl (70-99)
[2024-11-19] MEDS: MIRALAX 17 GRAMS PO (12:14)
[2024-11-19 15:50] VITALS: BP 113/78
[2024-11-19 18:20] LABS: Glucose - Point of Care 218 mg/dl (70-99)
[2024-11-19] MEDS: NOVOLOG FLEXPEN 10 UNITS SC ×2 (18:37→23:51)
[2024-11-19 19:44] VITALS: BP 122/86
[2024-11-19] MEDS: Parenteral Nutrition, Central 1110 IV (21:22)
[2024-11-19] MEDS: LOPRESSOR 5 MG IV (21:28)
[2024-11-19 23:31] VITALS: BP 117/77
[2024-11-19 23:31] LABS: Glucose - Point of Care 147 mg/dl (70-99)
[2024-11-19] MEDS: NOVOLOG FLEXPEN-MODERATE RESISTANCE SC (23:51)
[2024-11-20] VITALS (9 sets, daily range): BP systolic 112–138; BP diastolic 69–90; BMI 23.3
[2024-11-20] MEDS: ZOSYN 50 IV ×2 (05:00→09:17)
[2024-11-20 05:24] LABS: Glucose - Point of Care 147 mg/dl (70-99)
[2024-11-20] MEDS: NOVOLOG FLEXPEN-MODERATE RESISTANCE SC ×2 (05:44→19:29)
[2024-11-20] MEDS: NOVOLOG FLEXPEN 10 UNITS SC ×3 (05:44→18:24)
[2024-11-20] MEDS: DILAUDID 0.25 MG IV (05:49)
--- NOTE | 2024-11-20 07:17 | W.PN.HOSP.TC ---
Today's Communication/Plan
-
see a/p
Assessment / Plan
Assessment / Plan
Physical Exam
General: no acute distress
HEENT: NormoCephalic, Moist mucous membranes and Atraumatic
Respiratory: Clear
Cardiac: S1/S2 and Regular Rhythm; No Murmur or Rub
GI: Soft, Tender, Distended, Bowel sounds present, stoma present
Musculoskeletal: No Edema
Neuro: AOx3 conversant coherent
Psych: calm
58 MHX stage IV Rectal CA, s/p liver resection on chemo, HX rectal bleeding and hemorrhoidal bleeding here for large bowel obstruction 2/2 malignancy planned for diverting colostomy
Acute n/v/d, and diffuse abdominal pain
Associated dehydration and hypovolemic hyponatremia
last chemotherapy for metastatic rectal
- IV anti emetics PRN
- IV Dilaudid PRN
Large Bowel obstruction Stercoral colitis secondary to widespread widespread marked colonic stool burden
NEG CT for free air
- Empiric Zosyn completed
- GI consult appreciated
- CRS consult appreciated s/p diverting colostomy;
-Abdominal imaging 11/16 with possible ileus
-Started TPN per colorectal
-NG tube removed 11/18 trial liquids diet started 11/20
Mild Hyponatremia
monitor
Elevated blood sugars
likely secondary to TPN
Check A1c 6.1
standing novolog titrated up to 12U q6H
monitor and titrate insulin regimen as necessary
Hypophosphatemia
monitor and replete as necessary
Acute Blood Loss Anemia with underlying chronic anemia
Iron studies appreciated Anemia of Chronic Disease
-received 1 PRBC 11/09/24 and 11/20/24 with appropriate responses noted
- Monitor H&H
#Hypocalcemia
monitor and replete as necessary
#Severe Vit D deficiency
start high dose weekly oral supplementation when cleared to resume oral diet as per CRS
HX IV rectal cancer. possible progression of hepatic lesions/mets.
Widespread hepatic low-attenuation lesions with PROGRESSION suspicious for metastatic disease
X-ray also suspicious of pulmonary nodule, likely metastases
Few scattered small lesions again seen within the included portions of the lower lungs bilaterally suspicious for metastatic
- OP Oncology f/u; follows with Dr Ludwin burrows
On prednisone at home, converted to IV Decadron since n.p.o.
DVT Px: SQH
Full code
discussed with patient and patient's kasi Baigyl
I spent a total of 45 minutes with the patient or on the floor. More than 50% of this time involved counseling and coordination of care.
Anticipated Discharge: 24 - 48 hours
Subjective/Interval History
-
Date of Service: November 20, 2024
No acute distress. reports feeling well. tolerating diet.
Objective Data
-
Labs:
Laboratory Results
11/20/24
06:21
WBC Pending
Hgb Pending
Hct Pending
Plt Count Pending
Sodium Pending
Potassium Pending
Chloride Pending
Carbon Dioxide Pending
BUN Pending
Creatinine Pending
Glucose Pending
Calcium Pending
Total Bilirubin Pending
AST Pending
ALT Pending
Alkaline Phosphatase Pending
Vital Signs:
Vital Signs
Temp Pulse Resp BP Pulse Ox
98.3 F 93 16 113/71 96
11/20/24 03:29 11/20/24 03:29 11/20/24 03:29 11/20/24 03:29 11/20/24 03:29
I&O
11/19/24 11/20/24 11/21/24
06:59 06:59 06:59
Intake Total 1552 / 1552 1442 / 1442
Output Total 2655 / 2655 2725 / 2725
Balance -1103 / -1103 -1283 / -1283
[2024-11-20 08:30] LABS: ALT (SGPT) 17 U/L (0-50); AST (SGOT) 31 U/L (17-59); Albumin 1.8 g/dl (3.5-5.0); Alkaline Phosphatase 191 U/L (38-126); Blood Urea Nitrogen 18 mg/dl (9-20); Calcium 7.3 mg/dl (8.4-10.2); Carbon Dioxide 20 mmol/L (22-30); Chloride 107 mmol/L (98-107); Estimated Creatinine Clearance 118 ml/min; Glucose 139 mg/dl (70-99); Phosphorus 2.4 mg/dl (2.5-4.5); Potassium 4.2 mmol/L (3.5-5.1); Sodium 132 mmol/L (135-145); Total Bilirubin 0.8 mg/dl (0.2-1.3); Total Protein 4.3 g/dl (6.3-8.2); eGFR > 60.00
[2024-11-20 08:43] LABS: Hematocrit 21.3 % (39.0-52.0); Hemoglobin 6.9 g/dL (13.0-18.0); Mean Corp Hgb Conc. 32.4 g/dL (33.0-37.0); Mean Corpuscular Hgb 27.5 pg (27.0-31.0); Mean Corpuscular Volume 84.9 fL (80.0-94.0); Mean Platelet Volume 11.3 fL (7.4-10.4); Platelet Count 310 10^3/uL (130-400); Red Blood Cell Count 2.51 10^6/uL (4.70-6.10); Red Cell Dist. Width 18.1 % (11.5-14.5); White Blood Cell Count 10.9 10^3/uL (4.8-10.8)
[2024-11-20] MEDS: MIRALAX 17 GRAMS PO (09:15)
[2024-11-20] MEDS: DECADRON 4 MG IV (09:16)
[2024-11-20] MEDS: PROTONIX IV 40 MG IV (09:16)
[2024-11-20] MEDS: NSS (PRESERVATIVE FREE) 10 ML IV (09:16)
[2024-11-20] MEDS: HEPARIN 5000 UNITS SC (09:16)
--- NOTE | 2024-11-20 10:21 | W.PN.CRS1 ---
Addendum entered and electronically signed by aRyo Acosta MD 11/20/24 14:39:
In regards to hemoglobin of 6.9; routine transfusion of 1 unit PRBCs will be given today. Doubt active bleeding.
Original Note:
Today's Communication / Plan
-
1 unit packed red blood cells
Full liquid with Ensure
Continue TPN
Assessment/Plan
-
POD # 6 transverse loop colostomy creation
AFVSS, tachycardic 90-110
WBC 10.9 (15.9), hemoglobin 6.9 (8.2)
--Start on full liquids with strawberry Ensure
--Continue Miralax daily
--Continue TPN until tolerating solid food
--Okay to stop Zosyn
--Getting 1 unit packed red blood cells today due to anemia
--Pain control: Tylenol and IV Dilaudid PRN
--Blood glucose control as per primary team
--PT/OT, OOB as tolerated
--IVF as per primary team
--DVT: Teds and SCDs. Hold heparin subq given anemia.
--Stoma nurses consulted to follow
Subjective Data
Procedure
11/20- transverse loop colostomy creation
Subjective Data
Date of Service: November 20, 2024
Patient states he has no complaints. He had a lot of liquid stool and gas yesterday after taking the MiraLAX. His pain is controlled.
Objective Data
-
Vital Signs
Temp Pulse Resp BP Pulse Ox
98.4 F 98 16 112/71 97
11/20/24 07:50 11/20/24 07:50 11/20/24 07:50 11/20/24 07:50 11/20/24 07:50
Intake & Output
03/31/25 04/01/25 04/02/25
06:59 06:59 06:59
Intake Total 1552 / 1552 1442 / 1442 50 / 50
Output Total 2655 / 2655 2725 / 2725
Balance -1103 / -1103 -1283 / -1283 50 / 50
Intake:
Oral fluids 120 / 120
IV fluids (Total) 660 / 660 720 / 720
IV piggybacks 200 / 200 50 / 50 50 / 50
TPN/PPN 692 / 692 552 / 552
Output:
Liquid stool amount 1505 / 1505 950 / 950
Colostomy 1505 / 1505 950 / 950
Urine, Voided 1150 / 1150 1775 / 1775
Lab Results
11/20/24 06:21
11/20/24 06:21
Physical Exam
-
General: No Acute Distress and AOx3
Abdomen: Soft, Non Distended, Non Tender and Other ( colostomy warm and pink with flatus and stool)
Skin: Warm and Dry
[2024-11-20 12:05] LABS: Glucose - Point of Care 174 mg/dl (70-99)
[2024-11-20] MEDS: NOVOLOG FLEXPEN-MODERATE RESISTANCE 1 UNITS SC (13:03)
--- NOTE | 2024-11-20 13:29 | CM ---
Reviewed the chart notes. Patient diet advanced to full liquids. TPN continues. Patient ordered 1 unit PRBC for hbg 6.9. CM continues to be available to patient/family and is monitoring medical plan for needs at discharge.
Plan: Discharge to home when medically stable with TPN through [facility].
--- NOTE | 2024-11-20 15:39 | WOUNDNOTE ---
STEPHEN RN NOTE: Patient's appliance intact no leakage. Patient reports he has been emptying his pouch without difficulty. Supplies at bedside, will change appliance tomorrow, answered all questions.
[2024-11-20 18:01] LABS: Glucose - Point of Care 262 mg/dl (70-99)
[2024-11-20] MEDS: NOVOLOG FLEXPEN-MODERATE RESISTANCE 5 UNITS SC ×2 (18:22→23:53)
[2024-11-20] MEDS: DILAUDID 0.5 MG IV (18:30)
[2024-11-20] MEDS: NSS IV (19:29)
[2024-11-20 20:11] LABS: Hemoglobin 9.1 g/dL (13.0-18.0)
[2024-11-20] MEDS: Parenteral Nutrition, Central 1920 IV (21:15)
[2024-11-20] MEDS: LOPRESSOR 5 MG IV (21:25)
[2024-11-20 23:28] LABS: Glucose - Point of Care 284 mg/dl (70-99)
[2024-11-20] MEDS: NOVOLOG FLEXPEN 12 UNITS SC (23:53)
[2024-11-21] VITALS (7 sets, daily range): BP systolic 116–145; BP diastolic 71–85; PULSE 92; BMI 23.1
[2024-11-21 06:09] LABS: Glucose - Point of Care 203 mg/dl (70-99)
--- NOTE | 2024-11-21 06:19 | W.PN.HOSP.TC ---
Today's Communication/Plan
-
see a/p
Assessment / Plan
Assessment / Plan
Physical Exam
General: no acute distress
HEENT: NormoCephalic, Moist mucous membranes and Atraumatic
Respiratory: Clear
Cardiac: S1/S2 and Regular Rhythm; No Murmur or Rub
GI: Soft, Tender, Distended, Bowel sounds present, stoma present
Musculoskeletal: No Edema
Neuro: AOx3 conversant coherent
Psych: calm
58 MHX stage IV Rectal CA, s/p liver resection on chemo, HX rectal bleeding and hemorrhoidal bleeding here for large bowel obstruction 2/2 malignancy planned for diverting colostomy
Acute n/v/d, and diffuse abdominal pain
Associated dehydration and hypovolemic hyponatremia
last chemotherapy for metastatic rectal
- IV anti emetics PRN
- IV Dilaudid PRN
Large Bowel obstruction Stercoral colitis secondary to widespread widespread marked colonic stool burden
NEG CT for free air
- Empiric Zosyn completed
- GI consult appreciated
- CRS consult appreciated s/p diverting colostomy;
-Abdominal imaging 11/16 with possible ileus
-Started TPN per colorectal
-NG tube removed 11/18 trial liquids diet gradually advanced to low residue
Mild Hyponatremia
monitor
Elevated blood sugars
likely secondary to TPN
Check A1c 6.1
standing novolog titrated up to 15U q6H
monitor and titrate insulin regimen as necessary
Hypophosphatemia
monitor and replete as necessary
Acute Blood Loss Anemia with underlying chronic anemia
Iron studies appreciated Anemia of Chronic Disease
-received 1 PRBC 11/09/24 and 11/20/24 with appropriate responses noted
- Monitor H&H
#Hypocalcemia
monitor and replete as necessary
#Severe Vit D deficiency
start high dose weekly oral supplementation when cleared to resume oral diet as per CRS
HX IV rectal cancer. possible progression of hepatic lesions/mets.
Widespread hepatic low-attenuation lesions with PROGRESSION suspicious for metastatic disease
X-ray also suspicious of pulmonary nodule, likely metastases
Few scattered small lesions again seen within the included portions of the lower lungs bilaterally suspicious for metastatic
- OP Oncology f/u; follows with Dr Mascorro outpatient
On prednisone at home, converted to IV Decadron since n.p.o.
DVT Px: SQH
Full code
discussed with patient and patient's kasi Baigyl
I spent a total of 45 minutes with the patient or on the floor. More than 50% of this time involved counseling and coordination of care.
Anticipated Discharge: 24 - 48 hours
Subjective/Interval History
-
Date of Service: November 21, 2024
no acute distress. comfortable. tolerating diet.
Objective Data
-
Labs:
Laboratory Results
11/20/24 11/21/24
20:02 06:00
WBC Pending
Hgb 9.1 L D Pending
Hct 27.0 L Pending
Plt Count Pending
Sodium Pending
Potassium Pending
Chloride Pending
Carbon Dioxide Pending
BUN Pending
Creatinine Pending
Glucose Pending
Calcium Pending
Total Bilirubin Pending
AST Pending
ALT Pending
Alkaline Phosphatase Pending
Vital Signs:
Vital Signs
Temp Pulse Resp BP Pulse Ox
98.2 F 83 18 122/71 97
11/21/24 03:15 11/21/24 03:15 11/21/24 03:15 11/21/24 03:15 11/21/24 03:15
I&O
11/19/24 11/20/24 11/21/24
06:59 06:59 06:59
Intake Total 1552 / 1552 1442 / 1442 2182 / 2182
Output Total 2655 / 2655 2725 / 2723 3200 / 3200
Balance -1103 / -1103 -1283 / -1283 -1018 / -1018
[2024-11-21] MEDS: NOVOLOG FLEXPEN 12 UNITS SC (06:24)
[2024-11-21] MEDS: NOVOLOG FLEXPEN-MODERATE RESISTANCE 3 UNITS SC ×2 (06:25→12:21)
[2024-11-21 07:39] LABS: Hematocrit 24.5 % (39.0-52.0); Hemoglobin 8.2 g/dL (13.0-18.0); Mean Corp Hgb Conc. 33.5 g/dL (33.0-37.0); Mean Corpuscular Hgb 28.3 pg (27.0-31.0); Mean Corpuscular Volume 84.5 fL (80.0-94.0); Mean Platelet Volume 10.4 fL (7.4-10.4); Platelet Count 302 10^3/uL (130-400); Red Cell Dist. Width 16.9 % (11.5-14.5); White Blood Cell Count 7.2 10^3/uL (4.8-10.8)
[2024-11-21 08:16] LABS: ALT (SGPT) 27 U/L (0-50); AST (SGOT) 35 U/L (17-59); Albumin 1.8 g/dl (3.5-5.0); Alkaline Phosphatase 275 U/L (38-126); Blood Urea Nitrogen 16 mg/dl (9-20); Calcium 7.4 mg/dl (8.4-10.2); Carbon Dioxide 22 mmol/L (22-30); Chloride 105 mmol/L (98-107); Estimated Creatinine Clearance 118 ml/min; Glucose 204 mg/dl (70-99); Phosphorus 2.2 mg/dl (2.5-4.5); Potassium 4.2 mmol/L (3.5-5.1); Sodium 131 mmol/L (135-145); Total Bilirubin 0.7 mg/dl (0.2-1.3); Total Protein 4.6 g/dl (6.3-8.2); eGFR > 60.00
[2024-11-21] MEDS: PROTONIX IV 40 MG IV (09:13)
[2024-11-21] MEDS: NSS (PRESERVATIVE FREE) 10 ML IV (09:13)
[2024-11-21] MEDS: MIRALAX 17 GRAMS PO (09:14)
[2024-11-21] MEDS: DECADRON 4 MG IV (09:14)
--- NOTE | 2024-11-21 10:15 | WOUNDNOTE ---
WO RN note: Patient's on a full liquid diet. Stoma pink and more swollen that last visit. Stoma bridge intact. Peristomal skin intact. Midline incision with kenny intact. Sacral/buttocks skin intact. Patient incontinent of bloody mucus. Fischer
mucous emptied from colostomy pouch. Patient can empty his own pouch. Reinstructed appliance with with Delfina present using larger wafer/pouch 4 inch Jonny wafer # [id number] and Jonny pouch #[id number]. Ostomy supplies in room. Patient for possible
discharge tomorrow as per patient. Patient aware he should have VN to continue ostomy teaching.
--- NOTE | 2024-11-21 10:20 | WOUNDNOTE ---
[place] texted FRANKY Noe re: noted stoma more swollen, larger wafer used and also noted bloody mucus from rectum. Updated RN Danielle.
[2024-11-21] MEDS: DILAUDID 0.25 MG IV ×3 (10:25→21:34)
[2024-11-21] MEDS: SODIUM PHOSPHATE 260 MEQ IV (10:26)
--- NOTE | 2024-11-21 11:27 | CM ---
Reviewed the chart notes. Patient diet advanced to full liquids with Ensure. TPN continues. Patient seen ambulating in hallway with PT. CM continues to be available to patient/family and is monitoring medical plan for needs at discharge.
Plan: Discharge to home when medically stable with TPN through [facility].
--- NOTE | 2024-11-21 11:32 | W.PN.CRS1 ---
Today's Communication / Plan
-
Low residue diet with Ensure
Continue TPN until tolerating
Assessment/Plan
-
POD # 7 transverse loop colostomy creation
AFVSS
WBC 7.2 (10.2), hemoglobin 8.2 (6.9)
--Advance to low residue with ensure
--Continue Miralax daily
--Continue TPN until tolerating solid food
--Trend hgb
--Pain control: Tylenol and IV Dilaudid PRN
--Blood glucose control as per primary team
--PT/OT, OOB as tolerated
--IVF as per primary team
--DVT: Teds and SCDs. Hold heparin subq given anemia.
--Stoma nurses consulted to follow
Subjective Data
Procedure
11/20- transverse loop colostomy creation
Subjective Data
Date of Service: November 21, 2024
Patient states he feels 'good '. He was able to tolerate his full liquid diet he denies any pain. He has flatus. He is urinating.
Objective Data
-
Vital Signs
Temp Pulse Resp BP Pulse Ox
98 F 95 18 116/75 96
11/21/24 07:45 11/21/24 07:45 11/21/24 07:45 11/21/24 07:45 11/21/24 07:45
Intake & Output
11/20/24 11/21/24 11/22/24
06:59 06:59 06:59
Intake Total 1442 / 1442 2182 / 2182 260 / 260
Output Total 2725 / 2725 3900 / 3900 500 / 500
Balance -1283 / -1283 -1718 / -1718 -240 / -240
Intake:
Oral fluids 120 / 120 360 / 360
IV fluids (Total) 720 / 720 720 / 720
IV piggybacks 50 / 50 50 / 50 260 / 260
TPN/PPN 552 / 552 552 / 552
Blood products 250 / 250
Blood Product Amount Infused ( 250 / 250
mL)
Packed Rbc Leukoreduced Unit 250 / 250
[id number]
Output:
Liquid stool amount 950 / 950 750 / 750 150 / 150
Colostomy 950 / 950 750 / 750 150 / 150
Urine, Voided 1775 / 1775 3150 / 3150 350 / 350
Lab Results
11/21/24 07:22
11/21/24 07:22
Physical Exam
-
General: No Acute Distress and AOx3
Abdomen: Soft, Distended (mild), Non Tender and Other (colostomy warm and pink, edematous, with function)
Skin: Warm and Dry
[2024-11-21 12:09] LABS: Glucose - Point of Care 249 mg/dl (70-99)
[2024-11-21] MEDS: NOVOLOG FLEXPEN 15 UNITS SC ×3 (12:21→23:19)
[2024-11-21] MEDS: NOVOLOG FLEXPEN-MODERATE RESISTANCE SC (13:34)
[2024-11-21 17:32] LABS: Glucose - Point of Care 285 mg/dl (70-99)
[2024-11-21] MEDS: NOVOLOG FLEXPEN-MODERATE RESISTANCE 5 UNITS SC ×2 (17:57→23:18)
[2024-11-21] MEDS: Parenteral Nutrition, Central 1920 IV (21:17)
[2024-11-21] MEDS: LOPRESSOR 5 MG IV (21:20)
[2024-11-21 23:15] LABS: Glucose - Point of Care 268 mg/dl (70-99)
[2024-11-22 03:10] VITALS: BP 138/87
[2024-11-22] MEDS: DILAUDID 0.25 MG IV ×3 (03:15→20:29)
[2024-11-22] MEDS: FLUSH (NSS) 2 FLUSH IV (03:16)
[2024-11-22 06:00] VITALS: BMI 23.2
[2024-11-22 06:06] LABS: Glucose - Point of Care 218 mg/dl (70-99)
--- NOTE | 2024-11-22 06:08 | W.PN.HOSP.TC ---
Today's Communication/Plan
-
see s/p
Assessment / Plan
Assessment / Plan
Physical Exam
General: no acute distress
HEENT: NormoCephalic, Moist mucous membranes and Atraumatic
Respiratory: Clear
Cardiac: S1/S2 and Regular Rhythm; No Murmur or Rub
GI: Soft, Tender, Distended, Bowel sounds present, stoma present
Musculoskeletal: No Edema
Neuro: AOx3 conversant coherent
Psych: calm
58 MHX stage IV Rectal CA, s/p liver resection on chemo, HX rectal bleeding and hemorrhoidal bleeding here for large bowel obstruction 2/2 malignancy planned for diverting colostomy
Acute n/v/d, and diffuse abdominal pain
Associated dehydration and hypovolemic hyponatremia
last chemotherapy for metastatic rectal
- IV anti emetics PRN
- IV Dilaudid PRN
Large Bowel obstruction Stercoral colitis secondary to widespread widespread marked colonic stool burden
NEG CT for free air
- Empiric Zosyn completed
- GI consult appreciated
- CRS consult appreciated s/p diverting colostomy;
-Abdominal imaging 11/16 with possible ileus
-Started TPN per colorectal
-NG tube removed 11/18 trial liquids diet gradually advanced to low residue
Mild Hyponatremia
monitor
Elevated blood sugars
likely secondary to TPN
A1c 6.1
standing novolog titrated up to 15U q6H
monitor and titrate insulin regimen as necessary
Hypophosphatemia
monitor and replete as necessary
Acute Blood Loss Anemia with underlying chronic anemia
Iron studies appreciated Anemia of Chronic Disease
-received PRBC 11/09/24 and 11/20/24 with appropriate responses noted
- Monitor H&H
#Hypocalcemia
monitor and replete as necessary
#Severe Vit D deficiency
start high dose weekly oral supplementation when cleared to resume oral diet as per CRS
HX IV rectal cancer. possible progression of hepatic lesions/mets.
Widespread hepatic low-attenuation lesions with PROGRESSION suspicious for metastatic disease
X-ray also suspicious of pulmonary nodule, likely metastases
Few scattered small lesions again seen within the included portions of the lower lungs bilaterally suspicious for metastatic
- OP Oncology f/u; follows with Dr Mascorro outpatient
On prednisone at home, IV Decadron while strict n.p.o.
DVT Px: SQH
Full code
discussed with patient and patient's kasi Baigyl
I spent a total of 45 minutes with the patient or on the floor. More than 50% of this time involved counseling and coordination of care.
Anticipated Discharge: Within 24 hours
Subjective/Interval History
-
Date of Service: November 22, 2024
no acute distress, reports feeling well. tolerating diet
Objective Data
-
Labs:
Laboratory Results
11/22/24
06:00
WBC Pending
Hgb Pending
Hct Pending
Plt Count Pending
Sodium Pending
Potassium Pending
Chloride Pending
Carbon Dioxide Pending
BUN Pending
Creatinine Pending
Glucose Pending
Calcium Pending
Total Bilirubin Pending
AST Pending
ALT Pending
Alkaline Phosphatase Pending
Vital Signs:
Vital Signs
Temp Pulse Resp BP Pulse Ox
99.1 F 107 16 138/87 98
11/22/24 03:10 11/22/24 03:10 11/22/24 03:10 11/22/24 03:10 11/22/24 03:10
I&O
11/20/24 11/21/24 11/22/24
06:59 06:59 06:59
Intake Total 1442 / 1442 2182 / 2182 1220 / 1220
Output Total 2725 / 2725 3900 / 3900 3100 / 3100
Balance -1283 / -1283 -1718 / -1718 -1880 / -1880
[2024-11-22] MEDS: NOVOLOG FLEXPEN-MODERATE RESISTANCE 3 UNITS SC ×2 (06:11→13:20)
[2024-11-22] MEDS: NOVOLOG FLEXPEN 15 UNITS SC ×3 (06:12→18:29)
[2024-11-22 07:43] LABS: Hematocrit 26.1 % (39.0-52.0); Hemoglobin 8.6 g/dL (13.0-18.0); Mean Corpuscular Hgb 28.2 pg (27.0-31.0); Mean Corpuscular Volume 85.6 fL (80.0-94.0); Mean Platelet Volume 10.3 fL (7.4-10.4); Platelet Count 298 10^3/uL (130-400); Red Blood Cell Count 3.05 10^6/uL (4.70-6.10); Red Cell Dist. Width 17.3 % (11.5-14.5); White Blood Cell Count 7.8 10^3/uL (4.8-10.8)
[2024-11-22 08:32] LABS: ALT (SGPT) 52 U/L (0-50); AST (SGOT) 61 U/L (17-59); Alkaline Phosphatase 421 U/L (38-126); Blood Urea Nitrogen 15 mg/dl (9-20); Calcium 7.4 mg/dl (8.4-10.2); Carbon Dioxide 22 mmol/L (22-30); Chloride 103 mmol/L (98-107); Estimated Creatinine Clearance 118 ml/min; Glucose 174 mg/dl (70-99); Phosphorus 2.7 mg/dl (2.5-4.5); Sodium 131 mmol/L (135-145); Total Bilirubin 0.6 mg/dl (0.2-1.3); Total Protein 4.7 g/dl (6.3-8.2); eGFR > 60.00
[2024-11-22 08:50] VITALS: BP 127/70
[2024-11-22] MEDS: MIRALAX 17 GRAMS PO (09:40)
[2024-11-22] MEDS: DECADRON 4 MG IV (09:41)
[2024-11-22] MEDS: PROTONIX IV 40 MG IV (09:41)
[2024-11-22] MEDS: NSS (PRESERVATIVE FREE) 10 ML IV (09:41)
[2024-11-22] MEDS: FLUSH (NSS) 3 FLUSH IV (09:44)
--- NOTE | 2024-11-22 11:20 | W.PN.CRS1 ---
Today's Communication / Plan
-
allow tpn bag to run out
continue low residue
okay for dispo from our perspective
Assessment/Plan
-
POD #8 transverse loop colostomy creation
AFVSS
WBC 7.8 (7.2), hemoglobin 8.6 (8.2)
--Continue low residue with ensure
--Continue Miralax daily
--Allow TPN to run out, then d/c
--Trend hgb
--Pain control: Tylenol and IV Dilaudid PRN
--Blood glucose control as per primary team
--PT/OT, OOB as tolerated
--DVT: Teds and SCDs. Hold heparin subq given anemia.
--Stoma nurses consulted to follow
--Okay for dispo from our perspective, dispo per primary team, follow up with Dr. Acosta in 1-2 weeks
--Continue stoma hortensia under colostomy edema improves
Subjective Data
Procedure
11/20- transverse loop colostomy creation
Subjective Data
Date of Service: November 22, 2024
Patient states he is feeling well. He is tolerating a diet. He has no complaints. His pain is controlled.
Objective Data
-
Vital Signs
Temp Pulse Resp BP Pulse Ox
98.8 F 111 18 127/70 96
11/22/24 08:50 11/22/24 08:50 11/22/24 08:50 11/22/24 08:50 11/22/24 08:50
Intake & Output
11/21/24 11/22/24 11/23/24
06:59 06:59 06:59
Intake Total 2182 / 2182 1220 / 1220
Output Total 3900 / 3900 3100 / 3100 725 / 725
Balance -1718 / -1718 -1880 / -1880 -725 / -725
Intake:
Oral fluids 360 / 360 960 / 960
IV fluids (Total) 720 / 720
IV piggybacks 50 / 50 260 / 260
TPN/PPN 552 / 552
Blood products 250 / 250
Blood Product Amount Infused ( 250 / 250
mL)
Packed Rbc Leukoreduced Unit 250 / 250
[id number]
Output:
Liquid stool amount 750 / 750 750 / 750 75 / 75
Colostomy 750 / 750 750 / 750 75 / 75
Urine, Voided 3150 / 3150 2350 / 2350 650 / 650
Lab Results
11/22/24 07:16
11/22/24 07:16
Physical Exam
-
General: No Acute Distress and AOx3
Abdomen: Soft, Non Distended, Non Tender and Other (Colostomy warm and pink, with function )
Skin: Warm and Dry
Incision: Clear, Dry, Intact
[2024-11-22 12:00] VITALS: BP 128/82
[2024-11-22 12:03] LABS: Glucose - Point of Care 233 mg/dl (70-99)
[2024-11-22 15:50] VITALS: BP 124/78
[2024-11-22 18:11] LABS: Glucose - Point of Care 318 mg/dl (70-99)
[2024-11-22] MEDS: NOVOLOG FLEXPEN-MODERATE RESISTANCE 7 UNITS SC (18:29)
[2024-11-22 19:40] VITALS: BP 138/84
[2024-11-22 23:42] LABS: Glucose - Point of Care 201 mg/dl (70-99)
[2024-11-22] MEDS: LOPRESSOR 5 MG IV (23:49)
[2024-11-22 23:50] VITALS: BP 124/84
[2024-11-22] MEDS: NOVOLOG FLEXPEN-MODERATE RESISTANCE SC (23:59)
[2024-11-23] MEDS: DILAUDID 0.25 MG IV (01:13)
[2024-11-23 03:08] VITALS: BP 128/83
[2024-11-23 05:16] LABS: Glucose - Point of Care 182 mg/dl (70-99)
[2024-11-23 05:38] VITALS: BMI 22.9
[2024-11-23] MEDS: NOVOLOG FLEXPEN-MODERATE RESISTANCE SC (06:02)
--- NOTE | 2024-11-23 07:04 | W.PN.HOSP.TC ---
Today's Communication/Plan
-
discharge
Assessment / Plan
Assessment / Plan
Physical Exam
General: no acute distress
HEENT: NormoCephalic, Moist mucous membranes and Atraumatic
Respiratory: Clear
Cardiac: S1/S2 and Regular Rhythm; No Murmur or Rub
GI: Soft, mild Tenderness, Distended, Bowel sounds present, stoma present
Musculoskeletal: No Edema
Neuro: AOx3 conversant coherent
Psych: calm
58 MHX stage IV Rectal CA, s/p liver resection on chemo, HX rectal bleeding and hemorrhoidal bleeding here for large bowel obstruction 2/2 malignancy planned for diverting colostomy
Acute n/v/d, and diffuse abdominal pain
Associated dehydration and hypovolemic hyponatremia
last chemotherapy for metastatic rectal
- IV anti emetics PRN
- IV Dilaudid PRN
Large Bowel obstruction Stercoral colitis secondary to widespread widespread marked colonic stool burden
NEG CT for free air
- Empiric Zosyn completed
- GI consult appreciated
- CRS consult appreciated s/p diverting colostomy;
-Abdominal imaging 11/16 with possible ileus
-Started TPN per colorectal
-NG tube removed 11/18 trial liquids diet gradually advanced to low residue, TPN since discontinued
Mild Hyponatremia
monitor
Elevated blood sugars
likely secondary to TPN
A1c 6.1
sugars since improved since discontinuation TPN
Hypophosphatemia resolved
Acute Blood Loss Anemia with underlying chronic anemia
Iron studies appreciated Anemia of Chronic Disease
-received PRBC 11/09/24 and 11/20/24 with appropriate responses noted
- H&H since stable, trending up
#Hypocalcemia
monitor and replete as necessary
#Severe Vit D deficiency
high dose weekly oral supplementation started
HX IV rectal cancer. possible progression of hepatic lesions/mets.
Widespread hepatic low-attenuation lesions with PROGRESSION suspicious for metastatic disease
X-ray also suspicious of pulmonary nodule, likely metastases
Few scattered small lesions again seen within the included portions of the lower lungs bilaterally suspicious for metastatic
- OP Oncology f/u; follows with Dr Mascorro outpatient
On prednisone at home, IV Decadron while strict n.p.o.
DVT Px: SQH
Full code
Medically stable for discharge home with home services and outpatient follow up recommendations.
discussed with patient and patient's kasi Mathis
Total Time Preparing Discharge ___40____ minutes including examination of the patient, summary of the hospital stay, instructions for continuing care to all relevant caregivers; and preparation of discharge records, prescriptions, and referral
forms if necessary.
Anticipated Discharge: Today
Subjective/Interval History
-
Date of Service: November 23, 2024
No acute distress sitting up comfortably in chair. low grade fever this morning, patient otherwise reports feeling well. Tolerating diet. Denies new acute issues. Eager to go home.
Objective Data
-
Vital Signs:
Vital Signs
Temp Pulse Resp BP Pulse Ox
97.8 F 97 18 128/83 96
11/23/24 03:08 11/23/24 03:08 11/23/24 03:08 11/23/24 03:08 11/23/24 03:08
I&O
11/22/24 11/23/24 11/24/24
06:59 06:59 06:59
Intake Total 1220 / 1220 3780 / 3780
Output Total 3100 / 3100 3250 / 3250
Balance -1880 / -1880 530 / 530
[2024-11-23 07:55] VITALS: BP 126/80
--- NOTE | 2024-11-23 09:24 | CM ---
Reviewed the chart notes and spoke with the patient. Patient on low residue diet. Referral for [facility] sent and accepted. CM continues to be available to patient/family and is monitoring medical plan for needs at discharge.
Plan: Discharge to home with VN services. Patient's significant other will provide transportation.
[2024-11-23] MEDS: DELTASONE 20 MG PO (09:40)
[2024-11-23] MEDS: PROTONIX 40 MG PO (09:40)
[2024-11-23] MEDS: TYLENOL 650 MG PO (09:40)
[2024-11-23] MEDS: MIRALAX 17 GRAMS PO (09:40)
[2024-11-23] MEDS: DRISDOL (VITAMIN D2) 50000 UNITS PO (10:16)
[2024-11-23 12:33] LABS: Glucose - Point of Care 157 mg/dl (70-99)
[2024-11-23] MEDS: NOVOLOG FLEXPEN-MODERATE RESISTANCE 300 UNITS SC (13:13)
[2024-11-23 15:24] VITALS: BP 114/74
--- NOTE | 2024-11-23 16:29 | W.DCSUMMARY ---
Discharge Summary
Discharge Data
Date of Admission: 11/07/24
Date of Discharge: 11/24/24
-
Pending Results: No
Discharge Plan
-
Patient Disposition: Home with Home Care
Discharge Diagnosis/Procedures: Large Bowel obstruction Stercoral colitis secondary to widespread marked colonic stool burden- due to malignancy
status post diverting colostomy
post-operative Ileus since resolved
Prediabetes
Acute Blood Loss Anemia
Anemia of Chronic Disease
Hypocalcemia
Severe Vitamin D deficiency
Mild Hyponatremia
Metastatic Rectal Cancer
Condition: Fair
Diet: Low Residue
Activity: No strenuous activity
Additional Activity: No lifting over 10lbs (gallon of milk)
Driving Restrictions: No driving for 1 week
Bathing Restrictions: OK to Shower
Blood Work: Repeat CBC and CMP with primary care provider in 1 week of discharge.
Other Services: PT and OT
Wound Care: Allow any glue to naturally fall off.
Stoma hortensia to be removed at your appointment with Dr. Acosta.
Activity Restrictions/Additional Instructions:
Colostomy supplies: Jonny wafer # [id number] and [place] pouch #[id number]. Change 2 times a week and as needed for leakage. If leakage becomes a problem, try using an Rc seal. If stoma swelling goes down can try [place] wafer # [id number] and
Jonny pouch # [id number].
Call [facility] (list in folder provided) for monthly Ostomy supplies after discharge (ask VN to order supplies while on service).
Follow up with surgeon.
Call [facility] RN nurse for ostomy pouching concerns or leakage problems [phone] or [phone] or [phone].
Follow up with primary care provider and oncologist in 1 week of discharge. Follow up with colorectal surgeon in 2 weeks of discharge.
High dose Vitamin D supplementation prescribed for severe deficiency.
Oxycodone prescribed as needed for pain. Hold home tramadol while on oxycodone. Alternatively may use tramadol for moderate pain and reserve oxycodone for severe. Do not take both tramadol and oxycodone together at the same time.
Miralax prescribed to maintain consistent bowel movements.
Please take medications as prescribed/recommended and follow up with primary care provider and/or other healthcare provider involved in your care for refills and/or further adjustment to your medication regimen as necessary.
Instructions: Low-fiber diet
Referrals:
Rayo Acosta MD [Active] - in two weeks
Benigno Mascorro DO [Active] - in one week
Rayo Rose DO [Family Provider] - in one week
Prescriptions:
New
polyethylene glycol 3350 17 gram Powder In Packet
17 g PO DAILY Qty: 30 0RF
oxycodone 5 mg tablet
5 mg PO Q6H PRN (Reason: Pain) Qty: 20 0RF
ergocalciferol (vitamin D2) [Vitamin D2] 1,250 mcg (50,000 unit) Capsule
1,250 mcg PO FR Qty: 10 0RF
Continued
metoprolol tartrate 25 mg Tablet
25 mg PO HS
esomeprazole magnesium 40 mg capsule,delayed release(DR/EC)
40 mg PO DAILY
prednisone 20 mg Tablet
20 mg PO DAILY
simethicone 80 mg Tablet,Chewable
80 mg PO TIDPRN PRN (Reason: gas pains)
Held
tramadol 50 mg tablet
50 mg PO Q4HPRN PRN (Reason: moderate pain)
Hold Instructions: Hold if taking oxycodone for pain. Alternatively can continue Tramadol for moderate pain and oxycodone for severe pain. Do not take tramadol and oxycodone together.
Discontinued
oxycodone 5 mg Tablet
5 mg PO Q6HPRN PRN (Reason: severe pain)
omeprazole 20 mg Tablet,Delayed Release (Dr/Ec)
20 mg PO DAILY
Discharge Orders:
Discharge Patient (As Directed); Ordered 04/04/25
Ordered By: Christine Brown
Discharge Date and Time
Discharge Date/Time: 11/23/24 17:35
Print Language: CROATIAN
== END 2024-11-23 17:35 | disposition home health service (06) | DRG 330 ==
LOC: 2 SOUTH 14:47
PROVIDERS: Internal Medicine; Physician Assistant; Surgery; ADMITTING PHYSICIAN Internal Medicine; ATTENDING PHYSICIAN Internal Medicine; CONSULT PHYSICIAN Internal Medicine Gastroenterology; CONSULT PHYSICIAN Surgery; EMERGENCY PHYSICIAN Emergency Medicine; FAMILY PHYSICIAN Family Medicine
PROC: 0D1L0Z4 Bypass Transverse Colon to Cutaneous, Open Approach (ICD-10-PCS; 2024-11-08)
PROC: 30233N1 Transfusion of Nonautologous Red Blood Cells into Peripheral Vein, Percutaneous Approach (ICD-10-PCS; 2024-11-09)
PROC: 3E04317 Introduction of Other Thrombolytic into Central Vein, Percutaneous Approach (ICD-10-PCS; 2024-11-10)
PROC: 3E0336Z Introduction of Nutritional Substance into Peripheral Vein, Percutaneous Approach (ICD-10-PCS; 2024-11-13)
DX: C20 Malignant neoplasm of rectum (principal); C78.01 Secondary malignant neoplasm of right lung; D62 Acute posthemorrhagic anemia; K91.89 Other postprocedural complications and disorders of digestive system; E87.1 Hypo-osmolality and hyponatremia; K56.7 Ileus, unspecified; Q43.8 Other specified congenital malformations of intestine; C78.7 Secondary malignant neoplasm of liver and intrahepatic bile duct; K62.4 Stenosis of anus and rectum; E55.9 Vitamin D deficiency, unspecified; D63.0 Anemia in neoplastic disease; R73.03 Prediabetes; K52.89 Other specified noninfective gastroenteritis and colitis; E86.1 Hypovolemia; E86.0 Dehydration; I48.0 Paroxysmal atrial fibrillation; K44.9 Diaphragmatic hernia without obstruction or gangrene; K64.8 Other hemorrhoids; D72.828 Other elevated white blood cell count; T38.0X5A Adverse effect of glucocorticoids and synthetic analogues, initial encounter; R00.0 Tachycardia, unspecified; Z92.3 Personal history of irradiation; Z79.899 Other long term (current) drug therapy; Y83.8 Other surgical procedures as the cause of abnormal reaction of the patient, or of later complication, without mention of misadventure at the time of the procedure
CPT/HCPCS: 36598; 71045; 74022; 74174; 80048; 80053; 82306; 82607; 82728; 82746; 82962; 83036; 83540; 83550; 83605; 83735; 83930; 83935; 84100; 84478; 85014; 85018; 85025; 85027; 85610; 85730; 86803; 86850; 86900; 86901; 86920; 87045; 87046; 87077; 87427; 93005; 96361; 96374; 96375; 97116; 97163; 97167; 97530; 97535; 99284; C1776; J2997; P9016; Q9967

== ENCOUNTER 2024-11-30 12:52 | Inpatient (IN) | payer OTHER, SELFPAY ==
[2024-11-29] VITALS (13 sets, daily range): BP systolic 98–127; BP diastolic 69–87; PULSE 102; BMI 22.1; BMI 20.7
--- NOTE | 2024-11-29 09:43 | ED.GENMED ---
History of Present Illness
General
Chief Complaint: Cancer Problem
Source: patient
Exam Limitations: none
Time Seen by Provider: 11/29/24 09:17
History of Present Illness
History of Present Illness:
59-year-old male with history of colon cancer 3 weeks post colectomy now has colostomy presents for evaluation from home for evaluation of possible fever. He noted some chills yesterday. Visiting nurse told him he had a low-grade fever last
evening. They advised to come here for evaluation. He denies abdominal pain other than his surgical pain. He notes normal stool output in the colostomy. He denies a cough he does note generalized fatigue. No urinary symptoms. No other
complaints at this time
Phy Exam
Physical Exam
Physical Exam:
General: Well-appearing male no acute respiratory distress HEENT normocephalic atraumatic heart: Regular rate and rhythm lungs: Clear no wheeze
Abdomen soft incision looks well intact kenny no surrounding erythema drainage or fluctuance. Normal-appearing stool in the ostomy
Extremities: Mild edema bilateral lower extremities
Skin is warm no rash
Course
Orders/Labs/Results
Orders:
Orders
11/29/24 09:32
Urinalysis Reflex To Culture Urgent
CR Chest - 2 Views Urgent
Comment:
Reason For Exam: fever
11/29/24 09:46
COVID-19 Antigen Urgent
Source: Nasal Swab
Influenza A+B Rapid Molecular Urgent
AGGIE Source: Nasal Swab
Specimen Description:
11/29/24 09:47
Complete Blood Count/With Diff Urgent
Manual Differential Urgent
Blood Culture Q30M
AGGIE Source: Blood/Venous
Specimen Description:
11/29/24 09:48
Comprehensive Metabolic Panel Urgent
11/29/24 09:50
Lactic Acid Urgent
Blood Culture Q30M
AGGIE Source: Blood/Venous
Specimen Description:
11/29/24 11:16
Case Management Consult ONCE
Case Management Consult: Discharge Planning
11/29/24 11:37
PT Consult [Pt Eval And Treat] Urgent
Activity Level: Ambulate
Abnormal Lab Results
11/29/24 11/29/24
09:47 09:48
RBC 2.94 L 10^6/uL
(4.70-6.10)
Hgb 8.1 L g/dL
(13.0-18.0)
Hct 25.3 L %
(39.0-52.0)
MCHC 32.0 L g/dL
(33.0-37.0)
RDW 18.3 H %
(11.5-14.5)
MPV 10.5 H fL
(7.4-10.4)
Abs Neuts (Manual) 6.7 H 10^3/uL
(1.4-6.5)
Band Neutrophils 18 H %
(0-3)
Lymphocytes (Manual) 3 L %
(20-51)
Sodium 134 L mmol/L
(135-145)
Creatinine 0.5 L mg/dL
(0.7-1.3)
Glucose 198 H mg/dl
(70-99)
Calcium 8.0 L mg/dl
(8.4-10.2)
Alkaline Phosphatase 433 H U/L
(38-126)
Total Protein 5.0 L g/dl
(6.3-8.2)
Albumin 2.2 L g/dl
(3.5-5.0)
11/29/24 09:47
11/29/24 09:48
Vital Signs
Initial and Last Documented VS:
Initial Vital Signs
BP
121/83
11/29/24 09:15
Last Documented Vital Signs
Temp Pulse Resp BP Pulse Ox
98.2 F 107 25 112/78 97
11/29/24 09:19 11/29/24 12:34 11/29/24 12:34 11/29/24 12:34 11/29/24 12:34
MDM/Problems Addressed
Differential Diagnosis Includes:
Reported fever and feelings of weakness. He is afebrile here. He is slightly tachycardic at rest. He states his normal heart rate is in the low 100s. Will check labs COVID flu chest x-ray and urinalysis.
*Critical Care Note
Total Time (30-74mins, 75-104mins- exclusive of procedures): Not Applicable
Update Note
Update Note:
Received message from [facility] visiting nurse saying that the patient is very weak at home. He seems unable to take care of himself at home and somewhat disengaged in his care. They requested case management consult. I spoke with case
management and consulted physical therapy. Hemoglobin today 8.1 which is baseline. White count is normal. Chest x-ray shows subsegmental atelectasis versus pneumonia at the left base. Clinically patient is afebrile here his white count is normal
he is not coughing or short of breath and do not suspect pneumonia
Case management in the see patient after PT evaluated. PT did suggest acute rehab. Case management in contact with [facility]. Patient requires authorization prior to this. This will not happen today. There will be no placement today from the
emergency room. Patient really has no help at home and he is unable to manage his care at home. Will keep in hospital for further work with physical therapy occupational therapy and case management
ED Attending Note
-
Portions of this chart may have been created with voice recognition software.� Occasional wrong word or��sound alike� substitutions may have occurred due to the inherent limitations of voice recognition software.
Discharge Plan
Departure
Patient Disposition: Admit
Date of Disposition: 11/29/24
Time of Disposition: 12:48
Presentation/result/management discussed w/ accepting MD/DO: Hospitalist
Discharge Problem:
Generalized weakness
Prescriptions:
No Action
metoprolol tartrate 25 mg Tablet
25 mg PO HS
tramadol 50 mg tablet
50 mg PO Q4HPRN PRN (Reason: moderate pain)
esomeprazole magnesium 40 mg capsule,delayed release(DR/EC)
40 mg PO DAILY
prednisone 20 mg Tablet
20 mg PO DAILY
simethicone 80 mg Tablet,Chewable
80 mg PO TIDPRN PRN (Reason: gas pains)
polyethylene glycol 3350 17 gram Powder In Packet
17 g PO DAILY Qty: 30 0RF
oxycodone 5 mg tablet
5 mg PO Q6H PRN (Reason: Pain) Qty: 20 0RF
ergocalciferol (vitamin D2) [Vitamin D2] 1,250 mcg (50,000 unit) Capsule
1,250 mcg PO FR Qty: 10 0RF
Referrals:
UNKNOWN - PT NOT,INTERVIEWE [Unknown Provider] -
Interventions
Interventions:
*Risk Screen - Suicide Last Done: 11/29/24 09:21
*Neglect/Abuse Screening Last Done: 11/29/24 09:21
*ED- Fall Risk Assessment Last Done: 11/29/24 09:22
*ED COVID-19 Vaccine History Last Done: 11/29/24 09:22
ED- Neurological Assessment Last Done: 11/29/24 09:23
ED-Skin Assessment Last Done: 11/29/24 09:24
Discharge Date and Time
Print Language: NEPALI
[2024-11-29 10:10] LABS: ALT (SGPT) 42 U/L (0-50); AST (SGOT) 36 U/L (17-59); Albumin 2.2 g/dl (3.5-5.0); Alkaline Phosphatase 433 U/L (38-126); Blood Urea Nitrogen 11 mg/dl (9-20); Carbon Dioxide 25 mmol/L (22-30); Chloride 103 mmol/L (98-107); Estimated Creatinine Clearance 113 ml/min; Glucose 198 mg/dl (70-99); Potassium 3.6 mmol/L (3.5-5.1); Sodium 134 mmol/L (135-145); Total Bilirubin 0.6 mg/dl (0.2-1.3); eGFR > 60.00
[2024-11-29 10:19] LABS: COVID-19 Antigen Negative (Negative)
[2024-11-29 10:26] LABS: Hematocrit 25.3 % (39.0-52.0); Hemoglobin 8.1 g/dL (13.0-18.0); Mean Corpuscular Hgb 27.6 pg (27.0-31.0); Mean Corpuscular Volume 86.1 fL (80.0-94.0); Mean Platelet Volume 10.5 fL (7.4-10.4); Platelet Count 301 10^3/uL (130-400); Red Blood Cell Count 2.94 10^6/uL (4.70-6.10); Red Cell Dist. Width 18.3 % (11.5-14.5); White Blood Cell Count 7.3 10^3/uL (4.8-10.8)
[2024-11-29 11:12] LABS: Absolute Neutrophils -Man Diff 6.7 10^3/uL (1.4-6.5); Band Neutrophils 18 % (0-3); Lymphocytes 3 % (20-51); Monocytes 3 % (2-9); Segmented Neutrophils 74 % (42-75)
[2024-11-29 11:13] LABS: Anisocytosis 1+; Atypical Lymphocytes 1 %; Hypochromasia 1+; Metamyelocytes 1 % (-); Normal RBC Morphology No; Ovalocytes 1+; Platelets Checked Yes; Polychromasia 1+
[2024-11-29 11:14] LABS: Total Cells Counted 100
--- NOTE | 2024-11-29 11:15 | VNURNOTE ---
Chart reviewed. [facility] Was sent to ER by [facility]N for concerns of infection, low grade temp. ER PA Derek Polanco updated w/VN's findings and concerns regarding pt's inability to care for self at home, lives alone, new
ostomy. CM consult pending. [facility] remains available and will follow POC and DC dispo plans.
--- NOTE | 2024-11-29 12:58 | CM ---
Patient with Hx colon cancer s/p recent colectomy w colostomy who presented with fever, weakness and inability to care for self at home. PT Gagan recommends acute rehab.
Met with patient and his friend Cirilo and spoke with Inga Anderson, friend in [place]/sister of patient's MONIKA Mathis;
the patient resides alone in a 2 story house with his 13 yr old son Oscar, with 4 BLAIR and 15 stairs up to 2nd floor bedroom.
The patient had been independent in ADLs and ambulation until prior admission with surgery.
When discharged at prior admission, patient was so weak he had to be carried upstairs at home by his friend Cirilo.
He has required assistance with ADLs and was essentially bedbound and friend Cirilo was helping him.
Patient was receiving assistance of [facility] nurse for colostomy care and patient states he has not changed the ostomy bag by himself.
DME - RW, rollator, ostomy supplies
Current with [facility] for SN/PT/OT/SW
No prior SNF or AR
PCP - Christine Brown
Pharmacy - [facility]
Patient would like acute rehab and he prefers [facility] however is receptive to other [place] locations like [facility] or [facility]. If unable to get approval for acute rehab patient is receptive to local SNFs with good ratings.
The patient's about 6 yrs ago.
The patient's 13 yr old son is currently being cared for by his inlaws from [place], and they are unable to assist the patient with his care.
The patient has a collage age son who is away at school.
The friend Cirilo needs to leave today to go to a in [place] tomorrow then will return home to [place]. He is able to return in 2 wks for when the patient gets discharged from rehab.
Inga shares that the MONIKA Mathis had been reunited with the patient about 2 years ago. She had an emotional breakdown while caring for Edward at home after recent discharge, and was taken to [place] to be with her family, seen in an ED there and will
be needing inpatient treatment, so is not available to support the patient (she can be left on the chart as next of kin contact only).
Case discussed with Derek WILKINS, ED Nurse Kalani Gastelum, [facility] Nurses Lisbeth and Nikia.
Spoke with [facility] Liaison; they will consider the patient and he will need OT Eval & Physiatry Consult. They do not currently have an available bed. Referral placed. Per Siddharth, please wait for Air Analyst to see patient before
requesting approval from insurance.
Message to Dr Green requesting OT Eval & Physiatry Consult.
Plan follow up after Physiatry Eval completed.
--- NOTE | 2024-11-29 13:00 | HPS.HSE ---
Family Physician
-
Family Physician: Rayo Rose
Chief Complaint
-
generalized weakness, chills
History of Present Illness
Mr. Rashid Lund is a 59 yo man with hx paroxysmal afib, metastatic rectal CA with recent admission 11/07-11/24/24 for large bowel obstruction s/p transverse loop colostomy creation presents to the ER today with weakness. VN measured vitals
yesterday evening with T 99.5. No T > 100.4. Patient reports intermittent chills.
He denies headache. No chest pain or shortness of breath. He is eating and drinking well. Normal colostomy output - not black or bloody. No significant abdominal pain, some incisional discomfort. bilateral LE swelling since surgery.
Medical History
Past Medical History
Past Medical History: Reports Other
Additional Past Medical History:
Arrhythmia (Paroxysmal atrial fibrillation) and Cancer (Rectal cancer status post resection)
Past Surgical History: Reports Other
Additional Past Surgical History:
Bowel Resection
Social History
Tobacco: Non-smoker
Alcohol: None
Drug: None
Personal:
Living: With Family
Family History
Family History: Not pertinent
Allergies / Home Medications
Allergies reflects when Allergies were last updated in [facility].
Home Medications with original date entered in [facility]
Allergy/Medication List:
Allergies
Allergy/AdvReac Type Severity Reaction Status Date / Time
No Known Allergies Allergy Verified 11/29/24 09:19
Home Medications
metoprolol tartrate 25 mg tablet 25 mg PO HS Blood Pressure 12/27/23
prednisone 20 mg tablet 20 mg PO DIRECTED Autoimmune Disorder 11/07/24
simethicone 80 mg chewable tablet 80 mg PO TIDPRN PRN gas pains 11/07/24
polyethylene glycol 3350 17 gram oral powder packet 17 g PO DAILY #30 ea 11/22/24
ergocalciferol (vitamin D2) 1,250 mcg (50,000 unit) capsule (Vitamin D2) 1,250 mcg PO FR #10 caps 11/23/24
omeprazole 20 mg capsule,delayed release 20 mg PO DAILY 11/29/24
oxycodone 5 mg tablet 5 mg PO Q6HPRN PRN severe Pain 11/29/24
tramadol 50 mg tablet 50 mg PO Q4HPRN PRN moderate pains 11/29/24
][
Review of Systems
-
History Source: Patient
A 12 point ROS was completed and negative except as noted: Yes
Physical Exam
Vital Signs
Vital Signs
Temp Pulse Resp BP Pulse Ox
98.2 F 107 25 112/78 97
11/29/24 09:19 11/29/24 12:34 11/29/24 12:34 11/29/24 12:34 11/29/24 12:34
Physical Exam
General: No Apparent Distress and Comfortable
HEENT: PERRLA
Respiratory: Clear; No Wheezes
Cardiac: S1/S2 and Regular Rhythm
GI: Soft, Non Tender, Non Distended and Other (incision c/d/i with kenny still in place )
Musculoskeletal: Other (2+ bilateral ankle edema )
Skin: Warm and Dry; No Rash
Neuro: AO x 3
Psych: Calm
Laboratory Results
-
11/29/24 09:47
11/29/24 09:48
Laboratory Results
Lactic Acid 2.0 mmol/L (0.7-2.0) 11/29/24 09:50
Total Bilirubin 0.6 mg/dl (0.2-1.3) 11/29/24 09:48
AST 36 U/L (17-59) 11/29/24 09:48
ALT 42 U/L (0-50) 11/29/24 09:48
Alkaline Phosphatase 433 U/L (38-126) H 11/29/24 09:48
Data Reviewed
-
Diagnostic Radiology: Report Reviewed by me
Lab Data: Labs Reviewed by me
Impression/Plan
-
Mr. Rashid Lund is a 59 yo man with hx paroxysmal afib, metastatic rectal CA with recent admission 11/07-11/24/24 for large bowel obstruction s/p transverse loop colostomy creation presents to the ER today with weakness. Per home VN patient is not
able to care for himself at home.
Triage VS: T 98.2, P 107, RR 25, BP 112/78, SpO2 97%
LABS: WBC 7.3, Hg 8.1, PLT 301, Na 134, K+ 3.6, Cr 0.5, Glucose 198, Ca 8.0, Lactate 2.0, T. Bili 0.6, AST 36, ALT 42, Alk Phos 433
Flu and Covid negative
CXR
IMPRESSION:
1. Hazy opacity within the left lower lobe, which may represent subsegmental atelectasis or pneumonia.
2. Pulmonary nodules measuring up to 9 mm in diameter. Patient has known pulmonary metastasis, as seen on prior PET/CT dated 06/21/2024
Weakness/Deconditioning post-op and prolonged hospital stay
-admit to observation, med/surg
-no auth or bed today
-PT/OT/Physiatry consult
-appreciate CM efforts
Metastatic Rectal CA
recent admission 11/07-11/24/24 for large bowel obstruction s/p transverse loop colostomy
-TT'd CRS to make them aware of admission, removal of kenny while here
-COMMUNITY LEADER pain control
paroxysmal Afib
-COMMUNITY LEADER Metoprolol
GERD - COMMUNITY LEADER PPI
DVT PPx Lovenox subQ
FULL CODE
[2024-11-29 14:14] LABS: Magnesium 1.9 mg/dl (1.6-2.3); Phosphorus 2.8 mg/dl (2.5-4.5)
[2024-11-29 15:04] LABS: Urine Albumin 2+ (Neg - Trace); Urine Bilirubin Negative (Negative); Urine Character Clear (Clear); Urine Color Yellow; Urine Glucose 2+ (Negative); Urine Ketone Negative (Negative); Urine Leukocyte Negative (Negative); Urine Nitrite Negative (Negative); Urine Occult Blood Negative (Negative); Urine Specific Gravity 1.015 (<1.030); Urine Urobilinogen 1+ (Neg - 1+); Urine pH 6.5 (5.0-9.0)
[2024-11-29 15:15] LABS: TSH Reflex To Free T4 0.79 uIU/ml (0.47-4.68)
[2024-11-29 15:18] LABS: Urine Bacteria Few (Negative); Urine Squamous Cell 0-2 /LPF (Few)
[2024-11-29 15:19] LABS: Urine Red Blood Cell 0-2 /HPF (0-2)
[2024-11-29 15:34] LABS: Vitamin B12 > 1000 pg/ml (239-931)
[2024-11-29] MEDS: LOPRESSOR 25 MG PO (20:58)
[2024-11-29] MEDS: LOVENOX 40 MG SC (20:58)
[2024-11-29] MEDS: FLUSH (NSS) 1 FLUSH IV (21:11)
[2024-11-29] MEDS: ULTRAM 50 MG PO (21:22)
--- NOTE | 2024-11-29 22:56 | W.PN.UPDATE ---
Update Note
Progress Note Update
Received critical value:
Blood Culture Preliminary 11/29/24
Positive culture in progress
Gram stain of anaerobic blood culture bottle reveals
Gram Negative Bacilli
Patient vital signs stable, afebrile. Ordered repeat blood cultures.
--- NOTE | 2024-11-30 00:14 | PTCARENOTE ---
Patient received from ED via stretcher and ambulated to room with assist x 2. He was oriented to room and surroundings. See nursing assessment for physical findings. Critical BC reported to CHAIRMAN AND CHIEF EXECUTIVE OFFICER covering house. Repeat BC sent
[2024-11-30 07:00] VITALS: BP 116/73
--- NOTE | 2024-11-30 07:17 | W.PN.HOSP.TC ---
Today's Communication/Plan
-
Continue Merrem
Assessment / Plan
Assessment / Plan
Physical Exam
General: No Apparent Distress and Comfortable
HEENT: PERRLA
Respiratory: Clear; No Wheezes
Cardiac: S1/S2 and Regular Rhythm
GI: Soft, Non Tender, Non Distended and Other (incision c/d/i with kenny still in place )
Musculoskeletal: Other (2+ bilateral ankle edema )
Skin: Warm and Dry; No Rash
Neuro: AO x 3
Psych: Calm
Assessment/Plan
59 y/o male with past medical history of paroxysmal afib, metastatic rectal CA with recent admission 11/07-11/24/24 for large bowel obstruction s/p transverse loop colostomy creation presented with weakness. Patient reported intermittent chills.
At the time of admission: He denied headache, chest pain, shortness of breath. He reported that he is eating and drinking well. Normal colostomy output - not black or bloody. No significant abdominal pain, some incisional discomfort. Bilateral LE
swelling since surgery.
Per home VN patient is not able to care for himself at home.
Triage VS: T 98.2, P 107, RR 25, BP 112/78, SpO2 97%
LABS: WBC 7.3, Hg 8.1, PLT 301, Na 134, K+ 3.6, Cr 0.5, Glucose 198, Ca 8.0, Lactate 2.0, T. Bili 0.6, AST 36, ALT 42, Alk Phos 433
Flu and Covid negative
CXR
IMPRESSION:
1. Hazy opacity within the left lower lobe, which may represent subsegmental atelectasis or pneumonia.
2. Pulmonary nodules measuring up to 9 mm in diameter. Patient has known pulmonary metastasis, as seen on prior PET/CT dated 06/21/2024
Weakness/Deconditioning post-op and prolonged hospital stay
-admit to observation, med/surg
-no auth or bed today
-PT/OT/Physiatry consult
-appreciate CM efforts
ESBL E. Coli Bacteremia
-Repeat blood cultures ordered
-Meropenem
-CT Abd/Pelv
-Appreciate ID
Metastatic Rectal CA
recent admission 11/07-11/24/24 for large bowel obstruction s/p transverse loop colostomy
-Dr. Green TT'd CRS to make them aware of admission, removal of kenny while here
-CUSTOMER SERVICE ADMINISTRATOR pain control
paroxysmal Afib
-CUSTOMER SERVICE ADMINISTRATOR Metoprolol
Bilateral LE swelling since recent surgery (above)
-From low albumin
-Lower extremity DVT ultrasound with no DVT on either side
GERD - CUSTOMER SERVICE ADMINISTRATOR PPI
DVT Prophylaxis: Lovenox subQ
FULL CODE
Anticipated Discharge: > 48 hours
Subjective/Interval History
-
Date of Service: November 30, 2024
Patient was seen and examined. He reported no new symptoms, still generalized weakness.
Objective Data
-
Labs:
Laboratory Results
11/30/24
06:00
WBC Pending
Hgb Pending
Hct Pending
Plt Count Pending
Sodium Pending
Potassium Pending
Chloride Pending
Carbon Dioxide Pending
BUN Pending
Creatinine Pending
Glucose Pending
Calcium Pending
Vital Signs:
Vital Signs
Temp Pulse Resp BP Pulse Ox
98.7 F 101 18 98/69 97
11/29/24 23:28 11/29/24 23:28 11/29/24 23:28 11/29/24 23:28 11/29/24 23:28
I&O
11/29/24 11/30/24 12/01/24
06:59 06:59 06:59
Intake Total 120 / 120
Output Total 350 / 350
Balance -230 / -230
[2024-11-30] MEDS: MIRALAX 17 GRAMS PO (07:32)
[2024-11-30] MEDS: PROTONIX 40 MG PO (07:32)
[2024-11-30] MEDS: ZOSYN 50 IV (07:32)
[2024-11-30 08:00] VITALS: BMI 20.7
[2024-11-30 08:20] LABS: Hematocrit 23.2 % (39.0-52.0); Hemoglobin 7.4 g/dL (13.0-18.0); Mean Corp Hgb Conc. 31.9 g/dL (33.0-37.0); Mean Corpuscular Hgb 27.8 pg (27.0-31.0); Mean Corpuscular Volume 87.2 fL (80.0-94.0); Mean Platelet Volume 10.2 fL (7.4-10.4); Platelet Count 274 10^3/uL (130-400); Red Blood Cell Count 2.66 10^6/uL (4.70-6.10); Red Cell Dist. Width 18.4 % (11.5-14.5); White Blood Cell Count 8.1 10^3/uL (4.8-10.8)
[2024-11-30 08:46] LABS: Blood Urea Nitrogen 10 mg/dl (9-20); Calcium 7.5 mg/dl (8.4-10.2); Carbon Dioxide 22 mmol/L (22-30); Chloride 100 mmol/L (98-107); Estimated Creatinine Clearance 108 ml/min; Glucose 141 mg/dl (70-99); Magnesium 1.8 mg/dl (1.6-2.3); Potassium 3.2 mmol/L (3.5-5.1); Sodium 130 mmol/L (135-145); eGFR > 60.00
--- NOTE | 2024-11-30 09:36 | CON.MD ---
Consultation - Medical
-
Referring Provider:�Dr. Mariana Green
Chief Complaint:�Debility
�
History of Present Illness:�59-year-old male with PMH (as below) presented to [facility] on 11/29/2024 with generalized weakness and inability to care for himself at home. He was recently admitted 11/07 - 11/24 with a large bowel obstruction
status post transverse loop colostomy creation. He had intermittent chills with a low-grade temperature. He is able to manage his ostomy output but not able to change the device at home. He has been eating and drinking at home. Feels generally
weak and has trouble getting up. His home therapist felt that he should go to a rehab program given his current state. Otherwise feeling okay at this time with no new concerns. Noted with positive blood cultures with E.Coli ESBL.
�
Past Medical History:�Paroxysmal atrial fibrillation, rectal cancer status post resection,
Procedure History:�rectal cancer resection
Family History:�
�
Social History:�
Functional Level Premorbidly:�Independent with all activities�
Functional Level Currently:�Min assist transfers and ambulating 60 feet with rolling walker. Min assist bed mobility.
�
Tobacco:�Denies�
Alcohol:�Denies�
Drug use:�Denies�
�
Lives with:�13-year-old son who is not being cared by family at this time.
24-hour assistance available:�No
Number of floors:�2
# steps to enter:�2�3
# steps to second floor: Full flight
Potential First floor set up:�No
Driving:�Was prior to this last surgery
Occupation:�Working prior to surgery
�
�
Allergies:�
Allergy/AdvReac Type Severity Reaction Status Date / Time
No Known Allergies Allergy Verified 11/29/24 09:19
Review of Systems:�
Constitutional: (x) abNormal _General Fatigue
Eye: (x) Normal _
Ear/Nose/Throat: (x) Normal _
Respiratory: (x) Normal _
Cardiovascular: (x) Normal _
Gastrointestinal: (x) Normal _ostomy with good output, no abdominal pain
Genitourinary: (x) Normal _voiding well
Musculoskeletal: (x) abNormal _General Weakness
Integumentary: (x) Normal _
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
Psychiatric: (x) Normal _
Endocrine: (x) Normal _
Hematologic/Lymphatic: (x) Normal _
Allergic/Immunologic: (x) Normal _
�
Medications:�
Active Current Visit Medication List
Category Date Time Status
Acetaminophen [Tylenol] Med 11/29/24 18:09 Active
650 mg PO Q4HPRN PRN
Enoxaparin Sodium [Lovenox] Med 11/29/24 18:09 Active
40 mg SC QPM
Flush (0.9% Sodium Chloride) [Flush (Nss)] Med 11/29/24 20:00 Active
See Dose Instructions IV PER PROTOCOL
Meropenem [Merrem] Med 11/30/24 12:00 Active
1,000 mg IV Q8H
Metoprolol [Lopressor] Med 11/29/24 22:00 Active
25 mg PO HS
Oxycodone [Roxicodone] Med 11/29/24 18:09 Active
5 mg PO Q6HPRN PRN
Pantoprazole [Protonix] Med 11/30/24 08:00 Active
40 mg PO DAILY
Polyethylene Glycol Powder [Miralax] Med 11/30/24 08:00 Active
17 grams PO DAILY
Polyethylene Glycol Powder [Miralax] Med 11/29/24 18:09 Active
17 grams PO DAILYPRN PRN
Simethicone [Mylicon] Med 11/29/24 18:09 Active
80 mg PO TIDPRN PRN
Sterile Water [Sterile Water For Injection] Med 11/30/24 12:00 Active
20 ml IV Q8H
Tramadol HCl [Ultram] Med 11/29/24 18:09 Active
50 mg PO Q4HPRN PRN
�
Vitals:�
Temp Pulse Resp BP Pulse Ox
98.4 F 106 21 116/73 97
11/30/24 07:00 11/30/24 07:00 11/30/24 07:00 11/30/24 07:00 11/30/24 07:00
Height 5 ft 6 in
Actual Weight 58.06 kg
Body Mass Index (BMI) 20.7
�
Physical Exam:�
General Appearance/Observation: Thin male with diffuse atrophy of muscles in no apparent distress.�
Pain/Comfort Assessment: Denies�
Mood/Affect: Flat, fatigued
�
Integumentary/Operative Site:�
�� Pressure Ulcer Evaluation: absent over heels.�
�
Eyes: Conjunctiva/Lids: normal���� Pupils: pupils equal round and reactive to light and Accommodation�
Ears/Nose/Throat: oral mucosa moist,� throat clear.������������ Lips/Teeth/Gums: normal�ess�
Cardiovascular: Heart: regular, no murmur�
Pulses: dorsalis pedis 2+ bilaterally�
Respiratory: Respiratory Effort/Chest Expansion: normal������� Auscultation: Clear to auscultation bilaterally�
Gastrointestinal: abdomen not tender, no distension, normal abdominal bowel sounds, ostomy intact with good output
Genitourinary: No Gonsales�
Rectal Exam: Deferred�
Extremities:�Edema: None�Cyanosis: None�Trophic�changes: Both shins
�
Neurology Exam:
Orientation: Alert, Oriented to self, Time, Place�
Memory: Intact for recent medical concerns
Comprehension: Intact
Two step command: Intact
Cranial Nerves:
�� CNII:�Pupillary light reflex: Intact����Visual Field: Intact
�� CN III, IV, : Extraocular muscles: Intact�
�� CN V:�Facial Sensation�at�Forehead: Intact,�Maxilla: Intact,�Mandible: Intact
�� CN VII:�Facial movement: Symmetric
�� CN VIII:�Hearing: Normal
�� CN IX/X:�Speech & swallow: Normal,�Position of Uvula: Midline
�� CN XI:�Shoulder shrug: Symmetric
�� CN XII:�Tongue protrusion: Midline
Sensory:
�� Light touch: Intact in bilateral upper and lower extremities
Reflexes:
�� Biceps: 2+ bilaterally
�� Brachioradialis: 2+ bilaterally
�� Triceps: 2+ bilaterally
�� Patellar: 2+ bilaterally
�� Achilles: 0 bilaterally
�� Babinski: Down going bilaterally
�� Clonus: None
�� Christy: Negative bilaterally�
Cerebellar: Dysmetria/Ataxia: None�
Musculoskeletal: Motor: (Manual muscle scale 0-5)�
Muscle SA EF WE EE FF FA HF KE DF EHL PF
Right� 3+ 4 4 3+ 4 4 2 4 4 4 4
Left 3+ 4 4 3+ 4 4 2 4 4 4 4
�
Tone: Normal in all extremities�
Range of Motion: Passively within normal limits in all extremities�
�
Lab Results
Laboratory Data
11/30/24 08:08
11/30/24 08:08
Total Bilirubin 0.6 mg/dl (0.2-1.3) 11/29/24 09:48
AST 36 U/L (17-59) 11/29/24 09:48
ALT 42 U/L (0-50) 11/29/24 09:48
Alkaline Phosphatase 433 U/L (38-126) H 11/29/24 09:48
Total Protein 5.0 g/dl (6.3-8.2) L 11/29/24 09:48
Albumin 2.2 g/dl (3.5-5.0) L 11/29/24 09:48
�
Diagnostic Results:�as per HPI�
�
Assessment
59 y/o right-handed M PMH (Paroxysmal atrial fibrillation, rectal cancer status post resection�) with 11/29/2024 with generalized weakness and inability to care for himself at home with positive blood cultures for E. coli ESBL resulting in ADL and
ambulatory dysfunction.
Plan�
PM&R�PT/OT to increase independence with ADLs, improve balance, coordination, endurance, strength, mobility, community reintegration, decreased burden of care on others and family education.�
�
Debility: Likely related to chemotherapy and recent abdominal surgery with colostomy and now with positive blood cultures and recent low-grade fever. Continue infectious disease and medical workup. Started on antibiotics.
Large bowel obstruction status post transverse loop colostomy creation: Follow-up with surgery
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
Anemia: Likely multifactorial, 7.4 from 8.1, monitor closely further workup per medical team.
Skin: monitor for pressure sores/rashes/lesions.�
Pain: acetaminophen as needed.�
Bowel: Getting MiraLAX daily, monitor output
DVT Prophylaxis: Mechanical Lovenox
Pulmonary: Incentive spirometry�
Safety: Continue to reinforce assistance with all transfers.�
Code Status:� Full code
Dispo�(date/plan/equipment needs): Home with family care.� Social history reviewed.�
Functional and Medical Goals:�Modified Independent with ADL�s, ambulation, transfers�
Discharge Destination:�To be further determined. At this point will likely benefit from acute inpatient rehabilitation program. Will depend on how much better he does when treated for possible bacteremia.
-A total of 60 minutes were spent with the patient preparing for the evaluation, obtaining history, performing examination and evaluation, counseling, data review, case management, care coordination, order builder loader, and EMR documentation.
--- NOTE | 2024-11-30 12:31 | CM ---
Addendum entered by Donte Welsh 11/30/24 15:33:
Per UR CM, pt is upgraded to inpatient level of care. Pt is aware.
Original Note:
CM following re: discharge planning.
reviewed pt's chart, met with pt.
Pt reports he lives with 13 year old son and pt's in-law are taking care of pt's son while pt hospitalized. Pt reports his spouse . Emotional support offered and provided.
PT, OT and PM&R evaluations noted - acute rehab level of care recommended. Pt is aware and he stated he requested [facility] yesterday. A referral to [facility] noted. CM spoke to [facility] caseworker and she confirmed that pt will
be accepted when medically stable
D/C plan: [facility].
CM will follow to assist pt with discharge to [facility].
[2024-11-30] MEDS: ROXICODONE 5 MG PO (12:51)
[2024-11-30] MEDS: KCL 40 MEQ PO (12:51)
[2024-11-30] MEDS: TYLENOL 650 MG PO (12:52)
[2024-11-30] MEDS: MERREM 1000 MG IV ×2 (12:52→20:35)
[2024-11-30] MEDS: STERILE WATER FOR INJECTION 20 ML IV ×2 (12:52→20:36)
--- NOTE | 2024-11-30 13:08 | WOUNDNOTE ---
WO RN note: Patient admitted with weakness. Plan is rehab when discharged. Patient was current with VN.
See H&P for complete history.
PMH: a fib, metastatic rectal ca, admission 11/07-11/23/24 for large bowel obstruction s/p transverse loop colostomy.
Wound Location and type/assessment: Patient admitted with: L buttocks and coccyx crease denuded skin d/t moisture from rectal drainage. Peristomal skin red d/t moisture. Distal mucocutaneous separation noted suspect may be related to stoma bridge.
Appetite: on a regular diet. Patient very thin.
Pressure redistribution devices in place: Imaxio Accumax. Patient stood with walker for tatiana care.
Plan: Stoma bridge removed after confirming with Latrice Skinner, Colorectal PA. Colostomy appliance changed using Jonny wafer # [id number], Rc seal and Jonny pouch #[id number]. Ostomy supplies given. Barrier ointment applied to coccyx/buttocks
tatiana skin. [place] Stewart was in during care and gave patient an air chair cushion.
Care plan to be updated and will follow as needed.
--- NOTE | 2024-11-30 14:46 | CON.ID ---
Consultation
-
Date/Time Consultation Requested: 11/30/24 14:19
Date/Time Consultation Performed: 11/30/24 14:47
Requesting Provider: Dr Gregorio
Performing Provider: Dr Almanza
Reason for Consultation: ESBL E. coli bacteremia
Chief Complaint / Past History
Chief Complaint
generalized weakness, chills
History of Present Illness
Mr Lund is a 59 year old male with metastatic rectal cancer s/p previous radiation with recent admission 11/07-11/24/24 for large bowel obstruction s/p uncomplicated transverse loop colostomy without evidence of bowel perforation 11/08/24 who
represented the the ER yesterday for weakness, intermittent chills. He denies headache, chest pain or shortness of breath. He is eating and drinking well. Reports normal colostomy output - not black or bloody. No significant abdominal pain, some
incisional discomfort. bilateral LE swelling since surgery. Reports that port can be used to insert medication but does not allow for blood draws recently.
Since arrival here Tmax is 100.4 orally, bp stable, wbc count initially 7.3 now 8.1, hgb 7.4, plt 274, L shift is noted, Na 134, cr 0.5, lactic acid 2.0, t bili 0.6, ast 36, alt 42, alk phos 433, ua negative, 11/29 peripheral vasc US: no dvt, CXR:
hazy opacity LLL most likely atelectasis, pulm nodules, no prior history of bacteremia here, one of two sets of blood cultures from arrival here with ESBL E coli, the positive set was from the R AC fossa, two repeat sets are in progress, currently
on meropenem. ID is consulted for assistance with management.
Past History
Additional Past Medical History:
Arrhythmia (Paroxysmal atrial fibrillation) and Cancer (Rectal cancer status post resection)
Additional Past Surgical History:
Port
Bowel Resection
Allergy History:
No Known Allergies Allergy (Verified 11/29/24 09:19)
Medications Reviewed: Yes
Social History
Tobacco: Non-Smoker
Alcohol: None
Drug: None
Family History
Family History: Not Pertinent
Review of Systems
Review of Systems
General: Negative Fever or Chills
All systems: All other systems were reviewed and were negative
Vital Signs
Temp Pulse Resp BP Pulse Ox
98.4 F 106 21 116/73 97
11/30/24 07:00 11/30/24 07:00 11/30/24 07:00 11/30/24 07:00 11/30/24 07:00
Physical Exam
Physical Exam
Constitutional: No Acute Distress
Cardiovascular: Regular Rate and S1/S2; Negative Murmur or Rub
Pulmonary: Clear and Symmetric; Negative Wheezes, Rales or Rhonchi
Gastrointestinal: Soft, Tender, Non Distended and Normal Bowel Sounds
Skin: Warm and Dry; Negative Rash or Jaundice
Wound: Other (surgical site well approximated, no erythema, warmth or drainage )
Lines: Port (not accessed- no erythema, warmth or tenderness)
Lab / Diagnostic Study Results
11/30/24 08:08
11/30/24 08:08
Total Counted 100 11/29/24 09:47
Abs Neuts (Manual) 6.7 10^3/uL (1.4-6.5) H 11/29/24 09:47
Segmented Neutrophils 74 % (42-75) 11/29/24 09:47
Band Neutrophils 18 % (0-3) H 11/29/24 09:47
Lymphocytes (Manual) 3 % (20-51) L 11/29/24 09:47
Lactic Acid 2.0 mmol/L (0.7-2.0) 11/29/24 09:50
Ur Squamous Epith Cells 0-2 /LPF (Few) 11/29/24 14:36
Microbiology Results
Micro:
11/29/24 09:47 Blood Culture - Preliminary
Blood/Venous Escherichia coli - ESBL
Gram Stain - Preliminary
11/29/24 09:50 Blood Culture - Preliminary
Blood/Venous No Growth in 24 hours- Final report to follow
11/30/24 08:08 Blood Culture - Pending
Blood/Venous
11/30/24 00:04 Blood Culture - Pending
Blood/Venous
11/29/24 09:46 Influenza Types A & B (LUCIA) - Final
Nasal Swab Negative for Influenza A & B, NAAT
Negative results must be combined with clinical observations
and patient history.
Nucleic Acid Amplification test (NAAT)performed on the
[employer] platform.
Assessment / Plan
ESBL E coli bacteremia
Port - L chest wall
Most likely atelectasis, less likely pneumonia
11/08 s/p colostomy creation - no complications or known perforation
- repeat blood cultures x2 are in progress
- the positive culture was from the AC fossa
- CT a/p with IV and oral contrast
- CXR most likely atelectasis, less likely pneumonia
- sputum culture if able to obtain one
- ua without pyuria
- agree with meropenem
- contact precautions given ESBL isolate
- follow clinically
workup required interpretation of blood cultures, infection control strategies
[2024-11-30 15:00] VITALS: BP 109/76
[2024-11-30] MEDS: OMNIPAQUE 50 ML PO (16:34)
[2024-11-30] MEDS: ULTRAM 50 MG PO ×2 (17:59→23:50)
[2024-11-30] MEDS: LOVENOX 40 MG SC (18:08)
[2024-11-30] MEDS: FLUSH (NSS) 1 FLUSH IV (20:38)
[2024-11-30 22:45] VITALS: BP 105/71
[2024-11-30] MEDS: LOPRESSOR 25 MG PO (23:47)
[2024-12-01] VITALS (8 sets, daily range): BP systolic 97–125; BP diastolic 66–83
[2024-12-01 00:28] LABS: Hematocrit 21.4 % (39.0-52.0); Hemoglobin 6.9 g/dL (13.0-18.0)
--- NOTE | 2024-12-01 00:52 | W.PN.UPDATE ---
Update Note
Progress Note Update
Critical value received: Hgb 6.9, Discussed need for blood transfusion with patient, reviewed benefits and risks, patient verbalized understanding. Written consent obtained from patient, in chart. Ordered type and screen, 1 unit PRBC's to be
transfused now.
--- NOTE | 2024-12-01 03:42 | PTCARENOTE ---
Pt. received one unit PRBC's for hgb 6.9.
[2024-12-01] MEDS: MERREM 1000 MG IV ×3 (06:29→21:04)
[2024-12-01] MEDS: STERILE WATER FOR INJECTION 20 ML IV ×3 (06:29→21:04)
--- NOTE | 2024-12-01 08:07 | W.PN.HOSP.TC ---
Today's Communication/Plan
-
Polymicrobial Bacteremia with collections in the abdomen
See plan
Assessment / Plan
Assessment / Plan
Physical Exam
General: No Apparent Distress and Comfortable
HEENT: PERRLA
Respiratory: Clear; No Wheezes
Cardiac: S1/S2 and Regular Rhythm
GI: Soft, Non Tender, Non Distended and Other (incision c/d/i with kenny still in place )
Musculoskeletal: Other (2+ bilateral ankle edema )
Skin: Warm and Dry; No Rash
Neuro: AO x 3
Psych: Calm
Assessment/Plan
59 y/o male with past medical history of paroxysmal afib, metastatic rectal CA with recent admission 11/07-11/24/24 for large bowel obstruction s/p transverse loop colostomy creation presented with weakness. Patient reported intermittent chills.
At the time of admission: He denied headache, chest pain, shortness of breath. He reported that he is eating and drinking well. Normal colostomy output - not black or bloody. No significant abdominal pain, some incisional discomfort. Bilateral LE
swelling since surgery.
Per home VN patient is not able to care for himself at home.
Triage VS: T 98.2, P 107, RR 25, BP 112/78, SpO2 97%
LABS: WBC 7.3, Hg 8.1, PLT 301, Na 134, K+ 3.6, Cr 0.5, Glucose 198, Ca 8.0, Lactate 2.0, T. Bili 0.6, AST 36, ALT 42, Alk Phos 433
Flu and Covid negative
CXR
IMPRESSION:
1. Hazy opacity within the left lower lobe, which may represent subsegmental atelectasis or pneumonia.
2. Pulmonary nodules measuring up to 9 mm in diameter. Patient has known pulmonary metastasis, as seen on prior PET/CT dated 06/21/2024
Weakness/Deconditioning post-op and prolonged hospital stay
-admit to observation, med/surg
-no auth or bed today
-PT/OT/Physiatry consult
-appreciate CM efforts
Polymicrobial Bacteremia: ESBL E. Coli Bacteremia and Staph Aureus
-Repeat blood cultures ordered
-Continue Meropenem. Vancomycin added on 12/01/24 given Staph in repeat (2nd set) of blood cultures.
-3rd set of blood cultures ordered on 12/01/24 -- follow
-CT Abd/Pelv with numerous peripherally enhancing fluid collections in the abdomen which measure up to 7.5 x 3.9 cm in the lower anterior abdomen; the collection in the right lower quadrant contains a small focus of gas as
well as hyperdense contents posteriorly suspicious for oral contrast in the setting of small leak, likely colitis,
-Appreciate ID
-Surgery consulted given the CT imaging findings above --> surgery recommended IR consult for aspiration (or drainage) of the collections
Metastatic Rectal CA
recent admission 11/07-11/24/24 for large bowel obstruction s/p transverse loop colostomy (taken to the OR 11/[address] Acosta for Transverse loop colostomy creation due to large bowel obstruction)
-Dr. Green TT'd CRS to make them aware of admission, removal of kenny while here
-SENIOR ACCOUNTANT CPA pain control
Normocytic Anemia
-Hgb dropped to 6.9 on 12/01/24 morning
-Patient received 1 unit PRBC on 12/01/24 with good improvement in Hgb
-Stool occult was heme positive on 12/01/24 -- discussed with surgery team and they mentioned this not unexpected given patient's rectal cancer
-No shaun blood in ostomy bag, but patient did report dark colored output from his anus (not ostomy bag where stool is palomo colored)
-Not really concerned about upper GI bleed at this time
-Continue PPI
paroxysmal Afib
-SENIOR ACCOUNTANT CPA Metoprolol
Bilateral LE swelling since recent surgery (above)
-From low albumin
-Lower extremity DVT ultrasound with no DVT on either side
GERD - SENIOR ACCOUNTANT CPA PPI
DVT Prophylaxis: Lovenox subQ
Code Status: FULL CODE
Anticipated Discharge: > 48 hours
Subjective/Interval History
-
Date of Service: December 01, 2024
Patient was seen and examined. Overnight, his Hgb dropped to 6.9, PRBC ordered, stool occult form colostomy bag was positive. He denied any new symptoms or complaints.
Objective Data
-
Labs:
Laboratory Results
12/01/24 12/01/24
00:06 07:17
WBC Pending
Hgb 6.9 L* Pending
Hct 21.4 L Pending
Plt Count Pending
Sodium Pending
Potassium Pending
Chloride Pending
Carbon Dioxide Pending
BUN Pending
Creatinine Pending
Glucose Pending
Calcium Pending
Vital Signs:
Vital Signs
Temp Pulse Resp BP Pulse Ox
97.8 F 89 18 107/66 97
12/01/24 07:00 12/01/24 07:00 12/01/24 07:00 12/01/24 07:00 12/01/24 07:00
I&O
11/30/24 12/01/24 12/02/24
06:59 06:59 06:59
Intake Total 120 / 120 1940 / 1940
Output Total 350 / 350 1075 / 1075
Balance -230 / -230 865 / 865
[2024-12-01 08:34] LABS: Blood Urea Nitrogen 7 mg/dl (9-20); Calcium 7.6 mg/dl (8.4-10.2); Carbon Dioxide 26 mmol/L (22-30); Chloride 102 mmol/L (98-107); Estimated Creatinine Clearance 108 ml/min; Glucose 148 mg/dl (70-99); Magnesium 1.8 mg/dl (1.6-2.3); Potassium 3.4 mmol/L (3.5-5.1); Sodium 131 mmol/L (135-145); eGFR > 60.00
[2024-12-01] MEDS: PROTONIX 40 MG PO (09:07)
[2024-12-01] MEDS: MIRALAX 17 GRAMS PO (09:08)
[2024-12-01 09:31] LABS: Hematocrit 27.9 % (39.0-52.0); Hemoglobin 8.9 g/dL (13.0-18.0); Mean Corp Hgb Conc. 31.9 g/dL (33.0-37.0); Mean Corpuscular Hgb 27.9 pg (27.0-31.0); Mean Corpuscular Volume 87.5 fL (80.0-94.0); Mean Platelet Volume 10.3 fL (7.4-10.4); Platelet Count 252 10^3/uL (130-400); Red Blood Cell Count 3.19 10^6/uL (4.70-6.10); Red Cell Dist. Width 17.5 % (11.5-14.5); White Blood Cell Count 7.7 10^3/uL (4.8-10.8)
[2024-12-01 10:46] LABS: Anisocytosis 1+; Band Neutrophils 15 % (0-3); Hypochromasia Slight; Lymphocytes 8 % (20-51); Myelocytes 1 % (-); Normal RBC Morphology No; Platelets Checked Yes; Polychromasia Slight; Segmented Neutrophils 76 % (42-75); Total Cells Counted 100
--- NOTE | 2024-12-01 10:57 | W.PN.ID1 ---
Date of Service
Date of Service: December 01, 2024
Today's Communication
- repeat blood cultures x2 today
- blood cultures notable for ESBL E coli and a gram positive
- CT a/p with IV and oral contrast reviewed - notable for multiple intraabdominal collections, possible contrast extravasation
- continue meropenem
- add vancomycin after repeat blood cultures are obtained
- appreciate colorectal surgery input
Assessment / Plan
Polymicrobial Bacteremia: ESBL E coli and gram positive
Multiple Intraabdominal
Port - L chest wall
Most likely atelectasis, less likely pneumonia
11/08 s/p colostomy creation - no complications or known perforation
Metastatic rectal cancer
- repeat blood cultures x2 today
- blood cultures notable for ESBL E coli and a gram positive
- CT a/p with IV and oral contrast reviewed - notable for multiple intraabdominal collections, possible contrast extravasation
- continue meropenem
- add vancomycin after repeat blood cultures are obtained
- contact precautions given ESBL isolate
- consulted colorectal surgery
- follow clinically
workup required interpretation of blood cultures, coordination with interdisciplinary team
Chief Complaint
-: Bacteremia and Other (intraabdominal abscessses)
Subjective / Review of Systems
afebrile
bp stable
no events recorded overnight
I was not notified of the CT results
'I feel fine'
Vital Signs / Physical Exam
Vital Signs
Vital Signs
Temp Pulse Resp BP Pulse Ox
97.8 F 89 18 107/66 97
12/01/24 07:00 12/01/24 07:00 12/01/24 07:00 12/01/24 07:00 12/01/24 07:00
Physical Exam
Constitutional: No Acute Distress and Chronically Ill
Cardiovascular: Regular Rate and S1/S2; Negative Murmur or Rub
Pulmonary: Clear and Symmetric; Negative Wheezes or Rales
Gastrointestinal: Soft, Non Tender, Non Distended and Normal Bowel Sounds
Skin: Warm and Dry; Negative Rash or Jaundice
Objective Data
Lab Data
Lab Results
12/01/24 07:17
12/01/24 07:17
Estimated Creat Clear 108 ml/min 12/01/24 07:17
Lactic Acid 2.0 mmol/L (0.7-2.0) 11/29/24 09:50
Total Bilirubin 0.6 mg/dl (0.2-1.3) 11/29/24 09:48
AST 36 U/L (17-59) 11/29/24 09:48
ALT 42 U/L (0-50) 11/29/24 09:48
Alkaline Phosphatase 433 U/L (38-126) H 11/29/24 09:48
Most recent labs reviewed.
Micro Results:
11/29/24 09:47 Blood Culture - Preliminary
Blood/Venous Escherichia coli - ESBL
Gram Stain - Preliminary
11/30/24 08:08 Blood Culture - Preliminary
Blood/Venous Positive culture in progress
Gram Stain - Preliminary
11/29/24 09:50 Blood Culture - Preliminary
Blood/Venous No Growth in 48 hours- Final report to follow
11/30/24 00:04 Blood Culture - Preliminary
Blood/Venous No Growth in 24 hours- Final report to follow
11/29/24 09:46 Influenza Types A & B (LUCIA) - Final
Nasal Swab Negative for Influenza A & B, NAAT
Negative results must be combined with clinical observations
and patient history.
Nucleic Acid Amplification test (NAAT)performed on the
[employer] platform.
[2024-12-01 11:50] LABS: Urine Albumin 1+ (Neg - Trace); Urine Bilirubin Negative (Negative); Urine Character Clear (Clear); Urine Color Yellow; Urine Glucose Negative (Negative); Urine Ketone Negative (Negative); Urine Leukocyte Negative (Negative); Urine Nitrite Negative (Negative); Urine Occult Blood Negative (Negative); Urine Specific Gravity 1.015 (<1.030); Urine Urobilinogen 2+ (Neg - 1+)
[2024-12-01 11:56] LABS: Urine Red Blood Cell 0-2 /HPF (0-2); Urine Squamous Cell 0-2 /LPF (Few); Urine White Cell 0-2 /HPF (0-5)
--- NOTE | 2024-12-01 11:59 | PHA.VAN.IN ---
Assessment
- Assessment
Renal Function: Appears similar to baseline
Concomitant Antimicrobials: MEROPENEM
AUC Dosing Plan
- Dosing Variables
Dosing Weight (kg): 58
Dosing CrCl (ml/min): 108
Vd coefficient (L/kg): 0.7
- Empiric Dosing
Initial / Loading Dose: VANCO 1500MG X1
Maintenance Regimen: VANCO 1000MG Q12H
Estimated Peak (mcg*h/mL): 548
Estimated Trough (mcg/ml): 12.9
Estimated Half Life (H): 36.4
- Monitoring
No levels ordered at this time: CONSIDER LEVEL PRIOR TO 4TH MAINTENANCE DOSE
Pharmacokinetics Vancomycin I
- -
Patient Age: 59
Patient Sex: Male
Vancomycin Day #: 1
Indication: Bacteremia
Requesting Provider: DR. LOMELI
Height / Weight:
Height 5 ft 6 in
Actual Weight 58.06 kg
Pertinent Past Medical History: METASTATIC RECTAL CANCER
- Vital Signs / Lab Results
Temp Pulse Resp BP Pulse Ox
97.8 F 89 18 107/66 97
12/01/24 07:00 12/01/24 07:00 12/01/24 07:00 12/01/24 07:00 12/01/24 07:00
Lab Results - Hematology
11/29/24 11/30/24 12/01/24
09:47 08:08 07:17
WBC 7.3 8.1 7.7
Band Neutrophils 18 H 15 H
Lab Results - Chemistry
11/29/24 11/30/24 12/01/24
09:48 08:08 07:17
BUN 11 10 7 L
Creatinine 0.5 L 0.6 L 0.6 L
Estimated Creat Clear 113 108 108
Albumin 2.2 L 2.0 L
11/29/24
09:50
Lactic Acid 2.0
Lab Results - Urine
11/29/24 12/01/24
14:36 11:39
Urine Nitrite Negative
Urine Nitrite (Reflex) Negative
Ur Leukocyte Esterase Negative
Leukocyte Esterase Rfl Negative
Urine WBC 0-2
Urine WBC (Reflex) 3-5
Ur Squamous Epith Cells 0-2 0-2
Urine Bacteria (Reflex) Few A
Microbiology Results
11/29/24 09:47 Blood Culture - Preliminary
Blood/Venous Escherichia coli - ESBL
Gram Stain - Preliminary
11/30/24 08:08 Blood Culture - Preliminary
Blood/Venous Positive culture in progress
Gram Stain - Preliminary
11/29/24 09:50 Blood Culture - Preliminary
Blood/Venous No Growth in 48 hours- Final report to follow
11/30/24 00:04 Blood Culture - Preliminary
Blood/Venous No Growth in 24 hours- Final report to follow
11/29/24 09:46 Influenza Types A & B (LUCIA) - Final
Nasal Swab Negative for Influenza A & B, NAAT
Negative results must be combined with clinical observations
and patient history.
Nucleic Acid Amplification test (NAAT)performed on the
[employer] platform.
[2024-12-01] MEDS: VANCOCIN 530 MG IV (12:26)
--- NOTE | 2024-12-01 13:04 | CON.CRS ---
Addendum entered and electronically signed by Long Galindo MD 12/01/24 13:52:
I saw and examined the patient independently.
The Cosmetology Professor's note was reviewed and I agree with the note, assessment and plan except where noted below.
Comment: This is a 59-year-old male with a history of metastatic rectal cancer Status post chemo and radiation therapy back in who was seen in October for a large bowel obstruction secondary to recurrent metastatic disease and underwent
palliative diverting transverse loop colostomy. He has overall been doing well but was noted to have a low-grade temp by his visiting nurse and was sent here for ration. He does not endorse any complaints and his exam is fairly unremarkable
however there was some voluntary guarding. A CT scan demonstrates multiple fluid collections and possible contrast extravasation concerning for a leak, abscess, infected malignant ascites. Stoma is functioning and he is otherwise clinically well.
Okay to continue diet
IR consult for possible aspiration versus drainage of his collections.
No urgent surgical procedure warranted at this time.
Patient agreeable to plan of care above.
I spent 70 minutes in total for the care of this patient today including direct patient care and counseling, reviewing labs, imaging, coordination of care, as well as documentation.
Original Note:
Consultation
-
Date/Time Consultation Performed: 12/01/2024 at 1145
Medical History
-
Chief Complaint: distention, ?fever
History of Present Illness:
Mr Lund is a 59 yo male with a h/o metastatic rectal CA initially treated in 2022 with chemo and xrt and partial liver lobectomy in 2023 for liver mets who presented early last month with increasing abdominal pain with noted large bowel
obstruction secondary to metastatic disease. He was taken to the OR on 11/08/[address] Acosta for a palliative diverting transverse loop colostomy. He had slow return of bowel function and was maintained on TPN for a period of time which was able to
be discontinued once he had good bowel recovery and was tolerating a diet. He was able to be discharged to acute rehab on 11/23/24 and then later to home with VNA. He presents this admission with a noted fever by his visiting nurse. Otherwise, he
denies new symptoms. He notes that abdominal pain has continued to improve. Abdominal distention is present but he does not believe it has worsened. His ostomy is functioning well with stool/flatus in appliance and he continues to occasionally pass
some fecal material rectally.
Past Medical History
Past Medical History: Arrhythmias (pafib), Cancer (Metastatic rectal CA s/p chemo/xrt ([place] [facility])) and Other (chronic steroid)
Past Surgical History: Bowel Resection (diverting transverse loop colostomy) and Other (partial liver lobectomy 2023 (Dr Riley), Left chest wall port)
Social History
Tobacco: Non-Smoker
Alcohol: None
Personal:
Living: Alone
Family History
Family History: Reviewed & Not Pertinent
Allergies / Home Medications
Allergy/AdvReac Type Severity Reaction Status Date / Time
No Known Allergies Allergy Verified 11/29/24 09:19
�Medication �Instructions �Recorded �Confirmed �Type
metoprolol tartrate 25 mg tablet 25 mg PO HS Blood Pressure 12/27/23 11/29/24 History
prednisone 20 mg tablet 20 mg PO DIRECTED [facility] 11/07/24 11/29/24 History
Disorder
simethicone 80 mg chewable tablet 80 mg PO TIDPRN PRN gas pains 11/07/24 11/29/24 History
polyethylene glycol 3350 17 gram 17 g PO DAILY #30 ea 11/22/24 11/29/24 Rx
oral powder packet
ergocalciferol (vitamin D2) 1,250 1,250 mcg PO FR #10 caps 11/23/24 11/29/24 Rx
mcg (50,000 unit) capsule (Vitamin
D2)
omeprazole 20 mg capsule,delayed 20 mg PO DAILY 11/29/24 11/29/24 History
release
oxycodone 5 mg tablet 5 mg PO Q6HPRN PRN severe Pain 11/29/24 11/29/24 History
tramadol 50 mg tablet 50 mg PO Q4HPRN PRN moderate pains 11/29/24 11/29/24 History
Review of Systems
-
History Source: Patient
All other systems: Negative unless noted
A 10 point review of systems was completed, and was negative except as per HPI.
Physical Exam
Vital Signs
Temp 97.8 F 12/01/24 07:00
Pulse 89 12/01/24 07:00
Resp Rate 18 12/01/24 07:00
Blood pressure 107/66 12/01/24 07:00
SaO2 97 12/01/24 07:00
11/30/24 12/01/24 12/02/24
06:59 06:59 06:59
Actual Weight 58.06 kg
Body Mass Index (BMI) 20.7
Lab Results / Allergies
12/01/24 07:17
12/01/24 07:17
WBC 7.7 10^3/uL (4.8-10.8) 12/01/24 07:17
Hgb 8.9 g/dL (13.0-18.0) L D 12/01/24 07:17
Hct 27.9 % (39.0-52.0) L 12/01/24 07:17
Plt Count 252 10^3/uL (130-400) 12/01/24 07:17
Allergy/AdvReac Type Severity Reaction Status Date / Time
No Known Allergies Allergy Verified 11/29/24 09:19
Physical Exam
General: Well Developed and Well Nourished
HEENT: Moist Mucous Membranes
Respiratory: Non Labored Respirations
GI: Soft, Tender (mild, generalized), Distended and Other (stoma pink/healthy and productive of stool/flatus)
Skin: Warm, Dry and Other (midline incision healing well)
Neuro: Awake, Alert and AO x 3
Psych: Calm
Data Reviewed
-
CT Scan: Image Personally Visualized and interpreted, Report Reviewed by me, Discussed with Physician and Discussed with Patient
Labs: Labs Reviewed by me, Discussed with Physician and Discussed with Patient
Old Records: Reviewed
Assessment / Plan
-
Mr Lund is a 59 yo male with a h/o metastatic rectal CA initially treated in 2022 with chemo and xrt and partial liver lobectomy in 2023 for liver mets who presented early last month with increasing abdominal pain with noted large bowel
obstruction secondary to metastatic disease. He was taken to the OR on 11/08/[address] Acosta for a palliative diverting transverse loop colostomy. He presented from home with fever.
CT done in evaluation without evidence of bowel obstruction. There are numerous peripherally enhancing fluid collections in the abdomen with a collection in the right lower quadrant which contains a possible small focus of gas and ?oral contrast.
Unclear etiology of fluid, suspect possibly d/t malignancy. ABD exam relatively benign although distention is present. No evidence of peritonitis. Stoma is functioning. He has been tolerating a regular diet.
Preliminary blood cx from 11/29 + for ESBL E coli bacteremia. He is afebrile, VSS. No leukocytosis.
--Will discuss with IR re: aspiration/drainage for cx and cytology
--Continue ABX as per ID
--Ok to continue current diet
--No plans for emergent surgery at this point
[2024-12-01] MEDS: LOVENOX 40 MG SC (17:30)
[2024-12-01] MEDS: VANCOCIN 200 IV (17:31)
[2024-12-01] MEDS: ULTRAM 50 MG PO (17:38)
[2024-12-01] MEDS: KCL 40 MEQ PO (21:02)
[2024-12-01] MEDS: FLUSH (NSS) 1 FLUSH IV (21:05)
[2024-12-01] MEDS: LOPRESSOR 25 MG PO (21:22)
[2024-12-01] MEDS: ROXICODONE 5 MG PO (21:23)
[2024-12-02] MEDS: MERREM 1000 MG IV ×3 (04:18→20:06)
[2024-12-02] MEDS: STERILE WATER FOR INJECTION 20 ML IV ×3 (04:19→20:07)
[2024-12-02] MEDS: ROXICODONE 5 MG PO ×3 (04:19→18:02)
[2024-12-02] MEDS: FLUSH (NSS) 1 FLUSH IV (04:23)
[2024-12-02] MEDS: VANCOCIN 200 IV ×2 (05:15→17:51)
[2024-12-02] MEDS: FLUSH (NSS) 2 FLUSH IV (05:16)
[2024-12-02 06:22] VITALS: BP 170/62
[2024-12-02 06:49] LABS: Blood Urea Nitrogen 7 mg/dl (9-20); Calcium 7.5 mg/dl (8.4-10.2); Carbon Dioxide 23 mmol/L (22-30); Chloride 103 mmol/L (98-107); Estimated Creatinine Clearance 108 ml/min; Glucose 207 mg/dl (70-99); Sodium 130 mmol/L (135-145); eGFR > 60.00
[2024-12-02 06:55] LABS: Hematocrit 26.2 % (39.0-52.0); Hemoglobin 8.5 g/dL (13.0-18.0); Mean Corp Hgb Conc. 32.4 g/dL (33.0-37.0); Mean Corpuscular Volume 86.2 fL (80.0-94.0); Mean Platelet Volume 9.7 fL (7.4-10.4); Platelet Count 233 10^3/uL (130-400); Red Blood Cell Count 3.04 10^6/uL (4.70-6.10); Red Cell Dist. Width 17.4 % (11.5-14.5)
[2024-12-02 07:00] VITALS: BP 112/75
--- NOTE | 2024-12-02 08:29 | W.PN.HOSP.TC ---
Today's Communication/Plan
-
Continue antibiotics
IR could not drain collections in the abdomen, no surgery per surgery team
Assessment / Plan
Assessment / Plan
Physical Exam
General: No Apparent Distress and Comfortable
HEENT: PERRLA
Respiratory: Clear; No Wheezes
Cardiac: S1/S2 and Regular Rhythm
GI: Soft, Non Tender, Non Distended=
Musculoskeletal: Other (2+ bilateral ankle edema )
Skin: Warm and Dry; No Rash
Neuro: AO x 3
Psych: Calm
Assessment/Plan
59 y/o male with past medical history of paroxysmal afib, metastatic rectal CA with recent admission 11/07-11/24/24 for large bowel obstruction s/p transverse loop colostomy creation presented with weakness. Patient reported intermittent chills.
At the time of admission: He denied headache, chest pain, shortness of breath. He reported that he is eating and drinking well. Normal colostomy output - not black or bloody. No significant abdominal pain, some incisional discomfort. Bilateral LE
swelling since surgery.
Per home VN patient is not able to care for himself at home.
Triage VS: T 98.2, P 107, RR 25, BP 112/78, SpO2 97%
LABS: WBC 7.3, Hg 8.1, PLT 301, Na 134, K+ 3.6, Cr 0.5, Glucose 198, Ca 8.0, Lactate 2.0, T. Bili 0.6, AST 36, ALT 42, Alk Phos 433
Flu and Covid negative
CXR
IMPRESSION:
1. Hazy opacity within the left lower lobe, which may represent subsegmental atelectasis or pneumonia.
2. Pulmonary nodules measuring up to 9 mm in diameter. Patient has known pulmonary metastasis, as seen on prior PET/CT dated 06/21/2024
#Weakness/Deconditioning post-op and prolonged hospital stay
-PT/OT
-appreciate CM efforts
#Polymicrobial Bacteremia: ESBL E. Coli Bacteremia and Staph Aureus
-Repeat blood cultures ordered
-Continue Meropenem. Vancomycin added on 12/01/24 given Staph in repeat (2nd set) of blood cultures.
-3rd set of blood cultures ordered on 12/01/24 -- follow -- so far negative
-CT Abdomen/Pelvis with numerous peripherally enhancing fluid collections in the abdomen which measure up to 7.5 x 3.9 cm in the lower anterior abdomen; the collection in the
right lower quadrant contains a small focus of gas as well as hyperdense contents posteriorly suspicious for oral contrast in the setting of small leak, likely colitis,
-Appreciate ID
-Surgery consulted given the CT imaging findings above --> surgery recommended IR consult for aspiration (or drainage) of the collections --> IR could not drain due to high risk
of perforation --> surgery recommended no surgery at this time
#Metastatic Rectal CA
#recent admission 11/07-11/24/24 for large bowel obstruction s/p transverse loop colostomy (taken to the OR 11/[address] Acosta for Transverse loop colostomy creation due to large bowel obstruction)
-Dr. Green TT'd CRS to make them aware of admission, surgery removed kenny
-SANITARY ENGINEERING TEACHER pain control
#Normocytic Anemia
-Patient's Hgb is known to fluctuate
-Hgb dropped to 6.9 on 12/01/24 morning
-Patient received 1 unit PRBC on 12/01/24 with good improvement in Hgb
-Stool occult was heme positive on 12/01/24 -- discussed with surgery team and they mentioned this not unexpected given patient's rectal cancer
-No shaun blood in ostomy bag, but patient did report dark colored output from his anus (not ostomy bag where stool is palomo colored)
-Not really concerned about upper GI bleed at this time
-Continue PPI
#paroxysmal Afib
-SANITARY ENGINEERING TEACHER Metoprolol
#Bilateral LE swelling since recent surgery (above)
-From low albumin
-Lower extremity DVT ultrasound with no DVT on either side
#GERD - SANITARY ENGINEERING TEACHER PPI
DVT Prophylaxis: Lovenox subQ
Code Status: FULL CODE
Anticipated Discharge: > 48 hours
Subjective/Interval History
-
Date of Service: December 02, 2024
Patient was seen and examined. He denied any new symptoms or complaints.
Objective Data
-
Labs:
Laboratory Results
12/02/24
05:52
WBC 8.0
Hgb 8.5 L
Hct 26.2 L
Plt Count 233
Sodium 130 L
Potassium 4.0
Chloride 103
Carbon Dioxide 23
BUN 7 L
Creatinine 0.5 L
Glucose 207 H
Calcium 7.5 L
Vital Signs:
Vital Signs
Temp Pulse Resp BP Pulse Ox
98.1 F 98 16 112/75 97
12/02/24 07:00 12/02/24 07:00 12/02/24 07:00 12/02/24 07:00 12/02/24 07:00
I&O
12/01/24 12/02/24 12/03/24
06:59 06:59 06:59
Intake Total 1939 / 1939 1820 / 1820
Output Total 1075 / 1075 2295 / 2295
Balance 865 / 865 -475 / -475
[2024-12-02] MEDS: MIRALAX 17 GRAMS PO (09:02)
[2024-12-02] MEDS: PROTONIX 40 MG PO (09:02)
--- NOTE | 2024-12-02 09:23 | PHA.VAN.FU ---
Vancomycin Assessment / Plan
- Assessment
Renal Function: Stable
WBC's are: Stable
In the past 24 hrs, patient has been: Afebrile
Concomitant Antimicrobials: MEROPENEM
- Dosing Plan
Continue: VANCO 1000MG Q12H
- Monitoring Plan
Peak Level: 12/02 @2100
Trough Level: 12/03 @0530
- Follow Up
Pharmacy will continue to follow.
Vancomycin Follow UP
- -
Patient Age: 59
Patient Sex: Male
Vancomycin Day #: 2
Indication: Bacteremia
Requesting Provider: DR. LOMELI
Height / Weight:
Height 5 ft 6 in
Actual Weight 58.06 kg
Pertinent Past Medical History: METASTATIC RECTAL CANCER
- Vital Signs / Lab Results
Temp Pulse Resp BP Pulse Ox
98.1 F 98 16 112/75 97
12/02/24 07:00 12/02/24 07:00 12/02/24 07:00 12/02/24 07:00 12/02/24 07:00
Lab Results - Hematology
11/29/24 11/30/24 12/01/24
09:47 08:08 07:17
WBC 7.3 8.1 7.7
Band Neutrophils 18 H 15 H
12/02/24
05:52
WBC 8.0
Band Neutrophils
Lab Results - Chemistry
11/29/24 11/30/24 12/01/24
09:48 08:08 07:17
BUN 11 10 7 L
Creatinine 0.5 L 0.6 L 0.6 L
Estimated Creat Clear 113 108 108
Albumin 2.2 L 2.0 L
12/02/24
05:52
BUN 7 L
Creatinine 0.5 L
Estimated Creat Clear 108
Albumin
11/29/24
09:50
Lactic Acid 2.0
Lab Results - Urine
12/01/24
11:39
Urine Nitrite Negative
Ur Leukocyte Esterase Negative
Urine WBC 0-2
Ur Squamous Epith Cells 0-2
Microbiology Results
11/30/24 08:08 Blood Culture - Preliminary
Blood/Venous Staphylococcus aureus
Gram Stain - Preliminary
11/30/24 00:04 Blood Culture - Preliminary
Blood/Venous No Growth in 48 hours- Final report to follow
11/29/24 09:47 Blood Culture - Preliminary
Blood/Venous Escherichia coli - ESBL
Gram Stain - Preliminary
11/29/24 09:50 Blood Culture - Preliminary
Blood/Venous No Growth in 48 hours- Final report to follow
[2024-12-02 09:33] VITALS: BP 109/75; BP_SYST 97
--- NOTE | 2024-12-02 10:08 | W.PN.UPDATE ---
Update Note
Progress Note Update
US and CT performed of the abdominal cavity. Fluid collections are very thin < 1 cm, felt to be high risk of injuring adjacent bowel with attempted aspiration. Therefore no procedure performed.
D/W patient.
[2024-12-02 10:37] LABS: % Basophils 0.8 % (0-2); % Eosinophils 0.1 % (0-6); % Immature Granulocytes 3.3 % (0-0.5); % Monocytes 6.2 % (1.7-9.3); % Neutrophils 84.6 % (42.2-75.2); Absolute Basophils 0.1 10^3/uL (0-0.2); Absolute Immature Granulocytes 0.3 10^3/uL (0-0.05); Absolute Lymphocytes 0.4 10^3/uL (1.2-3.4); Absolute Monocytes 0.5 10^3/uL (0.1-0.6); Absolute Neutrophils 6.7 10^3/uL (1.4-6.5); Nucleated Red Blood Cells % 0.8 % (-)
--- NOTE | 2024-12-02 10:46 | PTCARENOTE ---
Pt returned for IR. No procedure was performed. Pt with complain to abdominal pain. Given Oxycodone per prn order.
--- NOTE | 2024-12-02 12:37 | W.PN.CRS1 ---
Today's Communication / Plan
-
Regular diet
Assessment/Plan
-
Mr Lund is a 59 yo male with a h/o metastatic rectal CA initially treated in 2022 with chemo and xrt and partial liver lobectomy in 2023 for liver mets who presented early last month with increasing abdominal pain with noted large bowel
obstruction secondary to metastatic disease. He was taken to the OR on 11/08/[address] Acosta for a palliative diverting transverse loop colostomy. He presented from home with fever.
CT scan demonstrates multiple fluid collections and possible contrast extravasation concerning for a leak, abscess, infected malignant ascites. Stoma is functioning and he is otherwise clinically well.
Preliminary blood cx from 11/29 + for ESBL E coli bacteremia. Second set the following day +Staph.
He is afebrile, VSS. No leukocytosis.
--IR procedure today, unable to safely aspirate collection for sampling
--Continue ABX as per ID
--Ok to continue regular diet
--No plans for emergent surgery at this point
Subjective Data
Subjective Data
Date of Service: December 02, 2024
Patient seen and examined at bedside with Dr. Galindo. Ray n/v. Denies pain.
Objective Data
-
Vital Signs
Temp Pulse Resp BP Pulse Ox
98.2 F 97 24 109/75 98
12/02/24 09:33 12/02/24 09:33 12/02/24 09:33 12/02/24 09:33 12/02/24 09:33
Intake & Output
12/01/24 12/02/24 12/03/24
06:59 06:59 06:59
Intake Total 1940 / 1940 1820 / 1820
Output Total 1075 / 1075 2295 / 2295
Balance 865 / 865 -475 / -475
Intake:
Oral fluids 1440 / 1440 1620 / 1620
IV piggybacks 200 / 200
Blood products 250 / 250
Blood Product Amount Infused ( 250 / 250
mL)
Packed Rbc Leukoreduced Unit 250 / 250
[id number]
Output:
Liquid stool amount 450 / 450 905 / 905
Colostomy 450 / 450 905 / 905
Urine, Voided 625 / 625 1390 / 1390
Other:
Number of approximated MODERATE 2
amounts of urine
Lab Results
12/02/24 05:52
12/02/24 05:52
Physical Exam
-
General: No Acute Distress and AOx3
Abdomen: Soft, Distended, Non Tender and Other (Colostomy warm and pink, with function )
Skin: Warm and Dry
Incision: Clear, Dry, Intact
[2024-12-02 15:00] VITALS: BP 113/77
--- NOTE | 2024-12-02 16:43 | W.PN.ID1 ---
Date of Service
Date of Service: December 02, 2024
Today's Communication
- blood cultures notable for ESBL E coli and S aureus
- with S aureus bacteremia recommend port removal will discuss further with colorectal surgery team tomorrow
Assessment / Plan
Polymicrobial Bacteremia: ESBL E coli and S aureus
Multiple Intraabdominal fluid collections - abscesses suspected
Port - L chest wall
Most likely atelectasis, less likely pneumonia
11/08 s/p colostomy creation - no complications or known perforation
Metastatic rectal cancer
- repeat blood cultures no growth to date
- blood cultures notable for ESBL E coli and S aureus
- with S aureus bacteremia recommend port removal will discuss further with colorectal surgery team tomorrow
- CT a/p with IV and oral contrast reviewed - notable for multiple intraabdominal collections, possible contrast extravasation
- TTE tomorrow
- continue meropenem
- cw vancomycin
- contact precautions given ESBL isolate
- appreciate colorectal surgery
- will reach out to his oncology team tomorrow
- follow clinically
workup required interpretation of blood cultures, coordination with interdisciplinary team
Chief Complaint
-: Bacteremia and Other (intraabdominal abscessses)
Subjective / Review of Systems
afebrile
bp stable
Vital Signs / Physical Exam
Vital Signs
Vital Signs
Temp Pulse Resp BP Pulse Ox
98.1 F 105 18 113/77 95
12/02/24 15:00 12/02/24 15:00 12/02/24 15:00 12/02/24 15:00 12/02/24 15:00
Physical Exam
Constitutional: No Acute Distress
Cardiovascular: Regular Rate and S1/S2; Negative Murmur or Rub
Pulmonary: Clear and Symmetric; Negative Wheezes or Rales
Gastrointestinal: Soft, Non Tender, Non Distended and Normal Bowel Sounds
Skin: Warm and Dry; Negative Rash or Jaundice
Lines: Port
Objective Data
Lab Data
Lab Results
12/02/24 05:52
12/02/24 05:52
Estimated Creat Clear 108 ml/min 12/02/24 05:52
Lactic Acid 2.0 mmol/L (0.7-2.0) 11/29/24 09:50
Total Bilirubin 0.6 mg/dl (0.2-1.3) 11/29/24 09:48
AST 36 U/L (17-59) 11/29/24 09:48
ALT 42 U/L (0-50) 11/29/24 09:48
Alkaline Phosphatase 433 U/L (38-126) H 11/29/24 09:48
Most recent labs reviewed.
Micro Results:
12/01/24 11:58 Blood Culture - Preliminary
Blood/Venous No Growth in 24 hours- Final report to follow
12/01/24 11:15 Blood Culture - Preliminary
Blood/Venous No Growth in 24 hours- Final report to follow
11/29/24 09:47 Blood Culture - Preliminary
Blood/Venous Escherichia coli - ESBL
Gram Stain - Preliminary
11/29/24 09:50 Blood Culture - Preliminary
Blood/Venous No Growth in 72 hours- Final report to follow
11/30/24 08:08 Blood Culture - Preliminary
Blood/Venous Staphylococcus aureus
Gram Stain - Preliminary
11/30/24 00:04 Blood Culture - Preliminary
Blood/Venous No Growth in 48 hours- Final report to follow
11/29/24 09:46 Influenza Types A & B (LUCIA) - Final
Nasal Swab Negative for Influenza A & B, NAAT
Negative results must be combined with clinical observations
and patient history.
Nucleic Acid Amplification test (NAAT)performed on the
Only [place] platform.
Care Review
Plan reviewed with: Physician (Dr Tucker - recommend port removal)
[2024-12-02] MEDS: LOVENOX 40 MG SC (17:51)
[2024-12-02 22:00] VITALS: BP 108/73
[2024-12-02] MEDS: LOPRESSOR 25 MG PO (22:01)
[2024-12-02] MEDS: ULTRAM 50 MG PO (22:03)
[2024-12-03] VITALS (8 sets, daily range): BP systolic 97–113; BP diastolic 67–78
[2024-12-03 00:41] LABS: Vancomycin Peak 14.6 ug/ml (18-26)
[2024-12-03] MEDS: MERREM 1000 MG IV ×3 (03:14→19:43)
[2024-12-03] MEDS: STERILE WATER FOR INJECTION 20 ML IV ×3 (03:14→19:43)
[2024-12-03] MEDS: ROXICODONE 5 MG PO (03:15)
[2024-12-03] MEDS: VANCOCIN 200 IV (06:29)
--- NOTE | 2024-12-03 06:34 | W.PN.HOSP.TC ---
Today's Communication/Plan
-
cont abx as per ID
follow cultures
PT/OT
discharge planning acute rehab
Assessment / Plan
Assessment / Plan
Physical Exam
General: No Apparent Distress, appears comfortable at this time
HEENT: PERRLA
Respiratory: clear to auscultation b/l, no wheezes
Cardiac: S1/S2 and Regular Rhythm
GI: Soft, Non Tender, Non Distended, Ostomy present
Musculoskeletal: No cyanosis, +2 lower ext edema
Skin: Warm and Dry; No Rash
Neuro: AO x 3 conversant coherent
Psych: Calm
Assessment/Plan
59 y/o male with past medical history of paroxysmal afib, metastatic rectal CA with recent admission 11/07-11/24/24 for large bowel obstruction s/p transverse loop colostomy creation presented with weakness. Patient reported intermittent chills.
At the time of admission: He denied headache, chest pain, shortness of breath. He reported that he is eating and drinking well. Normal colostomy output - not black or bloody. No significant abdominal pain, some incisional discomfort. Bilateral LE
swelling since surgery.
CXR
IMPRESSION:
1. Hazy opacity within the left lower lobe, which may represent subsegmental atelectasis or pneumonia.
2. Pulmonary nodules measuring up to 9 mm in diameter. Patient has known pulmonary metastasis, as seen on prior PET/CT dated 06/21/2024
#Weakness/Deconditioning post-op and prolonged hospital stay
-PT/OT/PMR appreciated Acute Rehab recommended
-appreciate CM efforts
#Polymicrobial Bacteremia: ESBL E. Coli and MSSA isolated on separate blood cultures 11/29 and 11/30
-Repeat blood cultures NGTD
-Continue Meropenem. Vancomycin added on 12/01/24 given Staph in repeat (2nd set) of blood cultures.
-CT Abdomen/Pelvis with numerous peripherally enhancing fluid collections in the abdomen which measure up to 7.5 x 3.9 cm in the lower anterior abdomen; the collection in the right lower quadrant contains a small focus of gas as well as hyperdense
contents posteriorly suspicious for oral contrast in the setting of small leak, likely colitis,
-Surgery consulted given the CT imaging findings above --> surgery recommended IR consult for aspiration (or drainage) of the collections --> IR could not drain due to high risk of perforation --> surgery recommends surgical intervention at this time
-Appreciate ID eval cont meropenem, empiric vanc stopped given MSSA, S aureus concerning for port infection, removal recommended.
-port removed 12/03/24 culture results pending
-ECHO appreciated EF 60-65% no significant valve dz
#Metastatic Rectal CA
#recent admission 11/07-11/24/24 for large bowel obstruction s/p transverse loop colostomy (taken to the OR 11/[address] Acosta for Transverse loop colostomy creation due to large bowel obstruction)
-Oncology Eval appreciated
-CRS eval appreciated
-surgery removed kenny
-PRESCHOOL HEAD TEACHER pain control
#Normocytic Anemia
#Anemia of Chronic Disease
-Patient's Hgb is known to fluctuate
-Hgb dropped to 6.9 on 12/01/24 morning
-Patient received 1 unit PRBC on 12/01/24 with good improvement in Hgb
-H&H remains stable at this time.
-Continue PPI
#paroxysmal Afib
-PRESCHOOL HEAD TEACHER Metoprolol
#Bilateral LE swelling since recent surgery (above)
-From low albumin
-Lower extremity DVT ultrasound with no DVT on either side
#GERD - PRESCHOOL HEAD TEACHER PPI
DVT Prophylaxis: Lovenox subQ
Code Status: FULL CODE
I spent a total of 40 minutes with the patient or on the floor. More than 50% of this time involved counseling and coordination of care.
Anticipated Discharge: 24 - 48 hours
Subjective/Interval History
-
Date of Service: December 03, 2024
no acute distress. awaiting removal of port. Denies significant pain at this time.
Objective Data
-
Labs:
Laboratory Results
12/03/24
06:10
WBC Pending
Hgb Pending
Hct Pending
Plt Count Pending
Sodium Pending
Potassium Pending
Chloride Pending
Carbon Dioxide Pending
BUN Pending
Creatinine Pending
Glucose Pending
Calcium Pending
Vital Signs:
Vital Signs
Temp Pulse Resp BP Pulse Ox
98.1 F 119 18 108/73 97
12/02/24 15:00 12/02/24 22:00 12/02/24 22:00 12/02/24 22:00 12/02/24 22:00
I&O
12/01/24 12/02/24 12/03/24
06:59 06:59 06:59
Intake Total 1940 / 1940 1820 / 1820 960 / 960
Output Total 1075 / 1075 2295 / 2295 2125 / 2125
Balance 865 / 865 -475 / -475 -1165 / -1165
[2024-12-03 06:54] LABS: Hematocrit 28.5 % (39.0-52.0); Hemoglobin 9.3 g/dL (13.0-18.0); Mean Corp Hgb Conc. 32.6 g/dL (33.0-37.0); Mean Corpuscular Hgb 28.5 pg (27.0-31.0); Mean Corpuscular Volume 87.4 fL (80.0-94.0); Mean Platelet Volume 9.9 fL (7.4-10.4); Platelet Count 290 10^3/uL (130-400); Red Blood Cell Count 3.26 10^6/uL (4.70-6.10); Red Cell Dist. Width 17.6 % (11.5-14.5); White Blood Cell Count 9.8 10^3/uL (4.8-10.8)
[2024-12-03 07:22] LABS: Blood Urea Nitrogen 6 mg/dl (9-20); Calcium 7.8 mg/dl (8.4-10.2); Carbon Dioxide 22 mmol/L (22-30); Chloride 99 mmol/L (98-107); Estimated Creatinine Clearance 108 ml/min; Glucose 152 mg/dl (70-99); Potassium 4.2 mmol/L (3.5-5.1); Sodium 129 mmol/L (135-145); eGFR > 60.00
[2024-12-03 07:50] LABS: Vancomycin Trough 9.7 ug/ml (5-20)
[2024-12-03] MEDS: PROTONIX 40 MG PO (07:53)
[2024-12-03 08:29] LABS: % Basophils 0.6 % (0-2); % Eosinophils 0.2 % (0-6); % Lymphocytes 8.3 % (20.5-51.1); % Monocytes 6.1 % (1.7-9.3); % Neutrophils 79.8 % (42.2-75.2); Absolute Basophils 0.1 10^3/uL (0-0.2); Absolute Immature Granulocytes 0.5 10^3/uL (0-0.05); Absolute Lymphocytes 0.8 10^3/uL (1.2-3.4); Absolute Monocytes 0.6 10^3/uL (0.1-0.6); Absolute Neutrophils 7.8 10^3/uL (1.4-6.5); Nucleated Red Blood Cells % 0.4 % (-)
[2024-12-03] MEDS: MIRALAX PO (09:05)
--- NOTE | 2024-12-03 09:58 | W.PN.CRS1 ---
Today's Communication / Plan
-
Oncology consult.
Possible port removal.
Assessment/Plan
-
Patient 3 weeks s/p palliative colostomy with intraabdominal fluid collections not amenable to IR drainage and small focus of extraluminal contrast in RLQ which is of unclear significance.
1. patient looks well given his circumstance. WBC normal and afebrile. No plan for abdominal surgical intervention at this point.
2. On antibiotics. ID input noted. Consulting oncology for input. If all agree, then port could be removed later today in OR. NPO for now.
3. continue other measures.
Subjective Data
Subjective Data
Date of Service: December 03, 2024
No real complaints.
Objective Data
-
Vital Signs
Temp Pulse Resp BP Pulse Ox
98.2 F 107 16 112/78 94
12/03/24 07:30 12/03/24 07:30 12/03/24 07:30 12/03/24 07:30 12/03/24 08:00
Intake & Output
12/02/24 12/03/24 12/04/24
06:59 06:59 06:59
Intake Total 1820 / 1820 960 / 960
Output Total 2295 / 2295 2125 / 2125
Balance -475 / -475 -1165 / -1165
Intake:
Oral fluids 1620 / 1620 960 / 960
IV piggybacks 200 / 200
Output:
Liquid stool amount 905 / 905 975 / 975
Colostomy 905 / 905 975 / 975
Urine, Voided 1390 / 1390 1150 / 1150
Lab Results
12/03/24 06:10
12/03/24 06:10
Physical Exam
-
General: No Acute Distress
Chest: Clear
Cardiovascular: Regular Rate & Rhythm
Abdomen: Distended (mild), Tender (mild incisional) and Other (stoma viable with output)
Extremities: No Calf Tenderness
Data Reviewed
-
CT Scan: Image Reviewed and Report Reviewed
--- NOTE | 2024-12-03 12:37 | CM ---
manager intermediate reviewed patient's chart and patient was recently discharged to home, patient was unable to manage at home and was brought back to the hospital, patient was seen by physical therapy and they are recommending acute rehab, referral sent
to [place] [facility]. Patient is currently ambulating 50 feet min assist with physical therapy.
Plan; [facility] [facility], patient has been seen by PM&R, needs Auth.
--- NOTE | 2024-12-03 14:14 | PHA.VAN.FU ---
Vancomycin Assessment / Plan
- Assessment
Renal Function: Stable (0.4)
WBC's are: WNL (9.8)
In the past 24 hrs, patient has been: Afebrile
Concomitant Antimicrobials: Meropenem
- Assessment - Trough Based Monitoring
Trough Value: 9.7
Level Today was: Subtherapeutic
Level Comments: Drawn ~12hrs after 3rd maintenance dose
*Peak drawn too late so calculations are not accurate. Evaluated using trough based approach. Level slightly subtherapeutic. Patient received 1G dose and had trough of 9.7 - Utilizing trough level by linear PK to extrapolate kinetic estimates.
1250mg dose predicts a trough of ~12 under the same dosing interval (Q12H)
- Dosing Plan
Adjust Regimen to: Vanco 1250mg Q12H
New Regimen Predicts: Trough (~12)
- Monitoring Plan
No level(s) ordered at this time: Consider in the next few days
- Follow Up
Pharmacy will continue to follow.
Vancomycin Follow UP
- -
Patient Age: 59
Patient Sex: Male
Vancomycin Day #: 3
Indication: Bacteremia
Requesting Provider: DR. LOMELI
Height / Weight:
Height 5 ft 6 in
Actual Weight 58.06 kg
Pertinent Past Medical History: METASTATIC RECTAL CANCER
- Vital Signs / Lab Results
Temp Pulse Resp BP Pulse Ox
98.2 F 107 16 112/78 94
12/03/24 07:30 12/03/24 07:30 12/03/24 07:30 12/03/24 07:30 12/03/24 08:00
Lab Results - Hematology
12/01/24 12/02/24 12/03/24
07:17 05:52 06:10
WBC 7.7 8.0 9.8
Band Neutrophils 15 H
Lab Results - Chemistry
12/01/24 12/02/24 12/03/24
07:17 05:52 06:10
BUN 7 L 7 L 6 L
Creatinine 0.6 L 0.5 L 0.4 L
Estimated Creat Clear 108 108 108
Albumin 2.0 L
Microbiology Results
12/01/24 11:58 Blood Culture - Preliminary
Blood/Venous No Growth in 48 hours- Final report to follow
12/01/24 11:15 Blood Culture - Preliminary
Blood/Venous No Growth in 48 hours- Final report to follow
11/29/24 09:50 Blood Culture - Preliminary
Blood/Venous No Growth in 4 days- Final report to follow
11/30/24 08:08 Blood Culture - Preliminary
Blood/Venous S aureus-Methicillin Sensitive
Gram Stain - Preliminary
11/30/24 00:04 Blood Culture - Preliminary
Blood/Venous No Growth in 72 hours- Final report to follow
11/29/24 09:47 Blood Culture - Preliminary
Blood/Venous Escherichia coli - ESBL
Gram Stain - Preliminary
Therapeutic Drug Monitoring
Vancomycin Peak 14.6 ug/ml (18-26) L 12/03/24 00:06
Vancomycin Trough 9.7 ug/ml (5-20) 12/03/24 06:10
--- NOTE | 2024-12-03 15:58 | W.PN.ID1 ---
Date of Service
Date of Service: December 03, 2024
Today's Communication
- continue meropenem
- stop vancomycin
- contact precautions given ESBL isolate
Assessment / Plan
Polymicrobial Bacteremia: ESBL E coli and MSSA
Multiple Intraabdominal fluid collections - abscesses suspected
Port - L chest wall
Most likely atelectasis, less likely pneumonia
11/08 s/p colostomy creation - no complications or known perforation
Metastatic rectal cancer
- repeat blood cultures no growth to date
- blood cultures notable for ESBL E coli and S aureus
- with S aureus bacteremia recommend port removal
- CT a/p with IV and oral contrast reviewed - notable for multiple intraabdominal collections, possible contrast extravasation
- TTE no lesions
- continue meropenem
- stop vancomycin
- contact precautions given ESBL isolate
- appreciate colorectal surgery & oncology input
- follow clinically
workup required interpretation of blood cultures, coordination with interdisciplinary team
Chief Complaint
-: Bacteremia and Other (intraabdominal abscessses)
Subjective / Review of Systems
afebrile
bp stable
tolerating current therapies
some abdominal pain with movements
Vital Signs / Physical Exam
Vital Signs
Vital Signs
Temp Pulse Resp BP Pulse Ox
98.2 F 107 16 112/78 94
12/03/24 07:30 12/03/24 07:30 12/03/24 07:30 12/03/24 07:30 12/03/24 08:00
Physical Exam
Constitutional: No Acute Distress
Cardiovascular: Regular Rate and S1/S2; Negative Murmur or Rub
Pulmonary: Clear and Symmetric; Negative Wheezes or Rales
Gastrointestinal: Soft, Non Tender, Non Distended and Normal Bowel Sounds
Skin: Warm and Dry; Negative Rash or Jaundice
Objective Data
Lab Data
Lab Results
12/03/24 06:10
12/03/24 06:10
Estimated Creat Clear 108 ml/min 12/03/24 06:10
Lactic Acid 2.0 mmol/L (0.7-2.0) 11/29/24 09:50
Total Bilirubin 0.6 mg/dl (0.2-1.3) 11/29/24 09:48
AST 36 U/L (17-59) 11/29/24 09:48
ALT 42 U/L (0-50) 11/29/24 09:48
Alkaline Phosphatase 433 U/L (38-126) H 11/29/24 09:48
Most recent labs reviewed.
Micro Results:
12/01/24 11:58 Blood Culture - Preliminary
Blood/Venous No Growth in 48 hours- Final report to follow
12/01/24 11:15 Blood Culture - Preliminary
Blood/Venous No Growth in 48 hours- Final report to follow
11/29/24 09:50 Blood Culture - Preliminary
Blood/Venous No Growth in 4 days- Final report to follow
11/30/24 08:08 Blood Culture - Preliminary
Blood/Venous S aureus-Methicillin Sensitive
Gram Stain - Preliminary
11/30/24 00:04 Blood Culture - Preliminary
Blood/Venous No Growth in 72 hours- Final report to follow
11/29/24 09:47 Blood Culture - Preliminary
Blood/Venous Escherichia coli - ESBL
Gram Stain - Preliminary
11/29/24 09:46 Influenza Types A & B (LUCIA) - Final
Nasal Swab Negative for Influenza A & B, NAAT
Negative results must be combined with clinical observations
and patient history.
Nucleic Acid Amplification test (NAAT)performed on the
[employer] platform.
Care Review
Plan reviewed with: Physician (Dr Vicente and Dr Dominguez)
--- NOTE | 2024-12-03 18:16 | W.IMMPOSTOP ---
Surgical Immed Post Op Note
-
Primary Surgeon: Brenda Acosta MD
Assisting Surgeon: none
Pre-op Diagnosis: 1) bacteremia 2) stage 4 rectal cancer
Post-op Diagnosis: same
Procedure Performed: removal left subclavian port
Anesthesia Type: MAC plus local
Specimen / Cultures: port tubing tip for culture
Estimated Blood Loss: 1 cc
Complications: no immediate
Operative Findings: none
Will send back to [facility].
Resume diet.
--- NOTE | 2024-12-03 18:50 | SUR.PHASEI ---
comfortable after MAC sedation. Awake and alert, vSS - low grade temp, tachycardia - stable BP
--- NOTE | 2024-12-03 19:26 | CON.ONC ---
Impression
Impression
Metastatic rectal cancer, PHUONG/KYLIE wt with disease progression on FOLFIRI
Small lung metastases
Intra-abdominal collections measuring up to 7.5 cm and not amenable to IR drainage
Small focus of extraluminal contrast in RLQ
E. Coli and MSSA bacteremia
Plan
Plan
Agree with port removal.
Pt has progressed on FOLFOX and FOLFIRI with no plans for ongoing infusional 5-FU.
Infections preclude cytotoxic chemotherapy but he just start Erbitux with no prior treatment with EGFR-targeted therapies. Erbitux is not myelosuppressive and he could continue this as outpt despite the infectious issues.
Currently, pt appears well, much better in person than on paper.
Case d/w Dr. Almanza. The intraabdominal collections are a concern, unclear whether they represent abscesses.
Case d/w Dr. Mascorro who states pt is aware of overall prognosis. As the only living parent for a 14 year-old, pt unlikely to welcome a transition to best supportive care or hospice. This conversation may be continued in the outpt setting.
Continue supportive care.
Thank you for consult, will follow along with you.
Patient History
History of Present Illness
59 yo with metastatic rectal cancer. He has previously been treated with FOLFOX, Avastin, FOLFIRI. He recently had disease progression on FOLFIRI and Erbitux was added. He has had 3 treatments so far with Erbitux, last got chemotherapy on October
. Since then, he required hospitalization for bowel obstruction and underwent transverse loop colostomy creation. He was discharged on November 24. He returned on November 29 with complaint of generalized weakness and chills. Chest x-ray showed hazy
opacity of the left lower lobe consistent with atelectasis. Blood cultures were drawn and grew ESBL E. coli and MSSA from peripherally drawn bottle. Abdominal CT showed multiple intra-abdominal collections and possible contrast extravasation.
Recommendation has been made for port removal. We are consulted regarding the port but also, overall management and goals of care.
Past-Medical/Surgical History
Past Medical History
Paroxysmal atrial fibrillation
Rectal cancer status post resection, now recurrent/metastatic
Hyperlipidemia
Past Surgical History
Port
Bowel Resection
Liver lesion resection
Hernia repair
Social History
Tobacco: Non-Smoker
Alcohol: None
Drug: None
and has a 14 year-old child at home
Family History
Mother had breast cancer
Father had leukemia
Allergy History
No Known Allergies Allergy (Verified 11/29/24 09:19)
Patient Medication
�Medication �Instructions �Recorded �Confirmed �Last Taken �Type
metoprolol tartrate 25 mg tablet 25 mg PO HS Blood Pressure 12/27/23 11/29/24 11/28/24 History
prednisone 20 mg tablet 20 mg PO DIRECTED Auto[employer] 11/07/24 11/29/24 Unknown History
Disorder
simethicone 80 mg chewable tablet 80 mg PO TIDPRN PRN gas pains 11/07/24 11/29/24 Unknown History
polyethylene glycol 3350 17 gram 17 g PO DAILY #30 ea 11/22/24 11/29/24 Unknown Rx
oral powder packet
ergocalciferol (vitamin D2) 1,250 1,250 mcg PO FR #10 caps 11/23/24 11/29/24 11/23/24 Rx
mcg (50,000 unit) capsule (Vitamin
D2)
omeprazole 20 mg capsule,delayed 20 mg PO DAILY 11/29/24 11/29/24 Unknown History
release
oxycodone 5 mg tablet 5 mg PO Q6HPRN PRN severe Pain 11/29/24 11/29/24 11/28/24 History
tramadol 50 mg tablet 50 mg PO Q4HPRN PRN moderate pains 11/29/24 11/29/24 Unknown History
Active Medications
Generic Name Dose Route Start Last Admin
Trade Name Freq PRN Reason Stop Dose Admin
Acetaminophen 650 mg 11/29/24 18:09 11/30/24 12:52
Acetaminophen 325 Mg Tablet PO 12/27/24 18:08 650 mg
Q4HPRN PRN Administration
mild pain/LUA/temp> 100.4F
Enoxaparin Sodium 40 mg 11/29/24 18:09 12/02/24 17:51
Enoxaparin Sodium 40 Mg/0.4 Ml Syringe SC 12/27/24 18:08 40 mg
QPM ZACK Administration
Hydromorphone HCl 0.5 mg 12/03/24 16:17
Hydromorphone 0.5 Mg/0.5 Ml Syringe IV 12/04/24 16:17
PACU-Q5MPRN PRN
severe pain
Hydromorphone HCl 0.25 mg 12/03/24 16:17
Hydromorphone 0.25 Mg/0.5 Ml Syringe IV 12/04/24 16:17
PACU-Q5MPRN PRN
moderate pain
Parenteral Electrolytes 1,000 mls @ 100 mls/hr 12/03/24 16:30
Normosol-R/Plasmalyte-A IV 12/04/24 16:17
PER PROTOCOL ZACK
Meropenem 1,000 mg 11/30/24 12:00 12/03/24 12:19
Meropenem 1,000 Mg/20 Ml Vial IV 1,000 mg
Q8H ZACK Administration
Metoprolol Tartrate 25 mg 11/29/24 22:00 12/02/24 22:01
Metoprolol 25 Mg Regular Release Tablet PO 12/27/24 21:59 25 mg
HS ZACK Administration
Ondansetron HCl 4 mg 12/03/24 16:17
Ondansetron 4 Mg/2 Ml Vial IV 12/04/24 16:17
PACU-ONCEPRN PRN
nausea/vomiting
Oxycodone HCl 5 mg 11/29/24 18:09 12/03/24 03:15
Oxycodone 5 Mg Regular Release Tablet PO 12/13/24 18:08 5 mg
Q6HPRN PRN Administration
severe Pain
Pantoprazole Sodium 40 mg 11/30/24 08:00 12/03/24 07:53
Pantoprazole 40 Mg Delayed Release Tablet PO 12/28/24 07:59 40 mg
DAILY ZACK Administration
Polyethylene Glycol 17 grams 11/30/24 08:00 12/03/24 09:05
Polyethylene Glycol Powder 17 Grams Packet PO 12/28/24 07:59 Not Given
DAILY ZACK
Polyethylene Glycol 17 grams 11/29/24 18:09
Polyethylene Glycol Powder 17 Grams Packet PO 12/27/24 18:08
DAILYPRN PRN
constipation
Prochlorperazine Edisylate 5 mg 12/03/24 16:17
Prochlorperazine 10 Mg/2 Ml Vial IV 12/04/24 16:17
PACU-ONCEPRN PRN
nausea/vomiting
Simethicone 80 mg 11/29/24 18:09
Simethicone 80 Mg Chewable Tablet PO 12/27/24 18:08
TIDPRN PRN
gas pains
Sodium Chloride 0 flush 11/29/24 20:00 12/02/24 05:16
Sodium Chloride 0.9% (Flush) Syringe IV 12/27/24 19:59 2 flush
PER PROTOCOL ZACK Administration
Sterile Water 20 ml 11/30/24 12:00 12/03/24 12:20
Sterile Water For Injection 20 Ml Vial IV 12/28/24 11:59 20 ml
Q8H ZACK Administration
Tramadol HCl 50 mg 11/29/24 18:09 12/02/24 22:03
Tramadol Hcl 50 Mg Tablet PO 12/27/24 18:08 50 mg
Q4HPRN PRN Administration
moderate pains
Review of Systems
-
History Source: Patient and Records
All Other Systems: Reviewed and Negative
Physical Exam
-
Awake, alert, non-toxic
Heart RRR
Lungs clear
Abd soft
Extrem no edema
Neuro grossly non-focal
Labs
Lab Results
WBC 9.8 10^3/uL (4.8-10.8) 12/03/24 06:10
RBC 3.26 10^6/uL (4.70-6.10) L 12/03/24 06:10
Hgb 9.3 g/dL (13.0-18.0) L 12/03/24 06:10
Hct 28.5 % (39.0-52.0) L 12/03/24 06:10
MCV 87.4 fL (80.0-94.0) 12/03/24 06:10
MCH 28.5 pg (27.0-31.0) 12/03/24 06:10
MCHC 32.6 g/dL (33.0-37.0) L 12/03/24 06:10
RDW 17.6 % (11.5-14.5) H 12/03/24 06:10
Plt Count 290 10^3/uL (130-400) D 12/03/24 06:10
MPV 9.9 fL (7.4-10.4) 12/03/24 06:10
Abs Immat Gran (auto) 0.5 10^3/uL (0-0.05) H 12/03/24 06:10
Absolute Neuts (auto) 7.8 10^3/uL (1.4-6.5) H 12/03/24 06:10
Absolute Lymphs (auto) 0.8 10^3/uL (1.2-3.4) L 12/03/24 06:10
Absolute Monos (auto) 0.6 10^3/uL (0.1-0.6) 12/03/24 06:10
Absolute Eos (auto) 0.0 10^3/uL (0-0.7) 12/03/24 06:10
Absolute Basos (auto) 0.1 10^3/uL (0-0.2) 12/03/24 06:10
Immature Gran % 5.0 % (0-0.5) H 12/03/24 06:10
Neutrophils % 79.8 % (42.2-75.2) H 12/03/24 06:10
Lymphocytes % 8.3 % (20.5-51.1) L 12/03/24 06:10
Monocytes % 6.1 % (1.7-9.3) 12/03/24 06:10
Eosinophils % 0.2 % (0-6) 12/03/24 06:10
Basophils % 0.6 % (0-2) 12/03/24 06:10
Creatinine 0.4 mg/dL (0.7-1.3) L 12/03/24 06:10
Vital Signs
Vital Signs
Temp Pulse Resp BP Pulse Ox
98.8 F 107 20 99/72 96
12/03/24 18:15 12/03/24 19:00 12/03/24 19:00 12/03/24 19:00 12/03/24 19:00
[2024-12-03] MEDS: LOVENOX 40 MG SC (19:43)
[2024-12-03] MEDS: LOPRESSOR 25 MG PO (22:27)
[2024-12-04] MEDS: STERILE WATER FOR INJECTION 20 ML IV ×3 (04:21→19:30)
[2024-12-04] MEDS: MERREM 1000 MG IV ×3 (04:22→19:30)
--- NOTE | 2024-12-04 06:22 | W.PN.HOSP.TC ---
Today's Communication/Plan
-
abx as per ID
discharge planning Acute Rehab
Assessment / Plan
Assessment / Plan
Physical Exam
General: No Apparent Distress, appears comfortable at this time
HEENT: PERRLA
Respiratory: clear to auscultation b/l, no wheezes
Cardiac: S1/S2 and Regular Rhythm
GI: Soft, Non Tender, Non Distended, Ostomy present
Musculoskeletal: No cyanosis, +2 lower ext edema
Skin: Warm and Dry; No Rash
Neuro: AO x 3 conversant coherent
Psych: Calm
Assessment/Plan
59 y/o male with past medical history of paroxysmal afib, metastatic rectal CA with recent admission 11/07-11/24/24 for large bowel obstruction s/p transverse loop colostomy creation presented with weakness. Patient reported intermittent chills.
At the time of admission: He denied headache, chest pain, shortness of breath. He reported that he is eating and drinking well. Normal colostomy output - not black or bloody. No significant abdominal pain, some incisional discomfort. Bilateral LE
swelling since surgery.
CXR
IMPRESSION:
1. Hazy opacity within the left lower lobe, which may represent subsegmental atelectasis or pneumonia.
2. Pulmonary nodules measuring up to 9 mm in diameter. Patient has known pulmonary metastasis, as seen on prior PET/CT dated 06/21/2024
#Weakness/Deconditioning post-op and prolonged hospital stay
-PT/OT/PMR appreciated Acute Rehab recommended
-appreciate CM efforts
#Polymicrobial Bacteremia: ESBL E. Coli and MSSA isolated on separate blood cultures 11/29 and 11/30
-Repeat blood cultures NGTD
-Continue Meropenem. Vancomycin added on 12/01/24 given Staph in repeat (2nd set) of blood cultures.
-CT Abdomen/Pelvis with numerous peripherally enhancing fluid collections in the abdomen which measure up to 7.5 x 3.9 cm in the lower anterior abdomen; the collection in the right lower quadrant contains a small focus of gas as well as hyperdense
contents posteriorly suspicious for oral contrast in the setting of small leak, likely colitis,
-Surgery consulted given the CT imaging findings above --> surgery recommended IR consult for aspiration (or drainage) of the collections --> IR could not drain due to high risk of perforation --> surgery recommends surgical intervention at this time
-Appreciate ID eval cont meropenem, empiric vanc stopped given MSSA, S aureus concerning for port infection, port since removed, 4 wk course meropenem thru 12/27 recommended, picc placed 12/04
-port removed 12/03/24 culture results pending
-ECHO appreciated EF 60-65% no significant valve dz
#Metastatic Rectal CA
#recent admission 11/07-11/24/24 for large bowel obstruction s/p transverse loop colostomy (taken to the OR 11/[address] Acosta for Transverse loop colostomy creation due to large bowel obstruction)
-Oncology Eval appreciated
-CRS eval appreciated
-surgery removed kenny
-SANITATION ENGINEER pain control
#Normocytic Anemia
#Anemia of Chronic Disease
-Patient's Hgb is known to fluctuate
-Hgb dropped to 6.9 on 12/01/24 morning
-Patient received 1 unit PRBC on 12/01/24 with good improvement in Hgb
-H&H remains stable at this time.
-Continue PPI
#Diabetes
Recent A1c 6.1 but unreliable with recent transfusions prior to A1c result
Hyperglycemia noted on morning labs
sliding scale for now
Metformin 500 mg BID started
#mild hyponatremia
monitor
#paroxysmal Afib
-SANITATION ENGINEER Metoprolol
#Vit D def
cont high dose weekly Vit D supplementation
#Bilateral LE swelling since recent surgery (above)
-From low albumin
-Lower extremity DVT ultrasound with no DVT on either side
#GERD - SANITATION ENGINEER PPI
DVT Prophylaxis: Lovenox subQ
Code Status: FULL CODE
I spent a total of 40 minutes with the patient or on the floor. More than 50% of this time involved counseling and coordination of care.
Anticipated Discharge: Within 24 hours
Subjective/Interval History
-
Date of Service: December 04, 2024
No acute distress sitting up comfortably in chair. Overall reports feeling well. Denies new acute issues at this time.
Objective Data
-
Labs:
Laboratory Results
12/04/24
06:00
WBC Pending
Hgb Pending
Hct Pending
Plt Count Pending
Sodium Pending
Potassium Pending
Chloride Pending
Carbon Dioxide Pending
BUN Pending
Creatinine Pending
Glucose Pending
Calcium Pending
Vital Signs:
Vital Signs
Temp Pulse Resp BP Pulse Ox
99.2 F 109 16 113/78 97
12/03/24 22:29 12/03/24 22:29 12/03/24 22:29 12/03/24 22:29 12/03/24 22:29
I&O
12/02/24 12/03/24 12/04/24
06:59 06:59 06:59
Intake Total 1820 / 1820 960 / 960 655 / 655
Output Total 2295 / 2295 2125 / 2125 1250 / 1250
Balance -475 / -475 -1165 / -1165 -595 / -595
[2024-12-04] MEDS: MIRALAX 17 GRAMS PO (07:42)
[2024-12-04] MEDS: PROTONIX 40 MG PO (07:42)
[2024-12-04 07:44] VITALS: BP 95/66
[2024-12-04 08:25] LABS: Hematocrit 27.9 % (39.0-52.0); Hemoglobin 8.9 g/dL (13.0-18.0); Mean Corp Hgb Conc. 31.9 g/dL (33.0-37.0); Mean Corpuscular Hgb 28.3 pg (27.0-31.0); Mean Corpuscular Volume 88.9 fL (80.0-94.0); Mean Platelet Volume 9.7 fL (7.4-10.4); Platelet Count 313 10^3/uL (130-400); Red Blood Cell Count 3.14 10^6/uL (4.70-6.10); Red Cell Dist. Width 17.7 % (11.5-14.5)
[2024-12-04 08:33] LABS: Blood Urea Nitrogen 11 mg/dl (9-20); Calcium 7.9 mg/dl (8.4-10.2); Carbon Dioxide 25 mmol/L (22-30); Chloride 101 mmol/L (98-107); Estimated Creatinine Clearance 108 ml/min; Glucose 233 mg/dl (70-99); Phosphorus 2.9 mg/dl (2.5-4.5); Potassium 4.3 mmol/L (3.5-5.1); Sodium 131 mmol/L (135-145); eGFR > 60.00
--- NOTE | 2024-12-04 08:59 | W.PN.CRS1 ---
Today's Communication / Plan
-
Placement per hospitalist service.
Assessment/Plan
-
Patient 3 weeks s/p palliative colostomy with intraabdominal fluid collections not amenable to IR drainage and small focus of extraluminal contrast in RLQ which is of unclear significance. Also now postop day 1 status post left subclavian port
removal.
1. The patient looks reasonable today. Vitals and labs look good. Incisions look fine.
2. Tolerating diet with stoma function.
3. Appreciate help of other consultants.
Subjective Data
Procedure
Left subclavian port removal on 12/03/2024.
Subjective Data
Date of Service: December 04, 2024
No complaints.
Objective Data
-
Vital Signs
Temp Pulse Resp BP Pulse Ox
97.7 F 82 18 95/66 97
12/04/24 07:44 12/04/24 07:44 12/04/24 07:44 12/04/24 07:44 12/04/24 07:44
Intake & Output
12/03/24 12/04/24 12/05/24
06:59 06:59 06:59
Intake Total 960 / 960 655 / 655
Output Total 2125 / 2125 1250 / 1250
Balance -1165 / -1165 -595 / -595
Intake:
Oral fluids 960 / 960 555 / 555
IV fluids (Total) 100 / 100
normosol 100 / 100
Output:
Liquid stool amount 975 / 975 50 / 50
Colostomy 975 / 975 50 / 50
Urine, Voided 1150 / 1150 1200 / 1200
Lab Results
12/04/24 07:39
12/04/24 07:39
Physical Exam
-
General: No Acute Distress
Chest: Other (Left upper quadrant former port site looks good.)
Abdomen: Non Tender and Other (Stoma viable with output)
Incision: Clear, Dry, Intact and No Skin Erythema
[2024-12-04 09:13] LABS: % Basophils 0.4 % (0-2); % Immature Granulocytes 4.7 % (0-0.5); % Lymphocytes 6.5 % (20.5-51.1); % Neutrophils 82.4 % (42.2-75.2); Absolute Immature Granulocytes 0.4 10^3/uL (0-0.05); Absolute Lymphocytes 0.5 10^3/uL (1.2-3.4); Absolute Monocytes 0.5 10^3/uL (0.1-0.6); Absolute Neutrophils 6.6 10^3/uL (1.4-6.5); Nucleated Red Blood Cells % 0 % (-)
--- NOTE | 2024-12-04 10:06 | W.PN.ONC ---
Today's Communication / Plan
-
continue antibiotics
likely d/c to rehab for weakness
further chemo plans TBD; will need another port eventually
Impression
Impression
Metastatic rectal cancer, PHUONG/KYLIE wt with disease progression on FOLFIRI
Small lung metastases
Intra-abdominal collections measuring up to 7.5 cm and not amenable to IR drainage
Small focus of extraluminal contrast in RLQ
E. Coli and MSSA bacteremia
Plan
Plan
Port was removed 12/03
Antibiotics and mgmt of abdominal collections/abscesses per ID, colorectal surgery
Pt has progressed on FOLFOX and FOLFIRI with no plans for ongoing infusional 5-FU.
Infections preclude cytotoxic chemotherapy but he just start Erbituxed (EGFR-targeted therapy). Erbitux is not myelosuppressive and he could continue this as outpt despite the infectious issues.
Currently, pt appears well, much better in person than on paper.
Per Dr. Mascorro, pt is aware of overall prognosis. As the only living parent for a 14 year-old, pt unlikely to welcome a transition to best supportive care or hospice. This conversation may be continued in the outpt setting.
Continue supportive care.
Thank you for consult, will follow along with you.
Subjective/Objective
Subjective/Objective
no complaints, eager to get to rehab to gain some strength
Vital Signs:
Vital Signs
Temp Pulse Resp BP Pulse Ox
97.7 F 82 18 95/66 97
12/04/24 07:44 12/04/24 07:44 12/04/24 07:44 12/04/24 07:44 12/04/24 08:00
Lab Results:
Laboratory Data
WBC 8.0 10^3/uL (4.8-10.8) 12/04/24 07:39
Hgb 8.9 g/dL (13.0-18.0) L 12/04/24 07:39
Plt Count 313 10^3/uL (130-400) 12/04/24 07:39
eGFR > 60.00 12/04/24 07:39
[2024-12-04 10:39] VITALS: BP 106/74; PULSE 89
[2024-12-04 10:41] VITALS: BP 104/62; PULSE 105; O2SAT 97
--- NOTE | 2024-12-04 11:30 | WOUNDNOTE ---
WON RN NOTE: Appliance changed today with assist of patient. Stoma pink, budded and still swollen, peristomal skin intact. Output brown liquid stool, patient comfortable emptying own appliance. Midline incision closed, kenny no longer there,
patient said were removed a week ago. Gluteal crease assessed while patient ambulated back to bed, remains moist but not open. Additional 4' appliances and Rc seals ordered, will notify nurse and follow as needed.
--- NOTE | 2024-12-04 11:54 | W.PN.ID1 ---
Date of Service
Date of Service: December 04, 2024
Today's Communication
- continue meropenem plan 4 week course through 12/27
- script for OPAT provided
- contact precautions given ESBL isolate
- follow up with oncology
Assessment / Plan
Polymicrobial Bacteremia: ESBL E coli and MSSA
Multiple Intraabdominal fluid collections - abscesses suspected
Port - L chest wall
Most likely atelectasis, less likely pneumonia
11/08 s/p colostomy creation - no complications or known perforation
Metastatic rectal cancer
- repeat blood cultures no growth to date
- blood cultures notable for ESBL E coli and S aureus
- port removed
- place PICC
- CT a/p with IV and oral contrast reviewed - notable for multiple intraabdominal collections, possible contrast extravasation
- TTE no lesions
- continue meropenem plan 4 week course through 12/27 - there is a risk of relapse even with this aggressive course of therapy
- script for OPAT provided
- contact precautions given ESBL isolate
- follow up with oncology
Chief Complaint
-: Bacteremia and Other (intraabdominal abscessses)
Subjective / Review of Systems
afebrile
bp stable
tolerating current therapy
abdominal tenderness ongoing
Vital Signs / Physical Exam
Vital Signs
Vital Signs
Temp Pulse Resp BP Pulse Ox
97.7 F 82 18 95/66 97
12/04/24 07:44 12/04/24 07:44 12/04/24 07:44 12/04/24 07:44 12/04/24 08:00
Physical Exam
Constitutional: No Acute Distress
Cardiovascular: Regular Rate and S1/S2; Negative Murmur or Rub
Pulmonary: Clear and Symmetric; Negative Wheezes or Rales
Gastrointestinal: Soft, Tender (mildly), Non Distended and Normal Bowel Sounds
Skin: Warm and Dry; Negative Rash or Jaundice
Objective Data
Lab Data
Lab Results
12/04/24 07:39
12/04/24 07:39
Estimated Creat Clear 108 ml/min 12/04/24 07:39
Lactic Acid 2.0 mmol/L (0.7-2.0) 11/29/24 09:50
Total Bilirubin 0.6 mg/dl (0.2-1.3) 11/29/24 09:48
AST 36 U/L (17-59) 11/29/24 09:48
ALT 42 U/L (0-50) 11/29/24 09:48
Alkaline Phosphatase 433 U/L (38-126) H 11/29/24 09:48
Most recent labs reviewed.
Micro Results:
12/01/24 11:15 Blood Culture - Preliminary
Blood/Venous No Growth in 72 hours- Final report to follow
11/29/24 09:50 Blood Culture - Final
Blood/Venous No Growth - Final Report
12/03/24 18:00 Catheter Tip Culture - Pending
Catheter Tip
11/30/24 00:04 Blood Culture - Preliminary
Blood/Venous No Growth in 4 days- Final report to follow
12/01/24 11:58 Blood Culture - Preliminary
Blood/Venous No Growth in 48 hours- Final report to follow
11/30/24 08:08 Blood Culture - Preliminary
Blood/Venous S aureus-Methicillin Sensitive
Gram Stain - Preliminary
11/29/24 09:47 Blood Culture - Preliminary
Blood/Venous Escherichia coli - ESBL
Gram Stain - Preliminary
11/29/24 09:46 Influenza Types A & B (LUCIA) - Final
Nasal Swab Negative for Influenza A & B, NAAT
Negative results must be combined with clinical observations
and patient history.
Nucleic Acid Amplification test (NAAT)performed on the
[employer] platform.
[2024-12-04 12:00] LABS: Glucose - Point of Care 255 mg/dl (70-99)
--- NOTE | 2024-12-04 12:26 | PN.CDI ---
CDI
- -
CDI:
Physician Documentation Request
Admit Date: 11/30/24 12:52
Dear Doctor Kevin,
Clinical Indicators:
Patient admitted with weakness;PMH includes rectal cancer with lung metastasis.
Sodium trend:
11/30/24 12/02/24 12/03/24
08:08 05:52 06:10
Sodium 130 L 130 L 129 L
Based on the above, could you clarify in the progress notes, the appropriate diagnosis, if significant, that supports the above abnormalities and additional evaluation, monitoring and/or treatment rendered:
Hyponatremia
Abnormal lab value, clinically insignificant
Other, please specify
Use of terms such as suspected, likely, concern for, or probable (associated with a specific diagnosis that is being evaluated, monitored, or treated as if it exists) are acceptable and can be coded in the inpatient setting, when documented at the
time of discharge.
Thank you,
María Fischer RN BSN
CDI Specialist
available via tiger text
Please use your independent medical judgment in providing your response.
[2024-12-04] MEDS: NOVOLOG FLEXPEN-LOW RESISTANCE 3 UNITS SC (13:06)
--- NOTE | 2024-12-04 13:11 | CM ---
fresh food manager received a script from ID for IV abx, plan is for patient to go to [facility], patient will need Auth from insurance.
Plan; [facility] pending Auth.
[2024-12-04 14:49] VITALS: BP 105/70
[2024-12-04 16:50] LABS: Glucose - Point of Care 231 mg/dl (70-99)
[2024-12-04] MEDS: GLUCOPHAGE 500 MG PO (17:34)
[2024-12-04] MEDS: LOVENOX 40 MG SC (17:35)
[2024-12-04] MEDS: NOVOLOG FLEXPEN-LOW RESISTANCE 2 UNITS SC (17:35)
[2024-12-04] MEDS: ROXICODONE 5 MG PO (19:37)
[2024-12-04 21:56] LABS: Glucose - Point of Care 180 mg/dl (70-99)
[2024-12-04] MEDS: LOPRESSOR 25 MG PO (22:11)
[2024-12-04 23:25] VITALS: BP 116/74
[2024-12-05] MEDS: ROXICODONE 5 MG PO ×2 (01:55→08:16)
[2024-12-05] MEDS: MERREM 1000 MG IV ×3 (04:37→19:43)
[2024-12-05] MEDS: STERILE WATER FOR INJECTION 20 ML IV ×3 (04:37→19:44)
[2024-12-05 05:14] LABS: Hematocrit 25.3 % (39.0-52.0); Hemoglobin 8.2 g/dL (13.0-18.0); Mean Corp Hgb Conc. 32.4 g/dL (33.0-37.0); Mean Corpuscular Hgb 28.8 pg (27.0-31.0); Mean Corpuscular Volume 88.8 fL (80.0-94.0); Mean Platelet Volume 9.5 fL (7.4-10.4); Platelet Count 315 10^3/uL (130-400); Red Blood Cell Count 2.85 10^6/uL (4.70-6.10); Red Cell Dist. Width 17.5 % (11.5-14.5); White Blood Cell Count 8.8 10^3/uL (4.8-10.8)
[2024-12-05 05:34] LABS: Blood Urea Nitrogen 11 mg/dl (9-20); Calcium 7.6 mg/dl (8.4-10.2); Carbon Dioxide 25 mmol/L (22-30); Chloride 102 mmol/L (98-107); Estimated Creatinine Clearance 108 ml/min; Glucose 185 mg/dl (70-99); Magnesium 1.9 mg/dl (1.6-2.3); Phosphorus 2.3 mg/dl (2.5-4.5); Sodium 132 mmol/L (135-145); eGFR > 60.00
--- NOTE | 2024-12-05 06:51 | W.PN.HOSP.TC ---
Today's Communication/Plan
-
Medically stable for discharge Acute Rehab pending insurance auth
Assessment / Plan
Assessment / Plan
Physical Exam
General: No Apparent Distress, appears comfortable at this time
HEENT: PERRLA
Respiratory: clear to auscultation b/l, no wheezes
Cardiac: S1/S2 and Regular Rhythm
GI: Soft, Non Tender, Non Distended, Ostomy present
Musculoskeletal: No cyanosis, +2 lower ext edema
Skin: Warm and Dry; No Rash
Neuro: AO x 3 conversant coherent
Psych: Calm
Assessment/Plan
59 y/o male with past medical history of paroxysmal afib, metastatic rectal CA with recent admission 11/07-11/24/24 for large bowel obstruction s/p transverse loop colostomy creation presented with weakness. Patient reported intermittent chills.
At the time of admission: He denied headache, chest pain, shortness of breath. He reported that he is eating and drinking well. Normal colostomy output - not black or bloody. No significant abdominal pain, some incisional discomfort. Bilateral LE
swelling since surgery.
CXR
IMPRESSION:
1. Hazy opacity within the left lower lobe, which may represent subsegmental atelectasis or pneumonia.
2. Pulmonary nodules measuring up to 9 mm in diameter. Patient has known pulmonary metastasis, as seen on prior PET/CT dated 06/21/2024
#Weakness/Deconditioning post-op and prolonged hospital stay
-PT/OT/PMR appreciated Acute Rehab recommended
-appreciate CM efforts
#Polymicrobial Bacteremia: ESBL E. Coli and MSSA isolated on separate blood cultures 11/29 and 11/30
-Repeat blood cultures NGTD
-Continue Meropenem. Vancomycin added on 12/01/24 given Staph in repeat (2nd set) of blood cultures.
-CT Abdomen/Pelvis with numerous peripherally enhancing fluid collections in the abdomen which measure up to 7.5 x 3.9 cm in the lower anterior abdomen; the collection in the right lower quadrant contains a small focus of gas as well as hyperdense
contents posteriorly suspicious for oral contrast in the setting of small leak, likely colitis,
-Surgery consulted given the CT imaging findings above --> surgery recommended IR consult for aspiration (or drainage) of the collections --> IR could not drain due to high risk of perforation --> surgery recommends surgical intervention at this time
-Appreciate ID eval cont meropenem, empiric vanc stopped given MSSA, S aureus concerning for port infection, port since removed, 4 wk course meropenem thru 12/27 recommended, picc placed 12/04
-port removed 12/03/24 culture results preliminary no growth noted
-ECHO appreciated EF 60-65% no significant valve dz
#Metastatic Rectal CA
#recent admission 11/07-11/24/24 for large bowel obstruction s/p transverse loop colostomy (taken to the OR 11/[address] Acosta for Transverse loop colostomy creation due to large bowel obstruction)
-Oncology Eval appreciated
-CRS eval appreciated
-surgery removed kenny
-SPORT INTERN pain control
#Normocytic Anemia
#Anemia of Chronic Disease
-Patient's Hgb is known to fluctuate
-Hgb dropped to 6.9 on 12/01/24 morning
-Patient received 1 unit PRBC on 12/01/24 with good improvement in Hgb
-H&H remains stable at this time.
-Continue PPI
#Diabetes
Recent A1c 6.1 but unreliable with recent transfusions prior to A1c result
Hyperglycemia noted on morning labs
sliding scale for now
Metformin 500 mg BID started, sugars notably since improved
#mild hyponatremia
monitor
#Hypophosphatemia
Monitor and replete as necessary
#paroxysmal Afib
-SPORT INTERN Metoprolol
#Vit D def
cont high dose weekly Vit D supplementation
#Bilateral LE swelling since recent surgery (above)
-From low albumin
-Lower extremity DVT ultrasound with no DVT on either side
#GERD - SPORT INTERN PPI
DVT Prophylaxis: Lovenox subQ
Code Status: Full Code
Medically stable for discharge Acute Rehab pending insurance auth
I spent a total of 35 minutes with the patient or on the floor. More than 50% of this time involved counseling and coordination of care.
Anticipated Discharge: Within 24 hours
Subjective/Interval History
-
Date of Service: December 05, 2024
No acute distress. Sitting up comfortably in bed. Overall reports feeling well. Denies new acute issues at this time.
Objective Data
-
Labs:
Laboratory Results
12/05/24 12/05/24
04:43 04:44
WBC 8.8
Hgb 8.2 L
Hct 25.3 L
Plt Count 315
Sodium 132 L
Potassium 4.0
Chloride 102
Carbon Dioxide 25
BUN 11
Creatinine 0.5 L
Glucose 185 H
Calcium 7.6 L
Vital Signs:
Vital Signs
Temp Pulse Resp BP Pulse Ox
98.5 F 104 20 116/74 96
12/04/24 23:25 12/04/24 23:25 12/04/24 23:25 12/04/24 23:25 12/04/24 23:25
I&O
12/03/24 12/04/24 12/05/24
06:59 06:59 06:59
Intake Total 960 / 960 655 / 655 1440 / 1440
Output Total 2125 / 2125 1250 / 1250 1500 / 1500
Balance -1165 / -1165 -595 / -595 -60 / -60
[2024-12-05 07:00] VITALS: BP 108/70
--- NOTE | 2024-12-05 07:13 | W.PN.ONC2 ---
Today's Communication / Plan
-
For Rehab and Abx via PICC.
Outpt oncology F/U for continuation of Tx TBD
Impression
Impression
Metastatic rectal cancer, PHUONG/KYLIE wt with disease progression on FOLFIRI
Small lung metastases
Intra-abdominal collections measuring up to 7.5 cm and not amenable to IR drainage
Small focus of extraluminal contrast in RLQ
E. Coli and MSSA bacteremia
Plan
Plan
Port was removed 12/03
Antibiotics and mgmt of abdominal collections/abscesses per ID, colorectal surgery
Pt has progressed on FOLFOX and FOLFIRI with no plans for ongoing infusional 5-FU.
Infections preclude cytotoxic chemotherapy but he just start Erbituxed (EGFR-targeted therapy). Erbitux is not myelosuppressive and he could continue this as outpt despite the infectious issues.
Currently, pt appears well, much better in person than on paper.
Per Dr. Mascorro, pt is aware of overall prognosis. As the only living parent for a 14 year-old, pt unlikely to welcome a transition to best supportive care or hospice. This conversation may be continued in the outpt setting.
Continue supportive care.
Subjective/Objective
Chief Complaint
ACS Progress
Subjective
No c/o. Port revoved. Has PICC. For rehab possibly later today.
Vital Signs:
Vital Signs
Temp Pulse Resp BP Pulse Ox
98.5 F 104 20 116/74 96
12/04/24 23:25 12/04/24 23:25 12/04/24 23:25 12/04/24 23:25 12/04/24 23:25
Lab Results:
Laboratory Data
WBC 8.8 10^3/uL (4.8-10.8) 12/05/24 04:44
Hgb 8.2 g/dL (13.0-18.0) L 12/05/24 04:44
Plt Count 315 10^3/uL (130-400) 12/05/24 04:44
eGFR > 60.00 12/05/24 04:43
Physical Exam
Cardiology: S1 and S2
Pulmonary: Clear
GI: Soft
[2024-12-05 08:05] LABS: Glucose - Point of Care 154 mg/dl (70-99)
[2024-12-05] MEDS: NOVOLOG FLEXPEN-LOW RESISTANCE 1 UNITS SC ×2 (08:08→17:57)
[2024-12-05] MEDS: MIRALAX 17 GRAMS PO (08:08)
[2024-12-05] MEDS: PROTONIX 40 MG PO (08:08)
[2024-12-05] MEDS: GLUCOPHAGE 500 MG PO ×2 (08:08→16:38)
--- NOTE | 2024-12-05 10:09 | CM ---
Addendum entered by Adelia Whelan 12/05/24 14:55:
All clinicals faxed to , Pending ref # [id number]
Original Note:
Chart reviewed and per physician patient has been cleared for discharge, adult protective caseworker reached out to [facility] admissions to make them aware that patient has been cleared for discharge, they are requesting a referral to [facility] for home infusion after
rehab, referral sent to [facility].
[facility]

Dr Ardon
Plan; Acute rehab at [facility] if approved by insurance.
[2024-12-05 12:14] LABS: Glucose - Point of Care 119 mg/dl (70-99)
--- NOTE | 2024-12-05 12:28 | W.PN.CRS1 ---
Today's Communication / Plan
-
Placement per hospitalist service.
Assessment/Plan
-
Patient approximately 3 weeks s/p palliative colostomy with intraabdominal fluid collections not amenable to IR drainage and small focus of extraluminal contrast in RLQ which is of unclear significance. Also now postop day 1 status post left
subclavian port removal.
Clinically doing well.
No plans for surgery.
Subjective Data
Procedure
Left subclavian port removal on 12/03/2024.
Subjective Data
Date of Service: December 05, 2024
He has no complaints. His appetite is good and his ostomy is functioning.
Objective Data
-
Vital Signs
Temp Pulse Resp BP Pulse Ox
98.7 F 101 16 108/70 96
12/05/24 07:00 12/05/24 07:00 12/05/24 07:00 12/05/24 07:00 12/05/24 07:00
Intake & Output
12/04/24 12/05/24 12/06/24
06:59 06:59 06:59
Intake Total 655 / 655 1440 / 1440
Output Total 1250 / 1250 1500 / 1500
Balance -595 / -595 -60 / -60
Intake:
Oral fluids 555 / 555 1440 / 1440
IV fluids (Total) 100 / 100
normosol 100 / 100
Output:
Liquid stool amount 50 / 50
Colostomy 50 / 50
Urine, Voided 1200 / 1200 1500 / 1500
Lab Results
12/05/24 04:44
12/05/24 04:43
Physical Exam
-
General: No Acute Distress
Chest: Other (Left anterior chest wall incision is clean and dry)
Abdomen: Soft, Distended (Mild, chronic), Non Tender and Other (The ostomy is healthy and functioning)
[2024-12-05] MEDS: NOVOLOG FLEXPEN-LOW RESISTANCE SC (12:55)
[2024-12-05] MEDS: ULTRAM 50 MG PO ×2 (13:20→18:03)
[2024-12-05] MEDS: NEUTRA-PHOS POWDER PACKET 250 MG PO ×3 (13:20→21:51)
--- NOTE | 2024-12-05 14:00 | W.PN.ID1 ---
Date of Service
Date of Service: December 05, 2024
Today's Communication
- continue meropenem plan 4 week course through 12/27 - there is a risk of relapse even with this aggressive course of therapy - patient aware and accepting
- script for OPAT provided
- contact precautions given ESBL isolate
- follow up with oncology
Assessment / Plan
Polymicrobial Bacteremia: ESBL E coli and MSSA
Multiple Intraabdominal fluid collections - abscesses suspected
Port - L chest wall
Most likely atelectasis, less likely pneumonia
11/08 s/p colostomy creation - no complications or known perforation
Metastatic rectal cancer
- repeat blood cultures no growth to date
- blood cultures notable for ESBL E coli and S aureus
- port removed
- place PICC
- CT a/p with IV and oral contrast reviewed - notable for multiple intraabdominal collections, possible contrast extravasation
- TTE no lesions
- continue meropenem plan 4 week course through 12/27 - there is a risk of relapse even with this aggressive course of therapy - patient aware and accepting
- script for OPAT provided
- contact precautions given ESBL isolate
- follow up with oncology
Chief Complaint
-: Bacteremia and Other (intraabdominal abscessses)
Subjective / Review of Systems
afebrile
bp stable
Vital Signs / Physical Exam
Vital Signs
Vital Signs
Temp Pulse Resp BP Pulse Ox
98.7 F 101 16 108/70 96
12/05/24 07:00 12/05/24 07:00 12/05/24 07:00 12/05/24 07:00 12/05/24 07:00
Physical Exam
Constitutional: No Acute Distress
Cardiovascular: Regular Rate and S1/S2; Negative Murmur or Rub
Pulmonary: Clear and Symmetric; Negative Wheezes or Rales
Gastrointestinal: Soft, Non Tender, Non Distended and Normal Bowel Sounds
Skin: Warm and Dry; Negative Rash or Jaundice
Lines: PICC
Objective Data
Lab Data
Lab Results
12/05/24 04:44
12/05/24 04:43
Estimated Creat Clear 108 ml/min 12/05/24 04:43
Lactic Acid 2.0 mmol/L (0.7-2.0) 11/29/24 09:50
Total Bilirubin 0.6 mg/dl (0.2-1.3) 11/29/24 09:48
AST 36 U/L (17-59) 11/29/24 09:48
ALT 42 U/L (0-50) 11/29/24 09:48
Alkaline Phosphatase 433 U/L (38-126) H 11/29/24 09:48
Most recent labs reviewed.
Micro Results:
12/01/24 11:58 Blood Culture - Preliminary
Blood/Venous No Growth in 4 days- Final report to follow
12/03/24 18:00 Catheter Tip Culture - Preliminary
Catheter Tip NO GROWTH
12/01/24 11:15 Blood Culture - Preliminary
Blood/Venous No Growth in 4 days- Final report to follow
11/30/24 00:04 Blood Culture - Final
Blood/Venous No Growth - Final Report
11/29/24 09:50 Blood Culture - Final
Blood/Venous No Growth - Final Report
11/30/24 08:08 Blood Culture - Preliminary
Blood/Venous S aureus-Methicillin Sensitive
Gram Stain - Preliminary
11/29/24 09:47 Blood Culture - Preliminary
Blood/Venous Escherichia coli - ESBL
Gram Stain - Preliminary
11/29/24 09:46 Influenza Types A & B (LUCIA) - Final
Nasal Swab Negative for Influenza A & B, NAAT
Negative results must be combined with clinical observations
and patient history.
Nucleic Acid Amplification test (NAAT)performed on the
[employer] platform.
[2024-12-05 15:00] VITALS: BP 110/75
[2024-12-05 15:16] VITALS: BP 118/80; PULSE 112
[2024-12-05 15:36] VITALS: BP 110/75; PULSE 123; O2SAT 96
--- NOTE | 2024-12-05 15:56 | W.PN.REHAB ---
Documented by User: Nicole Pool PA-C 12/05/24 17:10
Today's Communication / Plan
-
see above
Assessment/Function
-
Assessment:
General: AOx 3 in NAD, Thin male with diffuse atrophy of muscles in no apparent distress.�
Chest: Expansion: normal, respiration non labored, Clear to auscultation bilaterally
Heart: Regular rate and rhythm. No murmur
Abdomen: Soft, nontender, non distended, normal abdominal bowel sounds, ostomy intact with good output
Extremities: right ankle/foot edema
Neuro: Orientation: Alert, Oriented to self, Time, Place�
Memory: Intact for recent medical concerns
Comprehension: Intact
Two step command: Intact
Motor: hip flexion/knee extension- 4/5 Dorsiflexion/plantar flexion -5/5
Function:
Bed Mobility: Min assist,
Transfers: Modified independence,
Ambulation: Ambulate 60 feet with rolling walker including 1 turn with slowed gait speed, increased upper extremity reliance, forward flexed posture steady without loss of balance,
Steps:-
ADL's: Grooming�set up, toileting�mod assist, lower extremity care�min assist, toilet transfer min assist,
Plan
-
Assessment
59 y/o right-handed M [facility] (Paroxysmal atrial fibrillation, rectal cancer status post resection�) 11/29/2024 with generalized weakness and inability to care for himself at home with positive blood cultures for E. coli ESBL resulting in ADL and
ambulatory dysfunction.
Plan�
PM&R�PT/OT to increase independence with ADLs, improve balance, coordination, endurance, strength, mobility, community reintegration, decreased burden of care on others and family education.�
�
Debility: Likely related to chemotherapy and recent abdominal surgery with colostomy, Per ID -meropenem plan 4 week course through 12/27 - there is a risk of relapse even with this aggressive course of therapy
Large bowel obstruction status post transverse loop colostomy creation:Metastatic rectal cancer. Follow-up with surgery
Polymicrobial Bacteremia: ESBL E coli and methicillin sensitive staph aureus . Multiple Intraabdominal fluid collections - Not amenable to IR. Contact precautions given ESBL isolate
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
Anemia: Likely multifactorial, 8.2 from 8.9, monitor closely.
Hyponatremia: 132 from 129
Skin: monitor for pressure sores/rashes/lesions.�
Pain: acetaminophen as needed, hydromorphone IV as needed, tramadol 50 every 4 as needed, oxycodone 5 mg every 6 as needed,
Bowel: Getting MiraLAX daily, monitor output
DVT Prophylaxis: Mechanical Lovenox
Pulmonary: Incentive spirometry�
Safety: Continue to reinforce assistance with all transfers.�
Code Status:� Full code
Dispo�(date/plan/equipment needs): Home with family care.� Social history reviewed.�
Functional and Medical Goals:�Modified Independent with ADL�s, ambulation, transfers�
Discharge Destination:�Would benefit from acute inpatient rehabilitation to improve balance, endurance, strength, and mobility
Summary recommendations
Pain: acetaminophen as needed, hydromorphone IV as needed, tramadol 50 every 4 as needed, oxycodone 5 mg every 6 as needed. Pain to be under control on p.o. medications for 24 hours prior to discharge
Pulmonary: Incentive spirometry�
Subjective
-
Date of Service: December 05, 2024
Patient Complaints: Patient s/p colostomy with intra-abdominal fluid collections not amenable to IR drainage. Overall, says that he feels well, but tired. Had his left subclavian port removed yesterday. Reports to be sleeping at night. Appetite is
good. Complaining of some abdominal pain, denies chest pain, shortness of breath, fever, chills, nausea, vomiting, dysuria. He wants to get stronger and is willing to go to acute rehabilitation.
Vital Signs / Labs
-
Vital Signs and Labs:
Temp Pulse Resp BP Pulse Ox
98.7 F 101 16 108/70 96
12/05/24 07:00 12/05/24 07:00 12/05/24 07:00 12/05/24 07:00 12/05/24 07:00
12/05/24 04:44
12/05/24 04:43
12/04/24 12/04/24 12/05/24
16:49 21:54 04:43
RBC
Hgb
Hct
MCHC
RDW
Sodium 132 L
Creatinine 0.5 L
Glucose 185 H
Calcium 7.6 L
Phosphorus 2.3 L
POC Glucose 231 H 180 H
12/05/24 12/05/24 12/05/24
04:44 08:03 12:13
RBC 2.85 L
Hgb 8.2 L
Hct 25.3 L
MCHC 32.4 L
RDW 17.5 H
Sodium
Creatinine
Glucose
Calcium
Phosphorus
POC Glucose 154 H 119 H

Documented by User: Job Hutchinson MD 12/05/24 17:56
Plan
-
Assessment
59 y/o right-handed M [facility] (Paroxysmal atrial fibrillation, rectal cancer status post resection�) 11/29/2024 with generalized weakness and inability to care for himself at home with positive blood cultures for E. coli ESBL resulting in ADL and
ambulatory dysfunction.
Plan�
PM&R�PT/OT to increase independence with ADLs, improve balance, coordination, endurance, strength, mobility, community reintegration, decreased burden of care on others and family education.�
�
Debility: Likely related to chemotherapy and recent abdominal surgery with colostomy, Per ID -meropenem plan 4 week course through 12/27 - there is a risk of relapse even with this aggressive course of therapy
Large bowel obstruction status post transverse loop colostomy creation:Metastatic rectal cancer. Follow-up with surgery
Polymicrobial Bacteremia: ESBL E coli and methicillin sensitive staph aureus . Multiple Intraabdominal fluid collections - Not amenable to IR. Contact precautions given ESBL isolate
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
Anemia: Likely multifactorial, 8.2 from 8.9, monitor closely.
Hyponatremia: 132 from 129
Skin: monitor for pressure sores/rashes/lesions.�
Pain: acetaminophen as needed, hydromorphone IV as needed, tramadol 50 every 4 as needed, oxycodone 5 mg every 6 as needed,
Bowel: Getting MiraLAX daily, monitor output
DVT Prophylaxis: Mechanical Lovenox
Pulmonary: Incentive spirometry�
Safety: Continue to reinforce assistance with all transfers.�
Code Status:� Full code
Dispo�(date/plan/equipment needs): Home with family care.� Social history reviewed.�
Functional and Medical Goals:�Modified Independent with ADL�s, ambulation, transfers�
Discharge Destination:�Would benefit from acute inpatient rehabilitation to improve balance, endurance, strength, and mobility
Summary recommendations
Pain: acetaminophen as needed, hydromorphone IV as needed, tramadol 50 every 4 as needed, oxycodone 5 mg every 6 as needed. Pain to be under control on p.o. medications for 24 hours prior to discharge
Pulmonary: Incentive spirometry�
Attending Note:
Patient was seen this evening and discussed with Nicole Pool PA-C. I agree with note, examination and plan as outlined. Patient with deconditioning, weakness and debility due to Stage IV cancer, and persistent bacteremia, intra-abdominal
abscess. Would benefit from acute rehab with PT and OT to improve strength functional mobility to be discharged home safely. LE weakness probably contribution from the neuropathy from chemotherapy.
Acute rehab once medically stable.
--- NOTE | 2024-12-05 15:58 | PN.CDI ---
CDI
- -
CDI:
Physician Documentation Request
Admit Date: 11/30/24 12:52
Dear Doctor Kevin,
Clinical Indicators:
Patient admitted with weakness and reported intermittent chills; PMH includes metastatic rectal cancer.
12/05 PN, 'Polymicrobial Bacteremia: ESBL E. Coli and MSSA isolated on separate blood cultures'
HR/RR trend on admission:
11/29/24
09:45 11/29/24
10:00 11/29/24
11:00
Pulse 102 100 103
Resp Rate 22 24 27
11/29/24
12:00 11/29/24
13:00
Pulse 142 102
Resp Rate 28 28
Please clarify which of the following most accurately describes the status of the patient's infection:
Sepsis, POA
- Systemic manifestations of infection, with 2 or more SIRS criteria which include:
- Fever >100.4 degrees F or hypothermia < 96.8 degrees F
- Leukocytosis - WBC > 12,000 or leukopenia - WBC < 4,000 or > 10% bands
- Tachycardia > 90 beats per minute
- Tachypnea - RR > 20 breaths per minute or PaCO2 , 32mmHg
Source: Merck Manual 2013
Bacteremia Only
- Abnormal lab finding only, does not indicate systemic illness
Other, please specify
Use of terms such as suspected, likely, concern for, or probable (associated with a specific diagnosis that is being evaluated, monitored, or treated as if it exists) are acceptable and can be coded in the inpatient setting, when documented at the
time of discharge.
Thank you,
María Fischer RN BSN
CDI Specialist
available via tiger text
Please use your independent medical judgment in providing your response.
[2024-12-05] MEDS: TYLENOL 650 MG PO (16:38)
[2024-12-05 17:53] LABS: Glucose - Point of Care 172 mg/dl (70-99)
[2024-12-05] MEDS: LOVENOX 40 MG SC (17:56)
[2024-12-05 21:47] VITALS: BP 117/79
[2024-12-05] MEDS: LOPRESSOR 25 MG PO (21:51)
[2024-12-05 22:15] LABS: Glucose - Point of Care 142 mg/dl (70-99)
[2024-12-05 22:53] VITALS: BP 112/78
[2024-12-06] MEDS: STERILE WATER FOR INJECTION 20 ML IV ×2 (03:48→12:40)
[2024-12-06] MEDS: MERREM 1000 MG IV ×2 (03:48→12:44)
[2024-12-06] MEDS: ULTRAM 50 MG PO (03:56)
[2024-12-06 04:29] LABS: Hematocrit 24.5 % (39.0-52.0); Hemoglobin 7.8 g/dL (13.0-18.0); Mean Corp Hgb Conc. 31.8 g/dL (33.0-37.0); Mean Corpuscular Hgb 28.1 pg (27.0-31.0); Mean Corpuscular Volume 88.1 fL (80.0-94.0); Mean Platelet Volume 9.1 fL (7.4-10.4); Platelet Count 267 10^3/uL (130-400); Red Blood Cell Count 2.78 10^6/uL (4.70-6.10); Red Cell Dist. Width 17.7 % (11.5-14.5); White Blood Cell Count 8.1 10^3/uL (4.8-10.8)
[2024-12-06 04:55] LABS: Blood Urea Nitrogen 8 mg/dl (9-20); Calcium 7.8 mg/dl (8.4-10.2); Carbon Dioxide 27 mmol/L (22-30); Chloride 100 mmol/L (98-107); Estimated Creatinine Clearance 108 ml/min; Glucose 163 mg/dl (70-99); Magnesium 1.7 mg/dl (1.6-2.3); Phosphorus 2.9 mg/dl (2.5-4.5); Sodium 132 mmol/L (135-145); eGFR > 60.00
--- NOTE | 2024-12-06 06:47 | W.PN.HOSP.TC ---
Today's Communication/Plan
-
discharge
Assessment / Plan
Assessment / Plan
Physical Exam
General: No Apparent Distress, appears comfortable at this time
HEENT: PERRLA
Respiratory: clear to auscultation b/l, no wheezes
Cardiac: S1/S2 and Regular Rhythm
GI: Soft, Non Tender, Non Distended, Ostomy present
Musculoskeletal: No cyanosis, +1 lower ext edema
Skin: Warm and Dry; No Rash
Neuro: AO x 3 conversant coherent
Psych: Calm
Assessment/Plan
59 y/o male with past medical history of paroxysmal afib, metastatic rectal CA with recent admission 11/07-11/24/24 for large bowel obstruction s/p transverse loop colostomy creation presented with weakness, unable to take care of self, at home
intermittent chills.
CXR appreciated:
1. Hazy opacity within the left lower lobe, which may represent subsegmental atelectasis or pneumonia.
2. Pulmonary nodules measuring up to 9 mm in diameter. Patient has known pulmonary metastasis, as seen on prior PET/CT dated 06/21/2024
#Weakness/Deconditioning post-op and prolonged hospital stay
-PT/OT/PMR appreciated Acute Rehab recommended
-appreciate CM efforts
#Polymicrobial Bacteremia: ESBL E. Coli and MSSA isolated on separate blood cultures 11/29 and 11/30
#Sepsis POA (tachycardia, tachypnea)
-Repeat blood cultures NGTD
-Empiric treatment Vancomycin completed
-CT Abdomen/Pelvis with numerous peripherally enhancing fluid collections in the abdomen which measured up to 7.5 x 3.9 cm in the lower anterior abdomen; the collection in the right lower quadrant contains a small focus of gas as well as hyperdense
contents posteriorly suspicious for oral contrast in the setting of small leak, likely colitis,
-Surgery consulted given the CT imaging findings above --> surgery recommended IR consult for aspiration (or drainage) of the collections --> IR could not drain due to high risk of perforation --> surgery recommends no surgical intervention at this
time
-Appreciate ID eval cont meropenem, empiric vanc stopped given MSSA, S aureus concerning for port infection, port since removed, 4 wk course meropenem thru 12/27 recommended, picc placed 12/04
-port removed 12/03/24 culture results preliminary no growth noted
-ECHO appreciated EF 60-65% no significant valve dz
#Metastatic Rectal CA
#recent admission 11/07-11/24/24 for large bowel obstruction s/p transverse loop colostomy (taken to the OR 11/[address] Acosta for Transverse loop colostomy creation due to large bowel obstruction)
-Oncology Eval appreciated
-CRS eval appreciated
-surgery removed kenny
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
#Normocytic Anemia
#Anemia of Chronic Disease
-Patient's Hgb is known to fluctuate
-Hgb dropped to 6.9 on 12/01/24 morning
-Patient received 1 unit PRBC on 12/01/24 with good improvement in Hgb
-H&H remains stable at this time.
-Continue PPI
#Diabetes
Recent A1c 6.1 but unreliable with recent transfusions prior to A1c result
Hyperglycemia noted on morning labs
sliding scale for now
Metformin 500 mg BID started, sugars notably since improved
#mild hyponatremia
monitor
#Hypophosphatemia
Monitor and replete as necessary
#paroxysmal Afib
-[employer] SUPERVISOR Metoprolol
#Vit D def
cont high dose weekly Vit D supplementation
#Bilateral LE swelling since recent surgery (above)
-From low albumin
-Lower extremity DVT ultrasound with no DVT on either side
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
DVT Prophylaxis: Lovenox subQ
Code Status: Full Code
Medically stable for discharge Acute Rehab with outpatient follow up recommendations.
Total Time Preparing Discharge ___40____ minutes including examination of the patient, summary of the hospital stay, instructions for continuing care to all relevant caregivers; and preparation of discharge records, prescriptions, and referral
forms if necessary.
Anticipated Discharge: Today
Subjective/Interval History
-
Date of Service: December 06, 2024
No acute distress, reports feeling well. Denies new acute issues. Looking forward to Acute Rehab.
Objective Data
-
Labs:
Laboratory Results
12/06/24
04:20
WBC 8.1
Hgb 7.8 L
Hct 24.5 L
Plt Count 267
Sodium 132 L
Potassium 4.0
Chloride 100
Carbon Dioxide 27
BUN 8 L
Creatinine 0.4 L
Glucose 163 H
Calcium 7.8 L
Vital Signs:
Vital Signs
Temp Pulse Resp BP Pulse Ox
98.5 F 110 20 112/78 99
12/05/24 22:53 12/05/24 22:53 12/05/24 22:53 12/05/24 22:53 12/05/24 22:53
I&O
12/04/24 12/05/24 12/06/24
06:59 06:59 06:59
Intake Total 655 / 655 1440 / 1440 1920 / 1920
Output Total 1250 / 1250 1500 / 1500 2925 / 2925
Balance -595 / -595 -60 / -60 -1005 / -1005
[2024-12-06 07:30] VITALS: BP 102/60
[2024-12-06 09:19] LABS: Glucose - Point of Care 144 mg/dl (70-99)
[2024-12-06] MEDS: GLUCOPHAGE 500 MG PO ×2 (09:32→18:06)
[2024-12-06] MEDS: PROTONIX 40 MG PO (09:33)
[2024-12-06] MEDS: MIRALAX 17 GRAMS PO (09:33)
[2024-12-06] MEDS: NEUTRA-PHOS POWDER PACKET 250 MG PO (09:33)
[2024-12-06] MEDS: NOVOLOG FLEXPEN-LOW RESISTANCE SC ×3 (09:34→17:06)
--- NOTE | 2024-12-06 10:08 | W.PN.ONC ---
Today's Communication / Plan
-
Anticipate rehab
Follow-up in the office with performance status is improved to consider reinstatement of therapy.
Subjective/Objective
Subjective/Objective
No new complaints today
Vital Signs:
Vital Signs
Temp Pulse Resp BP Pulse Ox
98.2 F 100 18 102/60 99
12/06/24 07:30 12/06/24 07:30 12/06/24 07:30 12/06/24 07:30 12/06/24 07:30
PE: Unchanged
Lab Results:
Laboratory Data
WBC 8.1 10^3/uL (4.8-10.8) 12/06/24 04:20
Hgb 7.8 g/dL (13.0-18.0) L 12/06/24 04:20
Plt Count 267 10^3/uL (130-400) 12/06/24 04:20
eGFR > 60.00 12/06/24 04:20
--- NOTE | 2024-12-06 11:14 | W.PN.ID1 ---
Date of Service
Date of Service: December 06, 2024
Today's Communication
- continue meropenem plan 4 week course through 12/27 - there is a risk of relapse even with this aggressive course of therapy - patient aware and accepting
- script for OPAT provided
- contact precautions given ESBL isolate
- follow up with oncology
Assessment / Plan
Polymicrobial Bacteremia: ESBL E coli and MSSA
Multiple Intraabdominal fluid collections - abscesses suspected
Port - L chest wall
Most likely atelectasis, less likely pneumonia
11/08 s/p colostomy creation - no complications or known perforation
Metastatic rectal cancer
- repeat blood cultures no growth to date
- blood cultures notable for ESBL E coli and MSSA
- PICC
- CT a/p with IV and oral contrast reviewed - notable for multiple intraabdominal collections, possible contrast extravasation
- TTE no lesions
- continue meropenem plan 4 week course through 12/27 - there is a risk of relapse even with this aggressive course of therapy - patient aware and accepting
- script for OPAT provided
- contact precautions given ESBL isolate
- follow up with oncology
Chief Complaint
-: Bacteremia and Other (intraabdominal abscessses)
Subjective / Review of Systems
afebrile
bp stable
no complaints
Vital Signs / Physical Exam
Vital Signs
Vital Signs
Temp Pulse Resp BP Pulse Ox
98.2 F 100 18 102/60 99
12/06/24 07:30 12/06/24 07:30 12/06/24 07:30 12/06/24 07:30 12/06/24 07:30
Physical Exam
Constitutional: No Acute Distress
Cardiovascular: Regular Rate and S1/S2; Negative Murmur or Rub
Pulmonary: Clear and Symmetric; Negative Wheezes or Rales
Gastrointestinal: Soft, Non Tender, Non Distended and Normal Bowel Sounds
Skin: Warm and Dry; Negative Rash or Jaundice
Objective Data
Lab Data
Lab Results
12/06/24 04:20
12/06/24 04:20
Estimated Creat Clear 108 ml/min 12/06/24 04:20
Lactic Acid 2.0 mmol/L (0.7-2.0) 11/29/24 09:50
Total Bilirubin 0.6 mg/dl (0.2-1.3) 11/29/24 09:48
AST 36 U/L (17-59) 11/29/24 09:48
ALT 42 U/L (0-50) 11/29/24 09:48
Alkaline Phosphatase 433 U/L (38-126) H 11/29/24 09:48
Most recent labs reviewed.
Micro Results:
12/01/24 11:58 Blood Culture - Preliminary
Blood/Venous No Growth in 4 days- Final report to follow
12/03/24 18:00 Catheter Tip Culture - Preliminary
Catheter Tip NO GROWTH
12/01/24 11:15 Blood Culture - Preliminary
Blood/Venous No Growth in 4 days- Final report to follow
11/30/24 00:04 Blood Culture - Final
Blood/Venous No Growth - Final Report
11/29/24 09:50 Blood Culture - Final
Blood/Venous No Growth - Final Report
11/30/24 08:08 Blood Culture - Preliminary
Blood/Venous S aureus-Methicillin Sensitive
Gram Stain - Preliminary
11/29/24 09:47 Blood Culture - Preliminary
Blood/Venous Escherichia coli - ESBL
Gram Stain - Preliminary
11/29/24 09:46 Influenza Types A & B (LUCIA) - Final
Nasal Swab Negative for Influenza A & B, NAAT
Negative results must be combined with clinical observations
and patient history.
Nucleic Acid Amplification test (NAAT)performed on the
[employer] platform.
[2024-12-06 11:21] LABS: Glucose - Point of Care 149 mg/dl (70-99)
--- NOTE | 2024-12-06 11:34 | CM ---
Addendum entered by Adelia Whelan 12/06/24 13:03:
Patient has been approved for 7 days Acute rehab per Lisbeth at [facility], Auth [id number] 12/06/24 to 12/13/24, NRD 12/13/24, to Marilee Otoole [phone], X [phone], . (Lisbeth [phone]).
IV ABX script and PICC line information faxed to [facility] for IV ABX after discharge from [facility].
[facility]
Report [phone]
Original Note:
manager floral reviewed patient's chart and met with patient and Auth is still pending for acute rehab at [facility], per admissions at [facility] they can accept patient if patient is approved by insurance.
Plan; Waiting on Auth from patient's insurance for Acute rehab at [facility]. Auth pending [id number].
[2024-12-06 14:29] LABS: Hematocrit 25.2 % (39.0-52.0); Hemoglobin 7.9 g/dL (13.0-18.0)
[2024-12-06 15:54] VITALS: BP 105/70
[2024-12-06 16:12] LABS: Glucose - Point of Care 143 mg/dl (70-99)
--- NOTE | 2024-12-06 16:25 | W.DCSUMMARY ---
Discharge Summary
Discharge Data
Date of Admission: 11/30/24
Date of Discharge: 12/06/24
-
Pending Results: Yes
Additional Pending Results:
official culture results
Discharge Plan
-
Patient Disposition: Acute Rehab Facility
Discharge Diagnosis/Procedures: Polymicrobial Bacteremia: ESBL E. Coli and MSSA isolated on separate blood cultures Sepsis present on admission since resolved
Metastatic Rectal CA
History large bowel obstruction due to malignancy status post transverse loop colostomy
Normocytic Anemia
Anemia of Chronic Disease
Diabetes, Recent A1c 6.1 but unreliable with recent transfusions prior to A1c result
mild hyponatremia
paroxysmal Atrial Fibrillation
Vitamin D deficiency
GERD
Condition: Fair
Diet: Regular
Activity: With assistance
Driving Restrictions: Not until seen by your Dr
Bathing Restrictions: None
Blood Work: Repeat CBC and BMP in 3-5 days of Discharge
Other Services: PT and OT
Activity Restrictions/Additional Instructions:
[place] 4 inch wafer # [id number], Rc seal and [place] pouch # [id number]. Change 2 times a week and as needed for drainage. If stoma becomes smaller, can try Jonny 2 2/4 inch wafer # [id number], Rc seal and Jonny pouch # [id number] instead.
Call [facility] RN nurse for ostomy pouching concerns or leakage problems [phone] or [phone] or [phone].
Petroleum based barrier ointment to attiana/coccyx/buttocks TID and prn incontinence.
Pressure redistributing chair cushion (i.e. Air chair cushion).
Referrals:
Rayo Rose, DO [Family Provider] - in one week
Prescriptions:
New
metformin 500 mg Tablet
500 mg PO BID@0800,1700 Qty: 60 0RF
meropenem 1 gram Recon Soln
1,000 mg IV Q8H Qty: 25 0RF
Rx Instructions:
to continue through 12/27 as per infectious disease.
Continued
metoprolol tartrate 25 mg Tablet
25 mg PO HS
simethicone 80 mg Tablet,Chewable
80 mg PO TIDPRN PRN (Reason: gas pains)
polyethylene glycol 3350 17 gram Powder In Packet
17 g PO DAILY Qty: 30 0RF
ergocalciferol (vitamin D2) [Vitamin D2] 1,250 mcg (50,000 unit) Capsule
1,250 mcg PO FR Qty: 10 0RF
tramadol 50 mg Tablet
50 mg PO Q4HPRN PRN (Reason: moderate pains)
omeprazole 20 mg Capsule,Delayed Release(Dr/Ec)
20 mg PO DAILY
oxycodone 5 mg tablet
5 mg PO Q6HPRN PRN (Reason: severe Pain)
Discontinued
prednisone 20 mg Tablet
20 mg PO DIRECTED
Rx Instructions:
take for 5 days starting the day after chemo
Discharge Orders:
Discharge Patient (As Directed); Ordered 12/06/24
Ordered By: Christine Brown
Discharge Date and Time
Print Language: MONGOLIAN
[2024-12-06] MEDS: LOVENOX 40 MG SC (18:06)
== END 2024-12-06 18:29 | DRG 871 ==
LOC: 4 WEST ACU 12:52
PROVIDERS: Hospitalist; Nurse Practitioner Family; Physician Assistant; Surgery; ADMITTING PHYSICIAN Student in an Organized Health Care Education/Training Program; ATTENDING PHYSICIAN Internal Medicine; CONSULT PHYSICIAN Internal Medicine Hematology & Oncology; CONSULT PHYSICIAN Physical Medicine & Rehabilitation; CONSULT PHYSICIAN Student in an Organized Health Care Education/Training Program; EMERGENCY PHYSICIAN Student in an Organized Health Care Education/Training Program; FAMILY PHYSICIAN Family Medicine; OTHER PHYSICIAN Surgery
PROC: B5181ZA Fluoroscopy of Superior Vena Cava using Low Osmolar Contrast, Guidance (ICD-10-PCS; 2024-12-04)
PROC: 0JPT0XZ Removal of Tunneled Vascular Access Device from Trunk Subcutaneous Tissue and Fascia, Open Approach (ICD-10-PCS; 2024-12-04)
PROC: 02HV33Z Insertion of Infusion Device into Superior Vena Cava, Percutaneous Approach (ICD-10-PCS; 2024-12-04)
DX: A41.51 Sepsis due to Escherichia coli [E. coli] (principal); J18.9 Pneumonia, unspecified organism; K65.1 Peritoneal abscess; Z16.12 Extended spectrum beta lactamase (ESBL) resistance; J98.11 Atelectasis; C78.00 Secondary malignant neoplasm of unspecified lung; C20 Malignant neoplasm of rectum; E87.1 Hypo-osmolality and hyponatremia; A41.01 Sepsis due to Methicillin susceptible Staphylococcus aureus; I48.0 Paroxysmal atrial fibrillation; Z93.3 Colostomy status; E11.9 Type 2 diabetes mellitus without complications; E55.9 Vitamin D deficiency, unspecified; K21.9 Gastro-esophageal reflux disease without esophagitis; D63.8 Anemia in other chronic diseases classified elsewhere; E78.5 Hyperlipidemia, unspecified; G62.0 Drug-induced polyneuropathy; T45.1X5A Adverse effect of antineoplastic and immunosuppressive drugs, initial encounter; Z79.52 Long term (current) use of systemic steroids; Z80.3 Family history of malignant neoplasm of breast; Z80.6 Family history of leukemia; Z92.3 Personal history of irradiation
CPT/HCPCS: 93308; 71045; 71046; 74177; 76380; 76705; 80048; 80053; 80202; 81003; 81015; 82040; 82607; 82962; 83605; 83735; 84100; 84443; 85014; 85018; 85025; 85027; 86850; 86900; 86901; 86920; 87040; 87070; 87084; 87149; 87150; 87186; 87205; 87502; 87811; 93321; 93325; 93970; 97116; 97167; 97530; 97535; 99285; J2185; P9016; Q9967

== ENCOUNTER 2024-12-18 16:49 | Inpatient (IN) | payer OTHER, SELFPAY ==
[2024-12-18] VITALS (14 sets, daily range): BP systolic 105–400; BP diastolic 68–77; BMI 22.5
--- NOTE | 2024-12-18 11:50 | ED.GENMED ---
History of Present Illness
General
Chief Complaint: Abnormal Lab Value
Source: patient
Exam Limitations: none
Time Seen by Provider: 12/18/24 11:38
Nursing documentation reviewed up to this point in time: agreed with
History of Present Illness
History of Present Illness:
59-year-old male with past medical history of paroxysmal A-fib hyperlipidemia, colostomy previous rectal cancer coming from rehab with concerns of elevated white count this morning.Be discharged home today but infectious disease was concern for
worsening. Has been getting meropenem from the right upper extremity PICC line. Recommend getting blood cultures and CT scan for further assessment.
Review of Systems
Review of Systems
Allergies reviewed?: Yes
All Other Systems: ROS reviewed and negative except as documented in HPI and ROS
Phy Exam
Physical Exam
Physical Exam:
GENERAL: Alert , in no apparent distress
EYE: pupils equal and reactive
NECK: Supple, no significant adenopathy.
ENT: o/p clr, mmm.
CARDIAC: Regular rate and rhythm .
LUNGS: Clear breath sounds bilaterally, no acute respiratory distress, no wheezes/rales/rhonchi
ABDOMEN: Colostomy bag in place no significant tenderness but is some rigidity to the left side of the abdomen soft, without focal tenderness, no r/g, no cvat
NEUROLOGICAL: Alert and oriented, no focal neuro deficits
SKIN: Warm and dry, skin intact.
MUSCULOSKELETAL: No edema, well perfused.
PSYCH: Normal and appropriate interaction.
Course
Orders/Labs/Results
Orders:
Orders
12/18/24 11:45
Iohexol [Omnipaque] See Protocol PO NOW STA
12/18/24 11:46
CT Abd/pel W Iv And Oral Contr Urgent
Comment:
Reason For Exam: on IV abx for colitis, worsenign wbc, ID rec
12/18/24 12:02
COVID-19 Antigen Urgent
Source: Nasal Swab
Influenza A+B Rapid Molecular Urgent
AGGIE Source: Nasal Swab
Specimen Description:
RSV [Respiratory Syncytial Virus] Urgent
AGGIE Source: Nasal Swab
Specimen Description:
Date Specimen was Collected: 12/18/24
Time Specimen was Collected: 11:57
12/18/24 12:09
Blood Culture Urgent
AGGIE Source: Blood/Venous
Specimen Description:
Comment: Peripheral line
12/18/24 12:34
Blood Culture Urgent
AGGIE Source: Blood/Venous
Specimen Description:
Comment: PICC line
12/18/24 12:56
Urinalysis Reflex To Culture Urgent
Date Specimen was Collected: 12/18/24
Time Specimen was Collected: 12:55
Urine Microscopic Reflex Cult Urgent
12/18/24 16:01
Consult Interventional Radiology [IRAD CONSULT] Urgent
Consulting Provider: Jarred Levy
Was physician already notified: Yes
Reason for Consult/Procedure: Drain placement for abscess in anterior peritoneal space of lower abd
Acknowledgement that appropriate orders are entered: Yes
Abnormal Lab Results
12/18/24
12:56
Ur Occult Blood Reflex 1+ A
(Negative)
Urine Bacteria (Reflex) Few A
(Negative)
Urine Albumin (Reflex) 2+ A
(Neg - Trace)
Vital Signs
Initial and Last Documented VS:
Initial Vital Signs
Temp Pulse Resp BP Pulse Ox
98.9 F 105 16 108/69 93
12/18/24 11:27 12/18/24 11:27 12/18/24 11:27 12/18/24 11:27 12/18/24 11:27
Last Documented Vital Signs
Temp Pulse Resp BP Pulse Ox
98.9 F 101 38 106/70 93
12/18/24 11:27 12/18/24 13:45 12/18/24 13:45 12/18/24 13:00 12/18/24 13:45
MDM/Problems Addressed
MDM/Problems Addressed:
59-year-old male presenting to the emergency department today with concerns of worsening white count while in rehab getting treated for abdominal infection with meropenem with a PICC line. On arrival here mildly tachycardic in the low 100s
afebrile. Patient is in no distress abdominal semination does reveal some rigidity to the left side of the abdomen. Has a colostomy in place. No significant tenderness no redness or warmth. Here CT scan was performed showing significant 25 cm
peritoneal abscess. Case discussed with colorectal recommending IR drainage. IR was consulted and will likely place a drain. Admitted in stable condition.
*Critical Care Note
Total Time (30-74mins, 75-104mins- exclusive of procedures): Not Applicable
ED Attending Note
-
Portions of this chart may have been created with voice recognition software.� Occasional wrong word or��sound alike� substitutions may have occurred due to the inherent limitations of voice recognition software.
Discharge Plan
Departure
Patient Disposition: Admit
Date of Disposition: 12/18/24
Time of Disposition: 16:09
Admit to: Med/Surg
Admit to doctor: Tinyy
Presentation/result/management discussed w/ accepting MD/DO: Hospitalist
Patient with high blood pressure during this ER visit?: No
Condition: Good
Covid-19: Not Applicable
Discharge Problem:
Abscess, peritoneal
Prescriptions:
No Action
simethicone [Mylicon] 80 mg Tablet,Chewable
80 mg PO TIDPRN PRN (Reason: gas pain)
oxycodone 5 mg Tablet
5 mg PO Q6HPRN PRN (Reason: severe pain)
enoxaparin [Lovenox] 40 mg/0.4 mL Syringe
40 mg SC QPM
metoprolol succinate 25 mg tablet extended release 24 hr
12.5 mg PO BID
trazodone 50 mg Tablet
25 mg PO HS 30 Days Qty: 30 0RF
ferrous sulfate [FeroSul] 325 mg (65 mg iron) Tablet
325 mg PO DAILY 30 Days Qty: 30 0RF
melatonin 5 mg Tablet
10 mg PO HSPRN PRN (Reason: insomnia) 30 Days Qty: 30 0RF
acetaminophen 325 mg Tablet
650 mg PO Q4HPRN PRN (Reason: mild pain) 30 Days Qty: 100 0RF
midodrine 5 mg Tablet
5 mg PO BID@0700,1300 30 Days Qty: 60 0RF
tramadol 50 mg Tablet
50 mg PO Q4HPRN PRN (Reason: moderate pains) 5 Days Qty: 30 0RF
pantoprazole 40 mg Tablet,Delayed Release (Dr/Ec)
40 mg PO DAILY 30 Days Qty: 30 0RF
meropenem 1 gram Recon Soln
1,000 mg IV Q8H Qty: 25 0RF
Rx Instructions:
to continue through 12/27 as per infectious disease.
ergocalciferol (vitamin D2) [Vitamin D2] 1,250 mcg (50,000 unit) Capsule
1,250 mcg PO FR Qty: 10 0RF
Referrals:
UNKNOWN - PT DOES,NOT KNOW [Family Provider] -
Interventions
Interventions:
*Risk Screen - Suicide Last Done: 12/18/24 11:27
*General Assessment Last Done: 12/18/24 11:27
*Neglect/Abuse Screening Last Done: 12/18/24 11:27
*ED- Fall Risk Assessment Last Done: 12/18/24 11:27
Discharge Date and Time
Print Language: [place] ISLANDER
[2024-12-18] MEDS: OMNIPAQUE 50 ML PO (12:03)
[2024-12-18 12:53] LABS: COVID-19 Antigen Negative (Negative)
[2024-12-18 13:09] LABS: Urine Albumin 2+ (Neg - Trace); Urine Bilirubin Negative (Negative); Urine Character Clear (Clear); Urine Color Yellow; Urine Glucose Negative (Negative); Urine Ketone Negative (Negative); Urine Leukocyte Negative (Negative); Urine Nitrite Negative (Negative); Urine Occult Blood 1+ (Negative); Urine Urobilinogen Negative (Neg - 1+)
[2024-12-18 13:58] LABS: Urine Squamous Cell 0-2 /LPF (Few)
[2024-12-18 13:59] LABS: Urine Red Blood Cell 0-2 /HPF (0-2)
[2024-12-18 14:00] LABS: Urine Bacteria Few (Negative)
--- NOTE | 2024-12-18 16:36 | HPS.HSE ---
Family Physician
-
Family Physician: NOT KNOW UNKNOWN - PT DOES
Chief Complaint
-
Intermittent fevers, leukocytosis
History of Present Illness
59-year-old male with metastatic rectal cancer transferred from [facility] today for evaluation of leukocytosis and intermittent fevers.
Being treated with IV antibiotics for postoperative abdominal abscess. Has a PICC line in place in the right arm. [facility]
Workup in the emergency room today confirmed a intra-abdominal abscess measuring 25 cm.
Plan to admit and place a drain by interventional radiology. Consult to ID and colorectal surgery.
Patient complains of mild abdominal discomfort and bloating.
Medical History
Past Medical History
Past Medical History: Reports Other
Additional Past Medical History:
Metastatic rectal cancer
Intra-abdominal abscess
Chronic anemia
Paroxysmal atrial fibrillation
DM2
Vitamin D deficiency
GERD
Past Surgical History: Reports Other
Additional Past Surgical History:
Bowel resection
Social History
Tobacco: Non-smoker
Alcohol: None
Drug: None
Family History
Family History: Not pertinent
Allergies / Home Medications
Allergies reflects when Allergies were last updated in [facility].
Home Medications with original date entered in [facility]
Allergy/Medication List:
Allergies
Allergy/AdvReac Type Severity Reaction Status Date / Time
No Known Allergies Allergy Verified 12/18/24 11:34
Home Medications
acetaminophen 325 mg tablet 650 mg (2 x 325 mg) PO Q4HPRN PRN mild pain 30 days #100 tabs 12/17/24
ergocalciferol (vitamin D2) 1,250 mcg (50,000 unit) capsule (Vitamin D2) 1,250 mcg PO FR Vitamin D deficiency #10 caps 12/17/24
ferrous sulfate 325 mg (65 mg iron) tablet (FeroSul) 325 mg PO DAILY Anemia, iron deficiency 30 days #30 tabs 12/17/24
melatonin 5 mg tablet 10 mg (2 x 5 mg) PO HSPRN PRN insomnia 30 days #30 tabs 12/17/24
meropenem 1 gram intravenous solution 1,000 mg IV Q8H Polymicrobial bacteremia #25 ea 12/17/24
midodrine 5 mg tablet 5 mg PO BID@0700,1300 Orthostasis 30 days #60 tabs 12/17/24
pantoprazole 40 mg tablet,delayed release 40 mg PO DAILY Gastrointestinal issue 30 days #30 tabs 12/17/24
tramadol 50 mg tablet 50 mg PO Q4HPRN PRN moderate pains 5 days #30 tabs 12/17/24
trazodone 50 mg tablet 25 mg (1/2 x 50 mg) PO HS Insomnia 30 days #30 tabs 12/17/24
enoxaparin 40 mg/0.4 mL subcutaneous syringe (Lovenox) 40 mg SC QPM 12/18/24
metoprolol succinate 25 mg tablet,extended release 24 hr 12.5 mg PO BID Blood pressure, heart rate control 12/18/24
oxycodone 5 mg tablet 5 mg PO Q6HPRN PRN severe pain 12/18/24
simethicone 80 mg chewable tablet 80 mg PO TIDPRN PRN gas pain 12/18/24
Review of Systems
-
History Source: Patient
A 12 point ROS was completed and negative except as noted: Yes
Physical Exam
Vital Signs
Vital Signs
Temp Pulse Resp BP Pulse Ox
98.9 F 109 33 108/77 91
12/18/24 11:27 12/18/24 16:00 12/18/24 16:00 12/18/24 16:00 12/18/24 16:00
Physical Exam
General: No Apparent Distress, Comfortable and Appears Chronically Ill
HEENT: NormoCephalic, Anicteric and Moist mucous membranes
Respiratory: Clear
Cardiac: S1/S2 and Regular Rhythm
GI: Non Tender and Distended
Genito-urinary: Deferred by me
Musculoskeletal: No Clubbing, No Cyanosis, Edema, Left Lower Extremity and Edema, Right Lower Extremity
Skin: Warm and Dry
Neuro: AO x 3
Hematologic/Lymphatic: No Lymphadenopathy
Psych: Calm
Impression/Plan
-
Sepsis due to intra-abdominal abscess -plan to admit to IMU. Continue IV meropenem. Consult infectious disease. Trend leukocytosis. Blood culture sent and pending. Will order IV fluids.
Metastatic rectal cancer -treated in 2022 with chemo and radiation, and partial liver lobectomy in 2023 for liver metastasis. Presented in October 2024 with large bowel obstruction treated with palliative diverting transverse loop colostomy.
Polymicrobial bacteremia -noted earlier this month. Port removed under the recommendation of infectious disease. Repeat blood cultures negative.
Chronic anemia -suspect related to metastatic cancer. Last transfusion was 12/17. Hemoglobin 8.4 today and appears to be at baseline.
Chronic hyponatremia -stable.
Paroxysmal atrial fibrillation -not on chronic anticoagulation due to prior bleed and anemia.
DM2 without hyperglycemia -previous hemoglobin A1c 6.1% on 11/17/2024. However, may not be reliable in the setting of chronic anemia. Not on diabetes medications prior to admission. Will use low resistance insulin corrective scale with NovoLog.
GERD
Full code
--- NOTE | 2024-12-18 17:04 | W.PN.UPDATE ---
Update Note
Progress Note Update
- Large pelvic collection on US
- 12F drain placed with US guidance. ~400mL purulent green fluid aspirated following drain placement
- Drain orders placed. Pt tolerated well.
--- NOTE | 2024-12-18 18:35 | PTCARENOTE ---
Received patient from ED at 1830. Patient AAOx3, c/o abd pain when trying to sit up. Call worthy in reach, evening meal ordered.
[2024-12-18] MEDS: NSS 1000 IV ×2 (18:50→19:57)
[2024-12-18] MEDS: STERILE WATER FOR INJECTION 20 ML IV (19:39)
[2024-12-18] MEDS: LOVENOX 40 MG SC (19:39)
[2024-12-18] MEDS: TOPROL XL 12.5 MG PO (19:39)
[2024-12-18] MEDS: MERREM 1000 MG IV (19:39)
[2024-12-18] MEDS: TYLENOL 650 MG PO (19:55)
[2024-12-18] MEDS: ROXICODONE 5 MG PO (19:56)
--- NOTE | 2024-12-18 19:59 | PTCARENOTE ---
Rec'd pt from previous RN. IV bolus running through R PICC. Pt c/o severe pain, states that PRN roxicodone and PRN tylenol worked to reduce pain previously, requests those medications now. Given per OCT. RLQ CHRISTINE draining thick, white purulent
drainage. Pt able to manage own colostomy drain, supplies provided. Pt with ST to low 100s on CM, scheduled rate control med given per OCT. Pt able to tolerate PO meds whole with water. Belly round, firm, tender to palpation. Call worthy within reach.
Care ongoing.
[2024-12-18] MEDS: DESYREL 25 MG PO (21:01)
[2024-12-18 21:15] LABS: Glucose - Point of Care 249 mg/dl (70-99)
--- NOTE | 2024-12-18 21:55 | PTCARENOTE ---
2L O2 placed for 89% on RA. Improvement to 94%
[2024-12-19] VITALS (17 sets, daily range): BP systolic 96–118; BP diastolic 60–89; PULSE 105–106; O2SAT 98; BMI 23.2
[2024-12-19] MEDS: MERREM 1000 MG IV ×3 (01:45→17:12)
[2024-12-19] MEDS: STERILE WATER FOR INJECTION 20 ML IV ×3 (01:45→17:13)
[2024-12-19] MEDS: TYLENOL 650 MG PO ×3 (02:06→22:21)
[2024-12-19] MEDS: ROXICODONE 5 MG PO ×3 (02:06→22:22)
[2024-12-19 03:52] LABS: % Basophils 0.3 % (0-2); % Eosinophils 0.1 % (0-6); % Immature Granulocytes 1.8 % (0-0.5); % Lymphocytes 4.4 % (20.5-51.1); % Monocytes 8.9 % (1.7-9.3); % Neutrophils 84.5 % (42.2-75.2); Absolute Immature Granulocytes 0.2 10^3/uL (0-0.05); Absolute Lymphocytes 0.5 10^3/uL (1.2-3.4); Absolute Neutrophils 9.4 10^3/uL (1.4-6.5); Hematocrit 25.4 % (39.0-52.0); Hemoglobin 8.1 g/dL (13.0-18.0); Mean Corp Hgb Conc. 31.9 g/dL (33.0-37.0); Mean Corpuscular Hgb 27.9 pg (27.0-31.0); Mean Corpuscular Volume 87.6 fL (80.0-94.0); Mean Platelet Volume 9.6 fL (7.4-10.4); Nucleated Red Blood Cells % 0 % (-); Platelet Count 438 10^3/uL (130-400); Red Cell Dist. Width 17.2 % (11.5-14.5); White Blood Cell Count 11.1 10^3/uL (4.8-10.8)
[2024-12-19 04:20] LABS: ALT (SGPT) 30 U/L (0-50); AST (SGOT) 50 U/L (17-59); Alkaline Phosphatase 685 U/L (38-126); Blood Urea Nitrogen 6 mg/dl (9-20); Calcium 7.8 mg/dl (8.4-10.2); Carbon Dioxide 25 mmol/L (22-30); Chloride 103 mmol/L (98-107); Estimated Creatinine Clearance 117 ml/min; Glucose 126 mg/dl (70-99); Sodium 133 mmol/L (135-145); Total Bilirubin 0.7 mg/dl (0.2-1.3); eGFR > 60.00
[2024-12-19] MEDS: ProAmatine 5 MG PO ×2 (06:12→14:39)
--- NOTE | 2024-12-19 07:58 | W.PN.HOSP.TC ---
Today's Communication/Plan
-
Await cultures
Antibiotics
ID consult
Colorectal surgery consult
PT/OT
Assessment / Plan
Assessment / Plan
Gen-AAOx3, NAD
HEENT-NC, AT, anicteric, clear oral mm
Neck-supple
CV-reg, no M, +S1/S2
Lungs-clear B/L
Abd-distended but nontender, drain in place.
Ext-no edema
Musculoskeletal-no cyanosis, clubbing
Skin-warm and dry
Neuro-grossly non-focal
Psych-calm, cooperative
Sepsis due to intra-abdominal abscess -clinically improving. Tachycardia resolved. Afebrile. Continue IV meropenem. Consult infectious disease. WBCs trending down. Blood culture sent and pending.
Intra-abdominal abscess drain placed 12/18 by IR, 400 cc of green fluid removed. Drain remains in place. 495 cc drained overnight. Fluid Gram stain shows many WBCs, rare gram-positive cocci, rare gram-negative rods, culture pending.
Metastatic rectal cancer -treated in 2022 with chemo and radiation, and partial liver lobectomy in 2023 for liver metastasis. Presented in October 2024 with large bowel obstruction treated with palliative diverting transverse loop colostomy.
Polymicrobial bacteremia -noted earlier this month. Port removed under the recommendation of infectious disease. Repeat blood cultures negative.
Chronic anemia -suspect related to metastatic cancer. Last transfusion was 12/17. Hemoglobin stable at 8.1 today and appears to be at baseline.
Chronic hyponatremia -stable.
Paroxysmal atrial fibrillation -not on chronic anticoagulation due to prior bleed and anemia.
Impaired fasting glucose -patient denies history of diabetes. Previous hemoglobin A1c 6.1% on 11/17/2024. Hemoglobin A1c may not be reliable in the setting of chronic anemia. Will use low resistance insulin corrective scale with NovoLog.
GERD
Full code
PT/OT
Anticipated Discharge: > 48 hours
Subjective/Interval History
-
Date of Service: December 19, 2024
Patient seen and examined. Feels better. No complaints.
Objective Data
-
Labs:
Laboratory Results
12/19/24
03:39
WBC 11.1 H
Hgb 8.1 L
Hct 25.4 L
Plt Count 438 H
Sodium 133 L
Potassium 4.0
Chloride 103
Carbon Dioxide 25
BUN 6 L
Creatinine 0.3 L
Glucose 126 H
Calcium 7.8 L
Total Bilirubin 0.7
AST 50
ALT 30
Alkaline Phosphatase 685 H
Vital Signs:
Vital Signs
Temp Pulse Resp BP Pulse Ox
98.0 F 87 11 102/70 97
12/19/24 03:21 12/19/24 06:12 12/19/24 06:00 12/19/24 06:12 12/19/24 06:00
I&O
12/18/24 12/19/24 12/20/24
06:59 06:59 06:59
Intake Total 160 / 160
Output Total 1495 / 1495
Balance -1335 / -1335
Review of Systems
-
History Source: Patient
All other systems: Reviewed and negative
[2024-12-19 08:13] LABS: Glucose - Point of Care 122 mg/dl (70-99)
[2024-12-19] MEDS: TOPROL XL 12.5 MG PO ×2 (08:19→19:26)
[2024-12-19] MEDS: PROTONIX 40 MG PO (08:20)
[2024-12-19] MEDS: FEOSOL 325 MG PO (08:20)
--- NOTE | 2024-12-19 08:41 | VNURNOTE ---
Chart reviewed. 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 Will continue to follow hospital course and DC plans.
--- NOTE | 2024-12-19 09:13 | CON.ID ---
Consultation
-
Date/Time Consultation Requested: 12/18/24 18:25
Date/Time Consultation Performed: 12/19/24 9:24
Requesting Provider: Dr Gonzalez
Performing Provider: Dr Almanza
Reason for Consultation: leukocytosis, hypotension
Chief Complaint / Past History
Chief Complaint
referred for lab abnormalities
History of Present Illness
Mr Lund is a 59 year old male with metastatic rectal cancer s/p previous radiation with chemotherapy currently on hold with recent admission 11/07-11/24/24 for large bowel obstruction s/p uncomplicated transverse loop colostomy without evidence of
bowel perforation 11/08/24 who represented the the ER 11/29/24 for weakness and chills, he was found to have multiple intraabdominal fluid collections and bacteremia with both ESBL E coli and MSSA. His port was functional, without signs or symptoms
of infection and was removed given MSSA bacteremia. The fluid collections were evaluated by both IR and colorectal surgery and felt not to be drainable at that time. He was planned for a 4 week course of meropenem through 12/27. Patient was
counseled of the risk of relapse even with the planned aggressive course of IV therapy. He was transferred to [facility] where he has been for approximately two weeks. He has participated with therapy, reporting no fevers, chills, loss of
appetite, malaise or missed doses of antibiotics. He endorsed peristent mild abdominal pain which was unchanged. PICC line no erythema, warmth, tenderness or drainage; functional. His course was notable for unilateral swelling of the L ankle, no
history of gout and ankle not particularly painful, an US of the LE did not show a DVT. Then over the last 72 hours he has had progressive leukocytosis and intermittent hypotension. Note that a large brown BM was recorded yesterday. I saw patient
at [facility] and recommended referral to the ER, CT scan and possible drain placement if progression of abscesses.
Since arrival here he has remained afebrile, bp stable, wbc 14.8 now 11.1, hgb 8.4, plt 432, L shift is noted, ESR increased to 98, CRP 138, Na 133, Cr 0.3, alk phos 685, UA no pyuria, covid ag negative, 12/18 CT a/p with IV and oral contrast:
increased crescent shaped abscess to 25 cm, colitis, severe multifocal hepatic/pulmonary metastatic disease, small bowel distension - ileus vs distal SBO, blood cultures x2 were sent he was taken to IR and underwent drain placement with 400 mL of
purulent, green fluid aspirated, abscess culture with rare GPC and rare GNR. Since drain placement he remains afebrile, bp stable on midodrine 5 mg PO BID. Patient remains on meropenem at this time. ID is consulted for assistance with management.
Past History
Additional Past Medical History:
Metastatic rectal cancer
Intra-abdominal abscess
Chronic anemia
Paroxysmal atrial fibrillation
DM2
Vitamin D deficiency
GERD
Additional Past Surgical History:
Bowel resection
Allergy History:
No Known Allergies Allergy (Verified 12/18/24 11:34)
Medications Reviewed: Yes
Social History
Tobacco: Non-Smoker
Alcohol: None
Drug: None
Family History
Family History: Not Pertinent
Review of Systems
Review of Systems
General: Negative Fever or Chills
All systems: All other systems were reviewed and were negative
Vital Signs
Temp Pulse Resp BP Pulse Ox
97.4 F 87 11 102/70 97
12/19/24 08:13 12/19/24 06:12 12/19/24 06:00 12/19/24 06:12 12/19/24 06:00
Physical Exam
Physical Exam
Constitutional: No Acute Distress
Cardiovascular: Regular Rate and S1/S2; Negative Murmur or Rub
Pulmonary: Clear and Symmetric; Negative Wheezes, Rales or Rhonchi
Gastrointestinal: Soft, Non Tender, Non Distended and Normal Bowel Sounds
Skin: Warm and Dry; Negative Rash or Jaundice
Lines: Other (drain with purulent fluid)
Lab / Diagnostic Study Results
12/19/24 03:39
12/19/24 03:39
Abs Immat Gran (auto) 0.2 10^3/uL (0-0.05) H 12/19/24 03:39
Absolute Neuts (auto) 9.4 10^3/uL (1.4-6.5) H 12/19/24 03:39
Absolute Lymphs (auto) 0.5 10^3/uL (1.2-3.4) L 12/19/24 03:39
Absolute Monos (auto) 1.0 10^3/uL (0.1-0.6) H 12/19/24 03:39
Absolute Basos (auto) 0.0 10^3/uL (0-0.2) 12/19/24 03:39
Immature Gran % 1.8 % (0-0.5) H 12/19/24 03:39
Neutrophils % 84.5 % (42.2-75.2) H 12/19/24 03:39
Lymphocytes % 4.4 % (20.5-51.1) L 12/19/24 03:39
Monocytes % 8.9 % (1.7-9.3) 12/19/24 03:39
Eosinophils % 0.1 % (0-6) 12/19/24 03:39
Basophils % 0.3 % (0-2) 12/19/24 03:39
Ur Squamous Epith Cells 0-2 /LPF (Few) 12/18/24 12:56
Microbiology Results
Micro:
12/18/24 17:00 Wound Culture - Pending
Abscess Gram Stain -
Rare Gram Positive Cocci Rare Gram Negative Rods
12/18/24 12:34 Blood Culture - Pending
Blood/Venous
12/18/24 12:02 Influenza Types A & B (LUCIA) - Final
Nasal Swab Negative for Influenza A & B, NAAT
Negative results must be combined with clinical observations
and patient history.
Nucleic Acid Amplification test (NAAT)performed on the
[employer] NOW platform.
12/18/24 12:02 Respiratory Syncytial Virus Ag - Final
Nasal Swab Negative for Respiratory Syncytial Virus.
A false negative result may be obtained with a specimen
collected early in the acute phase. If symptoms persist, a
new specimen should be tested.
12/18/24 12:09 Blood Culture - Pending
Blood/Venous
Assessment / Plan
Progressive Leukocytosis
Intraabdominal Abscesses - tertiary; ESBL E coli and MSSA at least
Previous Port was removed from L chest wall
Ileus vs SBO - had large BM recorded yesterday
11/08/24 s/p colostomy creation - no immediate complications or known perforation
Thrombocytosis
Metastatic rectal cancer
- blood cultures x2 in progress
- abscess culture - gram stain rare GPCs and GNR - follow cultures
- PICC in place
- patient is currently stable - continue meropenem pending abscess culture, if clear decompensation overnight then would adjust to vancomycin and zosyn;
- patient having BMs
- appreciate colorectal surgery input
Left Ankle Swelling
- stable finding since earlier this admission
- had venous US 12/14 - no evidence of DVT - thus less likely to be the cause of leukocytosis
- minimally tender less likely gout, no history of surgery on the ankle or trauma
[2024-12-19 11:20] LABS: Glucose - Point of Care 138 mg/dl (70-99)
--- NOTE | 2024-12-19 11:35 | CON.CRS ---
Consultation
-
Date/Time Consultation Requested: 12/18/2024, 18:25
Date/Time Consultation Performed: 12/19/2024, 08:00
Requesting Provider: Sunday Gonzalez DO
Performing Provider: Rayo Acosta MD
Reason for Consultation: pelvic abcess
Medical History
-
Chief Complaint: fever
History of Present Illness:
59-year-old male presents [facility] to fever and leukocytosis. The patient has known metastatic rectal cancer and had previously undergone immunotherapy as well as a partial hepatic lobectomy on 10/21/2023. Subsequently he
had presented to [facility] ER on 11/07/2024 due to a large bowel obstruction. He ultimately underwent a transverse loop colostomy creation by Dr. Acosta on 11/08/2024. He was hospitalized for 8 days after surgery and ultimately discharged to
rehab.
[facility] until 12/17/2024. He was to be discharged to home but this was delayed due to an elevated white blood cell count. ID was concerned given he has been getting meropenem in the right upper extremity
through a PICC line. He was sent to [facility] for further evaluation.
On arrival to the ER his WBC was 14.8. His Tmax was 100.0. A CT of the abdomen and pelvis was performed which showed a large crescent shaped 25 cm abscess in the anterior peritoneal space of the lower abdomen which had increased in size since
11/30/2024. Other findings included severe colitis in the sigmoid colon, small volume ascites, severe multifocal hepatic metastatic disease, rectal adenocarcinoma, a loop ileostomy present, severe small bowel distention, and multifocal pulmonary
metastatic disease. Interventional radiology was consulted and they successfully placed a drain in the pelvic abscess. We have been consulted for further surgical evaluation.
Past Medical History
Past Medical History: Other (Arrhythmias (PAF) and Cancer (metastatic rectal cancer), h/o large bowel obstruction)
Past Surgical History: Bowel Resection (11/08/2024-transverse loop colostomy creation (Dr. Acosta)) and Other (liver resection 2023)
Social History
Tobacco: Non-Smoker
Alcohol: None
Living: With Family
Allergies / Home Medications
Allergy/AdvReac Type Severity Reaction Status Date / Time
No Known Allergies Allergy Verified 12/18/24 11:34
�Medication �Instructions �Recorded �Confirmed �Type
acetaminophen 325 mg tablet 650 mg (2 x 325 mg) PO Q4HPRN PRN 12/17/24 12/18/24 Rx
mild pain 30 days #100 tabs
ergocalciferol (vitamin D2) 1,250 1,250 mcg PO FR Vitamin D 12/17/24 12/18/24 Rx
mcg (50,000 unit) capsule (Vitamin deficiency #10 caps
D2)
ferrous sulfate 325 mg (65 mg 325 mg PO DAILY Anemia, iron 12/17/24 12/18/24 Rx
iron) tablet (FeroSul) deficiency 30 days #30 tabs
melatonin 5 mg tablet 10 mg (2 x 5 mg) PO HSPRN PRN 12/17/24 12/18/24 Rx
insomnia 30 days #30 tabs
meropenem 1 gram intravenous 1,000 mg IV Q8H Polymicrobial 12/17/24 12/18/24 Rx
solution bacteremia #25 ea
midodrine 5 mg tablet 5 mg PO BID@0700,1300 Orthostasis 12/17/24 12/18/24 Rx
30 days #60 tabs
pantoprazole 40 mg tablet,delayed 40 mg PO DAILY Gastrointestinal 12/17/24 12/18/24 Rx
release issue 30 days #30 tabs
tramadol 50 mg tablet 50 mg PO Q4HPRN PRN moderate pains 12/17/24 12/18/24 Rx
5 days #30 tabs
trazodone 50 mg tablet 25 mg (1/2 x 50 mg) PO HS Insomnia 12/17/24 12/18/24 Rx
30 days #30 tabs
enoxaparin 40 mg/0.4 mL 40 mg SC QPM Blood Clot 12/18/24 12/18/24 History
subcutaneous syringe (Lovenox) Prevention/Tx
metoprolol succinate 25 mg 12.5 mg PO BID Blood pressure, 12/18/24 12/18/24 History
tablet,extended release 24 hr heart rate control
oxycodone 5 mg tablet 5 mg PO Q6HPRN PRN severe pain 12/18/24 12/18/24 History
simethicone 80 mg chewable tablet 80 mg PO TIDPRN PRN gas pain 12/18/24 12/18/24 History
Review of Systems
-
History Source: Patient
Constitutional: Fever
Abdomen/GI: Abdominal Pain and Other (bloating)
A 10 point review of systems was completed, and was negative except as per HPI.
Physical Exam
Vital Signs
Temp 97.5 F 12/19/24 11:14
Pulse 92 12/19/24 10:00
Resp Rate 24 12/19/24 10:00
Blood pressure 101/71 12/19/24 10:00
SaO2 95 12/19/24 10:24
12/18/24 12/19/24 12/20/24
06:59 06:59 06:59
Actual Weight 65.3 kg
Body Mass Index (BMI) 23.2
Lab Results / Allergies
12/19/24 03:39
12/19/24 03:39
WBC 11.1 10^3/uL (4.8-10.8) H 12/19/24 03:39
Hgb 8.1 g/dL (13.0-18.0) L 12/19/24 03:39
Hct 25.4 % (39.0-52.0) L 12/19/24 03:39
Plt Count 438 10^3/uL (130-400) H 12/19/24 03:39
Abs Immat Gran (auto) 0.2 10^3/uL (0-0.05) H 12/19/24 03:39
Neutrophils % 84.5 % (42.2-75.2) H 12/19/24 03:39
Allergy/AdvReac Type Severity Reaction Status Date / Time
No Known Allergies Allergy Verified 12/18/24 11:34
Physical Exam
General: Well Developed, Well Nourished and No Apparent Distress
GI: Soft, Non Tender, Non Distended and Other (CHRISTINE drain in place with palomo/green discharge)
Neuro: AO x 3
Psych: Calm
Data Reviewed
-
CT Scan: Image Personally Visualized and interpreted, Report Reviewed by me and Discussed with Patient
Labs: Labs Reviewed by me, Discussed with Physician and Discussed with Patient
Old Records: Reviewed
Assessment / Plan
-
Assessment: 59-year-old male with known stage IV rectal cancer status post recent diverting loop ileostomy secondary to large bowel obstruction presents from rehab due to elevated white blood cell count and found to have a large anterior pelvic
abscess s/p IR drain
Plan:
- No plans for emergent surgery at this time
- Okay for a regular diet from our standpoint
- Antibiotics per ID
- Maintain IR drain
- Abscess cultures pending
--- NOTE | 2024-12-19 16:47 | CM ---
Patient from [facility] with Hx Metastatic rectal cancer, colostomy with Dx Sepsis due to intra-abdominal abscess. Room air. PICC in place - receiving IV Abx. Drain placed yesterday. PT/OT; recommend Home Health.
Met with patient known to this CM from prior admission.
the patient resides with 2 sons in a 2 story house with 4 BLAIR and 15 stairs up to 2nd floor bedroom.
The patient was independent in ADLs and ambulation until Oct 2024 when hospitalized with surgery.
Patient states he was planned for discharge from [facility] yesterday when he needed to be readmitted at .
His 13 yr old son Oscar is at home being cared for by his father in law Walt Cuevas from [place] (ph [phone]).
Son Derian is 19 yrs old and will return home from [facility] on December 27.
[facility] [place], RW, rollator, ostomy supplies
Current with [facility] for SN/PT
No prior SNF
Recent [facility] as above
PCP - Rayo Rose
Pharmacy - Jayme Patrick
Patient would like [facility] to resume service at discharge for SN & PT ---> [facility]
Spoke with Gonzalo Messina who confirmed patient discharged yesterday and SW had him setup to go home with [facility].
Messages with Dr Almanza; likely to need home IV infusion once final Abx are decided. needs to see his culture results - probably resulting Thursday 12/21.
Phone call to [facility]; left message notifying her patient that they had referral on is now in IMU.
[facility].
[2024-12-19 16:50] LABS: Glucose - Point of Care 130 mg/dl (70-99)
[2024-12-19] MEDS: LOVENOX 40 MG SC (17:12)
[2024-12-19] MEDS: ULTRAM 50 MG PO (17:28)
--- NOTE | 2024-12-19 18:18 | PTCARENOTE ---
see nursing flowsheet. tulio draining purulent fluid. flushed per order. colostomy with soft brown stool. pts appetite is good. medicated with tylenol/oxycodone prn for pain with relief of pain to level of 3 . pt noted to be tachypnic and tachycardic
this afternoon at 1730. temp checked and was 100.2. pt not due for any tylenol at that time. pt given tramadol at his request for abd discomfort. pt was oob to chair with PT for approx 2 hours earlier in shift. tolerating po fluids and diet.
[2024-12-19] MEDS: DESYREL 25 MG PO (21:10)
--- NOTE | 2024-12-19 21:14 | PTCARENOTE ---
SpO2 90% at last assessment, pt noncompliant with continuous puls ox monitoring, denies SOB. Tachypneic to 30s, tachycardic 103 at this time. Pt reports acceptable pain level at this time. Manages own colostomy drain. CHRISTINE patent, continues with
yellow/green purulent drainage. Call worthy within reach. Care ongoing.
[2024-12-19 21:50] LABS: Glucose - Point of Care 138 mg/dl (70-99)
[2024-12-20] VITALS (16 sets, daily range): BP systolic 96–134; BP diastolic 63–100; PULSE 107; O2SAT 94
[2024-12-20] MEDS: MERREM 1000 MG IV (02:55)
[2024-12-20] MEDS: STERILE WATER FOR INJECTION 20 ML IV (02:55)
[2024-12-20 04:29] LABS: % Basophils 0.3 % (0-2); % Eosinophils 0.3 % (0-6); % Immature Granulocytes 1.5 % (0-0.5); % Lymphocytes 5.7 % (20.5-51.1); % Monocytes 9.6 % (1.7-9.3); % Neutrophils 82.6 % (42.2-75.2); Absolute Immature Granulocytes 0.1 10^3/uL (0-0.05); Absolute Lymphocytes 0.5 10^3/uL (1.2-3.4); Absolute Monocytes 0.9 10^3/uL (0.1-0.6); Absolute Neutrophils 7.8 10^3/uL (1.4-6.5); Hematocrit 25.4 % (39.0-52.0); Hemoglobin 7.9 g/dL (13.0-18.0); Mean Corp Hgb Conc. 31.1 g/dL (33.0-37.0); Mean Corpuscular Hgb 27.7 pg (27.0-31.0); Mean Corpuscular Volume 89.1 fL (80.0-94.0); Mean Platelet Volume 9.4 fL (7.4-10.4); Nucleated Red Blood Cells % 0 % (-); Platelet Count 432 10^3/uL (130-400); Red Blood Cell Count 2.85 10^6/uL (4.70-6.10); Red Cell Dist. Width 17.6 % (11.5-14.5); White Blood Cell Count 9.4 10^3/uL (4.8-10.8)
[2024-12-20 04:53] LABS: ALT (SGPT) 26 U/L (0-50); AST (SGOT) 44 U/L (17-59); Alkaline Phosphatase 635 U/L (38-126); Blood Urea Nitrogen 8 mg/dl (9-20); Calcium 8.1 mg/dl (8.4-10.2); Carbon Dioxide 25 mmol/L (22-30); Chloride 103 mmol/L (98-107); Estimated Creatinine Clearance 118 ml/min; Glucose 114 mg/dl (70-99); Potassium 4.3 mmol/L (3.5-5.1); Sodium 134 mmol/L (135-145); Total Bilirubin 0.5 mg/dl (0.2-1.3); eGFR > 60.00
[2024-12-20] MEDS: TYLENOL 650 MG PO ×2 (05:32→21:39)
[2024-12-20] MEDS: ROXICODONE 5 MG PO ×2 (05:32→21:38)
[2024-12-20] MEDS: ProAmatine 5 MG PO ×2 (07:17→14:45)
[2024-12-20 08:04] LABS: Glucose - Point of Care 121 mg/dl (70-99)
--- NOTE | 2024-12-20 09:19 | W.PN.ID1 ---
Addendum entered and electronically signed by Jasmin Almanza MD 12/20/24 14:38:
isolate amp sensitive
will stop vanc
Wound/abscess/other Cult Final 12/20/24-1430
Moderate Enterococcus faecalis
Organism 1 Enterococcus faecalis
1. Enterococcus faecalis
M.I.C. RX
--------- ---
Ampicillin <=2 S
Gentamicin Synergy Screen <=500 S
Susceptible result indicates synergy is likely with a cell
wall active agent that is also susceptible
(e.g.ampicillin,penicillin,vancomycin)
Vancomycin 2 S
Original Note:
Date of Service
Date of Service: December 20, 2024
Today's Communication
- script to CM to check the cost of home IV eravacycline 65 mg IV q12 x4 weeks; alternatively could consider zosyn possibly with the addition of vancomycin pending sensitivities on the enterococcus. For now will restart vanc/zosyn as this will give
us the opportunity to follow levels now while inpatient and solidify a regimen in case that is the ultimate outcome. Note that q6 hour dosing is very difficult to achieve at home; I have discussed all of these options with Mr Lund and explained
that my opinion is that the eravacycline is the best overall choice. If he accepts eravacycline he could be discharged when outpatient IV antibiotics are set up without waiting for cultures. If we choose an alternative then I would need the
sensitivities.
- patient understands the the natural history tends to be relapsing remitting, though it is still possible that this infection might be cured.
Assessment / Plan
Intraabdominal Abscesses - tertiary; ESBL E coli and MSSA at least
Previous Port was removed from L chest wall
Ileus vs SBO - had large BM recorded yesterday
11/08/24 s/p colostomy creation - no immediate complications or known perforation
Thrombocytosis
Metastatic rectal cancer
- blood cultures x2 in progress
- abscess culture - gram stain rare GPCs and GNR - follow cultures
- PICC in place
- script to CM to check the cost of home IV eravacycline 65 mg IV q12 x4 weeks; alternatively could consider zosyn possibly with the addition of vancomycin pending sensitivities on the enterococcus. For now will restart vanc/zosyn as this will give
us the opportunity to follow levels now while inpatient and solidify a regimen in case that is the ultimate outcome. Note that q6 hour dosing is very difficult to achieve at home; I have discussed all of these options with Mr Lund and explained
that my opinion is that the eravacycline is the best overall choice. If he accepts eravacycline he could be discharged when outpatient IV antibiotics are set up without waiting for cultures. If we choose an alternative then I would need the
sensitivities.
- patient understands the the natural history tends to be relapsing remitting, though it is still possible that this infection might be cured.
- appreciate colorectal surgery input
Chief Complaint
-: Other (intraabdominal abscesses)
Subjective / Review of Systems
tmax 100.2
bp stable
drain output 95 ccs yesterday
Vital Signs / Physical Exam
Vital Signs
Vital Signs
Temp Pulse Resp BP Pulse Ox
98.0 F 99 19 102/76 91
12/20/24 07:45 12/20/24 07:17 12/20/24 04:00 12/20/24 07:17 12/20/24 04:58
Physical Exam
Constitutional: No Acute Distress
Cardiovascular: Regular Rate and S1/S2; Negative Murmur or Rub
Pulmonary: Clear and Symmetric; Negative Wheezes or Rales
Gastrointestinal: Soft, Non Tender, Non Distended and Normal Bowel Sounds
Skin: Warm and Dry; Negative Rash or Jaundice
Lines: PICC and Other (drain scant )
Objective Data
Lab Data
Lab Results
12/20/24 04:12
12/20/24 04:12
Estimated Creat Clear 118 ml/min 12/20/24 04:12
Total Bilirubin 0.5 mg/dl (0.2-1.3) 12/20/24 04:12
AST 44 U/L (17-59) 12/20/24 04:12
ALT 26 U/L (0-50) 12/20/24 04:12
Alkaline Phosphatase 635 U/L (38-126) H 12/20/24 04:12
Most recent labs reviewed.
leukocytosis resolved today
improving plt
Micro Results:
12/18/24 12:34 Blood Culture - Preliminary
Blood/Venous No Growth in 24 hours- Final report to follow
12/18/24 17:00 Wound Culture - Preliminary
Abscess Enterococcus species
Gram Stain - Preliminary
12/18/24 12:09 Blood Culture - Preliminary
Blood/Venous No Growth in 24 hours- Final report to follow
12/18/24 12:02 Influenza Types A & B (LUCIA) - Final
Nasal Swab Negative for Influenza A & B, NAAT
Negative results must be combined with clinical observations
and patient history.
Nucleic Acid Amplification test (NAAT)performed on the
[employer] ID NOW platform.
12/18/24 12:02 Respiratory Syncytial Virus Ag - Final
Nasal Swab Negative for Respiratory Syncytial Virus.
A false negative result may be obtained with a specimen
collected early in the acute phase. If symptoms persist, a
new specimen should be tested.
Care Review
Plan reviewed with: Physician (Dr Mascorro - will not maintain PICC at completion of therapy) and Other ([facility] - pharm D - vanc dosing, eravacycline feasibility )
--- NOTE | 2024-12-20 09:35 | PHA.VAN.IN ---
Assessment
- Assessment
Renal Function: Appears similar to baseline
- Previous Dosing Experience
Previous Regimen: Vanc 1000mg Q12H
Date of Regimen: November 2024
Provided Trough of: 9.7
Patient's SCR is: Similar to previous dosing experience
Patient's weight is: Similar to previous dosing experience
AUC Dosing Plan
- Empiric Dosing
Initial / Loading Dose: 1500mg - administration pending
Maintenance Regimen: Vanc 1250mg Q12H - starting at 1800 based on prior experience
- Monitoring
No levels ordered at this time: consider levels in next few days
Pharmacokinetics Vancomycin I
- -
Patient Age: 59
Patient Sex: Male
Vancomycin Day #: 1
Indication: Gi / Intra-Abdominal
Requesting Provider: Dr. Almanza
Pertinent Antimicrobial Allergies:
NKDA
Height / Weight:
Height 5 ft 6 in
Actual Weight 65.3 kg
Pertinent Past Medical History: Metastatic rectal cancer, DM 2
- Vital Signs / Lab Results
Temp Pulse Resp BP Pulse Ox
98.0 F 99 19 102/76 91
12/20/24 07:45 12/20/24 07:17 12/20/24 04:00 12/20/24 07:17 12/20/24 04:58
Lab Results - Hematology
12/19/24 12/20/24
03:39 04:12
WBC 11.1 H 9.4
Lab Results - Chemistry
12/19/24 12/20/24
03:39 04:12
BUN 6 L 8 L
Creatinine 0.3 L 0.4 L
Estimated Creat Clear 117 118
Albumin 2.0 L 2.0 L
Lab Results - Urine
12/18/24
12:56
Urine Nitrite (Reflex) Negative
Leukocyte Esterase Rfl Negative
Urine WBC (Reflex) 3-5
Ur Squamous Epith Cells 0-2
Urine Bacteria (Reflex) Few A
Microbiology Results
12/18/24 12:34 Blood Culture - Preliminary
Blood/Venous No Growth in 24 hours- Final report to follow
12/18/24 17:00 Wound Culture - Preliminary
Abscess Enterococcus species
Gram Stain - Preliminary
12/18/24 12:09 Blood Culture - Preliminary
Blood/Venous No Growth in 24 hours- Final report to follow
12/18/24 12:02 Influenza Types A & B (LUCIA) - Final
Nasal Swab Negative for Influenza A & B, NAAT
Negative results must be combined with clinical observations
and patient history.
Nucleic Acid Amplification test (NAAT)performed on the
[employer] platform.
12/18/24 12:02 Respiratory Syncytial Virus Ag - Final
Nasal Swab Negative for Respiratory Syncytial Virus.
A false negative result may be obtained with a specimen
collected early in the acute phase. If symptoms persist, a
new specimen should be tested.
[2024-12-20] MEDS: FEOSOL 325 MG PO (10:16)
[2024-12-20] MEDS: VANCOCIN 530 MG IV (10:17)
[2024-12-20] MEDS: PROTONIX 40 MG PO (10:17)
[2024-12-20] MEDS: TOPROL XL 12.5 MG PO ×2 (10:17→20:43)
--- NOTE | 2024-12-20 10:17 | CM ---
Addendum entered by Kalani Mcdonnell RN 12/20/24 16:37:
Met with patient with [facility] Liaison;
patient agrees to d/c to home with [facility] for home IV Abx and feels he will be able to do the IV administration himself.
He is aware that [facility] is checking to ensure that the eracacycline is covered under his insurance, and is aware that [facility] nurse will do teaching visit prior to discharge.
He agrees to [facility] for [facility]PT and is aware of need for CHRISTINE flushes- he has observed nurse doing those here and feels he will be able to manage CHRISTINE at home.
Patient feels he will have adequate family support at home.
His father in law Walt will provide transport home.
Plan home probably tomorrow with [facility] for home IV Abx and [facility].
Original Note:
Patient from [facility] with Hx Metastatic rectal cancer, colostomy with Dx Sepsis due to intra-abdominal abscess. Room air. PICC in place - receiving IV Abx. Drain in place. PT/OT; recommend Home Health.
Script received from Dr Almanza for IV eravacycline 65mg Q12 via PICC.
Spoke with Dr Almanza; patient could probably be ready for d/c tomorrow if IV Abx can be setup. Concern is drug availability and cost.
Spoke with Patsy; referral ssent via [employer] including script. She had referral from prior admission with PICC line info. Patsy did initial patient teaching for home infusion when patient was at [facility]. Patsy will check eravacycline availability
and if patient has any out of pocket cost. [facility] nurse can provide the teaching.
Spoke with ERIC Montejo Liaison; she will coordinate getting scripts for CHRISTINE flushes as needed. Provided update re; home IV Abx and probable d/c tomorrow.
Plan meet with patient today for d/c planning.
Plan follow up with [facility] as above.
--- NOTE | 2024-12-20 11:08 | W.PN.HOSP.TC ---
Today's Communication/Plan
-
Continue current care
Assessment / Plan
Assessment / Plan
Gen-AAOx3, NAD
HEENT-NC, AT, anicteric, clear oral mm
Neck-supple
CV-reg, no M, +S1/S2
Lungs-clear B/L
Abd-distended but nontender, drain in place.
Ext-no edema
Musculoskeletal-no cyanosis, clubbing
Skin-warm and dry
Neuro-grossly non-focal
Psych-calm, cooperative
Sepsis due to intra-abdominal abscess -clinically improving. Tachycardia resolved. Afebrile. Currently on IV Zosyn and vancomycin per ID. WBC count now normal. Blood cultures negative so far. Fluid culture shows Enterococcus.
Intra-abdominal abscess drain placed 12/18 by IR, 400 cc of green fluid removed. Drain remains in place. 60 cc drained overnight. Fluid Gram stain shows many WBCs, rare gram-positive cocci, rare gram-negative rods, culture pending.
Infectious disease note reviewed, anticipating hopefully we can get approval for home IV antibiotics in the form of eravacycline every 12 hours. Will need 4-week course. Awaiting insurance approval. Discussed with case management.
Metastatic rectal cancer -treated in 2022 with chemo and radiation, and partial liver lobectomy in 2023 for liver metastasis. Presented in October 2024 with large bowel obstruction treated with palliative diverting transverse loop colostomy.
Polymicrobial bacteremia -noted earlier this month. Port removed under the recommendation of infectious disease. Repeat blood cultures negative.
Chronic anemia -suspect related to metastatic cancer. Last transfusion was 12/17. Hemoglobin down slightly to 7.9 today, check CBC in the morning.
Chronic hyponatremia -stable.
Paroxysmal atrial fibrillation -not on chronic anticoagulation due to prior bleed and anemia.
Impaired fasting glucose -patient denies history of diabetes. Previous hemoglobin A1c 6.1% on 11/17/2024. Hemoglobin A1c may not be reliable in the setting of chronic anemia. Will use low resistance insulin corrective scale with NovoLog.
GERD
Full code
Dispo -potential discharge home tomorrow with home care if home antibiotics can be arranged.
Anticipated Discharge: Within 24 hours
Subjective/Interval History
-
Date of Service: December 20, 2024
Patient seen and examined. No complaints.
Objective Data
-
Labs:
Laboratory Results
12/20/24
04:12
WBC 9.4
Hgb 7.9 L
Hct 25.4 L
Plt Count 432 H
Sodium 134 L
Potassium 4.3
Chloride 103
Carbon Dioxide 25
BUN 8 L
Creatinine 0.4 L
Glucose 114 H
Calcium 8.1 L
Total Bilirubin 0.5
AST 44
ALT 26
Alkaline Phosphatase 635 H
Vital Signs:
Vital Signs
Temp Pulse Resp BP Pulse Ox
98.0 F 104 20 113/75 93
12/20/24 07:45 12/20/24 10:17 12/20/24 10:00 12/20/24 10:17 12/20/24 10:39
I&O
12/19/24 12/20/24 12/21/24
06:59 06:59 06:59
Intake Total 160 / 160 1920 / 1920
Output Total 1495 / 1495 1410 / 1410
Balance -1335 / -1335 510 / 510
Review of Systems
-
History Source: Patient
All other systems: Reviewed and negative
--- NOTE | 2024-12-20 11:40 | PTCARENOTE ---
Assumed care of patient this morning. Patient denies any pain currently. L colostomy intact. RLQ CHRISTINE remains, minimal output. Abdomen is round, firm and distended. Pt worked with PT and is now in the chair. Assessment, care and VS as charted.
--- NOTE | 2024-12-20 12:06 | VNURNOTE ---
[facility] liaison met w/pt at bedside. He confirms he would like resumption with VN. Verified w/IR that pt to continue w/CHRISTINE drain upon DC. patient is willing to learn CHRISTINE drain care and flushes. He is aware [facility] will contact him within 1-2 days after
DC. This author called patient's pharmacy [facility]. They do not have flushes in stock currently. If they receive Rx today, they will have available within 24 hr/tomorrow. Requested Rx from Dr Gonzalez, he will e-prescribe today.
[2024-12-20] MEDS: ZOSYN 100 IV ×3 (12:11→23:45)
[2024-12-20 12:15] LABS: Glucose - Point of Care 146 mg/dl (70-99)
--- NOTE | 2024-12-20 13:16 | W.PN.CRS1 ---
Today's Communication / Plan
-
Continue antibiotics
Maintain IR drain
Will follow peripherally
Assessment/Plan
-
Assessment: 59-year-old male with known stage IV rectal cancer status post recent diverting loop ileostomy secondary to large bowel obstruction presents from rehab due to elevated white blood cell count and found to have a large anterior pelvic
abscess s/p IR drain
Plan:
- No plans for emergent surgery at this time
- Continue regular diet
- Antibiotics per ID
- Maintain IR drain
- Abscess cultures pending
- Will follow peripherally. Please notify our service if there are any concerns.
Subjective Data
Subjective Data
Date of Service: December 20, 2024
Patient states he feels fine. He has no complaints today. Denies nausea or vomiting. Tolerated diet. Pain is controlled.
Objective Data
-
Vital Signs
Temp Pulse Resp BP Pulse Ox
98.3 F 106 31 106/77 93
12/20/24 11:36 12/20/24 12:00 12/20/24 12:00 12/20/24 12:00 12/20/24 11:06
Intake & Output
12/19/24 12/20/24 12/21/24
06:59 06:59 06:59
Intake Total 160 / 160 1920 / 1920
Output Total 1495 / 1495 1410 / 1410
Balance -1335 / -1335 510 / 510
Intake:
Oral fluids 1400 / 1400
IV fluids (Total) 150 / 150 500 / 500
NSS 150 / 150
Amount instilled into Drain (
Total)
Right Lower Pelvis Tushar-
Love A Placed in IR
Output:
Drain Output (Total) 495 / 495 60 / 60
Right Lower Pelvis Tushar- 495 / 495 60 / 60
Love A Placed in IR
Urine, Voided 1000 / 1000 1350 / 1350
Lab Results
12/20/24 04:12
12/20/24 04:12
Physical Exam
-
General: No Acute Distress and AOx3
Abdomen: Soft, Distended (Mild), Tender (Around CHRISTINE drain site) and Other (CHRISTINE drain with serous green output)
Skin: Warm and Dry
Incision: Clear, Dry, Intact
[2024-12-20] MEDS: ULTRAM 50 MG PO (14:54)
[2024-12-20] MEDS: LOVENOX 40 MG SC (17:22)
[2024-12-20 17:32] LABS: Glucose - Point of Care 113 mg/dl (70-99)
[2024-12-20 22:25] LABS: Glucose - Point of Care 124 mg/dl (70-99)
[2024-12-20] MEDS: DESYREL 25 MG PO (22:48)
[2024-12-21] VITALS (9 sets, daily range): BP systolic 85–109; BP diastolic 56–80
--- NOTE | 2024-12-21 02:57 | PTCARENOTE ---
Assumed care for patient overnight. Pt AAOx3. Pt having 7/10 pain in RLQ, PRN Oxycodone administered see OCT. R CHRISTINE drain having cloudy yellow output. L colostomy intact. Abdomen is round, firm, and distended. IV abx cont. PICC site is clean, dry,
and intact. NSR to ST on the monitor. SpO2 94% on room air denies any SOB. Assessment and vitals as charted. Pt has call worthy within reach.
[2024-12-21] MEDS: ZOSYN 100 IV (05:22)
[2024-12-21 05:44] LABS: Hematocrit 25.5 % (39.0-52.0); Mean Corp Hgb Conc. 31.4 g/dL (33.0-37.0); Mean Corpuscular Hgb 27.9 pg (27.0-31.0); Mean Corpuscular Volume 88.9 fL (80.0-94.0); Mean Platelet Volume 9.4 fL (7.4-10.4); Platelet Count 433 10^3/uL (130-400); Red Blood Cell Count 2.87 10^6/uL (4.70-6.10); Red Cell Dist. Width 17.8 % (11.5-14.5); White Blood Cell Count 8.7 10^3/uL (4.8-10.8)
[2024-12-21] MEDS: ProAmatine 5 MG PO ×2 (06:35→13:04)
[2024-12-21 07:19] LABS: Glucose - Point of Care 113 mg/dl (70-99)
--- NOTE | 2024-12-21 07:36 | PTCARENOTE ---
On walking rounds pt is AAOx3, on Ra at 95% NSR , CHRISTINE drain RQ , L colostomy that pt manages at his request. R PICC in place. Pt on contact for ESBL urine. Pt flat affect.
--- NOTE | 2024-12-21 08:23 | PTCARENOTE ---
Pt now caring for his colostomy does not need my assistance.
[2024-12-21] MEDS: FEOSOL 325 MG PO (08:38)
[2024-12-21] MEDS: TOPROL XL 12.5 MG PO (08:38)
[2024-12-21] MEDS: PROTONIX 40 MG PO (08:38)
--- NOTE | 2024-12-21 09:07 | W.PN.HOSP.TC ---
Today's Communication/Plan
-
Discharge if home antibiotics arranged
Assessment / Plan
Assessment / Plan
Gen-AAOx3, NAD
HEENT-NC, AT, anicteric, clear oral mm
Neck-supple
CV-reg, no M, +S1/S2
Lungs-clear B/L
Abd-distended but nontender, drain in place.
Ext-no edema
Musculoskeletal-no cyanosis, clubbing
Skin-warm and dry
Neuro-grossly non-focal
Psych-calm, cooperative
Sepsis due to intra-abdominal abscess -clinically improving. Sepsis resolved.
Currently on IV Zosyn and vancomycin per ID. WBC count now normal. Blood cultures negative so far. Fluid culture shows Enterococcus.
Intra-abdominal abscess drain placed 12/18 by IR, 400 cc of green fluid removed. Drain remains in place. 135 cc drained overnight. Fluid Gram stain shows many WBCs, rare gram-positive cocci, rare gram-negative rods, culture pending.
Infectious disease note reviewed, anticipating hopefully we can get approval for home IV antibiotics in the form of eravacycline every 12 hours. Will need 4-week course. Awaiting insurance approval. Discussed with case management.
Metastatic rectal cancer -treated in 2022 with chemo and radiation, and partial liver lobectomy in 2023 for liver metastasis. Presented in October 2024 with large bowel obstruction treated with palliative diverting transverse loop colostomy.
Polymicrobial bacteremia -noted earlier this month. Port removed under the recommendation of infectious disease. Repeat blood cultures negative.
Chronic anemia -suspect related to metastatic cancer. Last transfusion was 12/17. Hemoglobin stable, 8.0.
Chronic hyponatremia -stable.
Paroxysmal atrial fibrillation -not on chronic anticoagulation due to prior bleed and anemia.
Impaired fasting glucose -patient denies history of diabetes. Previous hemoglobin A1c 6.1% on 11/17/2024. Hemoglobin A1c may not be reliable in the setting of chronic anemia. Will use low resistance insulin corrective scale with NovoLog.
GERD
Full code
Dispo -potential discharge home today with home care if home antibiotics can be arranged.
Anticipated Discharge: Today
Subjective/Interval History
-
Date of Service: December 21, 2024
Patient seen and examined. No complaints.
Objective Data
-
Labs:
Laboratory Results
12/21/24
05:30
WBC 8.7
Hgb 8.0 L
Hct 25.5 L
Plt Count 433 H
Vital Signs:
Vital Signs
Temp Pulse Resp BP Pulse Ox
98.2 F 72 15 101/73 94
12/21/24 07:20 12/21/24 08:38 12/21/24 06:03 12/21/24 08:38 12/21/24 08:50
I&O
12/20/24 12/21/24 12/22/24
06:59 06:59 06:59
Intake Total 1920 / 1920 1655 / 1655
Output Total 1410 / 1410 2084 / 2084 250 / 250
Balance 510 / 510 -430 / -430 -250 / -250
Review of Systems
-
History Source: Patient
All other systems: Reviewed and negative
--- NOTE | 2024-12-21 09:21 | W.PN.ID1 ---
Date of Service
Date of Service: December 21, 2024
Today's Communication
- PICC in place
- patient accepts eravacycline, switched, he will receive first dose here and then is stable for dc from ID perspective, to complete a 4 week course
- weekly labs while on OPAT
- drain care per IR; output 145 yesterday
- when output from the drain is consistently <15 ccs/day patient will call my office for drain reassessment referral to IR
Assessment / Plan
Intraabdominal Abscesses - tertiary; amp sensitive E faecalis, blood cultures with ESBL E coli and MSSA probable abdominal source
Previous Port was removed from L chest wall
11/08/24 s/p colostomy creation - no immediate complications or known perforation
Thrombocytosis
Metastatic rectal cancer
- blood cultures x2 in progress no growth to date
- abscess culture finalized - amp sensitive E faecalis; prior blood cultures with likely abdominal abscess source: ESBL E coli and MSSA
- PICC in place
- patient accepts eravacycline, switched, he will receive first dose here and then is stable for dc from ID perspective, to complete a 4 week course
- weekly labs while on OPAT
- drain care per IR; output 145 yesterday
- when output from the drain is consistently <15 ccs/day patient will call my office for drain reassessment referral to IR
- discussed with oncology Dr Mascorro yesterday, will remove PICC at completion of therapy
- follow up with ID clinic in about 4 weeks
Chief Complaint
-: Other (intraabdominal abscesses)
Subjective / Review of Systems
afebrile
bp stable
tulio drain remains with high output
in good spirits today
Vital Signs / Physical Exam
Vital Signs
Vital Signs
Temp Pulse Resp BP Pulse Ox
98.2 F 72 15 101/73 94
12/21/24 07:20 12/21/24 08:38 12/21/24 06:03 12/21/24 08:38 12/21/24 08:50
Physical Exam
Constitutional: No Acute Distress
Cardiovascular: Regular Rate and S1/S2; Negative Murmur or Rub
Pulmonary: Clear and Symmetric; Negative Wheezes or Rales
Gastrointestinal: Soft, Non Tender, Non Distended and Normal Bowel Sounds
Skin: Warm and Dry; Negative Rash or Jaundice
Lines: Other (drain cloudy output)
Objective Data
Lab Data
Lab Results
12/21/24 05:30
12/20/24 04:12
Estimated Creat Clear 118 ml/min 12/20/24 04:12
Total Bilirubin 0.5 mg/dl (0.2-1.3) 12/20/24 04:12
AST 44 U/L (17-59) 12/20/24 04:12
ALT 26 U/L (0-50) 12/20/24 04:12
Alkaline Phosphatase 635 U/L (38-126) H 12/20/24 04:12
Most recent labs reviewed.
Micro Results:
12/18/24 17:00 Wound Culture - Final
Abscess Enterococcus faecalis
Gram Stain - Final
12/18/24 12:34 Blood Culture - Preliminary
Blood/Venous No Growth in 48 hours- Final report to follow
12/18/24 12:09 Blood Culture - Preliminary
Blood/Venous No Growth in 48 hours- Final report to follow
12/18/24 12:02 Influenza Types A & B (LUCIA) - Final
Nasal Swab Negative for Influenza A & B, NAAT
Negative results must be combined with clinical observations
and patient history.
Nucleic Acid Amplification test (NAAT)performed on the
[employer] platform.
12/18/24 12:02 Respiratory Syncytial Virus Ag - Final
Nasal Swab Negative for Respiratory Syncytial Virus.
A false negative result may be obtained with a specimen
collected early in the acute phase. If symptoms persist, a
new specimen should be tested.
--- NOTE | 2024-12-21 09:23 | W.DS.TRANS ---
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
-
Discharge Instructions:
Discharge Diagnosis/Procedures Intra-abdominal abscess
Diet Diabetic, Carb Controlled
Activity As tolerated
Driving Restrictions No driving
Bathing Restrictions None
Other Services VN
Instructions:
Stand-Alone Forms:
Changes to Home Medications: No
Discharge Medications:
DC Medications w/original date entered in [employer]
acetaminophen 325 mg tablet 650 mg (2 x 325 mg) PO Q4HPRN PRN mild pain 30 days #100 tabs 12/17/24
ergocalciferol (vitamin D2) 1,250 mcg (50,000 unit) capsule (Vitamin D2) 1,250 mcg PO FR Vitamin D deficiency #10 caps 12/17/24
ferrous sulfate 325 mg (65 mg iron) tablet (FeroSul) 325 mg PO DAILY Anemia, iron deficiency 30 days #30 tabs 12/17/24
midodrine 5 mg tablet 5 mg PO BID@0700,1300 Orthostasis 30 days #60 tabs 12/17/24
pantoprazole 40 mg tablet,delayed release 40 mg PO DAILY Gastrointestinal issue 30 days #30 tabs 12/17/24
tramadol 50 mg tablet 50 mg PO Q4HPRN PRN moderate pains 5 days #30 tabs 12/17/24
trazodone 50 mg tablet 25 mg (1/2 x 50 mg) PO HS Insomnia 30 days #30 tabs 12/17/24
metoprolol succinate 25 mg tablet,extended release 24 hr 12.5 mg PO BID Blood pressure, heart rate control 12/18/24
oxycodone 5 mg tablet 5 mg PO Q6HPRN PRN severe pain 12/18/24
simethicone 80 mg chewable tablet 80 mg PO TIDPRN PRN gas pain 12/18/24
sodium chloride 0.9 % (flush) (Normal Saline Flush 0.9 % injection syringe) 10 ml intra-catheter DAILY #2,500 mL 12/20/24
Eravacycline [Xerava] 65 mg 250 mls/hr IV Q12H 12/21/24
Home Medication Changes
Pending Results: No
[2024-12-21] MEDS: DRISDOL (VITAMIN D2) 50000 UNITS PO (09:25)
[2024-12-21] MEDS: XERAVA 256.5 MG IV (10:05)
--- NOTE | 2024-12-21 10:51 | CM ---
Patient from [facility] with Hx Metastatic rectal cancer, colostomy with Dx Sepsis due to intra-abdominal abscess. Room air. PICC in place - receiving IV eravacycline today. Drain in place. PT/OT; recommend Home Health.
Message from Dr Almanza; updated script provided with change that PICC is to be discontinued once IV Abx are completed.

Met with patient who feels ready for d/c to home today.
the patient is aware [facility] nurse Patsy will do IV Abx administration teaching visit around 12:30pm today.
Patient aware that he has 100% coverage for IV Abx/supplies for home infusion.
Patient expressed concerns how to order more ostomy supplies. He has some in the room and states he also has about 2 months supplies at home. The patient did not see the ostomy nurse on this admission. He says he is finally comfortable changing
the bag. I tried to reassure him ostomy nurse thru home health would help him order more supplies---> [facility] Liaison made aware. Patient aware [facility] is setup for him for nurse & PT.
Patient's father in law Walt will provide transport home.

Spoke with Patsy, [facility]; Per Patsy the patient was informed that he has 100% coverage for IV Abx/supplies for home infusion. She will be here around 12:30pm for IV Abx administration teaching visit. She is aware of new script from
[facility] with update that PICC is to be discontinued once IV Abx are completed - left for her at bedside.

Plan home today with [facility] for home IV Abx and [facility].
[2024-12-21 11:12] LABS: Glucose - Point of Care 115 mg/dl (70-99)
--- NOTE | 2024-12-21 15:25 | PTCARENOTE ---
Pt for DC with father in law everything set up through case maker
--- NOTE | 2024-12-21 16:02 | PTCARENOTE ---
Pt left via [place] with family
== END 2024-12-21 15:55 | disposition home health service (06) | DRG 862 ==
LOC: IMU 16:49
PROVIDERS: Physician Assistant; Radiology Diagnostic Radiology; ADMITTING PHYSICIAN Hospitalist; CONSULT PHYSICIAN Student in an Organized Health Care Education/Training Program; EMERGENCY PHYSICIAN Emergency Medicine; OTHER PHYSICIAN Surgery
PROC: 0J9C30Z Drainage of Pelvic Region Subcutaneous Tissue and Fascia with Drainage Device, Percutaneous Approach (ICD-10-PCS; 2024-12-19)
DX: T81.43XA Infection following a procedure, organ and space surgical site, initial encounter (principal); A41.9 Sepsis, unspecified organism; K65.1 Peritoneal abscess; C20 Malignant neoplasm of rectum; C78.00 Secondary malignant neoplasm of unspecified lung; C78.7 Secondary malignant neoplasm of liver and intrahepatic bile duct; E87.1 Hypo-osmolality and hyponatremia; D63.0 Anemia in neoplastic disease; I48.0 Paroxysmal atrial fibrillation; E55.9 Vitamin D deficiency, unspecified; K21.9 Gastro-esophageal reflux disease without esophagitis; E11.9 Type 2 diabetes mellitus without complications; G47.00 Insomnia, unspecified; Z79.899 Other long term (current) drug therapy; E78.5 Hyperlipidemia, unspecified; Z92.3 Personal history of irradiation; Z93.2 Ileostomy status; Z11.52 Encounter for screening for COVID-19
CPT/HCPCS: 49406; 74177; 80053; 81003; 81015; 82962; 85025; 85027; 87040; 87070; 87077; 87186; 87205; 87502; 87807; 87811; 97116; 97163; 97167; 97530; 97535; 99152; 99285; C1729; C1769; J2185; Q9967

== ENCOUNTER → 2025-01-10 11:25 | Outpatient (REF) | payer OTHER, SELFPAY ==
[2025-01-10 13:11] VITALS: BP 107/79; BP_SYST 123
== END ==
LOC: RADI 11:25
PROVIDERS: ATTENDING PHYSICIAN Physician Assistant; FAMILY PHYSICIAN Family Medicine
DX: Z46.82 Encounter for fitting and adjustment of non-vascular catheter (principal); K65.1 Peritoneal abscess; C20 Malignant neoplasm of rectum; K52.9 Noninfective gastroenteritis and colitis, unspecified
CPT/HCPCS: 49424; 76080

== ENCOUNTER → 2025-01-10 12:04 | Outpatient (REF) | payer OTHER, SELFPAY | LOC: REG 12:04 | PROVIDERS: ATTENDING PHYSICIAN Surgery; FAMILY PHYSICIAN Family Medicine | DX: R19.7 Diarrhea, unspecified (principal) | CPT/HCPCS: 87045; 87046; 87427 ==

== ENCOUNTER 2025-02-06 13:18 | Inpatient (IN) | payer OTHER, SELFPAY ==
[2025-02-06] VITALS (7 sets, daily range): BP systolic 117–149; BP diastolic 75–98; BMI 26.9; BMI 24.9
--- NOTE | 2025-02-06 09:46 | ED.GENMED ---
History of Present Illness
General
Chief Complaint: Breathing Problem
Time Seen by Provider: 02/06/25 09:36
History of Present Illness
History of Present Illness:
59-year-old male with history of metastatic rectal cancer presents the emergency department for evaluation of diffuse anasarca and dyspnea, he admits has been ongoing for several weeks but has been refusing to come to the hospital. He was recently
hospitalized here throughout the month of November into December for pelvic abscess with drain placement. He was due to come back to the hospital today for a CT scan to reassess the abdominal fluid collection however could not tolerate supine positioning
and was sent to the ED. He denies any fevers or chest pain at this time.
Review of Systems
Review of Systems
Allergies reviewed?: Yes
All Other Systems: ROS reviewed and negative except as documented in HPI and ROS
Phy Exam
Physical Exam
Physical Exam:
GEN: Ill-appearing, pale, in respiratory distress
Eyes: PERRLA, EOMs intact, no scleral icterus
HENT: NCAT, oral mucosa moist, positive JVD
Lungs: Grossly diminished bibasilar breath sounds, tachypneic with accessory muscle use and conversational dyspnea
Cardiac: Tachycardic, regular
Abdomen: Distended and extremely tender, diffuse anasarca. Right lower quadrant drain with scant bloody output, left lower quadrant ostomy site with yellowish blood-tinged stool
Neuro: AO x 3, no focal deficits to BUE/BLE, normal sensation throughout
MSK: No gross deformity or ecchymosis. Diffuse anasarca +4
Skin: Diffusely pale, no petechial lesions
Psych: Calm, cooperative, proper hygiene
Scores
Heart Failure Risk
Heart Failure Risk Score: Not Applicable
Course
Orders/Labs/Results
Orders:
Orders
02/06/25 09:28
ECG [Electrocardiogram (*1)] Urgent
Reason for Study: Shortness of Breath
EKG- Treatment ONCE
02/06/25 09:46
CR Chest Portable - 1 View Urgent
Comment:
Reason For Exam: sob
Reason Study Needs to be Portable: Patient Unstable
02/06/25 10:00
Complete Blood Count/With Diff Urgent
Comprehensive Metabolic Panel Urgent
Lactic Acid Q4H
Comment: CANCEL 2nd LACTIC ACID IF 1st LACTIC ACID IS LESS THAN 2
NT-proBNP Urgent
Troponin I Urgent
Venous Blood Gas Urgent
%Oxygen/Room Air: 91
02/06/25 10:29
Blood Culture Q30M
AGGIE Source: Blood/Venous
Specimen Description:
02/06/25 10:33
Blood Culture Q30M
AGGIE Source: Blood/Venous
Specimen Description:
02/06/25 10:40
CT Pe/abd/pel W Urgent
Comment:
Reason For Exam: dyspnea/hypoxia, anasarca, abd fluid collection
02/06/25 10:49
Furosemide [Lasix] 40 mg IV NOW STA
02/06/25 10:50
[facility] CONSULT Urgent
Consulting Provider: Jarred Levy
Was physician already notified: Yes
Procedure being ordered, including laterality if applicable: Thoracentesis
Acknowledgement that appropriate orders are entered: Yes
Body Fluid Cell Count Routine
What is the Body Fluid: pleural fluid
Comment: post procedure
Body Fluid LDH Routine
Fluid Source: Pleural
Body Fluid Protein Routine
Fluid Source: Pleural
Fluid Culture with Gram Stain Routine
AGGIE Source: Pleural Fluid
Specimen Description:
Comment: post procedure
02/06/25 13:45
Lactic Acid Q4H
Comment: CANCEL 2nd LACTIC ACID IF 1st LACTIC ACID IS LESS THAN 2
Abnormal Lab Results
02/06/25
10:00
WBC 11.9 H 10^3/uL
(4.8-10.8)
RBC 2.64 L 10^6/uL
(4.70-6.10)
Hgb 8.1 L g/dL
(13.0-18.0)
Hct 26.0 L %
(39.0-52.0)
MCV 98.5 H fL
(80.0-94.0)
MCHC 31.2 L g/dL
(33.0-37.0)
RDW 21.8 H %
(11.5-14.5)
Plt Count 405 H 10^3/uL
(130-400)
Abs Immat Gran (auto) 0.1 H 10^3/uL
(0-0.05)
Absolute Neuts (auto) 10.8 H 10^3/uL
(1.4-6.5)
Absolute Lymphs (auto) 0.3 L 10^3/uL
(1.2-3.4)
Absolute Monos (auto) 0.7 H 10^3/uL
(0.1-0.6)
Neutrophils % 90.6 H %
(42.2-75.2)
Lymphocytes % 2.4 L %
(20.5-51.1)
VBG pO2 74 H mmHg
(30-50)
BUN 8 L mg/dl
(9-20)
Creatinine 0.5 L mg/dL
(0.7-1.3)
Glucose 121 H mg/dl
(70-99)
Lactic Acid 2.1 H mmol/L
(0.7-2.0)
Calcium 8.2 L mg/dl
(8.4-10.2)
Total Bilirubin 2.1 H mg/dl
(0.2-1.3)
AST 145 H U/L
(17-59)
Alkaline Phosphatase 998 H U/L
(38-126)
Albumin 2.7 L g/dl
(3.5-5.0)
02/06/25 10:00
02/06/25 10:00
Vital Signs
Initial and Last Documented VS:
Initial Vital Signs
Temp Pulse Resp BP Pulse Ox
98.7 F 124 20 149/88 92
02/06/25 09:26 02/06/25 09:26 02/06/25 09:26 02/06/25 09:26 02/06/25 09:26
Last Documented Vital Signs
Temp Pulse Resp BP Pulse Ox
98.7 F 120 20 146/92 97
02/06/25 09:26 02/06/25 11:23 02/06/25 11:00 02/06/25 11:23 02/06/25 11:00
MDM/Problems Addressed
MDM/Problems Addressed:
59-year-old male presents with diffuse anasarca and respiratory failure secondary to bilateral pleural effusions, no chest pain at this time to suspect underlying PE, we did attempt to obtain a PE study with abdomen pelvis follow-through to reassess
both his known abdominal fluid collections as well as assess for possible PE given active malignancy however the patient was unable to tolerate supine positioning for the study, will consult IR for thoracentesis and reattempt study thereafter. No
signs or symptoms of infection that would warrant antibiotics
Comment
Comment:
EKG independently interpreted by me shows a sinus tachycardia with significant motion artifact limiting interpretation
*Pulse Oximetry
SaO2: 92
Oxygen Mode of Delivery: Room air
Patient hypoxic: yes
*Critical Care Note
Total Time (30-74mins, 75-104mins- exclusive of procedures): Not Applicable
ED Attending Note
-
Portions of this chart may have been created with voice recognition software.� Occasional wrong word or��sound alike� substitutions may have occurred due to the inherent limitations of voice recognition software.
Discharge Plan
Departure
Patient Disposition: Admit
Date of Disposition: 02/06/25
Time of Disposition: 11:57
Admit to: Med/Surg
Presentation/result/management discussed w/ accepting MD/DO: Hospitalist
Discharge Problem:
Anasarca, Bilateral pleural effusion, Acute hypoxemic respiratory failure
Prescriptions:
No Action
metoprolol succinate 25 mg tablet extended release 24 hr
12.5 mg PO BID
sodium chloride 0.9 % (flush) [Normal Saline Flush] Syringe
10 ml intra-catheter DAILY Qty: 2500 0RF
furosemide [Lasix] 20 mg Tablet
20 mg PO DAILY
acetaminophen 325 mg tablet
650 mg PO QID
midodrine 5 mg tablet
5 mg PO BID@0700,1300
tramadol 50 mg tablet
50 mg PO Q4HPRN PRN (Reason: moderate pains)
trazodone 50 mg Tablet
25 mg PO HS 30 Days Qty: 30 0RF
ergocalciferol (vitamin D2) [Vitamin D2] 1,250 mcg (50,000 unit) Capsule
1,250 mcg PO FR Qty: 10 0RF
Referrals:
Rayo Rose DO [Family Provider, Family Practice]
Interventions
Interventions:
*Risk Screen - Suicide Last Done: 02/06/25 09:26
*General Assessment Last Done: 02/06/25 10:30
*Neglect/Abuse Screening Last Done: 02/06/25 09:26
*ED- Fall Risk Assessment Last Done: 02/06/25 10:12
*ED COVID-19 Vaccine History Last Done: 02/06/25 10:12
ED- Cardiac Assessment Last Done: 02/06/25 10:42
ED- Pulmonary Assessment Last Done: 02/06/25 10:42
Discharge Date and Time
Print Language: MALAY
[2025-02-06 10:10] LABS: % Basophils 0.3 % (0-2); % Eosinophils 0.1 % (0-6); % Immature Granulocytes 0.5 % (0-0.5); % Lymphocytes 2.4 % (20.5-51.1); % Monocytes 6.1 % (1.7-9.3); % Neutrophils 90.6 % (42.2-75.2); Absolute Immature Granulocytes 0.1 10^3/uL (0-0.05); Absolute Lymphocytes 0.3 10^3/uL (1.2-3.4); Absolute Monocytes 0.7 10^3/uL (0.1-0.6); Absolute Neutrophils 10.8 10^3/uL (1.4-6.5); Hemoglobin 8.1 g/dL (13.0-18.0); Mean Corp Hgb Conc. 31.2 g/dL (33.0-37.0); Mean Corpuscular Hgb 30.7 pg (27.0-31.0); Mean Corpuscular Volume 98.5 fL (80.0-94.0); Mean Platelet Volume 9.4 fL (7.4-10.4); Nucleated Red Blood Cells % 0 % (-); Platelet Count 405 10^3/uL (130-400); Red Blood Cell Count 2.64 10^6/uL (4.70-6.10); Red Cell Dist. Width 21.8 % (11.5-14.5); Venous Blood Gas B.E. 0.5 mmol/L (-4 to +4); Venous Blood Gas HCO3 25.4 mmol/L (22-27); Venous Blood Gas pCO2 41 mmHg (35-48); Venous Blood Gas pO2 74 mmHg (30-50); White Blood Cell Count 11.9 10^3/uL (4.8-10.8)
[2025-02-06 10:34] LABS: ALT (SGPT) 39 U/L (0-50); AST (SGOT) 145 U/L (17-59); Albumin 2.7 g/dl (3.5-5.0); Blood Urea Nitrogen 8 mg/dl (9-20); Calcium 8.2 mg/dl (8.4-10.2); Carbon Dioxide 26 mmol/L (22-30); Chloride 107 mmol/L (98-107); Estimated Creatinine Clearance 118 ml/min; Glucose 121 mg/dl (70-99); Potassium 3.6 mmol/L (3.5-5.1); Sodium 137 mmol/L (135-145); Total Bilirubin 2.1 mg/dl (0.2-1.3); Total Protein 6.4 g/dl (6.3-8.2); eGFR > 60.00
[2025-02-06 10:42] LABS: Alkaline Phosphatase 998 U/L (38-126)
[2025-02-06 10:46] LABS: NT-proBNP 396 pg/ml; Troponin I < 0.012 ng/ml
[2025-02-06 11:00] LABS: Lactic Acid 2.1 mmol/L (0.7-2.0)
[2025-02-06] MEDS: LASIX 40 MG IV (11:23)
--- NOTE | 2025-02-06 12:10 | HPS.HSE ---
Family Physician
-
Family Physician: Rayo Rose
Chief Complaint
-
sob
History of Present Illness
59-year-old male with history of metastatic rectal cancer presents the emergency department for evaluation of diffuse anasarca and dyspnea, he admits has been ongoing for several weeks. patient stated sob. cough with exertion. He was recently
hospitalized here throughout the month of November into December for pelvic abscess with drain placement. He was due to come back to the hospital today for a CT scan to reassess the abdominal fluid collection however could not tolerate supine positioning
and was sent to the ED. He denies any fevers or chest pain at this time. denied LUA, dizzy or syncope.denied abdominal pain but stated abdominal distention. he is having painful urination. denied hematuria.
Upon arrival patient is requiring 4 L of oxygen. Chest x-ray with moderate bilateral pleural effusions right greater than left. No pneumothorax. Right upper lobe nodule has increased in size. Interventional radiology consulted for paracentesis.
Admitting for further management
Medical History
Past Medical History
Past Medical History: Reports Other
Additional Past Medical History:
A-fib
Rectal cancer
Chronic anemia
Neoplasm of liver and colon
Past Surgical History: Reports Other
Additional Past Surgical History:
Liver resection
Colon resection
Social History
Tobacco: Non-smoker
Alcohol: None
Drug: None
Personal: Single
Living: Alone
Family History
Family History: Not pertinent
Allergies / Home Medications
Allergies reflects when Allergies were last updated in [facility].
Home Medications with original date entered in [facility]
Allergy/Medication List:
Allergies
Allergy/AdvReac Type Severity Reaction Status Date / Time
No Known Allergies Allergy Verified 02/06/25 09:25
Home Medications
ergocalciferol (vitamin D2) 1,250 mcg (50,000 unit) capsule (Vitamin D2) 1,250 mcg PO FR Vitamin D deficiency #10 caps 12/17/24
trazodone 50 mg tablet 25 mg (1/2 x 50 mg) PO HS Insomnia 30 days #30 tabs 12/17/24
metoprolol succinate 25 mg tablet,extended release 24 hr 12.5 mg PO BID Blood pressure, heart rate control 12/18/24
sodium chloride 0.9 % (flush) (Normal Saline Flush 0.9 % injection syringe) 10 ml intra-catheter DAILY #2,500 mL 12/20/24
acetaminophen 325 mg tablet 650 mg PO QID 02/06/25
furosemide 20 mg tablet (Lasix) 20 mg PO DAILY 02/06/25
midodrine 5 mg tablet 5 mg PO BID@0700,1300 Orthostasis 02/06/25
piperacillin-tazobactam 4.5 gram intravenous solution 4.5 g IV Q6H Infection 02/06/25
tramadol 50 mg tablet 50 mg PO Q4HPRN PRN moderate pains 02/06/25
Review of Systems
-
Constitutional: Reports No Symptoms
EENT: Reports No Symptoms
Respiratory: Reports Cough and Trouble Breathing
Cardiac: Reports No Symptoms
Abdomen/GI: Reports No Symptoms and Other (abdominal distention, generalized edema)
: Reports No Symptoms
Musculoskeletal: Reports No Symptoms
Skin: Reports No Symptoms
Neurological: Reports No Symptoms
Endocrine: Reports No Symptoms
Hematologic/Lymphatic: Reports No Symptoms
Psych: Reports No Symptoms
Physical Exam
Vital Signs
Vital Signs
Temp Pulse Resp BP Pulse Ox
98.7 F 120 20 146/92 97
02/06/25 09:26 02/06/25 11:23 02/06/25 11:00 02/06/25 11:23 02/06/25 11:00
Physical Exam
General: Well Developed, Well Nourished and No Apparent Distress
HEENT: NormoCephalic, Moist mucous membranes and Atraumatic
Respiratory: Clear
Cardiac: S1/S2 and Regular Rhythm; No Murmur or Rub
GI: Soft, Non Tender, Normal Bowel Sounds and Distended; No Organomegaly
Rectal: Deferred by Provider
Musculoskeletal: No Clubbing, No Cyanosis and Other (generalized edema)
Skin: No Rash
Neuro: AO x 3 and Nonfocal/grossly intact
Psych: Calm
Laboratory Results
-
02/06/25 10:00
02/06/25 10:00
Laboratory Results
Lactic Acid 2.1 mmol/L (0.7-2.0) H 02/06/25 10:00
Total Bilirubin 2.1 mg/dl (0.2-1.3) H 02/06/25 10:00
AST 145 U/L (17-59) H 02/06/25 10:00
ALT 39 U/L (0-50) 02/06/25 10:00
Alkaline Phosphatase 998 U/L (38-126) H 02/06/25 10:00
Troponin I < 0.012 ng/ml 02/06/25 10:00
Data Reviewed
-
Diagnostic Radiology: Report Reviewed by me
Lab Data: Labs Reviewed by me
Impression/Plan
-
# Severe anasarca with bilateral pleural effusion likely from metastatic disease disease
# Acute hypoxic respiratory failure likely from pleural effusion/anasarca
- AST 145
- Chest x-ray with impression of Moderate bilateral pleural effusions, right greater than left. No pneumothorax.Right upper lobe nodule has increased in size.
- CT abdomen pelvis pending
- Interventional radiology consulted
-iv Lasix continued
# Sepsis unclear cause
# Recent intra-abdominal abscess sensitive to E facialis, blood culture with ESBL E. coli and MSSA probable abdominal source
-CHRISTINE in place
-Patient recently on eravacycline but was not able to finish due to nausea, switched to Zosyn on 01/15
-CT abdomen pelvis pending
- WBC 11.9 lactic 2.1, heart rate 120
-blood culture sent from ER
-consider ID consult once CT and UA resulted
-continue iv Zosyn
# Anemia of chronic disease
- Hemoglobin stable at 8.1
- No active bleeding
- Continue to monitor hemoglobin
#Metastatic rectal cancer -treated in 2022 with chemo and radiation, and partial liver lobectomy in 2023 for liver metastasis. Presented in October 2024 with large bowel obstruction treated with palliative diverting transverse loop colostomy.
#Paroxysmal atrial fibrillation -not on chronic anticoagulation due to prior bleed and anemia.
-EKg with sinus tachycardia
-metoprolol continued with hold parameter
#orthostasis
-midodrine continued
#DVT prophylaxis
-Lovenox
Full code
--- NOTE | 2025-02-06 13:22 | W.PN.UPDATE ---
Addendum entered and electronically signed by Tomy Ravi MD 02/06/25 22:52:
As per prior oncology notes Pt has progressed on FOLFOX and FOLFIRI with no plans for ongoing infusional 5-FU.
Ct scan shows Bilateral upper lobe pulmonary nodules consistent metastatic disease. Significantly increased in size. Increased in number as well.
Mild left axillary lymphadenopathy. New
Seems like findings all secondary to worsening of known cancer. Will consult oncology regarding whether further treatments can be offered or hospice to be considered.
Addendum entered and electronically signed by Tomy Ravi MD 02/06/25 22:43:
Patient has known pulmonary metastases.
Original Note:
Update Note
Progress Note Update
This is an addendum to H&P written by she was 02/06/2025. �Patient seen and examined independently with [employer].
59-year-old male past medical history of metastatic rectal cancer with liver mets status post recent diverting loop ileostomy secondary to large bowel obstruction presenting with diffuse anasarca and dyspnea ongoing for several weeks. �Painful
urination. �
Recently hospitalized from November to December for pelvic abscess with drain placement. �Fluid cultures positive for Enterococcus faecalis and patient with bacteremia with blood cultures positive for ESBL E. coli and MSSA likely abdominal source. �No
fevers or chest pain. �Patient has a PICC line and was originally receiving eravacycline and on January 15 antibiotics were switched to Zosyn to be continued for 1 month.
Patient hypoxemic requiring 4 L oxygen. �Heart rate 110s.
Labs show leukocytosis. �Chronic anemia macrocytic with hemoglobin of 8.1. �Albumin of 2.7. �Cardiac BNP of 400. �Lactic acid 2.1.
Chest x-ray shows moderate bilateral pleural effusions, right greater than left.
Patient with diffuse anasarca likely secondary to hypoalbuminemia/malignancy. �Patient also with bilateral pleural effusions.
CT PE and abdomen pelvis was attempted to evaluate for metastatic disease/thromboembolic disease/residual infection but patient could not lie down flat.
Patient given 40 IV Lasix. �IR consulted for thoracentesis then reattempt CT PE and abdomen pelvis.. �Blood cultures pending. �Check urinalysis. �Continue Zosyn.
[2025-02-06 14:22] LABS: Body Fluid Polymorphonuclear 23.3 %; Body Fluid WBC 223 /CUMM
[2025-02-06 14:23] LABS: Body Fluid Mononuclear 76.7 %
[2025-02-06 14:36] LABS: Body Fluid Second Tech ASW
[2025-02-06 14:40] LABS: Lactic Acid 1.7 mmol/L (0.7-2.0)
[2025-02-06 14:43] LABS: Body Fluid LDH 249 U/L; Body Fluid Protein 2.3 g/dl
[2025-02-06] MEDS: ProAmatine 5 MG PO (16:16)
[2025-02-06] MEDS: FLUSH (NSS) 1 FLUSH IV (16:16)
[2025-02-06] MEDS: ZOSYN 100 IV ×2 (16:16→22:59)
[2025-02-06] MEDS: LOVENOX 40 MG SC (16:17)
[2025-02-06] MEDS: ULTRAM 50 MG PO (16:22)
[2025-02-06] MEDS: TYLENOL 650 MG PO (16:23)
[2025-02-06] MEDS: TOPROL XL 12.5 MG PO (19:56)
[2025-02-06] MEDS: DESYREL 25 MG PO (21:49)
[2025-02-06 22:02] LABS: Urine Albumin 1+ (Neg - Trace); Urine Bilirubin Negative (Negative); Urine Character Clear (Clear); Urine Color Amber; Urine Glucose Negative (Negative); Urine Ketone Negative (Negative); Urine Leukocyte Negative (Negative); Urine Nitrite Negative (Negative); Urine Occult Blood Negative (Negative); Urine Specific Gravity 1.005 (<1.030); Urine Urobilinogen Negative (Neg - 1+)
[2025-02-06 22:23] LABS: Urine Bacteria Few (Negative); Urine Red Blood Cell 0-2 /HPF (0-2); Urine Squamous Cell 0-2 /LPF (Few)
[2025-02-07 03:25] VITALS: BP 118/78
[2025-02-07] MEDS: ZOSYN 100 IV ×4 (03:54→22:08)
[2025-02-07 06:00] VITALS: BMI 24.6
[2025-02-07] MEDS: ProAmatine 5 MG PO ×2 (06:05→13:24)
[2025-02-07 06:13] LABS: Hematocrit 24.5 % (39.0-52.0); Hemoglobin 7.6 g/dL (13.0-18.0); Mean Corpuscular Hgb 30.6 pg (27.0-31.0); Mean Corpuscular Volume 98.8 fL (80.0-94.0); Mean Platelet Volume 9.6 fL (7.4-10.4); Platelet Count 394 10^3/uL (130-400); Red Blood Cell Count 2.48 10^6/uL (4.70-6.10); Red Cell Dist. Width 21.4 % (11.5-14.5); White Blood Cell Count 10.2 10^3/uL (4.8-10.8)
[2025-02-07 06:19] LABS: ALT (SGPT) 35 U/L (0-50); AST (SGOT) 125 U/L (17-59); Albumin 2.6 g/dl (3.5-5.0); Alkaline Phosphatase 1085 U/L (38-126); Blood Urea Nitrogen 10 mg/dl (9-20); Calcium 8.2 mg/dl (8.4-10.2); Carbon Dioxide 25 mmol/L (22-30); Chloride 107 mmol/L (98-107); Estimated Creatinine Clearance 118 ml/min; Glucose 103 mg/dl (70-99); Potassium 3.7 mmol/L (3.5-5.1); Sodium 137 mmol/L (135-145); Total Bilirubin 2.3 mg/dl (0.2-1.3); Total Protein 6.3 g/dl (6.3-8.2); eGFR > 60.00
[2025-02-07 07:40] VITALS: BP 118/81
--- NOTE | 2025-02-07 08:04 | VNURNOTE ---
Chart reviewed. Patient is current with [facility] nursing, PT, OT. Will continue to follow hospital course and DC plans.
[2025-02-07] MEDS: LASIX 40 MG IV (08:58)
[2025-02-07] MEDS: TOPROL XL 12.5 MG PO ×2 (08:59→20:07)
--- NOTE | 2025-02-07 09:11 | CON.ONC ---
Impression
Impression
59-year-old with metastatic rectal adenocarcinoma to the liver, lung, and external iliac LNs, resistant to FOLFOX and FOLFIRI, presenting with acute dyspnea and weakness, progressing over the past couple weeks.
We have been consulted regarding whether further treatments available for patient and goals of care discussion.
# Acute hypoxic respiratory failure
-Bilateral pleural effusion most likely due to metastatic disease s/p left thoracentesis by IR
-Follow pleural fluid analysis
-Management of hypoxic respiratory failure per primary team
# Sepsis
-Follow blood cultures
-Receiving Zosyn
-Management per primary team and ID
-Ostomy with mod amount of soft yellow/palomo stool- CHRISTINE drain with slight yellow fluid output-will TT IR for daily flush of drain
# Chronic anemia
- Hemoglobin stable and around baseline at 8.1
- No no evidence of active bleeding
- Continue to monitor CBC closely
#Metastatic rectal cancer
-Diagnosed in 2022-status post chemo and radiation, and partial liver lobectomy for liver mets.
-Presented in October 2024 with large bowel obstruction treated with palliative transverse loop colostomy.
-Patient was previously offered to be enrolled in clinical trial but did nt qualify (according to patient)
-Goals of care discussion
-Hospice consult
#DVT prophylaxis
-Lovenox
Plan
Plan
Goals of care discussion
Hospice consult
Will TT Ir for daily flush of CHRISTINE drain
Patient History
History of Present Illness
Patient is a 59-year-old diagnosed in January 2023 with metastatic rectal adenocarcinoma to the liver, lung, and external iliac LNs. He underwent systemic therapy with FOLFOX through 12 cycles followed by liver resection. He received rectal
radiation therapy after liver resection but unfortunately developed progressive disease. Subsequently he was treated on FOLFIRI + bevacizumab with increasingly poor tolerance and regional recurrence in the rectum (last dose 06/26/24). PET CT scan
(06/21/24) showed areas of paradoxical response with decrease in SUV and slight increase in size of small pulmonary nodules. In October 2024, he was admitted with large bowel obstruction and underwent transverse loop colostomy creation by Dr. Acosta.
He developed multiple episodes of intra-abdominal abscess after surgery and has underwent ultrasound-guided drainage of pelvic/peritoneal abscess by IR (x2).
Patient currently presents with acute dyspnea and progressive weight loss/weakness since couple weeks ago. He was due for a abd/pelvis CT scan yesterday (02/06) to reassess the abdominal fluid collection; however, could not tolerate supine
positioning due to severe dyspnea and and was sent to the ED. Upon arrival in ED, patient was hypoxic requiring 4 L of oxygen. Initial labs showed mildly elevated white cell count and elevated lactic acid . chest x-ray showed bilateral pleural
effusions (right greater than left). Whole-body CT arteriography with contrast did not show evidence of pulmonary emboli. However there were evidence of bilateral upper lobe pulmonary nodules consistent with metastatic disease significantly
increased in size and number as well as new finding of mild left axillary lymphadenopathy. Interventional radiology was consulted and Ultrasound-guided left thoracentesis was performed, yielding 1000 cc of clear yellow pleural fluid.
Past-Medical/Surgical History
Arrhythmia (Paroxysmal atrial fibrillation) and Cancer (Stage 4 rectal cancer status post liver resection and radiation), ESBL E. coli
Past Surgical History: liver resection, large bowel obstruction s/p transverse loop colostomy creation (11/08/24), ultrasound-guided drainage of pelvic/peritoneal abscess
Patient Medication
�Medication �Instructions �Recorded �Confirmed �Last Taken �Type
ergocalciferol (vitamin D2) 1,250 1,250 mcg PO FR Vitamin D 12/17/24 02/06/25 02/01/25 Rx
mcg (50,000 unit) capsule (Vitamin deficiency #10 caps
D2)
trazodone 50 mg tablet 25 mg (1/2 x 50 mg) PO HS Insomnia 12/17/24 02/06/25 02/05/25 Rx
30 days #30 tabs
metoprolol succinate 25 mg 12.5 mg PO BID Blood pressure, 12/18/24 02/06/25 02/05/25 History
tablet,extended release 24 hr heart rate control
sodium chloride 0.9 % (flush) 10 ml intra-catheter DAILY #2,500 12/20/24 02/06/25 Unknown Rx
(Normal Saline Flush 0.9 % mL
injection syringe)
acetaminophen 325 mg tablet 650 mg PO QID 02/06/25 02/06/25 02/06/25 History
furosemide 20 mg tablet (Lasix) 20 mg PO DAILY 02/06/25 02/06/25 02/05/25 History
midodrine 5 mg tablet 5 mg PO BID@0700,1300 Orthostasis 02/06/25 02/06/25 02/05/25 History
piperacillin-tazobactam 4.5 gram 4.5 g IV Q6H Infection 02/06/25 02/06/25 Unknown History
intravenous solution
tramadol 50 mg tablet 50 mg PO Q4HPRN PRN moderate pains 02/06/25 02/06/25 02/05/25 History
Active Medications
Generic Name Dose Route Start Last Admin
Trade Name Freq PRN Reason Stop Dose Admin
Acetaminophen 650 mg 02/06/25 14:43 02/06/25 16:23
Acetaminophen 325 Mg Tablet PO 03/06/25 14:42 650 mg
Q4HPRN PRN Administration
mild pain/LUA/temp> 100.4F
Bisacodyl 10 mg 02/06/25 14:43
Bisacodyl 10 Mg Rectal Suppository RECTAL 03/06/25 14:42
[id number] PRN
constipation
Enoxaparin Sodium 40 mg 02/06/25 18:00 02/06/25 16:17
Enoxaparin Sodium 40 Mg/0.4 Ml Syringe SC 03/06/25 17:59 40 mg
QPM ZACK Administration
Furosemide 40 mg 02/07/25 08:00 02/07/25 08:58
Furosemide 40 Mg (10 Mg/Ml) 4 Ml Vial IV 03/07/25 07:59 40 mg
DAILY ZACK Administration
Piperacillin Sod/Tazobactam Sod 4.5 gram in 100 mls @ 200 mls/hr 02/06/25 16:00 02/07/25 03:54
Zosyn IV 100 mls
Q6H ZACK Administration
Metoprolol Succinate 12.5 mg 02/06/25 20:00 02/07/25 08:59
Metoprolol 25 Mg Extended Release Tablet PO 03/06/25 19:59 12.5 mg
BID ZACK Administration
Midodrine 5 mg 02/06/25 14:43 02/07/25 06:05
Midodrine 5 Mg Tablet PO 03/06/25 14:42 5 mg
BID@0700,1300 ZACK Administration
Polyethylene Glycol 17 grams 02/06/25 14:43
Polyethylene Glycol Powder 17 Grams Packet PO 03/06/25 14:42
DAILYPRN PRN
constipation
Senna/Docusate Sodium 1 tablet 02/06/25 14:43
Docusate W/Senna (Mendy-Colace) Tablet PO 03/06/25 14:42
BIDPRN PRN
constipation
Sodium Chloride 0 flush 02/06/25 15:00 02/06/25 16:16
Sodium Chloride 0.9% (Flush) Syringe IV 03/06/25 14:59 1 flush
PER PROTOCOL ZACK Administration
Tramadol HCl 50 mg 02/06/25 14:43 02/06/25 16:22
Tramadol Hcl 50 Mg Tablet PO 03/06/25 14:42 50 mg
Q4HPRN PRN Administration
moderate pains
Trazodone HCl 25 mg 02/06/25 22:00 02/06/25 21:49
Trazodone 50 Mg Tablet PO 03/06/25 21:59 25 mg
HS ZACK Administration
Review of Systems
-
History Source: Patient
Respiratory: Reports Cough, Trouble Breathing and Other (pleural chest pain)
Physical Exam
-
General: Appears in Distress and Appears Chronically Ill
Cardiology: S1, S2, No Murmur and Other (tachycardic)
Pulmonary: Other (bilateral decreased breath sounds )
GI: Distended and Other (Right lower quadrant drain, left lower quadrant ostomy )
Genito-Urinary: No Costovertebral Tenderness
Musculoskeletal: No Clubbing, No Cyanosis and No Edema
Extremities: Pulses Present
Skin: Warm and Dry
Labs
Lab Results
WBC 10.2 10^3/uL (4.8-10.8) 02/07/25 05:55
RBC 2.48 10^6/uL (4.70-6.10) L 02/07/25 05:55
Hgb 7.6 g/dL (13.0-18.0) L 02/07/25 05:55
Hct 24.5 % (39.0-52.0) L 02/07/25 05:55
MCV 98.8 fL (80.0-94.0) H 02/07/25 05:55
MCH 30.6 pg (27.0-31.0) 02/07/25 05:55
MCHC 31.0 g/dL (33.0-37.0) L 02/07/25 05:55
RDW 21.4 % (11.5-14.5) H 02/07/25 05:55
Plt Count 394 10^3/uL (130-400) 02/07/25 05:55
MPV 9.6 fL (7.4-10.4) 02/07/25 05:55
Abs Immat Gran (auto) 0.1 10^3/uL (0-0.05) H 02/06/25 10:00
Absolute Neuts (auto) 10.8 10^3/uL (1.4-6.5) H 02/06/25 10:00
Absolute Lymphs (auto) 0.3 10^3/uL (1.2-3.4) L 02/06/25 10:00
Absolute Monos (auto) 0.7 10^3/uL (0.1-0.6) H 02/06/25 10:00
Absolute Eos (auto) 0.0 10^3/uL (0-0.7) 02/06/25 10:00
Absolute Basos (auto) 0.0 10^3/uL (0-0.2) 02/06/25 10:00
Immature Gran % 0.5 % (0-0.5) 02/06/25 10:00
Neutrophils % 90.6 % (42.2-75.2) H 02/06/25 10:00
Lymphocytes % 2.4 % (20.5-51.1) L 02/06/25 10:00
Monocytes % 6.1 % (1.7-9.3) 02/06/25 10:00
Eosinophils % 0.1 % (0-6) 02/06/25 10:00
Basophils % 0.3 % (0-2) 02/06/25 10:00
Creatinine 0.5 mg/dL (0.7-1.3) L 02/07/25 05:55
Vital Signs
Vital Signs
Temp Pulse Resp BP Pulse Ox
97.9 F 112 18 118/81 96
02/07/25 07:40 02/07/25 07:40 02/07/25 07:40 02/07/25 07:40 02/07/25 07:40
[2025-02-07 11:20] VITALS: BP 107/73
--- NOTE | 2025-02-07 11:23 | CM ---
Addendum entered by Felicia Lovett 02/07/25 12:22:
Per office engineer notes, patient would like to go home when stable with Palliative Care.
Patient has a meeting scheduled next week with Palliative Care and then will transition to hospice when ready.
The patient was provided office engineer's direct contact when patient is hospice ready.
Original Note:
Met with patient at bedside, initial assessment completed
Primary Contact is Delfina Chan
Hospice Referral sent to [facility]
Pharmacy verified: [facility] @ [address] [place] [address]
Patient lives with 3 children (ages 21, 19, and 13); multilevel home; first floor set up with hospital bed; powder room; ambulating with rolling walker; needs assistance from family and fiance with ADLs. 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
disability from work
One of his children will transport him home
Plan: discharge to home with palliative or hospice care; monitor for Oxygen needs; home O2 evaluation ordered
--- NOTE | 2025-02-07 11:57 | HOSPNOTE ---
Spoke with patient and significant other Delfina about hospice and the philosophy. At this time the patient would like to go home when stable with Palliative Care. Patient has a meeting scheduled next week with Palliative Care and then will
transition to hospice when ready. The patient has my direct contact when patient is hospice ready.
--- NOTE | 2025-02-07 12:40 | W.PN.HOSP.TC ---
Today's Communication/Plan
-
Monitor vital signs and see plan
Wean oxygen as tolerated
Continue with IV Lasix
Monitor volume status
Monitor hemoglobin
Goals of care discussion per oncology
Assessment / Plan
Assessment / Plan
General: Well Developed, Well Nourished and No Apparent Distress
HEENT: NormoCephalic, Moist mucous membranes and Atraumatic
Respiratory: Clear
Cardiac: S1/S2 and Regular Rhythm; No Murmur or Rub
GI: Soft, Non Tender, Normal Bowel Sounds and Distended; No Organomegaly
Musculoskeletal: No Clubbing, No Cyanosis and Other (generalized edema)
Neuro: AO x 3 and Nonfocal/grossly intact
Psych: Calm
Severe anasarca with bilateral pleural effusion likely from metastatic disease disease
# Acute hypoxic respiratory failure likely from pleural effusion/anasarca
- AST 145
- Chest x-ray with impression of Moderate bilateral pleural effusions, right greater than left. No pneumothorax.Right upper lobe nodule has increased in size.
- CT abdomen pelvis with worsening malignancy. Oncology following. Goals of care discussion ongoing
- s/p tap by IR
-iv Lasix continued
Acute hypoxic respiratory insufficiency
Continue with IV diuresis
X-ray with pleural effusion status post thoracentesis, monitor
bnp not significant
Recent echo with preserved EF
Currently on 4 L, wean oxygen as tolerated
# Sepsis unclear cause
# Recent intra-abdominal abscess sensitive to E facialis, blood culture with ESBL E. coli and MSSA probable abdominal source
-CHRISTINE in place
-Patient recently on eravacycline but was not able to finish due to nausea, switched to Zosyn on 01/15
-CT abdomen pelvis with worsening malignancy
- WBC 11.9 lactic 2.1, heart rate 120 9. White count now improving
Follow blood culture
-UA without UTI
-continue iv Zosyn
# Anemia of chronic disease
-Continue to monitor
- No active bleeding
- Continue to monitor hemoglobin
#Metastatic rectal cancer -treated in 2022 with chemo and radiation, and partial liver lobectomy in 2023 for liver metastasis. Presented in October 2024 with large bowel obstruction treated with palliative diverting transverse loop colostomy.
#Paroxysmal atrial fibrillation -not on chronic anticoagulation due to prior bleed and anemia.
-EKg with sinus tachycardia
-metoprolol continued with hold parameter
#orthostasis
-midodrine continued
#DVT prophylaxis
-Lovenox
Full code
I spent a total of 54 minutes with the patient or on the floor. More than 50% of this time involved counseling and coordination of care.
Anticipated Discharge: > 48 hours
Subjective/Interval History
-
Date of Service: February 07, 2025
Denies pain
Objective Data
-
Labs:
Laboratory Results
02/07/25
05:55
WBC 10.2
Hgb 7.6 L
Hct 24.5 L
Plt Count 394
Sodium 137
Potassium 3.7
Chloride 107
Carbon Dioxide 25
BUN 10
Creatinine 0.5 L
Glucose 103 H
Calcium 8.2 L
Total Bilirubin 2.3 H
AST 125 H
ALT 35
Alkaline Phosphatase 1085 H
Vital Signs:
Vital Signs
Temp Pulse Resp BP Pulse Ox
98.1 F 102 18 107/73 96
02/07/25 11:20 02/07/25 11:20 02/07/25 11:20 02/07/25 11:20 02/07/25 11:20
I&O
02/06/25 02/07/25 02/08/25
06:59 06:59 06:59
Intake Total 480 / 480 110 / 110
Output Total 1440 / 1440
Balance -960 / -960 110 / 110
[2025-02-07] MEDS: FLUSH (NSS) IV (13:51)
[2025-02-07 15:30] VITALS: BP 130/74
[2025-02-07] MEDS: LOVENOX 40 MG SC (17:59)
[2025-02-07 19:55] VITALS: BP 121/75
[2025-02-07] MEDS: DESYREL 25 MG PO (22:08)
[2025-02-07] MEDS: TYLENOL 650 MG PO (22:19)
[2025-02-07] MEDS: ULTRAM 50 MG PO (22:19)
[2025-02-07 23:40] VITALS: BP 110/68
[2025-02-08] VITALS (7 sets, daily range): BP systolic 103–118; BP diastolic 64–73; BMI 24.6
[2025-02-08] MEDS: ZOSYN 100 IV ×4 (04:50→21:47)
[2025-02-08 05:59] LABS: % Basophils 0.5 % (0-2); % Eosinophils 0.7 % (0-6); % Immature Granulocytes 0.7 % (0-0.5); % Lymphocytes 4.3 % (20.5-51.1); % Monocytes 9.4 % (1.7-9.3); % Neutrophils 84.4 % (42.2-75.2); Absolute Eosinophils 0.1 10^3/uL (0-0.7); Absolute Immature Granulocytes 0.1 10^3/uL (0-0.05); Absolute Lymphocytes 0.4 10^3/uL (1.2-3.4); Absolute Monocytes 0.8 10^3/uL (0.1-0.6); Absolute Neutrophils 7.5 10^3/uL (1.4-6.5); Hematocrit 22.6 % (39.0-52.0); Hemoglobin 7.1 g/dL (13.0-18.0); Mean Corp Hgb Conc. 31.4 g/dL (33.0-37.0); Mean Corpuscular Hgb 31.4 pg (27.0-31.0); Mean Platelet Volume 9.6 fL (7.4-10.4); Nucleated Red Blood Cells % 0 % (-); Platelet Count 311 10^3/uL (130-400); Red Blood Cell Count 2.26 10^6/uL (4.70-6.10); Red Cell Dist. Width 21.6 % (11.5-14.5); White Blood Cell Count 8.8 10^3/uL (4.8-10.8)
[2025-02-08 06:12] LABS: ALT (SGPT) 34 U/L (0-50); AST (SGOT) 157 U/L (17-59); Albumin 2.4 g/dl (3.5-5.0); Blood Urea Nitrogen 8 mg/dl (9-20); Carbon Dioxide 26 mmol/L (22-30); Chloride 106 mmol/L (98-107); Estimated Creatinine Clearance 118 ml/min; Glucose 157 mg/dl (70-99); Potassium 3.3 mmol/L (3.5-5.1); Sodium 137 mmol/L (135-145); Total Bilirubin 1.7 mg/dl (0.2-1.3); Total Protein 5.8 g/dl (6.3-8.2); eGFR > 60.00
[2025-02-08 06:22] LABS: Alkaline Phosphatase 974 U/L (38-126)
[2025-02-08] MEDS: ProAmatine 5 MG PO ×2 (06:27→12:49)
[2025-02-08] MEDS: TYLENOL 650 MG PO ×2 (06:27→20:04)
[2025-02-08] MEDS: ULTRAM 50 MG PO ×2 (06:28→20:04)
[2025-02-08] MEDS: LASIX 40 MG IV (08:52)
[2025-02-08] MEDS: TOPROL XL 12.5 MG PO ×2 (08:52→19:59)
[2025-02-08] MEDS: FLUSH (NSS) IV (08:53)
[2025-02-08] MEDS: KCL 40 MEQ PO (10:08)
--- NOTE | 2025-02-08 10:59 | CM ---
Addendum entered by Adelia Whelan 02/08/25 14:37:
Patient is current with [facility] and they will follow patent in home after discharge, patient also is on IV ABX Zosyn in home and receives IV ABX from [facility], call placed to Pastora at [facility] and physician documented to resume ABX per ID
orders after discharge, physician notes faxed to [facility].
Patient is currently on 4 liters of oxygen, needs home oxygen testing.
Original Note:
electrical tech/project manager reviewed patient's chart today and met with patient and patient is currently requiring 4 liters of oxygen plan will be for patient to be evaluated for home oxygen. per notes patient has a meeting with Palliative care next week, and may
transition to hospice then, home when stable. Patient has a w/c in room that he uses.
Plan; Home when stable, meeting next week with Palliative care, needs evaluation for home oxygen.
--- NOTE | 2025-02-08 11:57 | PN.CDI ---
CDI
- -
CDI:
Physician Documentation Request
Admit Date: 02/06/25 13:18
Dear Doctor Keven,
Please review the following and provide your response in the progress notes.
Clinical Indicators:
Laboratory Tests
02/06/25 02/07/25 02/08/25
10:00 05:55 05:32
Total Bilirubin 2.1 H 2.3 H 1.7 H
Based on the above, could you clarify in the progress notes, the appropriate diagnosis, if significant, that supports the above abnormalities and additional evaluation, monitoring and/or treatment rendered:
Elevated total bilirubin
Abnormal lab value, clinically insignificant
Other (please specify)
Use of terms such as suspected, likely, concern for, or probable (associated with a specific diagnosis that is being evaluated, monitored, or treated as if it exists) are acceptable and can be coded in the inpatient setting, when documented at the
time of discharge.
Thank you,
Marjorie Herrera RN BSN CCDS
CDI Specialist
Please contact via tiger text
Please use your independent medical judgment in providing your response.
--- NOTE | 2025-02-08 12:05 | W.PN.ONC ---
Today's Communication / Plan
-
Tigertexted IR for right thoracentesis
Arrange for Asept catheter
Patient agreeable to hospice- scheduled for palliative care consult on Tuesday
Transfuse pRBC if Hgb<7
Impression
Impression
59-year-old with metastatic rectal adenocarcinoma to the liver, lung, and external iliac LNs, resistant to FOLFOX and FOLFIRI, presenting with acute dyspnea and weakness, progressing over the past couple weeks.
We have been consulted regarding goals of care discussion.
# Acute hypoxic respiratory failure
-Bilateral pleural effusion most likely due to metastatic disease s/p left thoracentesis by IR
-Currently remains on 4lit O2-TTed IR for right thoracentesis
-Management of hypoxic respiratory failure per primary team
# Sepsis
-Follow blood cultures-ngtd
-Receiving Zosyn
-Management per primary team and ID
-Ostomy with mod amount of soft yellow/palomo stool- CHRISTINE drain with yellow fluid output with daily flush
# Chronic anemia
- Hemoglobin stable and around baseline at 7.1
- Transfuse pRBC if Hgb<7
- No evidence of active bleeding
- Continue to monitor CBC closely
#Metastatic rectal cancer
-Diagnosed in 2022-status post chemo and radiation, and partial liver lobectomy for liver mets.
-Presented in October 2024 with large bowel obstruction treated with palliative transverse loop colostomy.
-Patient was previously offered to be enrolled in clinical trial but did nt qualify (according to patient)
-Goals of care discussion
-Hospice consult-will need Asept catheter
#DVT prophylaxis
-Lovenox
Plan
Plan
Hospice consulted- will need Asept catheter upon discharge
Transfuse pRBC if Hgb<7
Righ thoracenetsis
Subjective/Objective
Subjective/Objective
No new complaints. Remains on 4lit O2.
Vital Signs:
Vital Signs
Temp Pulse Resp BP Pulse Ox
98.1 F 88 18 103/65 95
02/08/25 11:22 02/08/25 11:22 02/08/25 11:22 02/08/25 11:22 02/08/25 11:22
Lab Results:
Laboratory Data
WBC 8.8 10^3/uL (4.8-10.8) 02/08/25 05:32
Hgb 7.1 g/dL (13.0-18.0) L 02/08/25 05:32
Plt Count 311 10^3/uL (130-400) D 02/08/25 05:32
eGFR > 60.00 02/08/25 05:32
Orders
Orders
Orders From Last 24 Hours
02/07/25 13:34
Flush (0.9% Sodium Chloride) [Flush (Nss)] See Dose Instructions IV DAILY
--- NOTE | 2025-02-08 12:44 | W.PN.HOSP.TC ---
Addendum entered and electronically signed by David Baca MD 02/08/25 13:30:
Continue Zosyn per infectious disease on discharge
Addendum entered and electronically signed by David Baca MD 02/08/25 12:52:
Elevated T. bili, no clear significance with malignancy here
Original Note:
Today's Communication/Plan
-
Monitor vital signs see plan
Replete potassium
Continue antibiotics
Wean oxygen as tolerated, home O2 evaluation tomorrow
Continue with diuresis
Assessment / Plan
Assessment / Plan
General: Well Developed, Well Nourished and No Apparent Distress
HEENT: NormoCephalic, Moist mucous membranes and Atraumatic
Respiratory: Clear
Cardiac: S1/S2 and Regular Rhythm; No Murmur or Rub
GI: Soft, Non Tender, Normal Bowel Sounds and Distended; No Organomegaly
Musculoskeletal: No Clubbing, No Cyanosis and Other (generalized edema)
Neuro: AO x 3 and Nonfocal/grossly intact
Psych: Calm
Severe anasarca with bilateral pleural effusion likely from metastatic disease disease
# Acute hypoxic respiratory failure likely from pleural effusion/anasarca
- AST 145
- Chest x-ray with impression of Moderate bilateral pleural effusions, right greater than left. No pneumothorax.Right upper lobe nodule has increased in size.
- CT abdomen pelvis with worsening malignancy. Oncology following. Goals of care discussion ongoing. Patient is not interested in hospice at this time and wants to first follow-up with palliative outpatient.
- s/p tap by IR. Patient should get repeat imaging outpatient and then further decide on repeat Thora/Asept catheter. This was discussed with oncology.
-iv Lasix continued
Acute hypoxic respiratory insufficiency
Continue with IV diuresis
X-ray with pleural effusion status post thoracentesis, monitor
bnp not significant
Recent echo with preserved EF
Currently on 4 L, wean oxygen as tolerated. Will need home O2 evaluation tomorrow
# Sepsis unclear cause
# Recent intra-abdominal abscess sensitive to E facialis, blood culture with ESBL E. coli and MSSA probable abdominal source
-CHRISTINE in place
-Patient recently on eravacycline but was not able to finish due to nausea, switched to Zosyn on 01/15
-CT abdomen pelvis with worsening malignancy
- WBC 11.9 lactic 2.1, heart rate 120 9. White count now improving
Follow blood cx NGTD
-UA without UTI
-continue iv Zosyn
Hypokalemia
Replete
# Anemia of chronic disease
-Continue to monitor
- No active bleeding
- Continue to monitor hemoglobin; 7.1 today. Blood consented. transfuse <7
#Metastatic rectal cancer -treated in 2022 with chemo and radiation, and partial liver lobectomy in 2023 for liver metastasis. Presented in October 2024 with large bowel obstruction treated with palliative diverting transverse loop colostomy.
#Paroxysmal atrial fibrillation -not on chronic anticoagulation due to prior bleed and anemia.
-EKg with sinus tachycardia
-metoprolol continued with hold parameter
#orthostasis
-midodrine continued
#DVT prophylaxis
-Lovenox
Full code
I spent a total of 52 minutes with the patient or on the floor. More than 50% of this time involved counseling and coordination of care.
Anticipated Discharge: 24 - 48 hours
Subjective/Interval History
-
Date of Service: February 08, 2025
Feels breathing is better
Objective Data
-
Labs:
Laboratory Results
02/08/25
05:32
WBC 8.8
Hgb 7.1 L
Hct 22.6 L
Plt Count 311 D
Sodium 137
Potassium 3.3 L
Chloride 106
Carbon Dioxide 26
BUN 8 L
Creatinine 0.5 L
Glucose 157 H
Calcium 8.0 L
Total Bilirubin 1.7 H
AST 157 H
ALT 34
Alkaline Phosphatase 974 H
Vital Signs:
Vital Signs
Temp Pulse Resp BP Pulse Ox
98.1 F 88 18 103/65 95
02/08/25 11:22 02/08/25 11:22 02/08/25 11:22 02/08/25 11:22 02/08/25 11:22
I&O
02/07/25 02/08/25 02/09/25
06:59 06:59 06:59
Intake Total 480 / 480 1929
Output Total 1440 / 1440 1899 / 1899
Balance -960 / -960
[2025-02-08] MEDS: LOVENOX 40 MG SC (17:29)
[2025-02-08] MEDS: DESYREL 25 MG PO (21:47)
[2025-02-09] VITALS (9 sets, daily range): BP systolic 108–121; BP diastolic 68–75; PULSE 96; O2SAT 95; BMI 24.6
[2025-02-09] MEDS: ZOSYN 100 IV ×4 (04:05→21:13)
--- NOTE | 2025-02-09 04:05 | VATNOTE ---
Right forearm swollen below PICC. Primary RN notified, US suggested. Will continue to monitor.
[2025-02-09] MEDS: TYLENOL 650 MG PO ×2 (04:11→19:35)
[2025-02-09] MEDS: ULTRAM 50 MG PO ×2 (04:11→19:35)
--- NOTE | 2025-02-09 04:15 | PTCARENOTE ---
Addendum entered by Juan Antonio Murillo RN 02/09/25 05:02:
Magnesium level this AM was 2.1, WILMER Hernandez notified, no further orders.
Original Note:
Pt's HR increased from 90s sinus rhythm to 150s sinus tach for about a minute, then decreased back to 90s NSR. Pt was awake and asymptomatic during this event. WILMER Hernandez notified, order placed for add on mag for AM labs. Will continue
to monitor HR.
--- NOTE | 2025-02-09 04:20 | PTCARENOTE ---
Pt's right arm around PICC line becoming increasingly swollen during the past 24 hours, +1-2 edema. Warm to touch, + pulse, no numbness or tingling in the right arm. Pt denies tenderness but reports that it 'feels tight' when he bends his arm.
VAT notified and looked at PICC line, + blood return and able to draw labs this AM. VAT recommended right arm US to r/o DVT. EATING DISORDER PSYCHOLOGIST David notified, order placed for right arm Doppler US this AM. Pt notified of new imaging for today.
[2025-02-09 04:37] LABS: Hemoglobin 7.2 g/dL (13.0-18.0); Mean Corp Hgb Conc. 31.3 g/dL (33.0-37.0); Mean Corpuscular Hgb 31.4 pg (27.0-31.0); Mean Corpuscular Volume 100.4 fL (80.0-94.0); Mean Platelet Volume 10.1 fL (7.4-10.4); Platelet Count 308 10^3/uL (130-400); Red Blood Cell Count 2.29 10^6/uL (4.70-6.10); Red Cell Dist. Width 21.3 % (11.5-14.5); White Blood Cell Count 8.9 10^3/uL (4.8-10.8)
--- NOTE | 2025-02-09 04:57 | W.PN.UPDATE ---
Update Note
Progress Note Update
-RUE with swelling, warm to touch. Patient denies numbness.
-Intact Sensation and + pulse.
-RUE U/S ordered.
[2025-02-09 04:59] LABS: ALT (SGPT) 36 U/L (0-50); AST (SGOT) 167 U/L (17-59); Albumin 2.5 g/dl (3.5-5.0); Alkaline Phosphatase 1143 U/L (38-126); Blood Urea Nitrogen 8 mg/dl (9-20); Calcium 8.1 mg/dl (8.4-10.2); Carbon Dioxide 30 mmol/L (22-30); Chloride 104 mmol/L (98-107); Estimated Creatinine Clearance 118 ml/min; Glucose 118 mg/dl (70-99); Magnesium 2.1 mg/dl (1.6-2.3); Potassium 3.8 mmol/L (3.5-5.1); Sodium 136 mmol/L (135-145); Total Bilirubin 1.9 mg/dl (0.2-1.3); Total Protein 6.2 g/dl (6.3-8.2); eGFR > 60.00
[2025-02-09] MEDS: ProAmatine 5 MG PO ×2 (06:06→13:14)
[2025-02-09] MEDS: LASIX 40 MG IV (10:03)
[2025-02-09] MEDS: TOPROL XL 12.5 MG PO ×2 (10:04→20:36)
[2025-02-09] MEDS: FLUSH (NSS) 1 FLUSH IV (10:04)
--- NOTE | 2025-02-09 12:11 | W.PN.HOSP.TC ---
Addendum entered and electronically signed by David Baca MD 02/09/25 13:24:
Patient is in need of oxygen on exertion due to pulse oximetry of 90% on room air at rest; 77% on room air with exertion.
Patient was placed on 2L O2 via nasal cannula with saturation of 95%. Oxygen will help to improve hypoxemia.
Patient is mobile within the home. Albuterol therapy has been discussed and is ineffective in treating hypoxemia-related symptoms.
Oxygen will improve the patient's symptoms.
Original Note:
Today's Communication/Plan
-
Monitor vitals
See plan
Wean oxygen as tolerated, home O2 evaluation
Continue with IV diuresis
Monitor hemoglobin
Assessment / Plan
Assessment / Plan
General: Well Developed, Well Nourished and No Apparent Distress
HEENT: NormoCephalic, Moist mucous membranes and Atraumatic
Respiratory: Clear
Cardiac: S1/S2 and Regular Rhythm; No Murmur or Rub
GI: Soft, Non Tender, Normal Bowel Sounds and Distended; No Organomegaly
Musculoskeletal: No Clubbing, No Cyanosis and Other (generalized edema)
Neuro: AO x 3 and Nonfocal/grossly intact
Psych: Calm
Severe anasarca with bilateral pleural effusion likely from metastatic disease disease
# Acute hypoxic respiratory failure likely from pleural effusion/anasarca
- AST 145
- Chest x-ray with impression of Moderate bilateral pleural effusions, right greater than left. No pneumothorax.Right upper lobe nodule has increased in size.
- CT abdomen pelvis with worsening malignancy. Oncology following. Goals of care discussion ongoing. Patient is not interested in hospice at this time and wants to first follow-up with palliative outpatient.
- s/p tap by IR. Patient should get repeat imaging outpatient and then further decide on repeat Thora/Asept catheter. This was discussed with oncology.
-iv Lasix continued
Acute hypoxic respiratory insufficiency
Continue with IV diuresis
X-ray with pleural effusion status post thoracentesis, monitor
bnp not significant
Recent echo with preserved EF
Currently on 2 L, wean oxygen as tolerated. home O2 evaluation
# Sepsis unclear cause
# Recent intra-abdominal abscess sensitive to E facialis, blood culture with ESBL E. coli and MSSA probable abdominal source
-CHRISTINE in place
-Patient recently on eravacycline but was not able to finish due to nausea, switched to Zosyn on 01/15
-CT abdomen pelvis with worsening malignancy
- WBC 11.9 lactic 2.1, heart rate 120 9. White count now improving
Follow blood cx NGTD
-UA without UTI
-continue iv Zosyn per ID; patient to see ID next week
RUE picc line; no thrombus on US
Hypokalemia
Replete
# Anemia of chronic disease
-Continue to monitor
- No active bleeding
- Continue to monitor hemoglobin; 7.2 today. Blood consented. transfuse <7
#Metastatic rectal cancer -treated in 2022 with chemo and radiation, and partial liver lobectomy in 2023 for liver metastasis. Presented in October 2024 with large bowel obstruction treated with palliative diverting transverse loop colostomy.
#Paroxysmal atrial fibrillation -not on chronic anticoagulation due to prior bleed and anemia.
-EKg with sinus tachycardia
-metoprolol continued with hold parameter
Elevated T. bili, no clear significance with malignancy here
#orthostasis
-midodrine continued
#DVT prophylaxis
-Lovenox
Full code
Anticipated Discharge: 24 - 48 hours
Subjective/Interval History
-
Date of Service: February 09, 2025
Denies chest pain
Objective Data
-
Labs:
Laboratory Results
02/09/25
03:59
WBC 8.9
Hgb 7.2 L
Hct 23.0 L
Plt Count 308
Sodium 136
Potassium 3.8
Chloride 104
Carbon Dioxide 30
BUN 8 L
Creatinine 0.4 L
Glucose 118 H
Calcium 8.1 L
Total Bilirubin 1.9 H
AST 167 H
ALT 36
Alkaline Phosphatase 1143 H
Vital Signs:
Vital Signs
Temp Pulse Resp BP Pulse Ox
98.1 F 96 16 121/75 95
02/09/25 11:35 02/09/25 11:35 02/09/25 11:35 02/09/25 11:35 02/09/25 11:35
I&O
02/08/25 02/09/25 02/10/25
06:59 06:59 06:59
Intake Total 1929 / 1929 1290 / 1290
Output Total 1899 / 1899 2445 / 2445
Balance 30 30 -1155 / -1155
[2025-02-09] MEDS: KCL 40 MEQ PO (13:14)
--- NOTE | 2025-02-09 15:39 | CM ---
Chart reviewed. Spoke w/ nurse, patient will need home O2 at d/c. Not ready for d/c today
Patient does not ambulate at home, w/c bound, so walking O2 test was not completed, instead O2 needs documented by PT and nurse documented O2 needs in pulse oximetry report.
CM to order O2 when patient is d/c ready
Patient current w/ home infusions w/ [facility], CM prev faxed doctor note instructing resumption of IV infusions to [facility]
Plan: Home w/ O2, resumption of IV abx w/ [facility]
[2025-02-09] MEDS: LOVENOX 40 MG SC (17:10)
[2025-02-09] MEDS: DESYREL 25 MG PO (21:16)
[2025-02-10 02:56] VITALS: BP 114/77
[2025-02-10] MEDS: ZOSYN 100 IV ×4 (04:55→22:07)
[2025-02-10 04:58] LABS: % Basophils 0.4 % (0-2); % Eosinophils 0.2 % (0-6); % Immature Granulocytes 0.6 % (0-0.5); % Lymphocytes 3.5 % (20.5-51.1); % Monocytes 9.3 % (1.7-9.3); Absolute Basophils 0.1 10^3/uL (0-0.2); Absolute Immature Granulocytes 0.1 10^3/uL (0-0.05); Absolute Lymphocytes 0.4 10^3/uL (1.2-3.4); Absolute Monocytes 1.1 10^3/uL (0.1-0.6); Absolute Neutrophils 9.8 10^3/uL (1.4-6.5); Hematocrit 23.8 % (39.0-52.0); Hemoglobin 7.5 g/dL (13.0-18.0); Mean Corp Hgb Conc. 31.5 g/dL (33.0-37.0); Mean Corpuscular Hgb 31.3 pg (27.0-31.0); Mean Corpuscular Volume 99.2 fL (80.0-94.0); Mean Platelet Volume 10.1 fL (7.4-10.4); Nucleated Red Blood Cells % 0 % (-); Platelet Count 321 10^3/uL (130-400); Red Cell Dist. Width 21.3 % (11.5-14.5); White Blood Cell Count 11.4 10^3/uL (4.8-10.8)
[2025-02-10 05:21] LABS: ALT (SGPT) 38 U/L (0-50); AST (SGOT) 166 U/L (17-59); Albumin 2.6 g/dl (3.5-5.0); Alkaline Phosphatase 1053 U/L (38-126); Blood Urea Nitrogen 8 mg/dl (9-20); Calcium 8.1 mg/dl (8.4-10.2); Carbon Dioxide 27 mmol/L (22-30); Chloride 104 mmol/L (98-107); Estimated Creatinine Clearance 118 ml/min; Glucose 117 mg/dl (70-99); Sodium 134 mmol/L (135-145); Total Bilirubin 2.7 mg/dl (0.2-1.3); Total Protein 6.4 g/dl (6.3-8.2); eGFR > 60.00
[2025-02-10] MEDS: ProAmatine 5 MG PO ×2 (06:12→13:54)
[2025-02-10] MEDS: FLUSH (NSS) 1 FLUSH IV (08:01)
[2025-02-10] MEDS: LASIX 40 MG IV (08:01)
[2025-02-10] MEDS: TOPROL XL 12.5 MG PO ×2 (08:02→20:21)
[2025-02-10 08:48] VITALS: BP 112/75
[2025-02-10 11:22] VITALS: BP 110/63
--- NOTE | 2025-02-10 11:26 | W.PN.HOSP.TC ---
Today's Communication/Plan
-
Monitor vitals
See plan
ID to see today
Continue antibiotics per ID
Continue diuresis
Metoprolol
Possible discharge tomorrow
Assessment / Plan
Assessment / Plan
General: Well Developed, Well Nourished and No Apparent Distress
HEENT: NormoCephalic, Moist mucous membranes and Atraumatic
Respiratory: Clear
Cardiac: S1/S2 and Regular Rhythm; No Murmur or Rub
GI: Soft, Non Tender, Normal Bowel Sounds and Distended; No Organomegaly
Musculoskeletal: No Clubbing, No Cyanosis and Other (generalized edema)
Neuro: AO x 3 and Nonfocal/grossly intact
Psych: Calm
Severe anasarca with bilateral pleural effusion likely from metastatic disease disease
# Acute hypoxic respiratory failure likely from pleural effusion/anasarca
- AST 145
- Chest x-ray with impression of Moderate bilateral pleural effusions, right greater than left. No pneumothorax.Right upper lobe nodule has increased in size.
- CT abdomen pelvis with worsening malignancy. Oncology following. Goals of care discussion ongoing. Patient is not interested in hospice at this time and wants to first follow-up with palliative outpatient.
- s/p tap by IR. Patient should get repeat imaging outpatient and then further decide on repeat Thora/Asept catheter. This was discussed with oncology.
-iv Lasix continued, likely will need higher dose of p.o. Lasix on discharge
Acute hypoxic respiratory insufficiency
Continue with IV diuresis
X-ray with pleural effusion status post thoracentesis, monitor
bnp not significant
Recent echo with preserved EF
Currently on 2 L
Patient is in need of oxygen on exertion due to pulse oximetry of 90% on room air at rest; 77% on room air with exertion.
Patient was placed on 2L O2 via nasal cannula with saturation of 95%. Oxygen will help to improve hypoxemia.
Patient is mobile within the home. Albuterol therapy has been discussed and is ineffective in treating hypoxemia-related symptoms.
Oxygen will improve the patient's symptoms.
# Sepsis
# Recent intra-abdominal abscess sensitive to E facialis, blood culture with ESBL E. coli and MSSA probable abdominal source
-CHRISTINE in place
-Patient recently on eravacycline but was not able to finish due to nausea, switched to Zosyn on 01/15. Discussed with infectious disease. Consulted ID
-CT abdomen pelvis with worsening malignancy
- WBC 11.9 lactic 2.1, heart rate 120 9. White count now improving
Follow blood cx NGTD
-UA without UTI
-continue iv Zosyn per ID; transition to PO per ID
RUE picc line; no thrombus on US
Hypokalemia
Replete
Hyponatremia
Monitor
# Anemia of chronic disease
-Continue to monitor
- No active bleeding
- Continue to monitor hemoglobin; 7.5 today. Blood consented. transfuse <7
#Metastatic rectal cancer -treated in 2022 with chemo and radiation, and partial liver lobectomy in 2023 for liver metastasis. Presented in October 2024 with large bowel obstruction treated with palliative diverting transverse loop colostomy.
#Paroxysmal atrial fibrillation -not on chronic anticoagulation due to prior bleed and anemia.
-EKg with sinus tachycardia
-metoprolol continued with hold parameter
Elevated T. bili, no clear significance with malignancy here
#orthostasis
-midodrine continued
#DVT prophylaxis
-Lovenox
Full code
Anticipated Discharge: Within 24 hours
Subjective/Interval History
-
Date of Service: February 10, 2025
denies pain
Objective Data
-
Labs:
Laboratory Results
02/10/25
04:29
WBC 11.4 H
Hgb 7.5 L
Hct 23.8 L
Plt Count 321
Sodium 134 L
Potassium 4.0
Chloride 104
Carbon Dioxide 27
BUN 8 L
Creatinine 0.5 L
Glucose 117 H
Calcium 8.1 L
Total Bilirubin 2.7 H
AST 166 H
ALT 38
Alkaline Phosphatase 1053 H
Vital Signs:
Vital Signs
Temp Pulse Resp BP Pulse Ox
99.2 F 101 16 110/63 93
02/10/25 11:22 02/10/25 11:22 02/10/25 11:22 02/10/25 11:22 02/10/25 11:22
I&O
02/09/25 02/10/25 02/11/25
06:59 06:59 06:59
Intake Total 1290 / 1290 1640 / 1640
Output Total 2445 / 2445 1750 / 1750 610 / 610
Balance -1155 / -1155 -110 / -110 -610 / -610
--- NOTE | 2025-02-10 12:52 | CON.ID ---
Consultation
-
Date/Time Consultation Requested: February 10, 2025 1029
Date/Time Consultation Performed: February 10, 2025 1255
Requesting Provider: Dr. David Baca
Performing Provider: Dr. Lynn Darby
Reason for Consultation: Abdominal abscess on Zosyn
Chief Complaint / Past History
Chief Complaint
Body swelling
History of Present Illness
59-year-old male with stage IV rectal cancer status post previous radiation and chemo, well-known to ID service (Dr. Almanza) when he was hospitalized in October due to large bowel obstruction and underwent uncomplicated transverse loop colostomy,
complicated by intra-abdominal abscess with ESBL E. coli and MSSA bacteremia. Abscess was not drainable and therefore he received meropenem through the 12/27. Unfortunately, in the interim he developed large intra-abdominal abscess requiring drain
placement; culture grew Enterococcus faecalis. Initially, Dr. Almanza � planned for 4 weeks of eravacycline (7 week total course),� however course was complicated by persistent nausea and vomiting and therefore switched to zosyn.�CHRISTINE drained
continued to have purulent output. 01/10 sinus tract study showed large residual abscess. Dr. Almanza extended the Zosyn planning through 02/[address] abdomen pelvis scheduled from February 06. In the p.m. time patient developed
significant anasarca. He went for his CT scan on February 06, noted to have significant shortness of breath in supine position and therefore admitted to the ER. He underwent aggressive diuresis and now improved edema. Patient denies fevers or chills.
He denies change in stool habits while on antibiotics. He reports CHRISTINE drain has reduced output. Of note patient declined hospice and will be going home on palliative care.
Past History
Additional Past Medical History:
Stage IV Metastatic rectal cancer, no longer on tx
Intra-abdominal abscesses
Chronic anemia
Paroxysmal atrial fibrillation
DM2
Vitamin D deficiency
GERD
Bowel resection/colostomy
Allergy History:
No Known Allergies Allergy (Verified 02/06/25 09:25)
Medications Reviewed: Yes
Current Antibiotics:
Zosyn
Social History
Tobacco: Non-Smoker
Alcohol: None
Drug: None
Living: With Family (17 year old son)
Family History
Family History: Not Pertinent
Review of Systems
Review of Systems
General: Negative Fever or Chills
HEENT: Negative Sinus Problems or Headache
Respiratory: Dyspnea; Negative Cough
Gasteroenterology: Negative Nausea or Vomiting
Genital / Urological: Negative Dysuria
Skin / Hair / Nails: Negative Rash
Neurological: Negative Dizziness
All systems: All other systems were reviewed and were negative
Vital Signs
Temp Pulse Resp BP Pulse Ox
99.2 F 101 16 110/63 93
02/10/25 11:22 02/10/25 11:22 02/10/25 11:22 02/10/25 11:22 02/10/25 11:22
Physical Exam
Physical Exam
Constitutional: Comfortable
Cardiovascular: Regular Rate and S1/S2
Pulmonary: Non Labored and Other (decreased BS at bases)
Gastrointestinal: Soft, Non Tender, Normal Bowel Sounds and Other (Colostomy with soft stool; Right CHRISTINE drain 10 cc nadeem-purulent fluid)
Genito-Urinary: Negative CVA Tenderness
Extremities: Edema
Neurological: AO x 3
Lines: PICC (RUE no erythema)
Lab / Diagnostic Study Results
02/10/25 04:29
02/10/25 04:29
Abs Immat Gran (auto) 0.1 10^3/uL (0-0.05) H 02/10/25 04:29
Absolute Neuts (auto) 9.8 10^3/uL (1.4-6.5) H 02/10/25 04:29
Absolute Lymphs (auto) 0.4 10^3/uL (1.2-3.4) L 02/10/25 04:29
Absolute Monos (auto) 1.1 10^3/uL (0.1-0.6) H 02/10/25 04:29
Absolute Basos (auto) 0.1 10^3/uL (0-0.2) 02/10/25 04:29
Immature Gran % 0.6 % (0-0.5) H 02/10/25 04:29
Neutrophils % 86.0 % (42.2-75.2) H 02/10/25 04:29
Lymphocytes % 3.5 % (20.5-51.1) L 02/10/25 04:29
Monocytes % 9.3 % (1.7-9.3) 02/10/25 04:29
Eosinophils % 0.2 % (0-6) 02/10/25 04:29
Basophils % 0.4 % (0-2) 02/10/25 04:29
Lactic Acid 1.7 mmol/L (0.7-2.0) 02/06/25 14:18
Ur Squamous Epith Cells 0-2 /LPF (Few) 02/06/25 21:52
Microbiology Results
Micro:
02/06/25 10:29 Blood Culture - Preliminary
Blood/Venous No Growth in 4 days- Final report to follow
02/06/25 10:33 Blood Culture - Preliminary
Blood/Venous No Growth in 4 days- Final report to follow
02/06/25 13:46 Body Fluid Culture - Final
Pleural Fluid No Growth After 72 Hours
Gram Stain - Final
02/06/25 CT a/p: No evidence of pulmonary embolus. Large right pleural effusion. Stable. Moderate left pleural effusion. Stable. Bilateral upper lobe pulmonary nodules consistent metastatic disease. Significantly increased in size. Increased in
number as well. Mild left axillary lymphadenopathy. New. Numerous hypodense hepatic lesions consistent with metastatic disease. Stable. Significantly improved previous fluid suggesting abscess. At the least 2 small residual fluid collections with
rim enhancement consistent with abscesses. Right-sided percutaneous drainage catheter. Loop colostomy. Stable. Mild small bowel dilatation probably due to ileus. Improved. Findings suggesting severe volume overload or third spacing. Progressed.
Assessment / Plan
# Stage IV rectal cancer with wide metastasis, progression
- Pt declined hospice. He opted for palliative care.
# Intra-abdominal abscess since 10/2024
- s/p perc drain placement 12/18/24
- Hx ESBL-Ecoli and MSSA bacteremia (abd source)
- Abscess cx E. faecalis
- Has been on IV abx since October 2024.
Currently on Zosyn planned for through 02/13.
- 02/06 CT a/p small residual fluid at right CHRISTINE drain site. 2 new small abscesses in left abdomen.
- At this point, further IV abx is futile.
- Recommend DC Zosyn, PICC, and CHRISTINE drain tomorrow.
- Can transition to palliative abx's Augmentin 875mg po bid and doxycycline 100mg po bid indefinitely.
Care Review
Plan reviewed with: Physician (Dr. Baca)
[2025-02-10 15:19] VITALS: BP 110/72
[2025-02-10] MEDS: LOVENOX 40 MG SC (17:18)
[2025-02-10 19:34] VITALS: BP 120/76
[2025-02-10] MEDS: DESYREL 25 MG PO (22:07)
[2025-02-10] MEDS: TYLENOL 650 MG PO (22:34)
[2025-02-10] MEDS: ULTRAM 50 MG PO (22:37)
[2025-02-10 23:04] VITALS: BP 110/62
[2025-02-11] MEDS: ZOSYN 100 IV (04:26)
[2025-02-11 04:42] LABS: % Basophils 0.4 % (0-2); % Eosinophils 0.3 % (0-6); % Immature Granulocytes 0.6 % (0-0.5); % Lymphocytes 3.8 % (20.5-51.1); % Monocytes 10.2 % (1.7-9.3); % Neutrophils 84.7 % (42.2-75.2); Absolute Immature Granulocytes 0.1 10^3/uL (0-0.05); Absolute Lymphocytes 0.4 10^3/uL (1.2-3.4); Absolute Neutrophils 8.5 10^3/uL (1.4-6.5); Hematocrit 22.9 % (39.0-52.0); Hemoglobin 7.2 g/dL (13.0-18.0); Mean Corp Hgb Conc. 31.4 g/dL (33.0-37.0); Mean Corpuscular Volume 98.7 fL (80.0-94.0); Mean Platelet Volume 9.9 fL (7.4-10.4); Nucleated Red Blood Cells % 0 % (-); Platelet Count 305 10^3/uL (130-400); Red Blood Cell Count 2.32 10^6/uL (4.70-6.10); White Blood Cell Count 10.1 10^3/uL (4.8-10.8)
[2025-02-11 05:06] LABS: ALT (SGPT) 30 U/L (0-50); AST (SGOT) 127 U/L (17-59); Albumin 2.5 g/dl (3.5-5.0); Alkaline Phosphatase 804 U/L (38-126); Blood Urea Nitrogen 7 mg/dl (9-20); Calcium 8.1 mg/dl (8.4-10.2); Chloride 102 mmol/L (98-107); Estimated Creatinine Clearance 118 ml/min; Glucose 112 mg/dl (70-99); Potassium 3.5 mmol/L (3.5-5.1); Sodium 134 mmol/L (135-145); Total Bilirubin 3.3 mg/dl (0.2-1.3); Total Protein 6.1 g/dl (6.3-8.2); eGFR > 60.00
[2025-02-11 05:07] VITALS: BMI 24.2
[2025-02-11 05:27] LABS: Carbon Dioxide 27 mmol/L (22-30)
[2025-02-11] MEDS: ProAmatine 5 MG PO ×2 (06:06→12:23)
[2025-02-11 07:00] VITALS: BP 109/69
[2025-02-11] MEDS: AUGMENTIN 875 MG/125 MG 1 TABLET PO (08:14)
[2025-02-11] MEDS: LASIX 40 MG IV (08:15)
[2025-02-11] MEDS: VIBRAMYCIN 100 MG PO (08:15)
[2025-02-11] MEDS: TOPROL XL 12.5 MG PO (08:15)
[2025-02-11] MEDS: FLUSH (NSS) 1 FLUSH IV (08:18)
--- NOTE | 2025-02-11 10:36 | W.PN.ONC ---
Today's Communication / Plan
-
He is down to 2 L. His breathing is acceptable to him. Probable discharge today. Palliative care for now, but agree that hospice would be most appropriate.
Impression
Impression
59-year-old with metastatic rectal adenocarcinoma to the liver, lung, and external iliac LNs, resistant to FOLFOX and FOLFIRI, presenting with acute dyspnea and weakness, progressing over the past couple weeks.
We have been consulted regarding goals of care discussion.
# Acute hypoxic respiratory failure
-Bilateral pleural effusion most likely due to metastatic disease s/p left thoracentesis by IR
-Currently remains on 4lit O2-TTed IR for right thoracentesis
-Management of hypoxic respiratory failure per primary team
# Sepsis
-Follow blood cultures-ngtd
-Receiving Zosyn
-Management per primary team and ID
-Ostomy with mod amount of soft yellow/palomo stool- CHRISTINE drain with yellow fluid output with daily flush
# Chronic anemia
- Hemoglobin stable and around baseline at 7.1
- Transfuse pRBC if Hgb<7
- No evidence of active bleeding
- Continue to monitor CBC closely
#Metastatic rectal cancer
-Diagnosed in 2022-status post chemo and radiation, and partial liver lobectomy for liver mets.
-Presented in October 2024 with large bowel obstruction treated with palliative transverse loop colostomy.
-Patient was previously offered to be enrolled in clinical trial but did nt qualify (according to patient)
-Goals of care discussion
-Hospice consult-will need Asept catheter
#DVT prophylaxis
-Lovenox
Plan
Plan
Hospice consulted- will need Asept catheter upon discharge
Transfuse pRBC if Hgb<7
Righ thoracenetsis
Subjective/Objective
Subjective/Objective
He is feeling about the same. He reports no new symptoms. Examination is unchanged.
Vital Signs:
Vital Signs
Temp Pulse Resp BP Pulse Ox
98.8 F 100 20 109/69 94
02/11/25 07:00 02/11/25 07:00 02/11/25 07:00 02/11/25 07:00 02/11/25 07:35
Lab Results:
Laboratory Data
WBC 10.1 10^3/uL (4.8-10.8) 02/11/25 04:31
Hgb 7.2 g/dL (13.0-18.0) L 02/11/25 04:31
Plt Count 305 10^3/uL (130-400) 02/11/25 04:31
eGFR > 60.00 02/11/25 04:31
[2025-02-11] MEDS: ULTRAM 50 MG PO (10:41)
[2025-02-11] MEDS: TYLENOL 650 MG PO (10:41)
--- NOTE | 2025-02-11 11:07 | W.PN.ID1 ---
Date of Service
Date of Service: February 11, 2025
Today's Communication
- DC Zosyn, PICC, and CHRISTINE drain
- Can transition to palliative abx's Augmentin 875mg po bid and doxycycline 100mg po bid indefinitely.
Assessment / Plan
# Stage IV rectal cancer with wide metastasis, progression
- Pt declined hospice. He opted for palliative care.
# Intra-abdominal abscess since 10/2024
- s/p perc drain placement 12/18/24
- Hx ESBL-Ecoli and MSSA bacteremia (abd source)
- Abscess cx E. faecalis
- Has been on IV abx since October 2024.
Currently on Zosyn planned for through 02/13.
- 02/06 CT a/p small residual fluid at right CHRISTINE drain site. 2 new small abscesses in left abdomen.
- At this point, further IV abx is futile.
- DC Zosyn, PICC, and CHRISTINE drain
- Can transition to palliative abx's Augmentin 875mg po bid and doxycycline 100mg po bid indefinitely.
Chief Complaint
-: Other (abscess)
Subjective / Review of Systems
No new complaints.
Vital Signs / Physical Exam
Vital Signs
Vital Signs
Temp Pulse Resp BP Pulse Ox
98.8 F 100 20 109/69 94
02/11/25 07:00 02/11/25 07:00 02/11/25 07:00 02/11/25 07:00 02/11/25 07:35
Physical Exam
Constitutional: No Acute Distress and Chronically Ill
Gastrointestinal: Soft, Non Tender, Non Distended and Other (R CHRISTINE drain small amt sanguinopurulent fluid)
Extremities: Edema
Neurological: AO x 3
Lines: PICC (RUE)
Objective Data
Lab Data
Lab Results
02/11/25 04:31
02/11/25 04:31
Estimated Creat Clear 118 ml/min 02/11/25 04:31
Lactic Acid 1.7 mmol/L (0.7-2.0) 02/06/25 14:18
Total Bilirubin 3.3 mg/dl (0.2-1.3) H 02/11/25 04:31
AST 127 U/L (17-59) H 02/11/25 04:31
ALT 30 U/L (0-50) 02/11/25 04:31
Alkaline Phosphatase 804 U/L (38-126) H 02/11/25 04:31
Most recent labs reviewed.
Micro Results:
02/06/25 10:29 Blood Culture - Final
Blood/Venous No Growth - Final Report
02/06/25 10:33 Blood Culture - Final
Blood/Venous No Growth - Final Report
02/06/25 13:46 Body Fluid Culture - Final
Pleural Fluid No Growth After 72 Hours
Gram Stain - Final
02/06/25 CT a/p: No evidence of pulmonary embolus. Large right pleural effusion. Stable. Moderate left pleural effusion. Stable. Bilateral upper lobe pulmonary nodules consistent metastatic disease. Significantly increased in size. Increased in
number as well. Mild left axillary lymphadenopathy. New. Numerous hypodense hepatic lesions consistent with metastatic disease. Stable. Significantly improved previous fluid suggesting abscess. At the least 2 small residual fluid collections with
rim enhancement consistent with abscesses. Right-sided percutaneous drainage catheter. Loop colostomy. Stable. Mild small bowel dilatation probably due to ileus. Improved. Findings suggesting severe volume overload or third spacing. Progressed.
--- NOTE | 2025-02-11 11:47 | W.PN.HOSP.TC ---
Addendum entered and electronically signed by David Baca MD 02/11/25 13:37:
Time of discharge 39 minutes
Original Note:
Today's Communication/Plan
-
Monitor vital signs see plan
Home O2
abx change to oral
DC PICC
CHRISTINE drain removal per ID
Discharge likely today on p.o. diuretics
Palliative care outpatient
Assessment / Plan
Assessment / Plan
General: Well Developed, Well Nourished and No Apparent Distress
HEENT: NormoCephalic, Moist mucous membranes and Atraumatic
Respiratory: Clear
Cardiac: S1/S2 and Regular Rhythm; No Murmur or Rub
GI: Soft, Non Tender, Normal Bowel Sounds and Distended; No Organomegaly
Musculoskeletal: No Clubbing, No Cyanosis and Other (generalized edema)
Neuro: AO x 3 and Nonfocal/grossly intact
Psych: Calm
Severe anasarca with bilateral pleural effusion likely from metastatic disease disease
# Acute hypoxic respiratory failure likely from pleural effusion/anasarca
- AST 145
- Chest x-ray with impression of Moderate bilateral pleural effusions, right greater than left. No pneumothorax.Right upper lobe nodule has increased in size.
- CT abdomen pelvis with worsening malignancy. Oncology following. Goals of care discussion ongoing. Patient is not interested in hospice at this time and wants to first follow-up with palliative outpatient.
- s/p tap by IR. Patient should get repeat imaging outpatient and then further decide on repeat Thora/Asept catheter. This was discussed with oncology.
-iv Lasix continued, likely will need higher dose of p.o. Lasix on discharge
Acute hypoxic respiratory insufficiency
Continue with IV diuresis, transition to p.o. on discharge
X-ray with pleural effusion status post thoracentesis, monitor
bnp not significant
Recent echo with preserved EF
Currently on 2 L
Patient is in need of oxygen on exertion due to pulse oximetry of 90% on room air at rest; 77% on room air with exertion.
Patient was placed on 2L O2 via nasal cannula with saturation of 95%. Oxygen will help to improve hypoxemia.
Patient is mobile within the home. Albuterol therapy has been discussed and is ineffective in treating hypoxemia-related symptoms.
Oxygen will improve the patient's symptoms.
# Sepsis
# Recent intra-abdominal abscess sensitive to E facialis, blood culture with ESBL E. coli and MSSA probable abdominal source
-CHRISTINE in place, IR for CHRISTINE drain removal per ID
-Patient recently on eravacycline but was not able to finish due to nausea, switched to Zosyn on 01/15. Discussed with infectious disease. ID following
-CT abdomen pelvis with worsening malignancy
- WBC 11.9 lactic 2.1, heart rate 120 9. White count now improving
Follow blood cx NGTD
-UA without UTI
Low-grade fever overnight could likely secondary to malignancy.
Seen by ID, now on p.o. antibiotics indefinite
RUE picc line; no thrombus on US
Hypokalemia
Replete
Hyponatremia
Monitor
# Anemia of chronic disease
-Continue to monitor
- No active bleeding
- Continue to monitor hemoglobin; 7.5 today. Blood consented. transfuse <7
#Metastatic rectal cancer -treated in 2022 with chemo and radiation, and partial liver lobectomy in 2023 for liver metastasis. Presented in October 2024 with large bowel obstruction treated with palliative diverting transverse loop colostomy.
#Paroxysmal atrial fibrillation -not on chronic anticoagulation due to prior bleed and anemia.
-EKg with sinus tachycardia
-metoprolol continued with hold parameter
Elevated T. bili, no clear significance with malignancy here
#orthostasis
-midodrine continued
#DVT prophylaxis
-Lovenox
Full code
Anticipated Discharge: Today
Subjective/Interval History
-
Date of Service: February 11, 2025
Fever overnight
Objective Data
-
Labs:
Laboratory Results
02/11/25
04:31
WBC 10.1
Hgb 7.2 L
Hct 22.9 L
Plt Count 305
Sodium 134 L
Potassium 3.5
Chloride 102
Carbon Dioxide 27
BUN 7 L
Creatinine 0.5 L
Glucose 112 H
Calcium 8.1 L
Total Bilirubin 3.3 H
AST 127 H
ALT 30
Alkaline Phosphatase 804 H
Vital Signs:
Vital Signs
Temp Pulse Resp BP Pulse Ox
98.8 F 100 20 109/69 94
02/11/25 07:00 02/11/25 07:00 02/11/25 07:00 02/11/25 07:00 02/11/25 07:35
I&O
02/10/25 02/11/25 02/12/25
06:59 06:59 06:59
Intake Total 1640 / 1640 1060 / 1060 10 / 10
Output Total 1750 / 1750 1860 / 1860 150 / 150
Balance -110 / -110 -800 / -800 -140 / -140
--- NOTE | 2025-02-11 13:36 | W.DCSUMMARY ---
Discharge Summary
Discharge Data
Date of Admission: 02/06/25
Date of Discharge: 02/11/25
-
Pending Results: Yes
Hospital Course
59-year-old male with history of recent intra-abdominal abscess with CHRISTINE drain, metastatic rectal cancer, partial liver lobectomy, large bowel obstruction, palliative diverting transverse loop colostomy, atrial fibrillation, orthostasis, anasarca
came to the hospital with acute hypoxic respiratory failure secondary to pleural effusion and anasarca. Patient required thoracentesis on this hospitalization along with IV diuresis which improved his symptoms. He was instructed to follow-up with
oncology closely outpatient for repeat chest imaging and if still has persistent pleural effusion or recurrent pleural effusion then he will benefit from a acept catheter by IR. Oncology on this admission recommended hospice however patient wanted
to continue with palliative care and will decide on hospice at later time. Patient was also seen by infectious disease who recommended to discontinue IV Zosyn and to start patient on oral antibiotics indefinitely. Infectious disease also
recommended CHRISTINE drain to be discontinued prior to discharge. Throughout hospitalization patient required oxygenation and he was approved for 2 L of nasal cannula prior to discharge. Once patient oxygenation continue to improve, he was then
discharged home with instructions to follow-up with all his physicians outpatient.
Discharge Plan
-
Patient Disposition: Home with Home Care
Discharge Diagnosis/Procedures: Acute hypoxic respiratory failure likely from pleural effusion/anasarca
Status post thoracentesis
Recent sepsis with intra-abdominal abscess on antibiotics
Anemia of chronic disease
Metastatic rectal cancer
Diet: As tolerated
Activity: As tolerated
Driving Restrictions: As prior to admission
Bathing Restrictions: None
Activity Restrictions/Additional Instructions:
Repeat chest x-ray or ultrasound to look for pleural effusion. If increase or persist then benefit from a Asept catheter.
Follow-up with palliative care
Referrals:
Benigno Mascorro DO [Active, Hematology / Oncology]
Rayo Rose DO [Family Provider, Family Practice] - in less than 1 week
Tweddale,Yeyo A., MD [Active, Radiology]
Lynn Darby MD [Active, Infectious Diseases]
Prescriptions:
New
doxycycline hyclate 100 mg Capsule
100 mg PO Q12 Qty: 60 0RF
amoxicillin-pot clavulanate 875-125 mg Tablet
1 tab PO Q12 Qty: 60 0RF
Continued
acetaminophen 325 mg tablet
650 mg PO QID
midodrine 5 mg tablet
5 mg PO BID@0700,1300 Qty: 60 0RF
tramadol 50 mg tablet
50 mg PO Q4HPRN PRN (Reason: moderate pains) Qty: 20 0RF
metoprolol succinate 25 mg tablet extended release 24 hr
12.5 mg PO BID Qty: 60 0RF
trazodone 50 mg Tablet
25 mg PO HS 30 Days Qty: 30 0RF
ergocalciferol (vitamin D2) [Vitamin D2] 1,250 mcg (50,000 unit) Capsule
1,250 mcg PO FR Qty: 10 0RF
Changed
furosemide [Lasix] 20 mg Tablet
40 mg PO DAILY Qty: 60 0RF
Discontinued
sodium chloride 0.9 % (flush) [Normal Saline Flush] Syringe
10 ml intra-catheter DAILY Qty: 2500 0RF
piperacillin-tazobactam [Zosyn] 4.5 gram Recon Soln
4.5 g IV Q6H
Discharge Orders:
Discharge Patient (As Directed); Ordered 02/11/25
Ordered By: David Baca
Discharge Date and Time
Discharge Date/Time: 02/11/25 17:07
Print Language: LEBANESE
--- NOTE | 2025-02-11 13:37 | CM ---
Addendum entered by Adelia Whelan 02/11/25 14:12:
Home oxygen will be set up with [employer] and delivered at 4pm today, daughter to transport to home.
Original Note:
Per updated notes patient no longer needs IV infusion, CHRISTINE drain removed and plan is for discharge today, patient is currently on 2 liters of oxygen, plan is to home with [facility], patient has a palliative care appointment this week.
Plan; Home with [facility], and follow up with palliative care.
--- NOTE | 2025-02-11 13:51 | PN.IRAD.UPD ---
Update Note - IRAD
- -
WENT BEDSIDE AT 1335 TO PULL HIS RIGHT SIDED LOWER ABD DRAIN. CLEANED AND PREPPED, REMOVED WITH NO COMPLAINTS AND DRESSED WITH A PRIMAPORE. AP
--- NOTE | 2025-02-11 14:02 | VNURNOTE ---
Chart reviewed. Patient is current with [facility]. He qualified for new home 02. Clinicals and rx faxed to [facility]. Per Marika, DME co will deliver to hospital room by 1600 today. Patient made aware and provided DME contact # to call before leaving
hospital. Patient agreeable, verbalized understanding.
[2025-02-11 15:00] VITALS: BP 101/67
== END 2025-02-11 17:07 | disposition home health service (06) | DRG 871 ==
LOC: 4 WEST ACU 13:18
PROVIDERS: Physician Assistant; Radiology Diagnostic Radiology; Registered Nurse; ADMITTING PHYSICIAN Hospitalist; ATTENDING PHYSICIAN Internal Medicine; CONSULT PHYSICIAN Internal Medicine Infectious Disease; EMERGENCY PHYSICIAN Emergency Medicine; FAMILY PHYSICIAN Family Medicine; OTHER PHYSICIAN Internal Medicine Hematology & Oncology
PROC: 0W9B3ZZ Drainage of Left Pleural Cavity, Percutaneous Approach (ICD-10-PCS; 2025-02-06)
DX: A41.9 Sepsis, unspecified organism (principal); J96.01 Acute respiratory failure with hypoxia; K65.1 Peritoneal abscess; J90 Pleural effusion, not elsewhere classified; C20 Malignant neoplasm of rectum; E87.1 Hypo-osmolality and hyponatremia; E87.20 Acidosis, unspecified; R18.8 Other ascites; C78.7 Secondary malignant neoplasm of liver and intrahepatic bile duct; D63.8 Anemia in other chronic diseases classified elsewhere; E11.9 Type 2 diabetes mellitus without complications; E87.6 Hypokalemia; I48.0 Paroxysmal atrial fibrillation; E55.9 Vitamin D deficiency, unspecified; G47.00 Insomnia, unspecified; K21.9 Gastro-esophageal reflux disease without esophagitis; Z92.21 Personal history of antineoplastic chemotherapy; Z92.3 Personal history of irradiation; Z93.3 Colostomy status
CPT/HCPCS: 32555; 71045; 71275; 74177; 80053; 81003; 81015; 82805; 83605; 83615; 83735; 83880; 84157; 84484; 85025; 85027; 87015; 87040; 87070; 87205; 89051; 93005; 93971; 94761; 96374; 97163; 97530; 99285; Q9967